=== PATIENT | female | born 1940 | race Caucasian/White ===

== ENCOUNTER 2021-03-11 20:40 | Inpatient (IN) | payer MEDICARE, OTHER ==
[2021-03-11 21:53] LABS: Basophils % (A) 0 %; Eosinophils # (A) 0.1 k/uL (0-0.7); Eosinophils % (A) 1 %; HCT 36.1 % (34.0-46.0); Lymphocytes # (A) 0.6 k/uL (1.0-4.8); Lymphocytes % (A) 7 %; MCH 30.4 pg (25.0-35.0); MCHC 33.3 g/dL (31.0-37.0); MCV 91.1 fL (80.0-100.0); Mean Platelet Volume 7.4; Monocytes # (A) 0.5 k/uL (0-1.0); Monocytes % (A) 6 %; Neutrophils # (A) 7.5 k/uL (1.3-7.7); Neutrophils % (A) 85 %; Platelet Count 240 k/uL (150-450); RBC 3.96 m/uL (3.80-5.40); RDW 13.6 % (11.5-15.5); WBC 8.8 k/uL (3.8-10.6)
[2021-03-11 21:58] LABS: Appearance,Urine Clear (Clear); Bilirubin,Urine Negative (Negative); Blood,Urine Negative (Negative); Color,Urine Light Yellow; Glucose,Urine (UA) Negative (Negative); Ketones,Urine Negative (Negative); Leukocyte Esterase,Urine Negative (Negative); Nitrite,Urine Negative (Negative); Protein,Urine Trace (Negative); Specific Gravity,Urine 1.008 (1.001-1.035); Urobilinogen,Urine <2.0 mg/dL (<2.0)
[2021-03-11 22:05] LABS: ALT 48 U/L (4-34); AST 42 U/L (14-36); African American GFR (CKD) >90 (>60 ml/min/1.73 sqM); Albumin 3.7 g/dL (3.5-5.0); Alkaline Phosphatase 73 U/L (38-126); Anion Gap 6 mmol/L; Blood Urea Nitrogen 22 mg/dL (7-17); Calcium 9.7 mg/dL (8.4-10.2); Carbon Dioxide 38 mmol/L (22-30); Chloride 99 mmol/L (98-107); Creatine Kinase 36 U/L (30-135); Glucose 122 mg/dL (74-99); Magnesium 2.3 mg/dL (1.6-2.3); Non-African American GFR(CKD) 87 (>60 ml/min/1.73 sqM); Phosphorus 3.5 mg/dL (2.5-4.5); Potassium 3.4 mmol/L (3.5-5.1); Sodium 143 mmol/L (137-145); Total Bilirubin 0.2 mg/dL (0.2-1.3)
--- NOTE | 2021-03-11 22:07 | XR ---
EXAMINATION TYPE: XR chest 2V DATE OF EXAM: 03/11/2021 COMPARISON: 07/28/2018 HISTORY: Weakness TECHNIQUE: 2 views FINDINGS: There is elevated left diaphragm. There is scoliotic deformity. There is a thoracolumbar de xtroscoliosis. There is no gross heart failure. There is atelectasis left lung base. Right lung is fa irly clear. There are chest leads. IMPRESSION: There is some atelectasis left lung base which is slightly worse than last exam. No heart failure. Scoliotic deformity.
[2021-03-11 22:08] LABS: Partial Thromboplastin Time 25.3 sec (22.0-30.0)
[2021-03-11] MEDS ORDERED: IPRATROPIUM-ALBUTEROL 3 ML NEB INHALATION STA (23:13)
[2021-03-11] MEDS ORDERED: methylPREDNISolone SOD SUCCI 125 MG/2 ML VIAL IV STA (23:13)
[2021-03-11] MEDS ORDERED: ALBUTEROL NEBULIZED 2.5 MG/3 ML INHALATION STA (23:19)
--- NOTE | 2021-03-11 23:23 | ED ---
SOB HPI - General Chief Complaint: Extremity Problem,Nontraumatic Stated Complaint: Leg swelling Time Seen by Provider: 03/11/21 21:23 Source: family, RN notes reviewed, old records reviewed Mode of arrival: wheelchair Limitations: language barrier, physical limitation - History of Present Illness Initial Comments: This is an 80-year-old female DF for evaluation of shortness of breath. Patient has been having some increased difficulty breathing per staff as well as increased swelling over lower extremities. Patient herself complains of leg pain. Staff is noticed some edema to the legs. Patient is a long complicated medical history, cerebral palsy and developmental delay. She is unable to provide much of the history which comes from the caregiver MD Complaint: shortness of breath -: unknown Severity: moderate Severity scale (1-10): 4 Consistency: constant Improves With: nothing Worsens With: nothing Known History Of: COPD Context: recent URI Associated Symptoms: cough, sputum production Treatments Prior to Arrival: oxygen (Patient is on 4 L of oxygen) - Related Data Allergies Allergy/AdvReac Type Severity Reaction Status Date / Time ipratropium Allergy Unknown Verified 03/11/21 20:51 naproxen [From Aleve] Allergy Unknown Verified 03/11/21 20:51 Penicillins Allergy Unknown Verified 03/11/21 20:51 Sulfa (Sulfonamide Allergy Unknown Verified 03/11/21 20:51 Antibiotics) Review of Systems ROS Statement: Those systems with pertinent positive or pertinent negative responses have been documented in the HPI. ROS Other: All systems not noted in ROS Statement are negative. Past Medical History Past Medical History: Asthma, Coronary Artery Disease (CAD), COPD, GERD/Reflux, Hyperlipidemia, Hypertension, Osteoarthritis (OA), Pneumonia Additional Past Medical History / Comment(s): mild intellectual disability, cerebral palsy, kypho scoliosis, colitis, DJD, hernia Past Surgical History: Cholecystectomy, Orthopedic Surgery Additional Past Surgical History / Comment(s): (L) hip reduction Past Psychological History: Anxiety, Depression Smoking Status: Never smoker Past Alcohol Use History: None Reported Past Drug Use History: None Reported General Exam Limitations: language barrier, altered mental status, physical limitation General appearance: alert, in no apparent distress, anxious, in distress Head exam: Present: atraumatic, normocephalic, normal inspection Eye exam: Present: normal appearance, PERRL, EOMI. Absent: scleral icterus, conjunctival injection, periorbital swelling ENT exam: Present: normal exam, mucous membranes dry Neck exam: Present: normal inspection. Absent: tenderness, meningismus, lymphadenopathy Respiratory exam: Present: respiratory distress, wheezes, accessory muscle use, decreased breath sounds, prolonged expiratory. Absent: rales, rhonchi, stridor Cardiovascular Exam: Present: regular rate, normal rhythm, normal heart sounds. Absent: systolic murmur, diastolic murmur, rubs, gallop, clicks GI/Abdominal exam: Present: soft, normal bowel sounds. Absent: distended, tenderness, guarding, rebound, rigid Extremities exam: Present: normal inspection, full ROM, normal capillary refill. Absent: tenderness, pedal edema, joint swelling, calf tenderness Back exam: Present: normal inspection Neurological exam: Present: alert, oriented X3, CN II-XII intact Psychiatric exam: Present: normal affect, normal mood Skin exam: Present: warm, dry, intact, normal color. Absent: rash Course Vital Signs 03/11/21 20:43 Temperature 97.4 F L Pulse Rate 60 Respiratory 20 Rate Blood Pressure 159/72 O2 Sat by Pulse 99 Oximetry - Reevaluation(s) Reevaluation #1: 03/11/21 23:22 Records reviewed Reevaluation #2: 03/11/21 23:22 Patient still with shortness of breath here in the ER and severely dehydrated Reevaluation #3: 03/11/21 23:22 Patient staff informed of results, questions answered - Consultations Consultation #1: Spoke with Dr. Saldana who agrees to admit the patient Medical Decision Making - Medical Decision Making 80-year-old female DF for evaluation of shortness of breath difficulty breathing leg edema not acting herself dehydrated. Patient be admitted for breathing treatments, IV resuscitation. - Lab Data Result diagrams: 03/11/21 21:29 03/11/21 21:29 Lab Results 03/11/21 03/11/21 03/11/21 Range/Units 21:29 21:29 21:29 WBC 8.8 (3.8-10.6) k/uL RBC 3.96 (3.80-5.40) m/uL Hgb 12.0 (11.4-16.0) gm/dL Hct 36.1 (34.0-46.0) % MCV 91.1 (80.0-100.0) fL MCH 30.4 (25.0-35.0) pg MCHC 33.3 (31.0-37.0) g/dL RDW 13.6 (11.5-15.5) % Plt Count 240 (150-450) k/uL MPV 7.4 Neutrophils % 85 % Lymphocytes % 7 % Monocytes % 6 % Eosinophils % 1 % Basophils % 0 % Neutrophils # 7.5 (1.3-7.7) k/uL Lymphocytes # 0.6 L (1.0-4.8) k/uL Monocytes # 0.5 (0-1.0) k/uL Eosinophils # 0.1 (0-0.7) k/uL Basophils # 0.0 (0-0.2) k/uL PT 11.0 (9.0-12.0) sec INR 1.0 (<1.2) APTT 25.3 (22.0-30.0) sec Sodium (137-145) mmol/L Potassium (3.5-5.1) mmol/L Chloride (98-107) mmol/L Carbon Dioxide (22-30) mmol/L Anion Gap mmol/L BUN (7-17) mg/dL Creatinine (0.52-1.04) mg/dL Est GFR (CKD-EPI)AfAm (>60 ml/min/1.73 sqM) Est GFR (CKD-EPI)NonAf (>60 ml/min/1.73 sqM) Glucose (74-99) mg/dL Plasma Lactic Acid [place] (0.7-2.0) mmol/L Calcium (8.4-10.2) mg/dL Phosphorus (2.5-4.5) mg/dL Magnesium (1.6-2.3) mg/dL Total Bilirubin (0.2-1.3) mg/dL AST (14-36) U/L ALT (4-34) U/L Alkaline Phosphatase (38-126) U/L Creatine Kinase (30-135) U/L Troponin I (0.000-0.034) ng/mL Total Protein (6.3-8.2) g/dL Albumin (3.5-5.0) g/dL Urine Color Light Yellow Urine Appearance Clear (Clear) Urine pH 6.0 (5.0-8.0) Ur Specific [place] 1.008 (1.001-1.035) Urine Protein Trace H (Negative) Urine Glucose (UA) Negative (Negative) Urine Ketones Negative (Negative) Urine Blood Negative (Negative) Urine Nitrite Negative (Negative) Urine Bilirubin Negative (Negative) Urine Urobilinogen <2.0 (<2.0) mg/dL Ur Leukocyte Esterase Negative (Negative) 03/11/21 03/11/21 03/11/21 Range/Units 21:29 21:29 21:29 WBC (3.8-10.6) k/uL RBC (3.80-5.40) m/uL Hgb (11.4-16.0) gm/dL Hct (34.0-46.0) % MCV (80.0-100.0) fL MCH (25.0-35.0) pg MCHC (31.0-37.0) g/dL RDW (11.5-15.5) % Plt Count (150-450) k/uL MPV Neutrophils % % Lymphocytes % % Monocytes % % Eosinophils % % Basophils % % Neutrophils # (1.3-7.7) k/uL Lymphocytes # (1.0-4.8) k/uL Monocytes # (0-1.0) k/uL Eosinophils # (0-0.7) k/uL Basophils # (0-0.2) k/uL PT (9.0-12.0) sec INR (<1.2) APTT (22.0-30.0) sec Sodium 143 (137-145) mmol/L Potassium 3.4 L (3.5-5.1) mmol/L Chloride 99 (98-107) mmol/L Carbon Dioxide 38 H (22-30) mmol/L Anion Gap 6 mmol/L BUN 22 H (7-17) mg/dL Creatinine 0.58 (0.52-1.04) mg/dL Est GFR (CKD-EPI)AfAm >90 (>60 ml/min/1.73 sqM) Est GFR (CKD-EPI)NonAf 87 (>60 ml/min/1.73 sqM) Glucose 122 H (74-99) mg/dL Plasma Lactic Acid [place] 1.3 (0.7-2.0) mmol/L Calcium 9.7 (8.4-10.2) mg/dL Phosphorus 3.5 (2.5-4.5) mg/dL Magnesium 2.3 (1.6-2.3) mg/dL Total Bilirubin 0.2 (0.2-1.3) mg/dL AST 42 H (14-36) U/L ALT 48 H (4-34) U/L Alkaline Phosphatase 73 (38-126) U/L Creatine Kinase 36 (30-135) U/L Troponin I <0.012 (0.000-0.034) ng/mL Total Protein 6.0 L (6.3-8.2) g/dL Albumin 3.7 (3.5-5.0) g/dL Urine Color Urine Appearance (Clear) Urine pH (5.0-8.0) Ur Specific [place] (1.001-1.035) Urine Protein (Negative) Urine Glucose (UA) (Negative) Urine Ketones (Negative) Urine Blood (Negative) Urine Nitrite (Negative) Urine Bilirubin (Negative) Urine Urobilinogen (<2.0) mg/dL Ur Leukocyte Esterase (Negative) - Radiology Data Radiology results: report reviewed (Chest x-rays negative for acute disease), image reviewed Disposition Clinical Impression: Acute exacerbation of COPD with asthma, Leg edema, Dehydration Disposition: ADMITTED IP TO THIS HOSP Condition: Fair Is patient prescribed a controlled substance at d/c from ED?: No Referrals: Zachariah Lewis MD [Primary Care Provider] - 1-2 days
[2021-03-11] MEDS: SODIUM CHLORIDE 0.9% 1,000 ML IV SCH (23:47)
[2021-03-12] MEDS: methylPREDNISolone SOD SUCCI 125 MG/2 ML VIAL IV SCH ×3 (05:33→15:49)
[2021-03-12] MEDS: ENOXAPARIN 40 MG/0.4 ML SYRINGE SQ SCH (07:38)
[2021-03-12] MEDS: ALBUTEROL NEBULIZED 2.5 MG/3 ML INHALATION SCH ×2 (07:38→11:36)
[2021-03-12] MEDS ORDERED: traMADol-ACETAMINOP 37.5-325MG 1 EACH TAB PO PRN (12:54)
--- NOTE | 2021-03-12 13:10 | P.HPIM ---
History of Present Illness H&P Date: 03/12/21 Chief Complaint: Shortness of breath History of presenting complaint: This is a 80-year-old patient, who follows with visiting physicians Dr. Lewis. Chronic history includes coronary artery disease, COPD, GERD, hyperlipidemia, hypertension, osteoarthritis, cerebral palsy kyphoscoliosis, non-ambulatory. At her baseline she is not able to speak follows simple commands. We occasionally see her border 2. She needs help with feeding.. Patient brought into the ER for increasing shortness of breath a few days of increasing lower extremity edema. No fever and chills are reported. Patient not really able to give much of a history. Review of systems: Patient unable to tell Past medical history to include: Asthma, ?CAD, CHF, GERD, hyperlipidemia, hypertension, osteomyelitis, cerebral palsy with intellectual disability, kyphoscoliosis, anxiety Social history: Nonambulatory. Needs help with feeding. Has caregivers Family history: Patient cannot tell Physical examination: VITAL SIGNS: 98.3, 62, 16, 160/76, 100% on 4 L GENERAL: BMI 21.4, laying in bed, slightly short of breath. EYES: Pupils equal. Conjunctiva normal. HEENT: External appearance of nose and ears normal, oral cavity grossly normal. NECK: JVD unable to assess; masses not palpable. HEART: First and second heart sounds are normal; some edema. LUNGS: Respiratory rate increased, some basal crackles. ABDOMEN: Soft, nontender, liver spleen not palpable, no masses palpable. PSYCH: Not able to assessl. NEUROLOGICAL: [Cranial nerves grossly intact; no facial asymmetry, bilateral foot drop. Speaks occasionally words LYMPHATICS: No lymph nodes palpable in the axilla and neck INVESTIGATIONS, reviewed in the clinical context: WBC 8.8 hemoglobin 12 platelets 240 potassium 3.4 creatinine 0.58 ProBNP 1540 UA: Protein trace EKG tracing personally reviewed by me-normal sinus rhythm Chest x-ray film personally reviewed by me-possible pulmonary edema with fluid in the fissure Assessment and plan: -Acute on chronic congestive heart failure exacerbation. EF not known. Start IV Lasix. Follow BNP and BMP. -Chronic dysphagia, chronically on pureedDiet All feeding with assistance -Cerebral palsy with intellectual disability Patient may speak occasionally words, follows simple commands -Chronic medical debility from cerebral palsy Nonambulatory -Chronic bilateral foot drop -Primary osteoarthritis Use. Medications as needed -Coronary artery disease Continue Coreg, Lipitor -Essential hypertension On Norvasc and Coreg -Asthma On DuoNeb Patient started and IV Lasix. Follow BMP and BNP. Home medications resumed. Feeding with assistance. Past Medical History Past Medical History: Asthma, Coronary Artery Disease (CAD), Heart Failure, COPD, GERD/Reflux, Hyperlipidemia, Hypertension, Osteoarthritis (OA), Pneumonia Additional Past Medical History / Comment(s): mild intellectual disability, cerebral palsy, kypho scoliosis, colitis, DJD, hernia History of Any Multi-Drug Resistant Organisms: None Reported Past Surgical History: Cholecystectomy, Orthopedic Surgery Additional Past Surgical History / Comment(s): (L) hip reduction Past Anesthesia/Blood Transfusion Reactions: No Reported Reaction Past Psychological History: Anxiety, Depression Smoking Status: Never smoker Past Alcohol Use History: None Reported Past Drug Use History: None Reported - Past Family History Father History Unknown: Yes Mother History Unknown: Yes Medications and Allergies Home Medications Medication Instructions Recorded Confirmed Type ALPRAZolam [Xanax] 0.25 mg PO BID PRN 03/12/21 03/12/21 History Acetaminophen Tab [Tylenol] 650 mg PO Q8H PRN 03/12/21 03/12/21 History Albuterol Sulfate [Ventolin HFA] 2 puff INHALATION RT-Q4H PRN 03/12/21 03/12/21 History Alendronate Sodium [Fosamax] 35 mg PO Q7D 03/12/21 03/12/21 History Antacid Susp 1 dose PO DIRECTED PRN 03/12/21 03/12/21 History Atorvastatin [Lipitor] 40 mg PO HS@199903/12/21 03/12/21 History Bismuth Subsalicylate [Kaopectate] 1 dose PO DIRECTED PRN 03/12/21 03/12/21 History Budesonide [Pulmicort] 0.5 mg INHALATION RT-BID@1300,1700 03/12/21 03/12/21 History Calcium Polycarbophil [Fiber-Lax] 625 mg PO DAILY@79903/12/21 03/12/21 History Carvedilol [Coreg] 12.5 mg PO BID@1000,199903/12/21 03/12/21 History Cholecalciferol (Vitamin D3) 125 mcg PO DAILY@79903/12/21 03/12/21 History [Vitamin D3 (5000 Iu)] Clopidogrel [Plavix] 75 mg PO DAILY@79903/12/21 03/12/21 History Colloidal Oatmeal [Eucerin Eczema 1 applic TOPICAL HS@199903/12/21 03/12/21 History Relief] DULoxetine HCL [Cymbalta] 30 mg PO DAILY@79903/12/21 03/12/21 History Diclofenac Sodium Gel [Voltaren 2 gm TOPICAL QID PRN 03/12/21 03/12/21 History Gel] Escitalopram [Lexapro] 5 mg PO DAILY@79903/12/21 03/12/21 History Fexofenadine HCl 180 mg PO DAILY@79903/12/21 03/12/21 History Furosemide [Lasix] 10 mg PO DAILY@99903/12/21 03/12/21 History Ipratropium [place] [Ipratropium 2 sprays EA NOSTRIL TID PRN 03/12/21 03/12/21 History [place] 0.03%] Isosorbide Mononitrate ER [Imdur] 60 mg PO DAILY@79903/12/21 03/12/21 History Lactulose [Constulose] 20 gm PO HS@199903/12/21 03/12/21 History Levalbuterol HCl [Xopenex 0.63 mg INHALATION RT-TID 03/12/21 03/12/21 History Nebulized] Magnesium Hydroxide [Milk of 2,400 mg PO DAILY PRN 03/12/21 03/12/21 History Magnesia] Sucralfate [Carafate] 1 gm PO TID@0800,1399,199903/12/21 03/12/21 History Zinc 50 mg PO DAILY@79903/12/21 03/12/21 History amLODIPine [Norvasc] 5 mg PO HS@199903/12/21 03/12/21 History diphenhydrAMINE [Benadryl] 25 mg PO Q6H PRN 03/12/21 03/12/21 History lamoTRIgine [LaMICtal] 50 mg PO BID@0800,199903/12/21 03/12/21 History predniSONE See Taper PO DAILY 03/12/21 03/12/21 History traMADol-ACETAMINOP 37.5-325MG 1 tab PO Q6HR PRN 03/12/21 03/12/21 History [Ultracet] witch Jimi [Tucks Medicated Pads] 1 pad RECTAL 5XD PRN 03/12/21 03/12/21 History Allergies Allergy/AdvReac Type Severity Reaction Status Date / Time ipratropium Allergy Unknown Verified 03/12/21 10:57 naproxen [From Aleve] Allergy Unknown Verified 03/12/21 10:57 Penicillins Allergy Unknown Verified 03/12/21 10:57 rofecoxib [From Vioxx] Allergy Unknown Verified 03/12/21 10:57 Sulfa (Sulfonamide Allergy Unknown Verified 03/12/21 10:57 Antibiotics) Physical Exam Vitals: Vital Signs Temp Pulse Pulse Resp BP BP Pulse Ox 03/12/21 07:58 62 03/12/21 07:44 60 03/12/21 07:00 98.4 F 58 L 18 150/74 99 03/12/21 02:00 16 03/12/21 00:11 98.3 F 62 16 160/76 100 03/11/21 23:51 61 03/11/21 23:39 56 L 18 142/74 100 03/11/21 23:34 56 L 03/11/21 22:30 57 L 18 130/88 100 03/11/21 20:43 97.4 F L 60 20 159/72 99 Intake and Output 03/11/21 03/12/21 03/12/21 22:59 06:59 14:59 Other: # Voids 2 Weight 44.906 kg 44.906 kg Results CBC & Chem 7: 03/11/21 21:29 03/11/21 21:29 Labs: Abnormal Lab Results - Last 24 Hours (Table) 03/11/21 03/11/21 03/11/21 Range/Units 21:29 21:29 21:29 Lymphocytes # 0.6 L (1.0-4.8) k/uL Potassium 3.4 L (3.5-5.1) mmol/L Carbon Dioxide 38 H (22-30) mmol/L BUN 22 H (7-17) mg/dL Glucose 122 H (74-99) mg/dL AST 42 H (14-36) U/L ALT 48 H (4-34) U/L Total Protein 6.0 L (6.3-8.2) g/dL Urine Protein Trace H (Negative) Thrombosis Risk Factor Assmnt - Choose All That Apply Any of the Below Risk Factors Present?: Yes Each Factor Represents 1 point: Abnormal pulmonary function (COPD), Medical pt on bed rest Other Risk Factors: Yes Each Risk Factor Represents 3 Points: Age 75 years or older Thrombosis Risk Factor Assessment Total Risk Factor Score: 5 Thrombosis Risk Factor Assessment Level: High Risk
[2021-03-12] MEDS: carvediloL 12.5 MG TAB PO SCH ×2 (15:22→21:06)
[2021-03-12] MEDS: lamoTRIgine 25 MG TAB PO SCH ×2 (15:23→21:03)
[2021-03-12] MEDS: FUROSEMIDE 10 MG/ML 4 ML VIAL IV SCH (15:23)
[2021-03-12] MEDS: SODIUM CHLORIDE 0.9% 1,000 ML IV SCH (15:24)
[2021-03-12] MEDS: BUDESONIDE 0.5 MG/2 ML NEBU INHALATION SCH ×2 (16:03→20:32)
[2021-03-12] MEDS: IPRATROPIUM-ALBUTEROL 3 ML NEB INHALATION SCH ×2 (16:04→20:32)
[2021-03-12] MEDS: ATORVASTATIN 40 MG TAB PO SCH (21:03)
[2021-03-12] MEDS: amLODIPine 5 MG TAB PO SCH (21:03)
[2021-03-12] MEDS: LACTULOSE 20 GM/30 ML CUP PO SCH (21:04)
[2021-03-12] MEDS: MINERAL OIL-WHITE PETROLATUM 120 GM JAR TOPICAL SCH (21:04)
[2021-03-12] MEDS: ALPRAZolam 0.25 MG TAB PO PRN (21:17)
[2021-03-13] MEDS: FUROSEMIDE 10 MG/ML 4 ML VIAL IV SCH ×4 (00:30→23:05)
[2021-03-13 05:59] LABS: African American GFR (CKD) >90 (>60 ml/min/1.73 sqM); Anion Gap 6 mmol/L; Blood Urea Nitrogen 25 mg/dL (7-17); Calcium 9.5 mg/dL (8.4-10.2); Chloride 96 mmol/L (98-107); Glucose 89 mg/dL (74-99); Non-African American GFR(CKD) 82 (>60 ml/min/1.73 sqM); Potassium 3.2 mmol/L (3.5-5.1); Sodium 142 mmol/L (137-145)
[2021-03-13 06:18] LABS: Carbon Dioxide 40 mmol/L (22-30)
[2021-03-13] MEDS: IPRATROPIUM-ALBUTEROL 3 ML NEB INHALATION SCH ×4 (07:54→20:04)
[2021-03-13] MEDS: BUDESONIDE 0.5 MG/2 ML NEBU INHALATION SCH ×2 (07:54→20:03)
[2021-03-13] MEDS: ISOSORBIDE MONONITRATE ER 60 MG TAB.ER.24H PO SCH (08:27)
[2021-03-13] MEDS: ESCITALOPRAM 5 MG TAB PO SCH (08:27)
[2021-03-13] MEDS: lamoTRIgine 25 MG TAB PO SCH ×2 (08:27→20:32)
[2021-03-13] MEDS: ENOXAPARIN 40 MG/0.4 ML SYRINGE SQ SCH (08:28)
[2021-03-13] MEDS: CLOPIDOGREL 75 MG TAB PO SCH (08:28)
[2021-03-13] MEDS: ACETAMINOPHEN TAB 325 MG TAB PO PRN ×2 (08:42→17:13)
[2021-03-13] MEDS: carvediloL 12.5 MG TAB PO SCH ×2 (10:46→20:32)
[2021-03-13] MEDS ORDERED: POTASSIUM CHLORIDE ER 20 MEQ TAB.ER PO SCH (20:00)
[2021-03-13] MEDS: ATORVASTATIN 40 MG TAB PO SCH (20:32)
[2021-03-13] MEDS: amLODIPine 5 MG TAB PO SCH (20:33)
[2021-03-13] MEDS: LACTULOSE 20 GM/30 ML CUP PO SCH (20:33)
[2021-03-13] MEDS: MINERAL OIL-WHITE PETROLATUM 120 GM JAR TOPICAL SCH (20:34)
[2021-03-13] MEDS ORDERED: POTASSIUM CHLORIDE ER 20 MEQ TAB.ER PO STA (20:36)
[2021-03-13] MEDS: ALPRAZolam 0.25 MG TAB PO PRN (20:39)
--- NOTE | 2021-03-13 23:25 | P.PN ---
Progress Note - Text Progress Note Date: 03/13/21 Chief Complaint: Shortness of breath History of presenting complaint: This is a 80-year-old patient, who follows with visiting physicians Dr. Lewis. Chronic history includes coronary artery disease, COPD, GERD, hyperlipidemia, hypertension, osteoarthritis, cerebral palsy kyphoscoliosis, non-ambulatory. At her baseline she is not able to speak follows simple commands. We occasionally see her border 2. She needs help with feeding.. Patient brought into the ER fo r increasing shortness of breath a few days of increasing lower extremity edema. No fever and chills are reported. Patient not really able to give much of a history. Admitted with CHF exacerbation. Started on IV Lasix. March 13: Patient does answer some questions. Breathing a bit better. On IV Lasix. Eating with assistance. Laying in bed. Review of systems: Difficult to obtain Active Medications Acetaminophen (Acetaminophen Tab 325 Mg Tab) 650 mg PO Q8H PRN PRN Reason: Pain or Fever > 100.5 Last Admin: 03/13/21 17:13 Dose: 650 mg Documented by: Albuterol/Ipratropium (Ipratropium-Albuterol 3 Ml Neb) 3 ml INHALATION RT-QID [facility] Last Admin: 03/13/21 20:04 Dose: 3 ml Documented by: Alprazolam (Alprazolam 0.25 Mg Tab) 0.25 mg PO BID PRN PRN Reason: Anxiety Last Admin: 03/13/21 20:39 Dose: 0.25 mg Documented by: Amlodipine Besylate (Amlodipine 5 Mg Tab) 5 mg PO HS@1999 [facility] Last Admin: 03/13/21 20:33 Dose: 5 mg Documented by: Atorvastatin Calcium (Atorvastatin 40 Mg Tab) 40 mg PO HS@1999 [facility] Last Admin: 03/13/21 20:32 Dose: 40 mg Documented by: Budesonide (Budesonide 0.5 Mg/2 Ml Nebu) 0.5 mg INHALATION RT-BID@1300,1700 [facility] Last Admin: 03/13/21 20:03 Dose: 0.5 mg Documented by: Calcium Polycarbophil (Calcium Polycarbophil 625 Mg Tab) 625 mg PO DAILY@0800 [facility] Last Admin: 03/13/21 08:27 Dose: 625 mg Documented by: Carvedilol (Carvedilol 12.5 Mg Tab) 12.5 mg PO BID@1000,2000 [facility] Last Admin: 03/13/21 20:32 Dose: 12.5 mg Documented by: Clopidogrel Bisulfate (Clopidogrel 75 Mg Tab) 75 mg PO DAILY@799 [facility] Last Admin: 03/13/21 08:28 Dose: 75 mg Documented by: Enoxaparin Sodium (Enoxaparin 40 Mg/0.4 Ml Syringe) 40 mg SQ DAILY [facility] Last Admin: 03/13/21 08:28 Dose: Not Given Documented by: Escitalopram Oxalate (Escitalopram 5 Mg Tab) 5 mg PO DAILY@799 [facility] Last Admin: 03/13/21 08:27 Dose: 5 mg Documented by: Furosemide (Furosemide 10 Mg/Ml 4 Ml Vial) 40 mg IV Q8HR [facility] Last Admin: 03/13/21 23:05 Dose: 40 mg Documented by: Isosorbide Mononitrate (Isosorbide Mononitrate Er 60 Mg Tab.Er.24h) 60 mg PO DAILY@799 [facility] Last Admin: 03/13/21 08:27 Dose: 60 mg Documented by: Lactulose (Lactulose 20 Gm/30 Ml Cup) 20 gm PO HS@1999 [facility] Last Admin: 03/13/21 20:33 Dose: 20 gm Documented by: Lamotrigine (Lamotrigine 25 Mg Tab) 50 mg PO BID@ [facility] Last Admin: 03/13/21 20:32 Dose: 50 mg Documented by: Multi-Ingred Cream/Lotion/Oil/Oint (Mineral Oil-White Petrolatum 120 Gm Jar) 1 applic TOPICAL HS@1999 [facility] Last Admin: 03/13/21 20:34 Dose: 1 applic Documented by: Tramadol/Acetaminophen (Tramadol-Acetaminop 37.5-325mg 1 Each Tab) 1 each PO Q6HR PRN PRN Reason: Severe Pain Past medical history to include: Asthma, ?CAD, CHF, GERD, hyperlipidemia, hypertension, osteomyelitis, cerebral palsy with intellectual disability, kyphoscoliosis, anxiety Social history: Nonambulatory. Needs help with feeding. Has caregivers Family history: Patient cannot tell Physical examination: VITAL SIGNS: 98.3, 69, 16, 10 5 x 50, 98% on 4 L GENERAL: BMI 21.4, laying in bed, less short of breath EYES: Pupils equal. Conjunctiva normal. HEENT: External appearance of nose and ears normal, oral cavity grossly normal. NECK: JVD unable to assess; masses not palpable. HEART: First and second heart sounds are normal; some edema. LUNGS: Respiratory rate increased, decreased breath sounds ABDOMEN: Soft, nontender, liver spleen not palpable, no masses palpable. PSYCH: Able to answer occasional question NEUROLOGICAL: [Cranial nerves grossly intact; no facial asymmetry, bilateral foot drop. Speaks occasionally words INVESTIGATIONS, reviewed in the clinical context: March 13: Potassium 3.2 creatinine 0.69 WBC 8.8 hemoglobin 12 platelets 240 potassium 3.4 creatinine 0.58 ProBNP 1540 UA: Protein trace EKG tracing personally reviewed by me-normal sinus rhythm Chest x-ray film personally reviewed by me-possible pulmonary edema with fluid in the fissure Assessment and plan: -Acute on chronic congestive heart failure exacerbation. EF not known.: Slow to respond Continue IV Lasix -Chronic dysphagia, chronically on pureedDiet All feeding with assistance -Cerebral palsy with intellectual disability Patient may speak occasionally words, follows simple commands -Chronic medical debility from cerebral palsy Nonambulatory -Chronic bilateral foot drop -Primary osteoarthritis Use. Medications as needed -Coronary artery disease Continue Coreg, Lipitor -Essential hypertension On Norvasc and Coreg -Asthma On DuoNeb Continue IV Lasix. Other medications. Repeat checks x-ray and labs in the morning.
[2021-03-14 01:49] VITALS: RESP 16
[2021-03-14 05:39] LABS: African American GFR (CKD) 83 (>60 ml/min/1.73 sqM); Blood Urea Nitrogen 30 mg/dL (7-17); Calcium 9.3 mg/dL (8.4-10.2); Chloride 90 mmol/L (98-107); Glucose 90 mg/dL (74-99); Non-African American GFR(CKD) 72 (>60 ml/min/1.73 sqM); Potassium 3.6 mmol/L (3.5-5.1); Sodium 142 mmol/L (137-145)
[2021-03-14 05:45] LABS: Anion Gap 2 mmol/L
[2021-03-14 05:54] LABS: Carbon Dioxide 50 mmol/L (22-30)
[2021-03-14 07:30] VITALS: BP 107/55; TEMP 97.9
[2021-03-14] MEDS: IPRATROPIUM-ALBUTEROL 3 ML NEB INHALATION SCH ×2 (07:50→11:18)
[2021-03-14] MEDS: BUDESONIDE 0.5 MG/2 ML NEBU INHALATION SCH (07:51)
[2021-03-14] MEDS: CLOPIDOGREL 75 MG TAB PO SCH (08:01)
[2021-03-14] MEDS: ENOXAPARIN 40 MG/0.4 ML SYRINGE SQ SCH ×2 (08:01→08:11)
[2021-03-14] MEDS: lamoTRIgine 25 MG TAB PO SCH (08:02)
[2021-03-14] MEDS: ISOSORBIDE MONONITRATE ER 60 MG TAB.ER.24H PO SCH (08:02)
[2021-03-14] MEDS: ESCITALOPRAM 5 MG TAB PO SCH (08:02)
--- NOTE | 2021-03-14 08:21 | XR ---
EXAMINATION TYPE: XR chest 2V DATE OF EXAM: 03/14/2021 CLINICAL HISTORY: CHF follow-up. TECHNIQUE: Frontal and lateral view of the chest. COMPARISON: 03/11/2021 FINDINGS: Redemonstrated marked scoliotic deformity and elevation of the left hemidiaphragm. No pulm onary vascular congestion, focal airspace opacity, pleural effusion, or pneumothorax. Degenerative ch anges of the bilateral shoulders. Incompletely visualized left hip arthroplasty. IMPRESSION: No acute cardiopulmonary process.
[2021-03-14 13:03] VITALS: PULSE 70
[2021-03-14] MEDS: carvediloL 12.5 MG TAB PO SCH (13:16)
--- NOTE | 2021-03-14 18:55 | P.DS ---
Providers Date of admission: 03/13/21 10:55 Expected date of discharge: 03/14/21 Attending physician: Merrill Saldana Primary care physician: Zachariah Lewis [facility] Course: Chief Complaint: Shortness of breath History of presenting complaint: This is a 80-year-old patient, who follows with visiting physicians Dr. Lewis. Chronic history includes coronary artery disease, COPD, GERD, hyperlipidemia, hypertension, osteoarthritis, cerebral palsy kyphoscoliosis, non-ambulatory. At her baseline she is not able to speak follows simple commands. We occasionally see her border 2. She needs help with feeding.. Patient brought into the ER for increasing shortness of breath a few days of increasing lower extremity edema. No fever and chills are reported. Patient not really able to give much of a history. Admitted with CHF exacerbation. Started on IV Lasix. March 13: Patient does answer some questions. Breathing a bit better. On IV Lasix. Eating with assistance. Laying in bed. March 14: Breathing better. Eating with assistance. Changed over to by mouth Lasix. Answer simple questions. Home oxygen arranged Past medical history to include: Asthma, ?CAD, CHF, GERD, hyperlipidemia, hypertension, osteomyelitis, cerebral palsy with intellectual disability, kyphoscoliosis, anxiety Social history: Nonambulatory. Needs help with feeding. Has caregivers Family history: Patient cannot tell Physical examination: VITAL SIGNS: 97.9, 56, 16, 10 7 x 55, 87% on room air GENERAL: BMI 21.4, laying in bed, comfortable EYES: Pupils equal. Conjunctiva normal. HEENT: External appearance of nose and ears normal, oral cavity grossly normal. NECK: JVD unable to assess; masses not palpable. HEART: First and second heart sounds are normal; some edema. LUNGS: Respiratory rate normal, decreased breath sounds ABDOMEN: Soft, nontender, liver spleen not palpable, no masses palpable. PSYCH: Able to answer simple questions NEUROLOGICAL: [Cranial nerves grossly intact; no facial asymmetry, bilateral fo ot drop. Speaks occasionally words INVESTIGATIONS, reviewed in the clinical context: March 14: Potassium 3.6 creatinine 0.78 March 13: Potassium 3.2 creatinine 0.69 WBC 8.8 hemoglobin 12 platelets 240 potassium 3.4 creatinine 0.58 ProBNP 1540 UA: Protein trace EKG tracing personally reviewed by me-normal sinus rhythm Chest x-ray film personally reviewed by me-possible pulmonary edema with fluid i n the fissure Assessment and plan: -Acute on chronic congestive heart failure exacerbation. [ 2-D echocardiogram results pending]. EF not known. Improved IV Lasix. Changed to by mouth Lasix -Acute hypoxic respiratory failure from CHF Discharge on 2 L of oxygen. -Chronic dysphagia, chronically on pureedDiet All feeding with assistance -Cerebral palsy with intellectual disability Patient may speak occasionally words, follows simple commands -Chronic medical debility from cerebral palsy Nonambulatory -Chronic bilateral foot drop -Primary osteoarthritis Use. Medications as needed -Coronary artery disease Continue Coreg, Lipitor -Essential hypertension On Norvasc and Coreg -Asthma On DuoNeb -Chronic dysarthria Disposition: [facility] home Patient Condition at Discharge: Fair Plan - Discharge Summary Discharge Rx Participant: No New Discharge Prescriptions: New Furosemide [Lasix] 40 mg PO DAILY #30 tablet Continue witch Jimi [Tucks Medicated Pads] 1 pad RECTAL 5XD PRN PRN Reason: PERIANAL ITCHING Magnesium Hydroxide [Milk of Magnesia] 2,400 mg PO DAILY PRN PRN Reason: Constipation Ipratropium [place] [Ipratropium [place] 0.03%] 2 sprays EA NOSTRIL TID PRN PRN Reason: Congestion Bismuth Subsalicylate [Kaopectate] 1 dose PO DIRECTED PRN PRN Reason: Heartburn Cholecalciferol (Vitamin D3) [Vitamin D3 (5000 Iu)] 125 mcg PO DAILY@0800 Levalbuterol HCl [Xopenex Nebulized] 0.63 mg INHALATION RT-TID Lactulose [Constulose] 20 gm PO HS@2000 Clopidogrel [Plavix] 75 mg PO DAILY@0800 Budesonide [Pulmicort] 0.5 mg INHALATION RT-BID@1300,1700 Albuterol Sulfate [Ventolin HFA] 2 puff INHALATION RT-Q4H PRN PRN Reason: Shortness Of Breath traMADol-ACETAMINOP 37.5-325MG [Ultracet] 1 tab PO Q6HR PRN PRN Reason: Severe Pain Acetaminophen Tab [Tylenol] 650 mg PO Q8H PRN PRN Reason: Pain Or Fever > 100.5 Diclofenac Sodium Gel [Voltaren Gel] 2 gm TOPICAL QID PRN PRN Reason: Pain ALPRAZolam [Xanax] 0.25 mg PO BID PRN PRN Reason: Anxiety lamoTRIgine [LaMICtal] 50 mg PO BID@0800,1999 Isosorbide Mononitrate ER [Imdur] 60 mg PO DAILY@0800 Calcium Polycarbophil [Fiber-Lax] 625 mg PO DAILY@0800 Colloidal Oatmeal [Eucerin Eczema Relief] 1 applic TOPICAL HS@1999 Escitalopram [Lexapro] 5 mg PO DAILY@0800 amLODIPine [Norvasc] 5 mg PO HS@1999 Carvedilol [Coreg] 12.5 mg PO BID@999,1999 Atorvastatin [Lipitor] 40 mg PO HS@1999 Alendronate Sodium [Fosamax] 35 mg PO Q7D Antacid Susp 1 dose PO DIRECTED PRN PRN Reason: Heartburn Discontinued diphenhydrAMINE [Benadryl] 25 mg PO Q6H PRN PRN Reason: Allergic Reaction Sucralfate [Carafate] 1 gm PO TID@0800,1400,1999 predniSONE See Taper PO DAILY DULoxetine HCL [Cymbalta] 30 mg PO DAILY@0800 Zinc 50 mg PO DAILY@0800 Furosemide [Lasix] 10 mg PO DAILY@1000 Fexofenadine HCl 180 mg PO DAILY@0800 Discharge Medication List ALPRAZolam [Xanax] 0.25 mg PO BID PRN 03/12/21 [History] Acetaminophen Tab [Tylenol] 650 mg PO Q8H PRN 03/12/21 [History] Albuterol Sulfate [Ventolin HFA] 2 puff INHALATION RT-Q4H PRN 03/12/21 [History] Alendronate Sodium [Fosamax] 35 mg PO Q7D 03/12/21 [History] Antacid Susp 1 dose PO DIRECTED PRN 03/12/21 [History] Atorvastatin [Lipitor] 40 mg PO HS@199903/12/21 [History] Bismuth Subsalicylate [Kaopectate] 1 dose PO DIRECTED PRN 03/12/21 [History] Budesonide [Pulmicort] 0.5 mg INHALATION RT-BID@1300,1700 03/12/21 [History] Calcium Polycarbophil [Fiber-Lax] 625 mg PO DAILY@0800 03/12/21 [History] Carvedilol [Coreg] 12.5 mg PO BID@999,199903/12/21 [History] Cholecalciferol (Vitamin D3) [Vitamin D3 (5000 Iu)] 125 mcg PO DAILY@79903/12/21 [History] Clopidogrel [Plavix] 75 mg PO DAILY@79903/12/21 [History] Colloidal Oatmeal [Eucerin Eczema Relief] 1 applic TOPICAL HS@199903/12/21 [History] Diclofenac Sodium Gel [Voltaren Gel] 2 gm TOPICAL QID PRN 03/12/21 [History] Escitalopram [Lexapro] 5 mg PO DAILY@79903/12/21 [History] Ipratropium Greenbelt [Ipratropium [place] 0.03%] 2 sprays EA NOSTRIL TID PRN 03/12/21 [History] Isosorbide Mononitrate ER [Imdur] 60 mg PO DAILY@79903/12/21 [History] Lactulose [Constulose] 20 gm PO HS@199903/12/21 [History] Levalbuterol HCl [Xopenex Nebulized] 0.63 mg INHALATION RT-TID 03/12/21 [History] Magnesium Hydroxide [Milk of Magnesia] 2,400 mg PO DAILY PRN 03/12/21 [History] amLODIPine [Norvasc] 5 mg PO HS@199903/12/21 [History] lamoTRIgine [LaMICtal] 50 mg PO BID@799,199903/12/21 [History] traMADol-ACETAMINOP 37.5-325MG [Ultracet] 1 tab PO Q6HR PRN 03/12/21 [History] witch Jimi [Tucks Medicated Pads] 1 pad RECTAL 5XD PRN 03/12/21 [History] Furosemide [Lasix] 40 mg PO DAILY #30 tablet 03/14/21 [Rx] Follow up Appointment(s)/Referral(s): Zachariah Lewis MD [Primary Care Provider] - 1-2 days (Facility to make appointment) Patient Instructions/Handouts: COPD (Chronic Obstructive Pulmonary Disease) (DC), Edema (DC) Activity/Diet/Wound Care/Special Instructions: Nebulizer ordered through [employer] and they will deliver machine and kits to the home address. Portable Oxygen Machine is in review. If any questions regarding this please call [facility] at [phone]. Any further concerns or questions with discharge planning please call Adelina Huertas RN Case Manager at [phone]. Discharge Disposition: HOME SELF-CARE
--- NOTE | 2021-03-19 13:33 | ECHOF ---
Referral Reason:Assess LV function MEASUREMENTS -------- HEIGHT: 149.9 cm WEIGHT: 44.9 kg BP: 144/69 IVSd: 1.4 cm (0.6 - 1.1) LVIDd: 3.4 cm (3.9 - 5.3) LVPWd: 1.5 cm (0.6 - 1.1) IVSs: 1.3 cm LVIDs: 1.6 cm LVPWs: 1.3 cm Ao Diam: 3.2 cm (2.0 - 3.7) AV Cusp: 1.8 cm (1.5 - 2.6) LA Diam: 3.9 cm (2.7 - 3.8) MV EXCURSION: 16.659 mm (> 18.000) MV EF SLOPE: 91 mm/s (70 - 150) EPSS: 0.6 cm MV E Henry: 0.51 m/s MV DecT: 306 ms MV A Henry: 0.44 m/s MV E/A Ratio: 1.16 RAP: 5.00 mmHg RVSP: 10.41 mmHg FINDINGS -------- This was a technically difficult study with suboptimal views. This was a technically difficult stud y with suboptimal apical views. The left ventricular size is normal. There is moderate concentric left ventricular hypertrophy. O verall left ventricular systolic function is normal with, an EF between 55 - 60 %. The RV was not well visualized. The left atrium was not well visualized. The right atrium was not well visualized. The aortic valve was not well visualized. The mitral valve was not well visualized. Mild mitral regurgitation is present. The tricuspid valve was not well visualized. Trace tricuspid regurgitation present. Right ventric ular systolic pressure is normal at < 35 mmHg. The pulmonic valve was not well visualized. The aortic root size is normal. IVC Not well visulized. There is no pericardial effusion. CONCLUSIONS -------- 1. The left ventricular size is normal. 2. There is moderate concentric left ventricular hypertrophy. 3. Overall left ventricular systolic function is normal with, an EF between 55 - 60 %. 4. Mild mitral regurgitation is present. 5. Trace tricuspid regurgitation present. 6. There is no pericardial effusion. MATERIAL SPECIALIST: Sharmin Pickard RDCS
--- NOTE | 2021-03-26 13:39 | TCOM ---
Your patient has the documented diagnosis of unspecified acute on chronic CHF exacerbation on the H&P and Discharge Summary. Additional information regarding the type of CHF is requested. History/Risk Factors: Patient is admitted with increasing shortness of breath and a few days of increasing lower extremity edema. Clinical Indicators: History of CAD, hypertension, COPD, cerebral palsy with mild intellectual disability VS/Pulse OX: T 98.3, HR 62, RR 16, BP 160/76, 100% on 4L BNP: 1540 Echocardiogram Results: 03/13 EF 55-60% Treatment: Lasix In your professional opinion, can you please clarify the type of CHF, if known? [ ] Acute on Chronic Systolic Heart Failure (reduced EF) [ ] Acute on Chronic Diastolic Heart Failure (preserved EF) [ ] Acute on Chronic Heart Failure Systolic & Diastolic Heart Failure [ ] Other, please specify [ ] Unable to determine MTDD
--- NOTE | 2021-03-26 13:42 | CDI ---
Documentation Clarification Form Date: From: WEN Oliver Admit Date: 03/13/2021 10:55:00 AM Patient Name: Jayshree Lemus Visit Number: [id number] Discharge Date: 03/14/2021 03:12:00 PM ATTENTION: The Clinical Documentation Specialists (CDI) and [facility] Coding Staff appreciate your assistance in clarifying documentation. Please respond to the clarification below the line at the bottom and electronically sign. The CDI & [facility] Coding staff will review the response and follow-up if needed. Please note: Queries are made part of the Legal Health Record. If you have any questions, please contact the author of this message via ITS. Dr. Merrill Saldana Your patient has the documented diagnosis of unspecified acute on chronic CHF exacerbation on the H&P and Discharge Summary. Additional information regarding the type of CHF is requested. History/Risk Factors: Patient is admitted with increasing shortness of breath and a few days of increasing lower extremity edema. Clinical Indicators: History of CAD, hypertension, COPD, cerebral palsy with mild intellectual disability VS/Pulse OX: T 98.3, HR 62, RR 16, BP 160/76, 100% on 4L BNP: 1540 Echocardiogram Results: 03/13 EF 55-60% Treatment: Lasix In your professional opinion, can you please clarify the type of CHF, if known? [ ] Acute on Chronic Systolic Heart Failure (reduced EF) [ ] Acute on Chronic Diastolic Heart Failure (preserved EF) [ ] Acute on Chronic Heart Failure Systolic & Diastolic Heart Failure [ ] Other, please specify [ ] Unable to determine Acute and chronic diastolic heart failure EF 55-60% _ MTDD
== END 2021-03-14 15:12 | disposition home or self-care (01) | DRG 291 ==
LOC: EC 20:40 → 6NMEDSUR 23:18 → OBSVTOIN 03-13 10:55
PROVIDERS: ADMIT Hospitalist; ATTEND Hospitalist
DX: I11.0 Hypertensive heart disease with heart failure (principal); J96.01 Acute respiratory failure with hypoxia; J44.1 Chronic obstructive pulmonary disease with (acute) exacerbation; I50.33 Acute on chronic diastolic (congestive) heart failure; E78.5 Hyperlipidemia, unspecified; E86.0 Dehydration; F32.9 Major depressive disorder, single episode, unspecified; F41.9 Anxiety disorder, unspecified; F70 Mild intellectual disabilities; G80.9 Cerebral palsy, unspecified; R13.10 Dysphagia, unspecified; R47.1 Dysarthria and anarthria; M21.372 Foot drop, left foot; M21.371 Foot drop, right foot; M19.91 Primary osteoarthritis, unspecified site; K21.9 Gastro-esophageal reflux disease without esophagitis; I25.10 Atherosclerotic heart disease of native coronary artery without angina pectoris; M41.9 Scoliosis, unspecified; Z79.83 Long term (current) use of bisphosphonates; Z79.02 Long term (current) use of antithrombotics/antiplatelets; Z79.51 Long term (current) use of inhaled steroids; Z79.899 Other long term (current) drug therapy; Z79.52 Long term (current) use of systemic steroids; Z87.01 Personal history of pneumonia (recurrent)
CPT/HCPCS: 36415; 71046; 80048; 80053; 81003; 82550; 83605; 83735; 83880; 84100; 84145; 84484; 85025; 85610; 85730; 93005; 93306; 94640; 94760; 99285

== ENCOUNTER 2021-04-24 15:14 | Observation (INO) | payer MEDICARE, OTHER ==
--- NOTE | 2021-04-24 15:46 | ED ---
SOB HPI - General Chief Complaint: Shortness of Breath Stated Complaint: Shortness of Breath Time Seen by Provider: 04/24/21 15:21 Source: patient Mode of arrival: ambulatory Limitations: no limitations - History of Present Illness Initial Comments: Patient is an 80-year-old female with past medical history of cerebral palsy, mild intellectual disability, congestive heart failure, COPD on 4 L of home O2 presents emergency room with reported increasing shortness of breath. History is provided by the patient's sfdc consultant. She states that the patient has had increasing shortness of breath over the past couple of days. She has had falling pulse ox readings when her home care nurse comes to check on her. She normally wears 4 L of oxygen at home however they had increased it to 5 L. The patient's sats have dropped into the 80s. She has had a wet sounding cough. She does have a history of congestive heart failure and COPD. They have been using her nebulizer as directed without improvement in her symptoms. No reported fevers or chills. Patient does admit to some chest pain. The remainder of the HPI is limited due to the patient's speech difficulties - Related Data Home Medications Medication Instructions Recorded Confirmed ALPRAZolam [Xanax] 0.25 mg PO BID PRN 03/12/21 04/24/21 Acetaminophen Tab [Tylenol] 650 mg PO Q8H PRN 03/12/21 04/24/21 Albuterol Sulfate [Ventolin HFA] 2 puff INHALATION RT-Q4H PRN 03/12/21 04/24/21 Alendronate Sodium [Fosamax] 35 mg PO WE@0803/12/21 04/24/21 Antacid Susp 1 dose PO DIRECTED PRN 03/12/21 04/24/21 Atorvastatin [Lipitor] 40 mg PO HS@199903/12/21 04/24/21 Bismuth Subsalicylate [Kaopectate] 1 dose PO DIRECTED PRN 03/12/21 04/24/21 Budesonide [Pulmicort] 0.5 mg INHALATION RT-BID@1300,1700 03/12/21 04/24/21 Calcium Polycarbophil [Fiber-Lax] 625 mg PO DAILY@0800 03/12/21 04/24/21 Carvedilol [Coreg] 12.5 mg PO BID@1000,199903/12/21 04/24/21 Cholecalciferol (Vitamin D3) 125 mcg PO DAILY@0803/12/21 04/24/21 [Vitamin D3 (5000 Iu)] Clopidogrel [Plavix] 75 mg PO DAILY@0803/12/21 04/24/21 Colloidal Oatmeal [Eucerin Eczema 1 applic TOPICAL HS@199903/12/21 04/24/21 Relief] Diclofenac Sodium Gel [Voltaren 2 gm TOPICAL QID PRN 03/12/21 04/24/21 Gel] Ipratropium Alkol [Ipratropium 2 sprays EA NOSTRIL TID PRN 03/12/21 04/24/21 Alkol 0.03%] Isosorbide Mononitrate ER [Imdur] 60 mg PO DAILY@79903/12/21 04/24/21 Lactulose [Constulose] 20 gm PO HS@199903/12/21 04/24/21 Levalbuterol HCl [Xopenex 0.63 mg INHALATION RT-TID@03/12/21 04/24/21 Nebulized] Magnesium Hydroxide [Milk of 1 dose PO DIRECTED PRN 03/12/21 04/24/21 Magnesia] amLODIPine [Norvasc] 5 mg PO HS@199903/12/21 04/24/21 lamoTRIgine [LaMICtal] 50 mg PO BID@08,199903/12/21 04/24/21 traMADol-ACETAMINOP 37.5-325MG 1 tab PO Q6HR PRN 03/12/21 04/24/21 [Ultracet] witch Jimi [Tucks Medicated Pads] 1 pad RECTAL 5XD PRN 03/12/21 04/24/21 Benzonatate [Tessalon Perles] 100 - 200 mg PO TID PRN 04/24/21 04/24/21 Escitalopram [Lexapro] 10 mg PO DAILY@0804/24/21 04/24/21 Furosemide [Lasix] 10 mg PO DAILY@1000 04/24/21 04/24/21 Nystatin 100,000Unit/gm Cream 1 applic TOPICAL BID@799,199904/24/21 04/24/21 [Mycostatin Cream] [place]te Oral Care 1 applic DENTAL BID@08,1999 PRN 04/24/21 04/24/21 Allergies Allergy/AdvReac Type Severity Reaction Status Date / Time ipratropium Allergy Unknown Verified 04/24/21 16:37 naproxen [From Aleve] Allergy Unknown Verified 04/24/21 16:37 Penicillins Allergy Unknown Verified 04/24/21 16:37 rofecoxib [From Vioxx] Allergy Unknown Verified 04/24/21 16:37 Sulfa (Sulfonamide Allergy Unknown Verified 04/24/21 16:37 Antibiotics) Review of Systems ROS Statement: Those systems with pertinent positive or pertinent negative responses have been documented in the HPI. ROS Other: All systems not noted in ROS Statement are negative. Past Medical History Past Medical History: Asthma, Coronary Artery Disease (CAD), Heart Failure, COPD, GERD/Reflux, Hyperlipidemia, Hypertension, Osteoarthritis (OA), Pneumonia Additional Past Medical History / Comment(s): mild intellectual disability, cerebral palsy, kypho scoliosis, colitis, DJD, hernia History of Any Multi-Drug Resistant Organisms: None Reported Past Surgical History: Cholecystectomy, Orthopedic Surgery Additional Past Surgical History / Comment(s): (L) hip reduction Past Anesthesia/Blood Transfusion Reactions: No Reported Reaction Past Psychological History: Anxiety, Depression Smoking Status: Never smoker Past Alcohol Use History: None Reported Past Drug Use History: None Reported - Past Family History Father History Unknown: Yes Mother History Unknown: Yes General Exam Limitations: no limitations Course Vital Signs 04/24/21 04/24/21 15:15 18:52 Temperature 98.2 F Pulse Rate 61 72 Respiratory 22 18 Rate Blood Pressure 114/70 144/81 O2 Sat by Pulse 98 99 Oximetry Medical Decision Making - Medical Decision Making Upon arrival the patient is placed into trauma bay 2. A thorough history and physical exam was performed. Laboratory studies are conducted which are remarkable for a BNP of 2030. Covid is negative. Chest x-ray does demonstrate severe thoracic deformity with reverse straight scoliosis and severe low lung volumes. Trace effusions with concern for developing CHF. Patient does have audible rails on physical exam. She does take 10 mg of Lasix daily. I did give the patient a dose of Lasix 40 mg in the emergency department and she will have Lasix ordered twice a day. Harry Drake will be consulted. Spoke with Dr. Dimas martinez who accepted admission the patient. She is currently awaiting a bed on the floor - Lab Data Result diagrams: 04/24/21 16:03 04/24/21 16:03 Lab Results 04/24/21 04/24/21 04/24/21 Range/Units 16:03 16:03 16:03 WBC 7.4 (3.8-10.6) k/uL RBC 3.29 L (3.80-5.40) m/uL Hgb 10.3 L (11.4-16.0) gm/dL Hct 31.5 L (34.0-46.0) % MCV 95.5 (80.0-100.0) fL MCH 31.2 (25.0-35.0) pg MCHC 32.6 (31.0-37.0) g/dL RDW 14.9 (11.5-15.5) % Plt Count 329 (150-450) k/uL MPV 8.0 Neutrophils % 82 % Lymphocytes % 9 % Monocytes % 6 % Eosinophils % 1 % Basophils % 1 % Neutrophils # 6.1 (1.3-7.7) k/uL Lymphocytes # 0.7 L (1.0-4.8) k/uL Monocytes # 0.4 (0-1.0) k/uL Eosinophils # 0.1 (0-0.7) k/uL Basophils # 0.1 (0-0.2) k/uL Hypochromasia Moderate PT 10.9 (9.0-12.0) sec INR 1.0 (<1.2) APTT 25.8 (22.0-30.0) sec Sodium 140 (137-145) mmol/L Potassium 3.6 (3.5-5.1) mmol/L Chloride 105 (98-107) mmol/L Carbon Dioxide 28 (22-30) mmol/L Anion Gap 7 mmol/L BUN 20 H (7-17) mg/dL Creatinine 0.73 (0.52-1.04) mg/dL Est GFR (CKD-EPI)AfAm 90 (>60 ml/min/1.73 sqM) Est GFR (CKD-EPI)NonAf 78 (>60 ml/min/1.73 sqM) Glucose 152 H (74-99) mg/dL Plasma Lactic Acid Marin (0.7-2.0) mmol/L Calcium 9.1 (8.4-10.2) mg/dL Magnesium 2.3 (1.6-2.3) mg/dL Total Bilirubin 0.2 (0.2-1.3) mg/dL AST 18 (14-36) U/L ALT 15 (4-34) U/L Alkaline Phosphatase 73 (38-126) U/L Troponin I (0.000-0.034) ng/mL NT-Pro-B Natriuret Pep pg/mL Total Protein 5.9 L (6.3-8.2) g/dL Albumin 3.6 (3.5-5.0) g/dL Coronavirus (PCR) (Not Detectd) 04/24/21 04/24/21 04/24/21 Range/Units 16:03 16:03 16:03 WBC (3.8-10.6) k/uL RBC (3.80-5.40) m/uL Hgb (11.4-16.0) gm/dL Hct (34.0-46.0) % MCV (80.0-100.0) fL MCH (25.0-35.0) pg MCHC (31.0-37.0) g/dL RDW (11.5-15.5) % Plt Count (150-450) k/uL MPV Neutrophils % % Lymphocytes % % Monocytes % % Eosinophils % % Basophils % % Neutrophils # (1.3-7.7) k/uL Lymphocytes # (1.0-4.8) k/uL Monocytes # (0-1.0) k/uL Eosinophils # (0-0.7) k/uL Basophils # (0-0.2) k/uL Hypochromasia PT (9.0-12.0) sec INR (<1.2) APTT (22.0-30.0) sec Sodium (137-145) mmol/L Potassium (3.5-5.1) mmol/L Chloride (98-107) mmol/L Carbon Dioxide (22-30) mmol/L Anion Gap mmol/L BUN (7-17) mg/dL Creatinine (0.52-1.04) mg/dL Est GFR (CKD-EPI)AfAm (>60 ml/min/1.73 sqM) Est GFR (CKD-EPI)NonAf (>60 ml/min/1.73 sqM) Glucose (74-99) mg/dL Plasma Lactic Acid Marin 1.1 (0.7-2.0) mmol/L Calcium (8.4-10.2) mg/dL Magnesium (1.6-2.3) mg/dL Total Bilirubin (0.2-1.3) mg/dL AST (14-36) U/L ALT (4-34) U/L Alkaline Phosphatase (38-126) U/L Troponin I <0.012 (0.000-0.034) ng/mL NT-Pro-B Natriuret Pep 2030 pg/mL Total Protein (6.3-8.2) g/dL Albumin (3.5-5.0) g/dL Coronavirus (PCR) (Not Detectd) 04/24/21 Range/Units 16:17 WBC (3.8-10.6) k/uL RBC (3.80-5.40) m/uL Hgb (11.4-16.0) gm/dL Hct (34.0-46.0) % MCV (80.0-100.0) fL MCH (25.0-35.0) pg MCHC (31.0-37.0) g/dL RDW (11.5-15.5) % Plt Count (150-450) k/uL MPV Neutrophils % % Lymphocytes % % Monocytes % % Eosinophils % % Basophils % % Neutrophils # (1.3-7.7) k/uL Lymphocytes # (1.0-4.8) k/uL Monocytes # (0-1.0) k/uL Eosinophils # (0-0.7) k/uL Basophils # (0-0.2) k/uL Hypochromasia PT (9.0-12.0) sec INR (<1.2) APTT (22.0-30.0) sec Sodium (137-145) mmol/L Potassium (3.5-5.1) mmol/L Chloride (98-107) mmol/L Carbon Dioxide (22-30) mmol/L Anion Gap mmol/L BUN (7-17) mg/dL Creatinine (0.52-1.04) mg/dL Est GFR (CKD-EPI)AfAm (>60 ml/min/1.73 sqM) Est GFR (CKD-EPI)NonAf (>60 ml/min/1.73 sqM) Glucose (74-99) mg/dL Plasma Lactic Acid Marin (0.7-2.0) mmol/L Calcium (8.4-10.2) mg/dL Magnesium (1.6-2.3) mg/dL Total Bilirubin (0.2-1.3) mg/dL AST (14-36) U/L ALT (4-34) U/L Alkaline Phosphatase (38-126) U/L Troponin I (0.000-0.034) ng/mL NT-Pro-B Natriuret Pep pg/mL Total Protein (6.3-8.2) g/dL Albumin (3.5-5.0) g/dL Coronavirus (PCR) Not Detected (Not Detectd) - EKG Data EKG Comments: EKG demonstrates normal sinus rhythm with a ventricular rate of 62. ME interval 152. QRS 84. QTC of 637. There is significant baseline artifact. No discernible ST segment elevation Disposition Clinical Impression: Congestive heart failure, Acute respiratory insufficiency Disposition: ADMITTED IP TO THIS HOSP Condition: Stable Is patient prescribed a controlled substance at d/c from ED?: No Decision to Admit Reason: Admit from EC Decision Date: 04/24/21 Decision Time: 18:06
[2021-04-24 16:12] LABS: Basophils # (A) 0.1 k/uL (0-0.2); Basophils % (A) 1 %; Eosinophils # (A) 0.1 k/uL (0-0.7); Eosinophils % (A) 1 %; HCT 31.5 % (34.0-46.0); HGB 10.3 gm/dL (11.4-16.0); Hypochromasia Moderate; Lymphocytes # (A) 0.7 k/uL (1.0-4.8); Lymphocytes % (A) 9 %; MCH 31.2 pg (25.0-35.0); MCHC 32.6 g/dL (31.0-37.0); MCV 95.5 fL (80.0-100.0); Monocytes # (A) 0.4 k/uL (0-1.0); Monocytes % (A) 6 %; Neutrophils # (A) 6.1 k/uL (1.3-7.7); Neutrophils % (A) 82 %; Platelet Count 329 k/uL (150-450); RBC 3.29 m/uL (3.80-5.40); RDW 14.9 % (11.5-15.5); WBC 7.4 k/uL (3.8-10.6)
[2021-04-24 16:20] LABS: Partial Thromboplastin Time 25.8 sec (22.0-30.0); Prothrombin Time 10.9 sec (9.0-12.0)
[2021-04-24 16:22] LABS: Albumin 3.6 g/dL (3.5-5.0); Calcium 9.1 mg/dL (8.4-10.2); Magnesium 2.3 mg/dL (1.6-2.3); Potassium 3.6 mmol/L (3.5-5.1); Total Bilirubin 0.2 mg/dL (0.2-1.3); Total Protein 5.9 g/dL (6.3-8.2)
--- NOTE | 2021-04-24 16:38 | XR ---
EXAMINATION TYPE: XR chest 2V DATE OF EXAM: 04/24/2021 COMPARISON: 03/14/2021 HISTORY: 80-year-old female difficulty breathing and shortness of breath TECHNIQUE: AP and lateral views FINDINGS: Severe reverse S-shaped scoliotic curvature distorts the patient's anatomy. The heart is obscured. Le ft base is largely obscured as well. Interstitial density has increased. Difficult to exclude trace e ffusion on the lateral view. Degenerative change right shoulder. IMPRESSION: Severe thoracic deformity with reverse S-shaped scoliosis and severely low lung volumes limits evalua tion. Interstitium and vasculature appears more pronounced and there may be trace effusions on the la teral view. Correlate for developing CHF.
[2021-04-24] MEDS ORDERED: FUROSEMIDE 10 MG/ML 4 ML VIAL IV STA (17:30)
[2021-04-24] MEDS ORDERED: CIPROFLOXACIN HCL 250 MG TAB PO STA (17:42)
[2021-04-24] MEDS ORDERED: NALOXONE 0.4 MG/ML 1 ML VIAL IV PRN (18:07)
[2021-04-24] MEDS ORDERED: ALPRAZolam 0.25 MG TAB PO PRN (20:17)
[2021-04-24] MEDS ORDERED: IPRATROPIUM BROMIDE EA NOSTRIL PRN (20:17)
[2021-04-24] MEDS ORDERED: ALBUTEROL NEBULIZED 2.5 MG/3 ML INHALATION PRN (20:17)
[2021-04-24] MEDS ORDERED: ACETAMINOPHEN TAB 325 MG TAB PO PRN (20:17)
[2021-04-24] MEDS ORDERED: FUROSEMIDE 10 MG/ML 4 ML VIAL IV SCH (21:00)
[2021-04-24] MEDS ORDERED: ALBUTEROL NEBULIZED 1.25 MG/3 ML INHALATION SCH (22:00)
[2021-04-25] MEDS ORDERED: ALBUTEROL HFA INHALER INHALATION PRN (00:39)
--- NOTE | 2021-04-25 01:48 | P.HPIM ---
History of Present Illness H&P Date: 04/24/21 Chief Complaint: Increase oxygen requirement and shortness of breath 80-year-old female with cerebral palsy and developmental delays, hypertension, COPD on home oxygen 4 L Patient unable to provide any meaningful history she is alert and awake however she has developmental delays and cerebral palsy. History obtained from ED staff seems like caregiver noticed that patient was having some increased oxygen requirement with shortness of breath she is normally on 4 L however she was the satting despite increasing her oxygen to 5 L her oxygen saturation at rest remained in the mid 80s caregiver also reported somewhat cough for which she was concerned that the patient is some acute CHF. Patient does take oral Lasix at home also has history of COPD on inhalers and supplemental oxygen Patient has been recently hospitalized and of March for similar problem echocardiogram at that time showed left ventricular EF of 5560 percent Blood work here in the ED is unremarkable Chest x-ray was suggestive of some component of pulmonary vascular congestion Otherwise upon interviewing the patient she is unable to talk but does follow simple commands however I could not obtain any meaningful history from her Review of Systems ROS unobtainable: due to mental status Past Medical History Past Medical History: Asthma, Coronary Artery Disease (CAD), Heart Failure, COPD, GERD/Reflux, Hyperlipidemia, Hypertension, Osteoarthritis (OA), Pneumonia Additional Past Medical History / Comment(s): mild intellectual disability, cerebral palsy, kypho scoliosis, colitis, DJD, hernia History of Any Multi-Drug Resistant Organisms: None Reported Past Surgical History: Cholecystectomy, Orthopedic Surgery Additional Past Surgical History / Comment(s): (L) hip reduction Past Anesthesia/Blood Transfusion Reactions: No Reported Reaction Past Psychological History: Anxiety, Depression Smoking Status: Never smoker Past Alcohol Use History: None Reported Past Drug Use History: None Reported - Past Family History Father History Unknown: Yes Mother History Unknown: Yes Medications and Allergies Home Medications Medication Instructions Recorded Confirmed Type ALPRAZolam [Xanax] 0.25 mg PO BID PRN 03/12/21 04/24/21 History Acetaminophen Tab [Tylenol] 650 mg PO Q8H PRN 03/12/21 04/24/21 History Albuterol Sulfate [Ventolin HFA] 2 puff INHALATION RT-Q4H PRN 03/12/21 04/24/21 History Alendronate Sodium [Fosamax] 35 mg PO WE@0800 03/12/21 04/24/21 History Antacid Susp 1 dose PO DIRECTED PRN 03/12/21 04/24/21 History Atorvastatin [Lipitor] 40 mg PO HS@199903/12/21 04/24/21 History Bismuth Subsalicylate [Kaopectate] 1 dose PO DIRECTED PRN 03/12/21 04/24/21 History Budesonide [Pulmicort] 0.5 mg INHALATION RT-BID@1300,1700 03/12/21 04/24/21 History Calcium Polycarbophil [Fiber-Lax] 625 mg PO DAILY@79903/12/21 04/24/21 History Carvedilol [Coreg] 12.5 mg PO BID@999,199903/12/21 04/24/21 History Cholecalciferol (Vitamin D3) 125 mcg PO DAILY@79903/12/21 04/24/21 History [Vitamin D3 (5000 Iu)] Clopidogrel [Plavix] 75 mg PO DAILY@79903/12/21 04/24/21 History Colloidal Oatmeal [Eucerin Eczema 1 applic TOPICAL HS@199903/12/21 04/24/21 History Relief] Diclofenac Sodium Gel [Voltaren 2 gm TOPICAL QID PRN 03/12/21 04/24/21 History Gel] Ipratropium [place] [Ipratropium 2 sprays EA NOSTRIL TID PRN 03/12/21 04/24/21 History [place] 0.03%] Isosorbide Mononitrate ER [Imdur] 60 mg PO DAILY@79903/12/21 04/24/21 History Lactulose [Constulose] 20 gm PO HS@199903/12/21 04/24/21 History Levalbuterol HCl [Xopenex 0.63 mg INHALATION RT-TID@08,15,22 03/12/21 04/24/21 History Nebulized] Magnesium Hydroxide [Milk of 1 dose PO DIRECTED PRN 03/12/21 04/24/21 History Magnesia] amLODIPine [Norvasc] 5 mg PO HS@199903/12/21 04/24/21 History lamoTRIgine [LaMICtal] 50 mg PO BID@08,199903/12/21 04/24/21 History traMADol-ACETAMINOP 37.5-325MG 1 tab PO Q6HR PRN 03/12/21 04/24/21 History [Ultracet] witch Jimi [Tucks Medicated Pads] 1 pad RECTAL 5XD PRN 03/12/21 04/24/21 History Benzonatate [Tessalon Perles] 100 - 200 mg PO TID PRN 04/24/21 04/24/21 History Escitalopram [Lexapro] 10 mg PO DAILY@0800 04/24/21 04/24/21 History Furosemide [Lasix] 10 mg PO DAILY@1000 04/24/21 04/24/21 History Nystatin 100,000Unit/gm Cream 1 applic TOPICAL BID@799,199904/24/21 04/24/21 History [Mycostatin Cream] [place] Oral Care 1 applic DENTAL BID@799,1999 PRN 04/24/21 04/24/21 History Allergies Allergy/AdvReac Type Severity Reaction Status Date / Time ipratropium Allergy Unknown Verified 04/24/21 16:37 naproxen [From Aleve] Allergy Unknown Verified 04/24/21 16:37 Penicillins Allergy Unknown Verified 04/24/21 16:37 rofecoxib [From Vioxx] Allergy Unknown Verified 04/24/21 16:37 Sulfa (Sulfonamide Allergy Unknown Verified 04/24/21 16:37 Antibiotics) Physical Exam Vitals: Vital Signs Temp Pulse Resp BP Pulse Ox 04/24/21 22:00 65 20 118/79 99 04/24/21 18:52 72 18 144/81 99 04/24/21 15:15 98.2 F 61 22 114/70 98 Intake and Output 04/24/21 04/24/21 04/25/21 14:59 22:59 06:59 Other: Weight 45.45 kg Constitutional: No acute distress, developmental delays, cerebral palsy Eyes: Anicteric sclerae, moist conjunctiva, Pupils equal round reactive to light ENMT: NC/AT Oropharynx clear, no erythema, or exudates Neck: Supple, no masses, or JVD No carotid bruits No thyromegaly Lungs: Decreased breath sounds at lung bases with inspiratory rales no wheezing Normal respiratory effort, no accessory muscle use Cardiovascular: Heart regular in rate and rhythm, No murmurs, gallops, or rubs No peripheral edema Abdominal: Soft Nontender, no guarding, rebound or rigidity Abdomen moving with respiration Normoactive bowel sounds No hepatomegaly, No splenomegaly No palpable mass No abdominal wall hernia noted Skin: Normal temperature, tone, texture, turgor No induration No subcutaneous nodules No rash, lesions No ulcers Extremities: No digital cyanosis Pedal pulses intact and symmetrical Radial pulses intact and symmetrical No calf tenderness Psychiatric: Patient is awake and alert following commands Neuro patient cannot follow complex commands to perform proper neuro exam patient unable to talk to give feedback She is moving bilateral upper extremities spontaneously Lymphatics: no palpable cervical or supraclavicular , or inguinal lymph nodes Results CBC & Chem 7: 04/24/21 16:03 04/24/21 16:03 Labs: Abnormal Lab Results - Last 24 Hours (Table) 04/24/21 04/24/21 Range/Units 16:03 16:03 RBC 3.29 L (3.80-5.40) m/uL Hgb 10.3 L (11.4-16.0) gm/dL Hct 31.5 L (34.0-46.0) % Lymphocytes # 0.7 L (1.0-4.8) k/uL BUN 20 H (7-17) mg/dL Glucose 152 H (74-99) mg/dL Total Protein 5.9 L (6.3-8.2) g/dL Assessment and Plan Assessment: Acute on chronic hypoxic respiratory failure Suspected pulmonary vascular congestion Most recent echocardiogram in March 2021 showed left ventricular EF of 5560 percent possible diastolic heart failure component IV Lasix started Resume patient cardiac meds History of COPD currently compensated continue supplemental oxygen 4 L Continue with inhalers No systemic steroids Covid test is negative Acute anemia mild No reported GI bleeding We'll continue to monitor hemoglobin Patient is not on blood thinners Continue with aspirin Plavix for now, for history of CAD History of cerebral palsy with severe thoracic deformity History of hypertension currently controlled resume cardiac meds CODE STATUS:full code DVT prophylaxis: heparin sc tid Discussed with: Patient, ER Anticipated length of stay < than [address]: home A total of 55 minutes was spent on the care of this complex patient more than 50% of the time was spent in counseling and care coordination.
[2021-04-25 03:51] LABS: Basophils % (A) 0 %; Eosinophils % (A) 0 %; HCT 31.1 % (34.0-46.0); Hypochromasia Slight; Lymphocytes # (A) 0.5 k/uL (1.0-4.8); Lymphocytes % (A) 7 %; MCH 30.6 pg (25.0-35.0); MCV 95.5 fL (80.0-100.0); Mean Platelet Volume 7.4; Monocytes # (A) 0.4 k/uL (0-1.0); Monocytes % (A) 5 %; Neutrophils # (A) 5.6 k/uL (1.3-7.7); Neutrophils % (A) 86 %; Platelet Count 355 k/uL (150-450); RBC 3.26 m/uL (3.80-5.40); RDW 14.8 % (11.5-15.5); WBC 6.5 k/uL (3.8-10.6)
[2021-04-25 03:52] LABS: African American GFR (CKD) 89 (>60 ml/min/1.73 sqM); Anion Gap 8 mmol/L; Blood Urea Nitrogen 21 mg/dL (7-17); Calcium 8.9 mg/dL (8.4-10.2); Carbon Dioxide 32 mmol/L (22-30); Chloride 101 mmol/L (98-107); Glucose 142 mg/dL (74-99); Non-African American GFR(CKD) 77 (>60 ml/min/1.73 sqM); Potassium 3.5 mmol/L (3.5-5.1); Sodium 141 mmol/L (137-145)
[2021-04-25 06:18] VITALS: TEMP 98.1
[2021-04-25] MEDS: ALBUTEROL HFA INHALER INHALATION SCH ×2 (07:57→12:23)
[2021-04-25] MEDS ORDERED: ESCITALOPRAM 10 MG TAB PO SCH (08:00)
[2021-04-25] MEDS ORDERED: CLOPIDOGREL 75 MG TAB PO SCH (08:00)
[2021-04-25] MEDS ORDERED: lamoTRIgine 25 MG TAB PO SCH (08:00)
[2021-04-25] MEDS ORDERED: BUDESONIDE 0.5 MG/2 ML NEBU INHALATION SCH ×2 (08:00→13:00)
[2021-04-25] MEDS ORDERED: ISOSORBIDE MONONITRATE ER 60 MG TAB.ER.24H PO SCH (08:00)
[2021-04-25] MEDS ORDERED: HEPARIN SODIUM,PORCINE/PF 5,000 UNIT/0.5 ML SYRINGE SQ SCH (08:00)
[2021-04-25] MEDS ORDERED: FUROSEMIDE 20 MG TAB PO SCH (09:00)
[2021-04-25] MEDS ORDERED: POTASSIUM CHLORIDE ER 20 MEQ TAB.ER PO SCH (09:00)
--- NOTE | 2021-04-25 09:45 | P.CRDCN ---
History of Present Illness History of present illness: HISTORY OF PRESENTING ILLNESS This is a pleasant 80-year-old female past medical history significant for cerebral palsy, hypertension, dyslipidemia and COPD. She follows in the of [facility] with Dr. Zarate. We have been asked to see in consultation for shortness of breath. She was brought to the hospital by caregivers for worsening shortness of breath over the previous 3-5 days. The patient does not give any prior history due to chronic mental delay secondary to cerebral palsy. On admission she was given IV diuretics. She is seen and examined resting comfortably lying flat in bed in no acute distress. Lungs are clear on exam. She does not verbalize any complaints. EKG reveals sinus mechanism with LVH. Chest x-ray reveals severe thoracic deformity with low lung volumes limiting the evaluation. Laboratory data reviewed, WBC 6.5, hemoglobin 10, platelets 355, sodium 141, potassium 3.5, creatinine 0.74, magnesium 2.3, cardiac enzymes negative 3 and NT proBNP 2030. Current daily cardiac medications include Imdur 60 mg daily, Lasix 10 mg daily, Plavix 75 mg daily, Coreg 12.5 mg twice a day, atorvastatin 40 mg daily and amlodipine 5 mg daily. Most recent echocardiogram obtained March 2021 reveals preserved LV systolic function with ejection fraction 55-60% with mild mitral regurgitation noted. REVIEW OF SYSTEMS At the time of my exam: Unable to obtain accurate review of systems. PHYSICAL EXAMINATION Blood pressure 137/70 heart rate 99 afebrile and maintaining oxygen saturation on nasal cannula. CONSTITUTIONAL: No apparent distress. Lying completely flat in bed. HEENT: Head is normocephalic. Pupils are equal, round. Sclerae anicteric. Mucous membranes of the mouth are moist. No JVD. No carotid bruit. CHEST EXAMINATION: Lungs are clear to auscultation. No chest wall tenderness is noted on palpation or with deep breathing. HEART EXAMINATION: Regular rate and rhythm. S1, S2 heard. No murmurs, gallops or rub. ABDOMEN: Soft, nontender. EXTREMITIES: 2+ peripheral pulses, no lower extremity edema and no calf tenderness. ASSESSMENT Shortness of breath of unknown etiology, clinically euvolemic Hypertension Dyslipidemia COPD Cerebral palsy PLAN Clinically the patient is euvolemic and does not appear to be in acute heart failure. Even her history of cerebral palsy and possibility of unable to manage secretions we will increase oral Lasix to 20 mg daily. Give 2 doses of oral potassium given Lasix given last night and borderline low potassium this morning. Stable for discharge from a cardiac perspective. Plan discussed with nurse at the bedside. Thank you kindly for this consultation. Nurse Practitioner note has been reviewed, I agree with a documented findings and plan of care. Patient was seen and examined. Past Medical History Past Medical History: Asthma, Coronary Artery Disease (CAD), Heart Failure, COPD, GERD/Reflux, Hyperlipidemia, Hypertension, Osteoarthritis (OA), Pneumonia Additional Past Medical History / Comment(s): mild intellectual disability, cerebral palsy, kypho scoliosis, colitis, DJD, hernia History of Any Multi-Drug Resistant Organisms: None Reported Past Surgical History: Cholecystectomy, Orthopedic Surgery Additional Past Surgical History / Comment(s): (L) hip reduction Past Anesthesia/Blood Transfusion Reactions: No Reported Reaction Past Psychological History: Anxiety, Depression Smoking Status: Never smoker Past Alcohol Use History: None Reported Past Drug Use History: None Reported - Past Family History Father History Unknown: Yes Mother History Unknown: Yes Medications and Allergies Home Medications Medication Instructions Recorded Confirmed Type ALPRAZolam [Xanax] 0.25 mg PO BID PRN 03/12/21 04/24/21 History Acetaminophen Tab [Tylenol] 650 mg PO Q8H PRN 03/12/21 04/24/21 History Albuterol Sulfate [Ventolin HFA] 2 puff INHALATION RT-Q4H PRN 03/12/21 04/24/21 History Alendronate Sodium [Fosamax] 35 mg PO WE@0803/12/21 04/24/21 History Antacid Susp 1 dose PO DIRECTED PRN 03/12/21 04/24/21 History Atorvastatin [Lipitor] 40 mg PO HS@199903/12/21 04/24/21 History Bismuth Subsalicylate [Kaopectate] 1 dose PO DIRECTED PRN 03/12/21 04/24/21 History Budesonide [Pulmicort] 0.5 mg INHALATION RT-BID@1300,1700 03/12/21 04/24/21 History Calcium Polycarbophil [Fiber-Lax] 625 mg PO DAILY@0800 03/12/21 04/24/21 History Carvedilol [Coreg] 12.5 mg PO BID@1000,199903/12/21 04/24/21 History Cholecalciferol (Vitamin D3) 125 mcg PO DAILY@0803/12/21 04/24/21 History [Vitamin D3 (5000 Iu)] Clopidogrel [Plavix] 75 mg PO DAILY@0803/12/21 04/24/21 History Colloidal Oatmeal [Eucerin Eczema 1 applic TOPICAL HS@199903/12/21 04/24/21 History Relief] Diclofenac Sodium Gel [Voltaren 2 gm TOPICAL QID PRN 03/12/21 04/24/21 History Gel] Ipratropium [place] [Ipratropium 2 sprays EA NOSTRIL TID PRN 03/12/21 04/24/21 History [place] 0.03%] Isosorbide Mononitrate ER [Imdur] 60 mg PO DAILY@79903/12/21 04/24/21 History Lactulose [Constulose] 20 gm PO HS@199903/12/21 04/24/21 History Levalbuterol HCl [Xopenex 0.63 mg INHALATION RT-TID@,03/12/21 04/24/21 History Nebulized] Magnesium Hydroxide [Milk of 1 dose PO DIRECTED PRN 03/12/21 04/24/21 History Magnesia] amLODIPine [Norvasc] 5 mg PO HS@199903/12/21 04/24/21 History lamoTRIgine [LaMICtal] 50 mg PO BID@799,199903/12/21 04/24/21 History traMADol-ACETAMINOP 37.5-325MG 1 tab PO Q6HR PRN 03/12/21 04/24/21 History [Ultracet] witch Jimi [Tucks Medicated Pads] 1 pad RECTAL 5XD PRN 03/12/21 04/24/21 History Benzonatate [Tessalon Perles] 100 - 200 mg PO TID PRN 04/24/21 04/24/21 History Escitalopram [Lexapro] 10 mg PO DAILY@0800 04/24/21 04/24/21 History Furosemide [Lasix] 10 mg PO DAILY@1000 04/24/21 04/24/21 History Nystatin 100,000Unit/gm Cream 1 applic TOPICAL BID@799,199904/24/21 04/24/21 History [Mycostatin Cream] [place] Oral Care 1 applic DENTAL BID@0800,2000 PRN 04/24/21 04/24/21 History Allergies Allergy/AdvReac Type Severity Reaction Status Date / Time ipratropium Allergy Unknown Verified 04/24/21 16:37 naproxen [From Aleve] Allergy Unknown Verified 04/24/21 16:37 Penicillins Allergy Unknown Verified 04/24/21 16:37 rofecoxib [From Vioxx] Allergy Unknown Verified 04/24/21 16:37 Sulfa (Sulfonamide Allergy Unknown Verified 04/24/21 16:37 Antibiotics) Physical Exam Vitals: Vital Signs Temp Pulse Resp BP Pulse Ox 04/25/21 08:34 99 18 137/70 99 04/25/21 08:02 66 04/25/21 07:58 61 16 93 L 04/25/21 06:00 98.1 F 67 18 155/82 100 04/24/21 22:00 65 20 118/79 99 04/24/21 18:52 72 18 144/81 99 04/24/21 15:15 98.2 F 61 22 114/70 98 Intake and Output 04/24/21 04/25/21 04/25/21 22:59 06:59 14:59 Other: Weight 45.45 kg Results 04/25/21 03:11 04/25/21 03:11 Cardiac Enzymes 04/24/21 04/24/21 04/24/21 Range/Units 16:03 16:03 22:08 AST 18 (14-36) U/L Troponin I <0.012 <0.012 (0.000-0.034) ng/mL 04/25/21 Range/Units 00:26 AST (14-36) U/L Troponin I <0.012 (0.000-0.034) ng/mL Coagulation 04/24/21 Range/Units 16:03 PT 10.9 (9.0-12.0) sec APTT 25.8 (22.0-30.0) sec CBC 04/24/21 04/25/21 Range/Units 16:03 03:11 WBC 7.4 6.5 (3.8-10.6) k/uL RBC 3.29 L 3.26 L (3.80-5.40) m/uL Hgb 10.3 L 10.0 L (11.4-16.0) gm/dL Hct 31.5 L 31.1 L (34.0-46.0) % Plt Count 329 355 (150-450) k/uL Comprehensive Metabolic Panel 04/24/21 04/25/21 Range/Units 16:03 03:11 Sodium 140 141 (137-145) mmol/L Potassium 3.6 3.5 (3.5-5.1) mmol/L Chloride 105 101 (98-107) mmol/L Carbon Dioxide 28 32 H (22-30) mmol/L BUN 20 H 21 H (7-17) mg/dL Creatinine 0.73 0.74 (0.52-1.04) mg/dL Glucose 152 H 142 H (74-99) mg/dL Calcium 9.1 8.9 (8.4-10.2) mg/dL AST 18 (14-36) U/L ALT 15 (4-34) U/L Alkaline Phosphatase 73 (38-126) U/L Total Protein 5.9 L (6.3-8.2) g/dL Albumin 3.6 (3.5-5.0) g/dL Current Medications Generic Name Dose Route Start Last Admin Trade Name Freq PRN Reason Stop Dose Admin Acetaminophen 650 mg 04/24/21 20:17 Acetaminophen Tab 325 Mg Tab PO Q8H PRN Pain or Fever > 100.5 Albuterol Sulfate 2 puff 04/25/21 00:39 Albuterol Hfa Inhaler INHALATION RT-Q4H PRN Shortness Of Breath Albuterol Sulfate 1 puff 04/25/21 08:00 04/25/21 07:57 Albuterol Hfa Inhaler INHALATION 1 puff RT-TID JOSELITO Administration Alprazolam 0.25 mg 04/24/21 20:17 Alprazolam 0.25 Mg Tab PO BID PRN Anxiety Amlodipine Besylate 5 mg 04/25/21 20:00 Amlodipine 5 Mg Tab PO HS@1999 [facility] Atorvastatin Calcium 40 mg 04/25/21 20:00 Atorvastatin 40 Mg Tab PO HS@1999 [facility] Budesonide 0.5 mg 04/25/21 08:00 04/25/21 07:57 Budesonide 0.5 Mg/2 Ml Nebu INHALATION 0.5 mg RT-BID JOSELITO Administration Carvedilol 12.5 mg 04/25/21 10:00 Carvedilol 12.5 Mg Tab PO BID@1000,2000 [facility] Clopidogrel Bisulfate 75 mg 04/25/21 08:00 Clopidogrel 75 Mg Tab PO DAILY@0800 [facility] Escitalopram Oxalate 10 mg 04/25/21 08:00 Escitalopram 10 Mg Tab PO DAILY@0800 [facility] Furosemide 20 mg 04/25/21 09:00 Furosemide 20 Mg Tab PO DAILY [facility] Heparin Sodium (Porcine) 5,000 unit 04/25/21 08:00 Heparin Sodium,Porcine/Pf 5,000 Unit/0.5 Ml Syringe SQ Q8HR [facility] Isosorbide Mononitrate 60 mg 04/25/21 08:00 Isosorbide Mononitrate Er 60 Mg Tab.Er.24h PO DAILY@0800 [facility] Lactulose 20 gm 04/25/21 20:00 Lactulose 20 Gm/30 Ml Cup PO HS@2000 [facility] Lamotrigine 50 mg 04/25/21 08:00 Lamotrigine 25 Mg Tab PO BID@0800,2000 [facility] Naloxone HCl 0.2 mg 04/24/21 18:07 Naloxone 0.4 Mg/Ml 1 Ml Vial IV Q2M PRN Opioid Reversal Patient's Own ( 2 sprays 04/24/21 20:17 Ipratropium [place] EA NOSTRIL [Ipratropium [place] TID PRN 0.03%] 30 Ml [place]) Congestion Potassium Chloride 20 meq 04/25/21 09:00 Potassium Chloride Er 20 Meq Tab.Er PO 04/25/21 10:01 Q1HR [facility] Intake and Output 04/24/21 04/25/21 04/25/21 22:59 06:59 14:59 Other: Weight 45.45 kg 04/25/21 03:11 04/25/21 03:11
[2021-04-25] MEDS ORDERED: carvediloL 12.5 MG TAB PO SCH (10:00)
--- NOTE | 2021-04-25 10:40 | P.DS ---
Providers Date of admission: 04/24/21 18:07 Expected date of discharge: 04/25/21 Attending physician: Blair Freeman MD Consults: 04/24/21 18:08 Consult Physician Urgent Consulting Provider: [facility] Consult Reason/Comments: aechf Do you want consulting provider notified?: Yes Primary care physician: [facility] Course: This is a 80-year-old female with past medical history noted below significant for cerebral palsy, hypertension, hyperlipidemia, and underlying COPD who presented to the emergency room from a local adult foster care with worsening shortness of breath and increase in oxygen requirement per report. Patient herself is unable to provide any history. She was evaluated in the ER and chest x-ray showed no acute findings. Most of her lab work was within acceptable range. There was concern that patient has underlying diastolic heart failure and was treated with IV Lasix. Patient was seen and evaluated by me on the day of discharge. She was satting 99% on 4 L of oxygen via nasal cannula. Patient is on 3 L of oxygen at home chronically. Echocardiogram last month showed preserved ejection fraction of 5560%. Patient denies any shortness of breath. She had. At her baseline. Her lungs were clear to anterior chest auscultation. She was seen and evaluated by cardiology as well and was cleared for discharge. She will be discharged back to [facility] home in a stable condition. She will resume her home medications and follow up with her doctors as directed. Patient Condition at Discharge: Stable Plan - Discharge Summary New Discharge Prescriptions: Continue witch Jimi [Tucks Medicated Pads] 1 pad RECTAL 5XD PRN PRN Reason: PERIANAL ITCHING Magnesium Hydroxide [Milk of Magnesia] 1 dose PO DIRECTED PRN PRN Reason: Constipation Ipratropium [place] [Ipratropium [place] 0.03%] 2 sprays EA NOSTRIL TID PRN PRN Reason: Congestion Bismuth Subsalicylate [Kaopectate] 1 dose PO DIRECTED PRN PRN Reason: Heartburn Cholecalciferol (Vitamin D3) [Vitamin D3 (5000 Iu)] 125 mcg PO DAILY@0800 Levalbuterol HCl [Xopenex Nebulized] 0.63 mg INHALATION RT-TID@08,15,22 Lactulose [Constulose] 20 gm PO HS@2000 Clopidogrel [Plavix] 75 mg PO DAILY@0800 [place] [Pulmicort] 0.5 mg INHALATION RT-BID@1300,1700 Nystatin 100,000Unit/gm Cream [Mycostatin Cream] 1 applic TOPICAL BID@0800,1999 Escitalopram [Lexapro] 10 mg PO DAILY@0800 [place] Oral Care 1 applic DENTAL BID@0800,1999 PRN PRN Reason: ORAL CARE Albuterol Sulfate [Ventolin HFA] 2 puff INHALATION RT-Q4H PRN PRN Reason: Shortness Of Breath traMADol-ACETAMINOP 37.5-325MG [Ultracet] 1 tab PO Q6HR PRN PRN Reason: Severe Pain Acetaminophen Tab [Tylenol] 650 mg PO Q8H PRN PRN Reason: Pain Or Fever > 100.5 Diclofenac Sodium Gel [Voltaren Gel] 2 gm TOPICAL QID PRN PRN Reason: RIGHT SHOULDER PAIN ALPRAZolam [Xanax] 0.25 mg PO BID PRN PRN Reason: Anxiety lamoTRIgine [LaMICtal] 50 mg PO BID@0800,1999 Isosorbide Mononitrate ER [Imdur] 60 mg PO DAILY@0800 Calcium Polycarbophil [Fiber-Lax] 625 mg PO DAILY@0800 Colloidal Oatmeal [Eucerin Eczema Relief] 1 applic TOPICAL HS@1999 amLODIPine [Norvasc] 5 mg PO HS@1999 Carvedilol [Coreg] 12.5 mg PO BID@999,1999 Atorvastatin [Lipitor] 40 mg PO HS@1999 Alendronate Sodium [Fosamax] 35 mg PO WE@0800 Antacid Susp 1 dose PO DIRECTED PRN PRN Reason: Heartburn Benzonatate [Tessalon Perles] 100 - 200 mg PO TID PRN PRN Reason: Cough Furosemide [Lasix] 10 mg PO DAILY@1000 Discharge Medication List ALPRAZolam [Xanax] 0.25 mg PO BID PRN 03/12/21 [History] Acetaminophen Tab [Tylenol] 650 mg PO Q8H PRN 03/12/21 [History] Albuterol Sulfate [Ventolin HFA] 2 puff INHALATION RT-Q4H PRN 03/12/21 [History] Alendronate Sodium [Fosamax] 35 mg PO WE@0800 03/12/21 [History] Antacid Susp 1 dose PO DIRECTED PRN 03/12/21 [History] Atorvastatin [Lipitor] 40 mg PO HS@199903/12/21 [History] Bismuth Subsalicylate [Kaopectate] 1 dose PO DIRECTED PRN 03/12/21 [History] Budesonide [Pulmicort] 0.5 mg INHALATION RT-BID@1300,1700 03/12/21 [History] Calcium Polycarbophil [Fiber-Lax] 625 mg PO DAILY@0803/12/21 [History] Carvedilol [Coreg] 12.5 mg PO BID@1000,199903/12/21 [History] Cholecalciferol (Vitamin D3) [Vitamin D3 (5000 Iu)] 125 mcg PO DAILY@79903/12/21 [History] Clopidogrel [Plavix] 75 mg PO DAILY@79903/12/21 [History] Colloidal Oatmeal [Eucerin Eczema Relief] 1 applic TOPICAL HS@199903/12/21 [History] Diclofenac Sodium Gel [Voltaren Gel] 2 gm TOPICAL QID PRN 03/12/21 [History] Ipratropium [place] [Ipratropium [place] 0.03%] 2 sprays EA NOSTRIL TID PRN 03/12/21 [History] Isosorbide Mononitrate ER [Imdur] 60 mg PO DAILY@79903/12/21 [History] Lactulose [Constulose] 20 gm PO HS@199903/12/21 [History] Levalbuterol HCl [Xopenex Nebulized] 0.63 mg INHALATION RT-TID@08,,03/12/21 [History] Magnesium Hydroxide [Milk of Magnesia] 1 dose PO DIRECTED PRN 03/12/21 [History] amLODIPine [Norvasc] 5 mg PO HS@199903/12/21 [History] lamoTRIgine [LaMICtal] 50 mg PO BID@08,199903/12/21 [History] traMADol-ACETAMINOP 37.5-325MG [Ultracet] 1 tab PO Q6HR PRN 03/12/21 [History] witch Jimi [Tucks Medicated Pads] 1 pad RECTAL 5XD PRN 03/12/21 [History] Benzonatate [Tessalon Perles] 100 - 200 mg PO TID PRN 04/24/21 [History] Escitalopram [Lexapro] 10 mg PO DAILY@0800 04/24/21 [History] Furosemide [Lasix] 10 mg PO DAILY@1000 04/24/21 [History] Nystatin 100,000Unit/gm Cream [Mycostatin Cream] 1 applic TOPICAL BID@799,199904/24/21 [History] [place] Oral Care 1 applic DENTAL BID@799,1999 PRN 04/24/21 [History] Follow up Appointment(s)/Referral(s): Zachariah Lewis MD [Primary Care Provider] - 1-2 days Discharge Disposition: TRANSFER TO SNF/ECF
[2021-04-25 14:49] VITALS: BP 104/66; PULSE 68; RESP 16
[2021-04-25] MEDS ORDERED: ATORVASTATIN 40 MG TAB PO SCH (20:00)
[2021-04-25] MEDS ORDERED: LACTULOSE 20 GM/30 ML CUP PO SCH (20:00)
[2021-04-25] MEDS ORDERED: amLODIPine 5 MG TAB PO SCH (20:00)
== END 2021-04-25 20:00 ==
LOC: EC 15:14 → 6NMEDSUR 18:07 → 1SOBS 04-25 15:57 → 6NMEDSUR 04-25 16:00
PROVIDERS: ADMIT Internal Medicine; ATTEND Internal Medicine
DX: J96.21 Acute and chronic respiratory failure with hypoxia (principal); I11.0 Hypertensive heart disease with heart failure; I50.9 Heart failure, unspecified; I34.0 Nonrheumatic mitral (valve) insufficiency; D64.9 Anemia, unspecified; G80.9 Cerebral palsy, unspecified; F70 Mild intellectual disabilities; J44.9 Chronic obstructive pulmonary disease, unspecified; I25.10 Atherosclerotic heart disease of native coronary artery without angina pectoris; E78.5 Hyperlipidemia, unspecified; K21.9 Gastro-esophageal reflux disease without esophagitis; M19.90 Unspecified osteoarthritis, unspecified site; M41.9 Scoliosis, unspecified; F32.9 Major depressive disorder, single episode, unspecified; F41.9 Anxiety disorder, unspecified; Z20.822 Contact with and (suspected) exposure to COVID-19; Z99.81 Dependence on supplemental oxygen; Z79.83 Long term (current) use of bisphosphonates; Z79.02 Long term (current) use of antithrombotics/antiplatelets; Z79.51 Long term (current) use of inhaled steroids; Z79.899 Other long term (current) drug therapy; Z88.6 Allergy status to analgesic agent; Z88.0 Allergy status to penicillin; Z88.2 Allergy status to sulfonamides; Z88.8 Allergy status to other drugs, medicaments and biological substances; Z90.49 Acquired absence of other specified parts of digestive tract; Z98.890 Other specified postprocedural states; Z87.01 Personal history of pneumonia (recurrent); Z87.19 Personal history of other diseases of the digestive system
CPT/HCPCS: 96376; 96372; 96374; 99285; 94640 ×2; G0378 ×2; J1940; J1644; 36415; 71046; 80048; 80053; 83605; 83735; 83880; 84484; 85025; 85610; 85730; 87635; 93005

== ENCOUNTER 2021-04-26 13:37 | Inpatient (IN) | payer MEDICARE, OTHER ==
--- NOTE | 2021-04-26 13:48 | ED ---
SOB HPI - General Chief Complaint: Shortness of Breath Stated Complaint: SOB Time Seen by Provider: 04/26/21 13:40 Source: EMS Mode of arrival: EMS Limitations: language barrier, altered mental status - History of Present Illness Initial Comments: Jayshree is an 80-year-old female was brought to the ER today by ambulance for respiratory distress. Patient was apparently admitted 2 days ago for CHF discharged yesterday. Today caregivers at her adult foster care noted that she was cyanotic and hypoxic. 911 was called EMS arrived on scene the patient was cyanotic, altered oxygen saturation 82%. She was placed on CPAP and transported to the hospital for evaluation. Chest pain. - Related Data Home Medications Medication Instructions Recorded Confirmed ALPRAZolam [Xanax] 0.25 mg PO BID PRN 03/12/21 04/26/21 Acetaminophen Tab [Tylenol] 650 mg PO Q8H PRN 03/12/21 04/26/21 Alendronate Sodium [Fosamax] 35 mg PO WE@79903/12/21 04/26/21 Antacid Susp 1 dose PO DIRECTED PRN 03/12/21 04/26/21 Atorvastatin [Lipitor] 40 mg PO HS@199903/12/21 04/26/21 Bismuth Subsalicylate [Kaopectate] 1 dose PO DIRECTED PRN 03/12/21 04/26/21 Budesonide [Pulmicort] 0.5 mg INHALATION RT-BID@1300,1700 03/12/21 04/26/21 Calcium Polycarbophil [Fiber-Lax] 625 mg PO DAILY@79903/12/21 04/26/21 Carvedilol [Coreg] 12.5 mg PO BID@1000,199903/12/21 04/26/21 Cholecalciferol (Vitamin D3) 125 mcg PO DAILY@79903/12/21 04/26/21 [Vitamin D3 (5000 Iu)] Clopidogrel [Plavix] 75 mg PO DAILY@79903/12/21 04/26/21 Colloidal Oatmeal [Eucerin Eczema 1 applic TOPICAL HS@199903/12/21 04/26/21 Relief] Diclofenac Sodium Gel [Voltaren 2 gm TOPICAL QID PRN 03/12/21 04/26/21 Gel] Ipratropium [place] [Ipratropium 2 sprays EA NOSTRIL TID PRN 03/12/21 04/26/21 [place] 0.03%] Isosorbide Mononitrate ER [Imdur] 60 mg PO DAILY@0803/12/21 04/26/21 Lactulose [Constulose] 20 gm PO HS@199903/12/21 04/26/21 Levalbuterol HCl [Xopenex 0.63 mg INHALATION RT-TID@,,03/12/21 04/26/21 Nebulized] Magnesium Hydroxide [Milk of 1 dose PO DIRECTED PRN 03/12/21 04/26/21 Magnesia] amLODIPine [Norvasc] 5 mg PO HS@199903/12/21 04/26/21 lamoTRIgine [LaMICtal] 50 mg PO BID@799,199903/12/21 04/26/21 witch Jimi [Tucks Medicated Pads] 1 pad RECTAL 5XD PRN 03/12/21 04/26/21 Benzonatate [Tessalon Perles] 100 - 200 mg PO TID PRN 04/24/21 04/26/21 Escitalopram [Lexapro] 10 mg PO DAILY@0800 04/24/21 04/26/21 Furosemide [Lasix] 10 mg PO DAILY@1000 04/24/21 04/26/21 Nystatin 100,000Unit/gm Cream 1 applic TOPICAL BID@799,199904/24/21 04/26/21 [Mycostatin Cream] Toothette Oral Care 1 applic DENTAL BID@799,1999 PRN 04/24/21 04/26/21 Stop Pain 1 applic TOPICAL BID PRN 04/26/21 04/26/21 Allergies Allergy/AdvReac Type Severity Reaction Status Date / Time ipratropium Allergy Unknown Verified 04/26/21 14:15 naproxen [From Aleve] Allergy Unknown Verified 04/26/21 14:15 Penicillins Allergy Unknown Verified 04/26/21 14:15 rofecoxib [From Vioxx] Allergy Unknown Verified 04/26/21 14:15 Sulfa (Sulfonamide Allergy Unknown Verified 04/26/21 14:15 Antibiotics) Review of Systems ROS Statement: Those systems with pertinent positive or pertinent negative responses have been documented in the HPI. ROS Other: All systems not noted in ROS Statement are negative. Past Medical History Past Medical History: Asthma, Coronary Artery Disease (CAD), Heart Failure, COPD, GERD/Reflux, Hyperlipidemia, Hypertension, Osteoarthritis (OA), Pneumonia Additional Past Medical History / Comment(s): mild intellectual disability, cerebral palsy, kypho scoliosis, colitis, DJD, hernia History of Any Multi-Drug Resistant Organisms: None Reported Past Surgical History: Cholecystectomy, Orthopedic Surgery Additional Past Surgical History / Comment(s): (L) hip reduction Past Anesthesia/Blood Transfusion Reactions: No Reported Reaction Past Psychological History: Anxiety, Depression Smoking Status: Never smoker Past Alcohol Use History: None Reported Past Drug Use History: None Reported - Past Family History Father History Unknown: Yes Mother History Unknown: Yes General Exam - General Exam Comments Initial Comments: Physical Exam GENERAL: Chronically ill appearing HENT: Normocephalic, Atraumatic. EYES: PERRL, EOMI PULMONARY: Tachypnea, crackles throughout CARDIOVASCULAR: RRR ABDOMEN: Non-distended SKIN: Pale : Deferred NEUROLOGIC: Alert and oriented to self MUSCULOSKELETAL: No significant edema PSYCHIATRIC: No SI/HI Limitations: language barrier, altered mental status Course Vital Signs 04/26/21 13:38 Temperature 97.6 F Pulse Rate 73 Respiratory 30 H Rate Blood Pressure 128/76 O2 Sat by Pulse 90 L Oximetry Medical Decision Making - Medical Decision Making The patient was seen and evaluated immediately upon arrival to the emergency department, patient is in moderate respiratory distress, on BiPAP, appears uncomfortable Patient able to answer yes no questions denies any chest pain, states she is feeling better on the BiPAP Labs and imaging were obtained chest x-ray is concerning for development of pneumonia patient recently admitted for CHF, holding IV fluid bolus due to history of heart failure Patient care was discussed with Dr. Freeman who accepts admission for pneumonia/CHF - Lab Data Result diagrams: 04/26/21 13:46 04/26/21 13:46 Lab Results 04/26/21 04/26/21 04/26/21 Range/Units 13:46 13:46 13:46 WBC 9.9 (3.8-10.6) k/uL RBC 3.52 L (3.80-5.40) m/uL Hgb 10.7 L (11.4-16.0) gm/dL Hct 33.6 L (34.0-46.0) % MCV 95.5 (80.0-100.0) fL MCH 30.3 (25.0-35.0) pg MCHC 31.7 (31.0-37.0) g/dL RDW 14.2 (11.5-15.5) % Plt Count 409 (150-450) k/uL MPV 7.9 Neutrophils % 80 % Lymphocytes % 8 % Monocytes % 9 % Eosinophils % 1 % Basophils % 1 % Neutrophils # 7.9 H (1.3-7.7) k/uL Lymphocytes # 0.8 L (1.0-4.8) k/uL Monocytes # 0.9 (0-1.0) k/uL Eosinophils # 0.1 (0-0.7) k/uL Basophils # 0.1 (0-0.2) k/uL Hypochromasia Moderate PT 11.0 (9.0-12.0) sec INR 1.0 (<1.2) APTT 25.8 (22.0-30.0) sec Sodium 141 (137-145) mmol/L Potassium 4.4 (3.5-5.1) mmol/L Chloride 104 (98-107) mmol/L Carbon Dioxide 29 (22-30) mmol/L Anion Gap 8 mmol/L BUN 29 H (7-17) mg/dL Creatinine 0.77 (0.52-1.04) mg/dL Est GFR (CKD-EPI)AfAm 84 (>60 ml/min/1.73 sqM) Est GFR (CKD-EPI)NonAf 73 (>60 ml/min/1.73 sqM) Glucose 114 H (74-99) mg/dL Plasma Lactic Acid [place] (0.7-2.0) mmol/L Calcium 9.4 (8.4-10.2) mg/dL Total Bilirubin 0.2 (0.2-1.3) mg/dL AST 25 (14-36) U/L ALT 16 (4-34) U/L Alkaline Phosphatase 63 (38-126) U/L Troponin I (0.000-0.034) ng/mL Total Protein 5.9 L (6.3-8.2) g/dL Albumin 3.6 (3.5-5.0) g/dL 08/25/21 08/25/21 Range/Units 13:46 13:46 WBC (3.8-10.6) k/uL RBC (3.80-5.40) m/uL Hgb (11.4-16.0) gm/dL Hct (34.0-46.0) % MCV (80.0-100.0) fL MCH (25.0-35.0) pg MCHC (31.0-37.0) g/dL RDW (11.5-15.5) % Plt Count (150-450) k/uL MPV Neutrophils % % Lymphocytes % % Monocytes % % Eosinophils % % Basophils % % Neutrophils # (1.3-7.7) k/uL Lymphocytes # (1.0-4.8) k/uL Monocytes # (0-1.0) k/uL Eosinophils # (0-0.7) k/uL Basophils # (0-0.2) k/uL Hypochromasia PT (9.0-12.0) sec INR (<1.2) APTT (22.0-30.0) sec Sodium (137-145) mmol/L Potassium (3.5-5.1) mmol/L Chloride (98-107) mmol/L Carbon Dioxide (22-30) mmol/L Anion Gap mmol/L BUN (7-17) mg/dL Creatinine (0.52-1.04) mg/dL Est GFR (CKD-EPI)AfAm (>60 ml/min/1.73 sqM) Est GFR (CKD-EPI)NonAf (>60 ml/min/1.73 sqM) Glucose (74-99) mg/dL Plasma Lactic Acid [place] 1.7 (0.7-2.0) mmol/L Calcium (8.4-10.2) mg/dL Total Bilirubin (0.2-1.3) mg/dL AST (14-36) U/L ALT (4-34) U/L Alkaline Phosphatase (38-126) U/L Troponin I <0.012 (0.000-0.034) ng/mL Total Protein (6.3-8.2) g/dL Albumin (3.5-5.0) g/dL - EKG Data -: EKG Interpreted by [place] EKG Comments: EKG was obtained due to shortness of breath, EKG was obtained at 1346, rate is 55 rhythm is sinus bradycardia normal axis, normal intervals, FL 150 QRS 80 QTc [address] elevations or depressions no evidence of ischemia or infarction. Disposition Clinical Impression: Congestive heart failure, Acute respiratory insufficiency, Pneumonia Disposition: ADMITTED IP TO THIS HOSP Condition: Serious Referrals: Zachariah Lewis MD [Primary Care Provider] - 1-2 days
--- NOTE | 2021-04-26 14:16 | XR ---
EXAMINATION TYPE: XR chest 1V portable DATE OF EXAM: 04/26/2021 HISTORY: Shortness of breath. COMPARISON: 04/24/2020 TECHNIQUE: Single view of the chest is submitted. FINDINGS: Examination is limited by limited inspiration and scoliotic curvature. Perihilar infiltrates are note d. Correlate for underlying pneumonia. The heart is stable. Hilar and mediastinal structures are within normal limits. Degenerative changes are seen of the dorsal spine. IMPRESSION: 1. Examination is limited by limited inspiration and scoliotic curvature. Perihilar infiltrates are noted. Correlate for underlying pneumonia.
[2021-04-26] MEDS ORDERED: AZITHROMYCIN 500 MG in SODIUM CHLORIDE 0.9% 250 ML IVPB STA (15:01)
[2021-04-26] MEDS ORDERED: cefTRIAXone IN SWFI 1,000 MG/10 ML SYRINGE IVP STA (15:01)
[2021-04-26] MEDS ORDERED: PNEUMONIA PROTOCOL UTILIZED 1 EACH MISC PO PRN (15:02)
[2021-04-26 15:15] LABS: Basophils # (A) 0.1 k/uL (0-0.2); Basophils % (A) 1 %; Eosinophils # (A) 0.1 k/uL (0-0.7); Eosinophils % (A) 1 %; HCT 33.6 % (34.0-46.0); HGB 10.7 gm/dL (11.4-16.0); Hypochromasia Moderate; Lymphocytes # (A) 0.8 k/uL (1.0-4.8); Lymphocytes % (A) 8 %; MCH 30.3 pg (25.0-35.0); MCHC 31.7 g/dL (31.0-37.0); MCV 95.5 fL (80.0-100.0); Mean Platelet Volume 7.9; Monocytes # (A) 0.9 k/uL (0-1.0); Monocytes % (A) 9 %; Neutrophils # (A) 7.9 k/uL (1.3-7.7); Neutrophils % (A) 80 %; Platelet Count 409 k/uL (150-450); RBC 3.52 m/uL (3.80-5.40); RDW 14.2 % (11.5-15.5); WBC 9.9 k/uL (3.8-10.6)
[2021-04-26 15:20] LABS: Partial Thromboplastin Time 25.8 sec (22.0-30.0)
[2021-04-26 15:25] LABS: Albumin 3.6 g/dL (3.5-5.0); Calcium 9.4 mg/dL (8.4-10.2); Potassium 4.4 mmol/L (3.5-5.1); Total Bilirubin 0.2 mg/dL (0.2-1.3); Total Protein 5.9 g/dL (6.3-8.2)
[2021-04-26] MEDS ORDERED: ACETAMINOPHEN TAB 325 MG TAB PO PRN (17:32)
[2021-04-26] MEDS ORDERED: [UNRECOGNIZED DRUG - SUPPLY] DENTAL PRN (17:32)
--- NOTE | 2021-04-26 17:39 | P.HPIM ---
History of Present Illness H&P Date: 04/26/21 This is a 80-year-old female with past medical history of cerebral palsy who presented to the emergency room from a local intermediate was concerned about hypoxia. Patient is unable to provide any history. Patient was discharged by me yesterday bacteremia home care. Per report, patient was found to be more hypoxic and EMS was called.. EMS report, he shouldn't O2 sat was in the low 80s and patient appeared cyanotic so she was placed on BiPAP with quick resolution of her symptoms. Chest x-ray here in the ER was obtained that he was very hard to interpret with concerns about possible. Hilar pneumonia. Patient was seen by me in the ED. She was on BiPAP. She appeared very comfortable. I asked her nurse to take her off of BiPAP and put her back on her home oxygen of 4 L. O2 sats remained 99% on home oxygen. Patient was having some cough that is generally nonproductive. Her caregiver at bedside told me that she appears to have a lot of secretions that she is unable to cough up. Review of Systems Review of system: 14 points review of systems were obtained and were negative except to what were mentioned in the HPI. Past Medical History Past Medical History: Asthma, Coronary Artery Disease (CAD), Heart Failure, COPD, GERD/Reflux, Hyperlipidemia, Hypertension, Osteoarthritis (OA), Pneumonia Additional Past Medical History / Comment(s): mild intellectual disability, cerebral palsy, kypho scoliosis, colitis, DJD, hernia History of Any Multi-Drug Resistant Organisms: None Reported Past Surgical History: Cholecystectomy, Orthopedic Surgery Additional Past Surgical History / Comment(s): (L) hip reduction Past Anesthesia/Blood Transfusion Reactions: No Reported Reaction Past Psychological History: Anxiety, Depression Smoking Status: Never smoker Past Alcohol Use History: None Reported Past Drug Use History: None Reported - Past Family History Father History Unknown: Yes Mother History Unknown: Yes Medications and Allergies Home Medications Medication Instructions Recorded Confirmed Type ALPRAZolam [Xanax] 0.25 mg PO BID PRN 03/12/21 04/26/21 History Acetaminophen Tab [Tylenol] 650 mg PO Q8H PRN 03/12/21 04/26/21 History Alendronate Sodium [Fosamax] 35 mg PO WE@0800 03/12/21 04/26/21 History Antacid Susp 1 dose PO DIRECTED PRN 03/12/21 04/26/21 History Atorvastatin [Lipitor] 40 mg PO HS@199903/12/21 04/26/21 History Bismuth Subsalicylate [Kaopectate] 1 dose PO DIRECTED PRN 03/12/21 04/26/21 History Budesonide [Pulmicort] 0.5 mg INHALATION RT-BID@1300,1700 03/12/21 04/26/21 History Calcium Polycarbophil [Fiber-Lax] 625 mg PO DAILY@79903/12/21 04/26/21 History Carvedilol [Coreg] 12.5 mg PO BID@1000,199903/12/21 04/26/21 History Cholecalciferol (Vitamin D3) 125 mcg PO DAILY@79903/12/21 04/26/21 History [Vitamin D3 (5000 Iu)] Clopidogrel [Plavix] 75 mg PO DAILY@79903/12/21 04/26/21 History Colloidal Oatmeal [Eucerin Eczema 1 applic TOPICAL HS@199903/12/21 04/26/21 History Relief] Diclofenac Sodium Gel [Voltaren 2 gm TOPICAL QID PRN 03/12/21 04/26/21 History Gel] Ipratropium [place] [Ipratropium 2 sprays EA NOSTRIL TID PRN 03/12/21 04/26/21 History [place] 0.03%] Isosorbide Mononitrate ER [Imdur] 60 mg PO DAILY@79903/12/21 04/26/21 History Lactulose [Constulose] 20 gm PO HS@199903/12/21 04/26/21 History Levalbuterol HCl [Xopenex 0.63 mg INHALATION RT-TID@08,,03/12/21 04/26/21 History Nebulized] Magnesium Hydroxide [Milk of 1 dose PO DIRECTED PRN 03/12/21 04/26/21 History Magnesia] amLODIPine [Norvasc] 5 mg PO HS@199903/12/21 04/26/21 History lamoTRIgine [LaMICtal] 50 mg PO BID@0800,199903/12/21 04/26/21 History witch Jimi [Tucks Medicated Pads] 1 pad RECTAL 5XD PRN 03/12/21 04/26/21 History Benzonatate [Tessalon Perles] 100 - 200 mg PO TID PRN 04/24/21 04/26/21 History Escitalopram [Lexapro] 10 mg PO DAILY@0800 04/24/21 04/26/21 History Furosemide [Lasix] 10 mg PO DAILY@1000 04/24/21 04/26/21 History Nystatin 100,000Unit/gm Cream 1 applic TOPICAL BID@0800,199904/24/21 04/26/21 History [Mycostatin Cream] T[place]hette Oral Care 1 applic DENTAL BID@799,1999 PRN 04/24/21 04/26/21 History Stop Pain 1 applic TOPICAL BID PRN 04/26/21 04/26/21 History Allergies Allergy/AdvReac Type Severity Reaction Status Date / Time ipratropium Allergy Unknown Verified 04/26/21 14:15 naproxen [From Aleve] Allergy Unknown Verified 04/26/21 14:15 Penicillins Allergy Unknown Verified 04/26/21 14:15 rofecoxib [From Vioxx] Allergy Unknown Verified 04/26/21 14:15 Sulfa (Sulfonamide Allergy Unknown Verified 04/26/21 14:15 Antibiotics) Physical Exam Vitals: Vital Signs Temp Pulse Resp BP Pulse Ox 04/26/21 17:31 98 04/26/21 17:11 65 16 112/68 98 04/26/21 13:38 97.6 F 73 30 H 128/76 90 L Intake and Output 04/26/21 04/26/21 04/26/21 06:59 14:59 22:59 Other: Weight 46 kg General: The patient is awake and alert, in no distress Eye: there is normal conjunctiva bilaterally. Neck: The neck is supple, there is no JVD. Cardiovascular: Normal S1-S2, no S3-S4, no murmurs. Respiratory: Lungs clear to auscultation bilaterally Gastrointestinal: Abdomen is soft, nontender Musculoskeletal: There is no pedal edema. Neurological:. Speech is normal. Skin: Skin is warm and dry Results CBC & Chem 7: 04/26/21 13:46 04/26/21 13:46 Labs: Abnormal Lab Results - Last 24 Hours (Table) 04/26/21 04/26/21 Range/Units 13:46 13:46 RBC 3.52 L (3.80-5.40) m/uL Hgb 10.7 L (11.4-16.0) gm/dL Hct 33.6 L (34.0-46.0) % Neutrophils # 7.9 H (1.3-7.7) k/uL Lymphocytes # 0.8 L (1.0-4.8) k/uL BUN 29 H (7-17) mg/dL Glucose 114 H (74-99) mg/dL Total Protein 5.9 L (6.3-8.2) g/dL Assessment and Plan Assessment: 1. Acute on chronic hypoxic respiratory failure, required BiPAP per EMS. This was transient hypoxia and patient is currently back to her baseline O2 need to 4 L and satting 99%. I suspect that the patient is having episodes of mucus plugging contributing to sudden onset hypoxia. Chest x-ray showed some infiltrate that it's very hard to interpret given her back deformities. BNP was within normal range with no evidence of heart failure. I would obtain pro- calcitonin. Patient was started on antibiotic prophylactically we will continue for now. Start Mucinex twice daily. Continue duo nebs as needed. 2. Underlying COPD with no evidence of exacerbation 3. History of diastolic heart failure not in exacerbation 4 . Chronic medical problems: Hyperlipidemia, hypertension, osteoarthritis, coronary artery disease, cerebral palsy, kyphoscoliosis, nontender laterally Patient condition was discussed with her caregiver at bedside. I explained to her why I believe patient is having those transient episode of hypoxia. Patient appears comfortable right now. We will monitor here in the hospital for 24 hours. Consult speech pathology.
[2021-04-26] MEDS: lamoTRIgine 25 MG TAB PO SCH (20:21)
[2021-04-26] MEDS: LACTULOSE 20 GM/30 ML CUP PO SCH (20:22)
[2021-04-26] MEDS: amLODIPine 5 MG TAB PO SCH (20:22)
[2021-04-26] MEDS: carvediloL 12.5 MG TAB PO SCH (20:22)
[2021-04-26] MEDS: ATORVASTATIN 40 MG TAB PO SCH (20:22)
[2021-04-26] MEDS: guaiFENesin 600 MG TABLET.ER PO SCH (20:22)
[2021-04-26] MEDS: IPRATROPIUM-ALBUTEROL 3 ML NEB INHALATION SCH (22:28)
[2021-04-27] MEDS: ALPRAZolam 0.25 MG TAB PO PRN ×2 (01:10→15:09)
[2021-04-27] MEDS: IPRATROPIUM-ALBUTEROL 3 ML NEB INHALATION SCH ×4 (07:46→19:29)
[2021-04-27] MEDS: BUDESONIDE 0.5 MG/2 ML NEBU INHALATION SCH ×2 (07:46→19:29)
[2021-04-27] MEDS: ISOSORBIDE MONONITRATE ER 60 MG TAB.ER.24H PO SCH (08:39)
[2021-04-27] MEDS: carvediloL 12.5 MG TAB PO SCH ×2 (08:39→21:31)
[2021-04-27] MEDS: CHOLECALCIFEROL 25 MCG (1000 IU) TABLET PO SCH (08:39)
[2021-04-27] MEDS: CLOPIDOGREL 75 MG TAB PO SCH (08:39)
[2021-04-27] MEDS: guaiFENesin 600 MG TABLET.ER PO SCH ×2 (08:39→21:31)
[2021-04-27] MEDS: ESCITALOPRAM 10 MG TAB PO SCH (08:39)
[2021-04-27] MEDS: BENZONATATE 100 MG CAP PO PRN (08:40)
[2021-04-27] MEDS: lamoTRIgine 25 MG TAB PO SCH ×2 (08:40→22:10)
[2021-04-27] MEDS: FUROSEMIDE 20 MG TAB PO SCH (08:40)
[2021-04-27] MEDS: AZITHROMYCIN 250 MG TAB PO SCH (08:41)
--- NOTE | 2021-04-27 15:29 | P.PN ---
Subjective Progress Note Date: 04/27/21 Patient is doing about the same today. She was evaluated by me this morning. Remain on her home O2 level of 3-4 L. No evidence of hypoxia since admission. Objective - Vital Signs Vital signs: Vital Signs Temp 97.3 F L 04/27/21 13:04 Pulse 54 L 04/27/21 15:18 Resp 20 04/27/21 13:04 BP 106/66 04/27/21 13:04 Pulse Ox 94 L 04/27/21 13:04 Intake & Output 04/26/21 04/27/21 04/27/21 18:59 06:59 18:59 Weight 46 kg 46 kg Other: Voiding Method Bedpan # Voids 1 # Bowel Movements 1 - Exam General: The patient is awake and alert, in no distress Eye: there is normal conjunctiva bilaterally. Neck: The neck is supple, there is no JVD. Cardiovascular: Normal S1-S2, no S3-S4, no murmurs. Respiratory: Lungs clear to auscultation bilaterally Gastrointestinal: Abdomen is soft, nontender Musculoskeletal: There is no pedal edema. Skin: Skin is warm and dry - Labs CBC & Chem 7: 04/26/21 13:46 04/26/21 13:46 Assessment and Plan Assessment: 1. Acute on chronic hypoxic respiratory failure, required BiPAP per EMS. This was transient hypoxia and patient is currently back to her baseline O2 need to 4 L and satting 99%. I suspect that the patient is having episodes of mucus plugging contributing to sudden onset hypoxia. Chest x-ray showed some infiltrate . but I do not suspect pneumonia clinically and her pro-calcitonin is normal BNP was within normal range with no evidence of heart failure. Start Mucinex twice daily and a short course of oral azithromycin for possible bronchitis . Continue duo nebs as needed. 2. Underlying COPD with no evidence of exacerbation 3. History of diastolic heart failure not in exacerbation 4 . Chronic medical problems: Hyperlipidemia, hypertension, osteoarthritis, coronary artery disease, cerebral palsy, kyphoscoliosis, nontender laterally Patient was seen and evaluated by speech pathology. Appreciate recommendations in terms of diet. There is concern about possible aspiration.
[2021-04-27] MEDS: ATORVASTATIN 40 MG TAB PO SCH (21:31)
[2021-04-27] MEDS: amLODIPine 5 MG TAB PO SCH (21:31)
[2021-04-27] MEDS: LACTULOSE 20 GM/30 ML CUP PO SCH (21:31)
[2021-04-28] MEDS ORDERED: BUDESONIDE 0.5 MG/2 ML NEBU INHALATION SCH (08:00)
[2021-04-28] MEDS: FUROSEMIDE 20 MG TAB PO SCH (08:06)
[2021-04-28] MEDS: CLOPIDOGREL 75 MG TAB PO SCH (08:06)
[2021-04-28] MEDS: carvediloL 12.5 MG TAB PO SCH (08:06)
[2021-04-28] MEDS: guaiFENesin 600 MG TABLET.ER PO SCH (08:09)
[2021-04-28] MEDS: ESCITALOPRAM 10 MG TAB PO SCH (08:10)
[2021-04-28] MEDS: ISOSORBIDE MONONITRATE ER 60 MG TAB.ER.24H PO SCH (08:10)
[2021-04-28] MEDS: AZITHROMYCIN 250 MG TAB PO SCH (08:10)
[2021-04-28] MEDS: lamoTRIgine 25 MG TAB PO SCH (08:10)
[2021-04-28] MEDS: CHOLECALCIFEROL 25 MCG (1000 IU) TABLET PO SCH (08:10)
[2021-04-28] MEDS: IPRATROPIUM-ALBUTEROL 3 ML NEB INHALATION SCH ×2 (08:29→11:38)
--- NOTE | 2021-04-28 09:03 | P.DS ---
Providers Date of admission: 04/26/21 15:02 Expected date of discharge: 04/28/21 Attending physician: Blair Freeman MD Primary care physician: Zachariah [facility] Course: This is a 80-year-old female with past medical history noted below who was brought into the emergency room with concern about low oxygen level at the [facility] home. 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 1. Acute on chronic hypoxic respiratory failure, required BiPAP per EMS. This was transient hypoxia and patient was back to her baseline O2 need to 4 L and satting 99% in the emergency room. I suspect that the patient is having episodes of mucus plugging contributing to sudden onset hypoxia. Chest x-ray showed some infiltrate but I do not suspect pneumonia clinically and her pro- calcitonin is normal BNP was within normal range with no evidence of heart failure. Start Mucinex twice daily and a short course of oral azithromycin for possible bronchitis . Continue duo nebs as needed. 2. Underlying COPD with no evidence of exacerbation 3. History of diastolic heart failure not in exacerbation 4 . Chronic medical problems: Hyperlipidemia, hypertension, osteoarthritis, coronary artery disease, cerebral palsy, kyphoscoliosis, nontender laterally Patient was monitored in the hospital with no evidence of hypoxia whatsoever during the day or during the night. She was seen by me on the day of discharge. She was eager to be discharged back to the [facility] home. She was having some cough for which she was prescribed Tessalon Perles. She will continue breathing tr eatment and AFC home. Follow-up as directed. Patient Condition at Discharge: Fair Plan - Discharge Summary Discharge Rx Participant: No New Discharge Prescriptions: New guaiFENesin [Mucinex] 1,200 mg PO Q12HR #14 tablet Azithromycin [Zithromax] 250 mg PO DAILY 3 Days #3 tab Continue witch Jimi [Tucks Medicated Pads] 1 pad RECTAL 5XD PRN PRN Reason: PERIANAL ITCHING Magnesium Hydroxide [Milk of Magnesia] 1 dose PO DIRECTED PRN PRN Reason: Constipation Ipratropium [place] [Ipratropium [place] 0.03%] 2 sprays EA NOSTRIL TID PRN PRN Reason: Congestion Bismuth Subsalicylate [Kaopectate] 1 dose PO DIRECTED PRN PRN Reason: Heartburn Cholecalciferol (Vitamin D3) [Vitamin D3 (5000 Iu)] 125 mcg PO DAILY@0800 Levalbuterol HCl [Xopenex Nebulized] 0.63 mg INHALATION RT-TID@08,, Lactulose [Constulose] 20 gm PO HS@1999 Clopidogrel [Plavix] 75 mg PO DAILY@0800 Nystatin 100,000Unit/gm Cream [Mycostatin Cream] 1 applic TOPICAL BID@0800,1999 Escitalopram [Lexapro] 10 mg PO DAILY@0800 [place] Oral Care 1 applic DENTAL BID@0800,1999 PRN PRN Reason: ORAL CARE Stop Pain 1 applic TOPICAL BID PRN PRN Reason: Pain Acetaminophen Tab [Tylenol] 650 mg PO Q8H PRN PRN Reason: Pain Or Fever > 100.5 Diclofenac Sodium Gel [Voltaren Gel] 2 gm TOPICAL QID PRN PRN Reason: RIGHT SHOULDER PAIN ALPRAZolam [Xanax] 0.25 mg PO BID PRN PRN Reason: Anxiety lamoTRIgine [LaMICtal] 50 mg PO BID@0800,1999 Isosorbide Mononitrate ER [Imdur] 60 mg PO DAILY@0800 Calcium Polycarbophil [Fiber-Lax] 625 mg PO DAILY@0800 Colloidal Oatmeal [Eucerin Eczema Relief] 1 applic TOPICAL HS@1999 amLODIPine [Norvasc] 5 mg PO HS@1999 Carvedilol [Coreg] 12.5 mg PO BID@999,1999 Atorvastatin [Lipitor] 40 mg PO HS@1999 Alendronate Sodium [Fosamax] 35 mg PO WE@0800 Antacid Susp 1 dose PO DIRECTED PRN PRN Reason: Heartburn Furosemide [Lasix] 10 mg PO DAILY@1000 Changed Benzonatate [Tessalon Perles] 200 mg PO TID PRN #0 PRN Reason: Cough Discontinued Budesonide [Pulmicort] 0.5 mg INHALATION RT-BID@1300,1700 Discharge Medication List ALPRAZolam [Xanax] 0.25 mg PO BID PRN 03/12/21 [History] Acetaminophen Tab [Tylenol] 650 mg PO Q8H PRN 03/12/21 [History] Alendronate Sodium [Fosamax] 35 mg PO WE@0800 03/12/21 [History] Antacid Susp 1 dose PO DIRECTED PRN 03/12/21 [History] Atorvastatin [Lipitor] 40 mg PO HS@199903/12/21 [History] Bismuth Subsalicylate [Kaopectate] 1 dose PO DIRECTED PRN 03/12/21 [History] Calcium Polycarbophil [Fiber-Lax] 625 mg PO DAILY@0803/12/21 [History] Carvedilol [Coreg] 12.5 mg PO BID@999,199903/12/21 [History] Cholecalciferol (Vitamin D3) [Vitamin D3 (5000 Iu)] 125 mcg PO DAILY@79903/12/21 [History] Clopidogrel [Plavix] 75 mg PO DAILY@79903/12/21 [History] Colloidal Oatmeal [Eucerin Eczema Relief] 1 applic TOPICAL HS@199903/12/21 [History] Diclofenac Sodium Gel [Voltaren Gel] 2 gm TOPICAL QID PRN 03/12/21 [History] Ipratropium [place] [Ipratropium [place] 0.03%] 2 sprays EA NOSTRIL TID PRN 03/12/21 [History] Isosorbide Mononitrate ER [Imdur] 60 mg PO DAILY@79903/12/21 [History] Lactulose [Constulose] 20 gm PO HS@199903/12/21 [History] Levalbuterol HCl [Xopenex Nebulized] 0.63 mg INHALATION RT-TID@08,,03/12/21 [History] Magnesium Hydroxide [Milk of Magnesia] 1 dose PO DIRECTED PRN 03/12/21 [History] amLODIPine [Norvasc] 5 mg PO HS@199903/12/21 [History] lamoTRIgine [LaMICtal] 50 mg PO BID@08,199903/12/21 [History] witch Jimi [Tucks Medicated Pads] 1 pad RECTAL 5XD PRN 03/12/21 [History] Escitalopram [Lexapro] 10 mg PO DAILY@0800 04/24/21 [History] Furosemide [Lasix] 10 mg PO DAILY@1000 04/24/21 [History] Nystatin 100,000Unit/gm Cream [Mycostatin Cream] 1 applic TOPICAL BID@799,199904/24/21 [History] [place] Oral Care 1 applic DENTAL BID@0800,1999 PRN 04/24/21 [History] Stop Pain 1 applic TOPICAL BID PRN 04/26/21 [History] Azithromycin [Zithromax] 250 mg PO DAILY 3 Days #3 tab 04/28/21 [Rx] Benzonatate [Tessalon Perles] 200 mg PO TID PRN #0 04/28/21 [Rx] guaiFENesin [Mucinex] 1,200 mg PO Q12HR #14 tablet 04/28/21 [Rx] Follow up Appointment(s)/Referral(s): Zachariah Lewis MD [Primary Care Provider] - 1-2 days Discharge Disposition: TRANSFER TO SNF/ECF
[2021-04-28 09:07] VITALS: BP 148/75; RESP 22; TEMP 98
[2021-04-28 09:29] LABS: Basophils # (A) 0.04 X 10*3/uL (0.00-0.10); Basophils % (A) 0.5 %; Eosinophils # (A) 0.08 X 10*3/uL (0.04-0.35); HCT 30.5 % (37.2-46.3); HGB 9.3 g/dL (12.0-15.0); Lymphocytes # (A) 0.86 X 10*3/uL (0.90-5.00); Lymphocytes % (A) 10.7 %; MCH 29.7 pg (27.0-32.0); MCHC 30.5 g/dL (32.0-37.0); MCV 97.4 fL (80.0-97.0); Mean Platelet Volume 9.6 fL (9.5-12.2); Monocytes # (A) 0.99 X 10*3/uL (0.20-1.00); Monocytes % (A) 12.3 %; Neutrophils # (A) 6.07 X 10*3/uL (1.80-7.70); Neutrophils % (A) 75.3 %; Platelet Count 320 X 10*3/uL (140-440); RBC 3.13 X 10*6/uL (4.10-5.20); RDW 14.6 % (11.5-14.5); WBC 8.06 X 10*3/uL (4.50-10.00)
[2021-04-28] MEDS: ALPRAZolam 0.25 MG TAB PO PRN (09:47)
[2021-04-28] MEDS: BENZONATATE 100 MG CAP PO PRN (09:47)
[2021-04-28 10:23] LABS: African American GFR (CKD) 94.2 (60.0-200.0); Anion Gap 6.4 mmol/L (4.00-12.00); BUN/Creat Ratio 38.57 Ratio (12.00-20.00); Calcium 9.1 mg/dL (8.7-10.3); Carbon Dioxide 35.6 mmol/L (21.6-31.8); Non-African American GFR(CKD) 81.3 (60.0-200.0)
[2021-04-28 11:39] VITALS: PULSE 56
== END 2021-04-28 12:42 | DRG 205 ==
LOC: EC 13:37 → 4SSUR 15:02
PROVIDERS: ADMIT Internal Medicine; ATTEND Internal Medicine
DX: T17.990A Other foreign object in respiratory tract, part unspecified in causing asphyxiation, initial encounter (principal); J96.21 Acute and chronic respiratory failure with hypoxia; J44.0 Chronic obstructive pulmonary disease with (acute) lower respiratory infection; I50.32 Chronic diastolic (congestive) heart failure; Z79.02 Long term (current) use of antithrombotics/antiplatelets; Z88.0 Allergy status to penicillin; Z88.2 Allergy status to sulfonamides; I25.10 Atherosclerotic heart disease of native coronary artery without angina pectoris; E78.5 Hyperlipidemia, unspecified; M19.90 Unspecified osteoarthritis, unspecified site; G80.9 Cerebral palsy, unspecified; F70 Mild intellectual disabilities; X58.XXXA Exposure to other specified factors, initial encounter; I10 Essential (primary) hypertension; I11.0 Hypertensive heart disease with heart failure; M41.9 Scoliosis, unspecified; Z79.83 Long term (current) use of bisphosphonates; Z79.899 Other long term (current) drug therapy; F32.9 Major depressive disorder, single episode, unspecified; F41.9 Anxiety disorder, unspecified
CPT/HCPCS: 36415; 71045; 71046; 80048; 80053; 83605; 83735; 83880; 84145; 84484; 85025; 85610; 85730; 87040; 87635; 93005; 94640; 94660; 99285

== ENCOUNTER 2021-05-01 00:02 | Emergency (ER) | payer MEDICARE, OTHER ==
[2021-05-01] MEDS ORDERED: predniSONE 20 MG TAB PO STA (00:27)
[2021-05-01] MEDS ORDERED: ALBUTEROL NEBULIZED 2.5 MG/3 ML INHALATION STA ×2 (00:27→03:24)
[2021-05-01 01:09] LABS: Basophils # (A) 0.1 k/uL (0-0.2); Basophils % (A) 1 %; Eosinophils # (A) 0.2 k/uL (0-0.7); Eosinophils % (A) 2 %; HCT 33.6 % (34.0-46.0); HGB 10.6 gm/dL (11.4-16.0); Hypochromasia Moderate; Lymphocytes % (A) 10 %; MCH 29.6 pg (25.0-35.0); MCHC 31.4 g/dL (31.0-37.0); MCV 94.3 fL (80.0-100.0); Mean Platelet Volume 7.9; Monocytes # (A) 0.7 k/uL (0-1.0); Monocytes % (A) 7 %; Neutrophils # (A) 7.4 k/uL (1.3-7.7); Neutrophils % (A) 79 %; Platelet Count 394 k/uL (150-450); RBC 3.56 m/uL (3.80-5.40); RDW 14.5 % (11.5-15.5); WBC 9.5 k/uL (3.8-10.6)
[2021-05-01 01:29] LABS: ALT 17 U/L (4-34); AST 21 U/L (14-36); African American GFR (CKD) 70 (>60 ml/min/1.73 sqM); Albumin 3.4 g/dL (3.5-5.0); Alkaline Phosphatase 68 U/L (38-126); Anion Gap 7 mmol/L; Blood Urea Nitrogen 22 mg/dL (7-17); Calcium 9.1 mg/dL (8.4-10.2); Carbon Dioxide 31 mmol/L (22-30); Chloride 104 mmol/L (98-107); Glucose 113 mg/dL (74-99); Magnesium 2.2 mg/dL (1.6-2.3); Non-African American GFR(CKD) 61 (>60 ml/min/1.73 sqM); Potassium 3.6 mmol/L (3.5-5.1); Sodium 142 mmol/L (137-145); Total Bilirubin <0.1 mg/dL (0.2-1.3); Total Protein 5.6 g/dL (6.3-8.2)
--- NOTE | 2021-05-01 01:30 | ED ---
SOB HPI - General Chief Complaint: Shortness of Breath Stated Complaint: LAURE Time Seen by Provider: 05/01/21 00:05 Source: EMS, Caregiver Mode of arrival: EMS Limitations: altered mental status, physical limitation - History of Present Illness Initial Comments: This patient is an 80-year-old woman with history of COPD. She is accompanied from her residential by one of her caregivers. The patient was short of breath over the course of this evening and tonight. In addition there were pulse oximetry readings at the [facility] that were low. The patient is denying any pain. MD Complaint: shortness of breath, cough -: hour(s) Severity scale (1-10): 0 Consistency: constant Improves With: nothing Worsens With: nothing Known History Of: COPD Associated Symptoms: cough - Related Data Home Oxygen Therapy: Yes Home Medications Medication Instructions Recorded Confirmed ALPRAZolam [Xanax] 0.25 mg PO BID PRN 03/12/21 04/26/21 Acetaminophen Tab [Tylenol] 650 mg PO Q8H PRN 03/12/21 04/26/21 Alendronate Sodium [Fosamax] 35 mg PO WE@79903/12/21 04/26/21 Antacid Susp 1 dose PO DIRECTED PRN 03/12/21 04/26/21 Atorvastatin [Lipitor] 40 mg PO HS@199903/12/21 04/26/21 Bismuth Subsalicylate [Kaopectate] 1 dose PO DIRECTED PRN 03/12/21 04/26/21 Calcium Polycarbophil [Fiber-Lax] 625 mg PO DAILY@79903/12/21 04/26/21 Carvedilol [Coreg] 12.5 mg PO BID@1000,199903/12/21 04/26/21 Cholecalciferol (Vitamin D3) 125 mcg PO DAILY@79903/12/21 04/26/21 [Vitamin D3 (5000 Iu)] Clopidogrel [Plavix] 75 mg PO DAILY@79903/12/21 04/26/21 Colloidal Oatmeal [Eucerin Eczema 1 applic TOPICAL HS@199903/12/21 04/26/21 Relief] Diclofenac Sodium Gel [Voltaren 2 gm TOPICAL QID PRN 03/12/21 04/26/21 Gel] Ipratropium [place] [Ipratropium 2 sprays EA NOSTRIL TID PRN 03/12/21 04/26/21 [place] 0.03%] Isosorbide Mononitrate ER [Imdur] 60 mg PO DAILY@79903/12/21 04/26/21 Lactulose [Constulose] 20 gm PO HS@199903/12/21 04/26/21 Levalbuterol HCl [Xopenex 0.63 mg INHALATION RT-TID@,,03/12/21 04/26/21 Nebulized] Magnesium Hydroxide [Milk of 1 dose PO DIRECTED PRN 03/12/21 04/26/21 Magnesia] amLODIPine [Norvasc] 5 mg PO HS@199903/12/21 04/26/21 lamoTRIgine [LaMICtal] 50 mg PO BID@799,199903/12/21 04/26/21 witch Jimi [Tucks Medicated Pads] 1 pad RECTAL 5XD PRN 03/12/21 04/26/21 Escitalopram [Lexapro] 10 mg PO DAILY@0800 04/24/21 04/26/21 Furosemide [Lasix] 10 mg PO DAILY@1000 04/24/21 04/26/21 Nystatin 100,000Unit/gm Cream 1 applic TOPICAL BID@799,199904/24/21 04/26/21 [Mycostatin Cream] Toothette Oral Care 1 applic DENTAL BID@799,1999 PRN 04/24/21 04/26/21 Stop Pain 1 applic TOPICAL BID PRN 04/26/21 04/26/21 Previous Rx's Medication Instructions Recorded Azithromycin [Zithromax] 250 mg PO DAILY 3 Days #3 tab 04/28/21 Benzonatate [Tessalon Perles] 200 mg PO TID PRN #0 04/28/21 guaiFENesin [Mucinex] 1,200 mg PO Q12HR #14 tablet 04/28/21 predniSONE [Deltasone] 20 mg PO BID #8 tab 05/01/21 Allergies Allergy/AdvReac Type Severity Reaction Status Date / Time ipratropium Allergy Unknown Verified 04/26/21 14:15 naproxen [From Aleve] Allergy Unknown Verified 04/26/21 14:15 Penicillins Allergy Unknown Verified 04/26/21 14:15 rofecoxib [From Vioxx] Allergy Unknown Verified 04/26/21 14:15 Sulfa (Sulfonamide Allergy Unknown Verified 04/26/21 14:15 Antibiotics) Review of Systems ROS Statement: Those systems with pertinent positive or pertinent negative responses have been documented in the HPI. ROS Other: All systems not noted in ROS Statement are negative. Constitutional: Denies: fever, chills Respiratory: Reports: cough, dyspnea, wheezes Cardiovascular: Denies: chest pain, orthopnea, edema, syncope Gastrointestinal: Denies: abdominal pain, vomiting, diarrhea Genitourinary: Denies: dysuria, hematuria Musculoskeletal: Denies: back pain Skin: Denies: rash Neurological: Denies: headache, weakness, numbness Past Medical History Past Medical History: Asthma, Coronary Artery Disease (CAD), Heart Failure, COPD, GERD/Reflux, Hyperlipidemia, Hypertension, Osteoarthritis (OA), Pneumonia Additional Past Medical History / Comment(s): mild intellectual disability, cerebral palsy, kypho scoliosis, colitis, DJD, hernia History of Any Multi-Drug Resistant Organisms: None Reported Past Surgical History: Cholecystectomy, Orthopedic Surgery Additional Past Surgical History / Comment(s): (L) hip reduction Past Anesthesia/Blood Transfusion Reactions: No Reported Reaction Past Psychological History: Anxiety, Depression Smoking Status: Never smoker - Past Family History Father History Unknown: Yes Mother History Unknown: Yes General Exam Limitations: altered mental status, physical limitation General appearance: alert, in no apparent distress Head exam: Present: atraumatic, normocephalic Eye exam: Present: normal appearance. Absent: scleral icterus, conjunctival injection ENT exam: Present: normal oropharynx Neck exam: Present: normal inspection Respiratory exam: Present: wheezes. Absent: respiratory distress, rales, rhonchi, stridor, accessory muscle use, decreased breath sounds, prolonged expiratory Cardiovascular Exam: Present: regular rate, normal rhythm, normal heart sounds. Absent: systolic murmur, diastolic murmur, rubs, gallop GI/Abdominal exam: Present: soft. Absent: distended, tenderness, guarding, rebound, rigid, mass Extremities exam: Present: normal inspection, normal capillary refill, pedal edema (There is a trace of edema at the right ankle). Absent: calf tenderness Neurological exam: Present: alert Skin exam: Present: warm, dry, intact, normal color. Absent: rash Course Vital Signs 05/01/21 05/01/21 05/01/21 00:05 00:27 00:46 Temperature 98.8 F Pulse Rate 67 62 Respiratory 18 20 Rate Blood Pressure 135/57 O2 Sat by Pulse 99 Oximetry 05/01/21 05/01/21 05/01/21 00:56 01:30 02:35 Temperature Pulse Rate 61 60 62 Respiratory 20 18 Rate Blood Pressure 121/105 126/60 O2 Sat by Pulse 97 97 Oximetry 05/01/21 05/01/21 03:42 04:39 Temperature 97.9 F Pulse Rate 59 L 51 L Respiratory 18 Rate Blood Pressure 106/49 O2 Sat by Pulse 96 Oximetry Medical Decision Making - Medical Decision Making Patient is an 80-year-old woman presenting with increase in cough and wheezing versus her baseline. Also had low pulse ox at her long-term care facility. Here the patient's feeling better and her sats are good. I did offer admission, but The patient expresses preference to return to her facility and she does have caregivers there who are attentive. Patient will have coarse steroids for the COPD exacerbation, continue inhaled medications and recommend close follow-up. - Lab Data Result diagrams: 05/01/21 00:36 05/01/21 00:36 Lab Results 05/01/21 05/01/21 05/01/21 Range/Units 00:36 00:36 00:36 WBC 9.5 (3.8-10.6) k/uL RBC 3.56 L (3.80-5.40) m/uL Hgb 10.6 L (11.4-16.0) gm/dL Hct 33.6 L (34.0-46.0) % MCV 94.3 (80.0-100.0) fL MCH 29.6 (25.0-35.0) pg MCHC 31.4 (31.0-37.0) g/dL RDW 14.5 (11.5-15.5) % Plt Count 394 (150-450) k/uL MPV 7.9 Neutrophils % 79 % Lymphocytes % 10 % Monocytes % 7 % Eosinophils % 2 % Basophils % 1 % Neutrophils # 7.4 (1.3-7.7) k/uL Lymphocytes # 1.0 (1.0-4.8) k/uL Monocytes # 0.7 (0-1.0) k/uL Eosinophils # 0.2 (0-0.7) k/uL Basophils # 0.1 (0-0.2) k/uL Hypochromasia Moderate Sodium 142 (137-145) mmol/L Potassium 3.6 (3.5-5.1) mmol/L Chloride 104 (98-107) mmol/L Carbon Dioxide 31 H (22-30) mmol/L Anion Gap 7 mmol/L BUN 22 H (7-17) mg/dL Creatinine 0.89 (0.52-1.04) mg/dL Est GFR (CKD-EPI)AfAm 70 (>60 ml/min/1.73 sqM) Est GFR (CKD-EPI)NonAf 61 (>60 ml/min/1.73 sqM) Glucose 113 H (74-99) mg/dL Plasma Lactic Acid [place] 0.6 L (0.7-2.0) mmol/L Calcium 9.1 (8.4-10.2) mg/dL Magnesium 2.2 (1.6-2.3) mg/dL Total Bilirubin <0.1 L (0.2-1.3) mg/dL AST 21 (14-36) U/L ALT 17 (4-34) U/L Alkaline Phosphatase 68 (38-126) U/L Troponin I (0.000-0.034) ng/mL NT-Pro-B Natriuret Pep pg/mL Total Protein 5.6 L (6.3-8.2) g/dL Albumin 3.4 L (3.5-5.0) g/dL Coronavirus (PCR) (Not Detectd) 05/01/21 05/01/21 05/01/21 Range/Units 00:36 00:36 00:36 WBC (3.8-10.6) k/uL RBC (3.80-5.40) m/uL Hgb (11.4-16.0) gm/dL Hct (34.0-46.0) % MCV (80.0-100.0) fL MCH (25.0-35.0) pg MCHC (31.0-37.0) g/dL RDW (11.5-15.5) % Plt Count (150-450) k/uL MPV Neutrophils % % Lymphocytes % % Monocytes % % Eosinophils % % Basophils % % Neutrophils # (1.3-7.7) k/uL Lymphocytes # (1.0-4.8) k/uL Monocytes # (0-1.0) k/uL Eosinophils # (0-0.7) k/uL Basophils # (0-0.2) k/uL Hypochromasia Sodium (137-145) mmol/L Potassium (3.5-5.1) mmol/L Chloride (98-107) mmol/L Carbon Dioxide (22-30) mmol/L Anion Gap mmol/L BUN (7-17) mg/dL Creatinine (0.52-1.04) mg/dL Est GFR (CKD-EPI)AfAm (>60 ml/min/1.73 sqM) Est GFR (CKD-EPI)NonAf (>60 ml/min/1.73 sqM) Glucose (74-99) mg/dL Plasma Lactic Acid [place] (0.7-2.0) mmol/L Calcium (8.4-10.2) mg/dL Magnesium (1.6-2.3) mg/dL Total Bilirubin (0.2-1.3) mg/dL AST (14-36) U/L ALT (4-34) U/L Alkaline Phosphatase (38-126) U/L Troponin I <0.012 (0.000-0.034) ng/mL NT-Pro-B Natriuret Pep 827 pg/mL Total Protein (6.3-8.2) g/dL Albumin (3.5-5.0) g/dL Coronavirus (PCR) Not Detected (Not Detectd) - EKG Data -: EKG Interpreted by Pa EKG shows normal: axis (Normal), intervals (Normal) Rate: normal (Rate 64 bpm) Interpretation: LVH (64 bpm), other (Possible old septal infarct. ) Disposition Clinical Impression: Acute exacerbation of COPD with asthma Disposition: HOME SELF-CARE Condition: Good Instructions (If sedation given, give patient instructions): Chronic Bronchitis (ED) Prescriptions: predniSONE [Deltasone] 20 mg PO BID #8 tab Is patient prescribed a controlled substance at d/c from ED?: No Referrals: Zachariah Lewis MD [Primary Care Provider] - 1-2 days
--- NOTE | 2021-05-01 01:30 | XR ---
EXAMINATION TYPE: XR chest 1V portable DATE OF EXAM: 05/01/2021 COMPARISON: 04/26/2021 HISTORY: Short of breath TECHNIQUE: Single view FINDINGS: There is elevated left diaphragm. There is atelectasis at the left lung base. Right lung is fairly clear. There are chest leads. There is no gross heart failure. IMPRESSION: Chronic elevation of the left diaphragm and left basilar atelectasis. No change compared to recent exam. No obvious heart failure.
[2021-05-01] MEDS ORDERED: HYDROcodone/APAP 5-325MG 1 EACH TAB PO STA (01:44)
[2021-05-01 02:37] VITALS: RESP 18
[2021-05-01 04:42] VITALS: BP 106/49; PULSE 51; TEMP 97.9
== END 2021-05-01 04:39 | disposition home or self-care (01) ==
LOC: EC 00:02
DX: J44.1 Chronic obstructive pulmonary disease with (acute) exacerbation (principal); I11.0 Hypertensive heart disease with heart failure; I50.9 Heart failure, unspecified; I25.10 Atherosclerotic heart disease of native coronary artery without angina pectoris; E78.5 Hyperlipidemia, unspecified; M19.90 Unspecified osteoarthritis, unspecified site; K21.9 Gastro-esophageal reflux disease without esophagitis; F32.9 Major depressive disorder, single episode, unspecified; F41.9 Anxiety disorder, unspecified; Z79.52 Long term (current) use of systemic steroids; Z79.51 Long term (current) use of inhaled steroids; Z79.899 Other long term (current) drug therapy
CPT/HCPCS: 36415; 71045; 80053; 83605; 83735; 83880; 84484; 85025; 87040; 87635; 93005; 94640; 99284

== ENCOUNTER 2021-08-13 23:09 | Emergency (ER) | payer MEDICARE, OTHER ==
--- NOTE | 2021-08-14 00:32 | XR ---
EXAMINATION TYPE: XR chest 1V portable DATE OF EXAM: 08/14/2021 COMPARISON: 05/25/2021 HISTORY: Short of breath TECHNIQUE: Single view FINDINGS: Heart appears enlarged. There is no gross heart failure. There is poor inspiration. Lungs a ppear clear of consolidation. IMPRESSION: No acute lung disease. There is probably some pulmonary fibrosis. Poor inspiration. Chest not significantly different than last exam. Arthritic changes in the shoulder joints probably from inflammatory arthritis.
[2021-08-14 00:37] LABS: Anisocytosis Slight; Basophils % (A) 1 %; Eosinophils # (A) 0.2 k/uL (0-0.7); Eosinophils % (A) 3 %; HCT 34.4 % (34.0-46.0); HGB 10.8 gm/dL (11.4-16.0); Hypochromasia Slight; Lymphocytes # (A) 0.7 k/uL (1.0-4.8); Lymphocytes % (A) 12 %; MCH 29.3 pg (25.0-35.0); MCHC 31.5 g/dL (31.0-37.0); Mean Platelet Volume 8.5; Monocytes # (A) 0.3 k/uL (0-1.0); Monocytes % (A) 5 %; Neutrophils # (A) 4.5 k/uL (1.3-7.7); Neutrophils % (A) 77 %; Platelet Count 231 k/uL (150-450); RDW 16.3 % (11.5-15.5); WBC 5.9 k/uL (3.8-10.6)
--- NOTE | 2021-08-14 00:38 | ED ---
SOB HPI - General Chief Complaint: Shortness of Breath Stated Complaint: difficulty breathing Time Seen by Provider: 08/13/21 23:29 Source: patient, EMS Mode of arrival: EMS - Related Data Home Medications Medication Instructions Recorded Confirmed ALPRAZolam [Xanax] 0.25 mg PO BID PRN 03/12/21 04/26/21 Acetaminophen Tab [Tylenol] 650 mg PO Q8H PRN 03/12/21 04/26/21 Alendronate Sodium [Fosamax] 35 mg PO WE@79903/12/21 04/26/21 Antacid Susp 1 dose PO DIRECTED PRN 03/12/21 04/26/21 Atorvastatin [Lipitor] 40 mg PO HS@199903/12/21 04/26/21 Bismuth Subsalicylate [Kaopectate] 1 dose PO DIRECTED PRN 03/12/21 04/26/21 Calcium Polycarbophil [Fiber-Lax] 625 mg PO DAILY@79903/12/21 04/26/21 Carvedilol [Coreg] 12.5 mg PO BID@03/12/21 04/26/21 Cholecalciferol (Vitamin D3) 125 mcg PO DAILY@79903/12/21 04/26/21 [Vitamin D3 (5000 Iu)] Clopidogrel [Plavix] 75 mg PO DAILY@79903/12/21 04/26/21 Colloidal Oatmeal [Eucerin Eczema 1 applic TOPICAL HS@199903/12/21 04/26/21 Relief] Diclofenac Sodium Gel [Voltaren 2 gm TOPICAL QID PRN 03/12/21 04/26/21 Gel] Ipratropium [place] [Ipratropium 2 sprays EA NOSTRIL TID PRN 03/12/21 04/26/21 [place] 0.03%] Isosorbide Mononitrate ER [Imdur] 60 mg PO DAILY@79903/12/21 04/26/21 Lactulose [Constulose] 20 gm PO HS@199903/12/21 04/26/21 Levalbuterol HCl [Xopenex 0.63 mg INHALATION RT-TID@08,,03/12/21 04/26/21 Nebulized] Magnesium Hydroxide [Milk of 1 dose PO DIRECTED PRN 03/12/21 04/26/21 Magnesia] amLODIPine [Norvasc] 5 mg PO HS@199903/12/21 04/26/21 lamoTRIgine [LaMICtal] 50 mg PO BID@08,199903/12/21 04/26/21 ann Krause [Tucks Medicated Pads] 1 pad RECTAL 5XD PRN 03/12/21 04/26/21 Escitalopram [Lexapro] 10 mg PO DAILY@0800 04/24/21 04/26/21 Furosemide [Lasix] 10 mg PO DAILY@1000 04/24/21 04/26/21 Nystatin 100,000Unit/gm Cream 1 applic TOPICAL BID@799,199904/24/21 04/26/21 [Mycostatin Cream] Toothette Oral Care 1 applic DENTAL BID@799,1999 PRN 04/24/21 04/26/21 Stop Pain 1 applic TOPICAL BID PRN 04/26/21 04/26/21 Previous Rx's Medication Instructions Recorded Azithromycin [Zithromax] 250 mg PO DAILY 3 Days #3 tab 04/28/21 Benzonatate [Tessalon Perles] 200 mg PO TID PRN #0 04/28/21 guaiFENesin [Mucinex] 1,200 mg PO Q12HR #14 tablet 04/28/21 predniSONE [Deltasone] 20 mg PO BID #8 tab 05/01/21 Allergies Allergy/AdvReac Type Severity Reaction Status Date / Time ipratropium Allergy Unknown Verified 04/26/21 14:15 naproxen [From Aleve] Allergy Unknown Verified 04/26/21 14:15 Penicillins Allergy Unknown Verified 04/26/21 14:15 rofecoxib [From Vioxx] Allergy Unknown Verified 04/26/21 14:15 Sulfa (Sulfonamide Allergy Unknown Verified 04/26/21 14:15 Antibiotics) Review of Systems ROS Statement: Those systems with pertinent positive or pertinent negative responses have been documented in the HPI. ROS Other: All systems not noted in ROS Statement are negative. Past Medical History Past Medical History: Asthma, Coronary Artery Disease (CAD), Heart Failure, COPD, GERD/Reflux, Hyperlipidemia, Hypertension, Osteoarthritis (OA), Pneumonia Additional Past Medical History / Comment(s): mild intellectual disability, cerebral palsy, kypho scoliosis, colitis, DJD, hernia History of Any Multi-Drug Resistant Organisms: None Reported Past Surgical History: Cholecystectomy, Orthopedic Surgery Additional Past Surgical History / Comment(s): (L) hip reduction Past Anesthesia/Blood Transfusion Reactions: No Reported Reaction Past Psychological History: Anxiety, Depression Smoking Status: Never smoker Past Alcohol Use History: None Reported Past Drug Use History: None Reported - Past Family History Father History Unknown: Yes Mother History Unknown: Yes Course Vital Signs 08/13/21 08/14/21 08/14/21 23:22 00:50 03:17 Pulse Rate 59 L 64 Respiratory 20 20 18 Rate Blood Pressure 143/87 141/74 O2 Sat by Pulse 99 97 Oximetry 08/14/21 03:25 Pulse Rate 63 Respiratory Rate Blood Pressure O2 Sat by Pulse Oximetry Medical Decision Making - Lab Data Result diagrams: 08/14/21 00:24 08/14/21 00:24 Lab Results 08/14/21 08/14/21 08/14/21 Range/Units 00:24 00:24 00:24 WBC 5.9 (3.8-10.6) k/uL RBC 3.70 L (3.80-5.40) m/uL Hgb 10.8 L (11.4-16.0) gm/dL Hct 34.4 (34.0-46.0) % MCV 93.0 (80.0-100.0) fL MCH 29.3 (25.0-35.0) pg MCHC 31.5 (31.0-37.0) g/dL RDW 16.3 H (11.5-15.5) % Plt Count 231 (150-450) k/uL MPV 8.5 Neutrophils % 77 % Lymphocytes % 12 % Monocytes % 5 % Eosinophils % 3 % Basophils % 1 % Neutrophils # 4.5 (1.3-7.7) k/uL Lymphocytes # 0.7 L (1.0-4.8) k/uL Monocytes # 0.3 (0-1.0) k/uL Eosinophils # 0.2 (0-0.7) k/uL Basophils # 0.0 (0-0.2) k/uL Hypochromasia Slight Anisocytosis Slight PT 10.7 (9.0-12.0) sec INR 1.0 (<1.2) APTT 26.0 (22.0-30.0) sec D-Dimer 0.55 (<0.60) mg/L FEU Sodium 142 (137-145) mmol/L Potassium 4.1 (3.5-5.1) mmol/L Chloride 102 (98-107) mmol/L Carbon Dioxide 33 H (22-30) mmol/L Anion Gap 7 mmol/L BUN 24 H (7-17) mg/dL Creatinine 1.02 (0.52-1.04) mg/dL Est GFR (CKD-EPI)AfAm 60 (>60 ml/min/1.73 sqM) Est GFR (CKD-EPI)NonAf 52 (>60 ml/min/1.73 sqM) Glucose 99 (74-99) mg/dL Plasma Lactic Acid [place] (0.7-2.0) mmol/L Calcium 8.9 (8.4-10.2) mg/dL Total Bilirubin 0.1 L (0.2-1.3) mg/dL AST 26 (14-36) U/L ALT 27 (4-34) U/L Alkaline Phosphatase 72 (38-126) U/L Troponin I (0.000-0.034) ng/mL NT-Pro-B Natriuret Pep pg/mL Total Protein 6.1 L (6.3-8.2) g/dL Albumin 3.7 (3.5-5.0) g/dL Coronavirus (PCR) (Not Detectd) 08/14/21 08/14/21 08/14/21 Range/Units 00:24 00:24 00:24 WBC (3.8-10.6) k/uL RBC (3.80-5.40) m/uL Hgb (11.4-16.0) gm/dL Hct (34.0-46.0) % MCV (80.0-100.0) fL MCH (25.0-35.0) pg MCHC (31.0-37.0) g/dL RDW (11.5-15.5) % Plt Count (150-450) k/uL MPV Neutrophils % % Lymphocytes % % Monocytes % % Eosinophils % % Basophils % % Neutrophils # (1.3-7.7) k/uL Lymphocytes # (1.0-4.8) k/uL Monocytes # (0-1.0) k/uL Eosinophils # (0-0.7) k/uL Basophils # (0-0.2) k/uL Hypochromasia Anisocytosis PT (9.0-12.0) sec INR (<1.2) APTT (22.0-30.0) sec D-Dimer (<0.60) mg/L FEU Sodium (137-145) mmol/L Potassium (3.5-5.1) mmol/L Chloride (98-107) mmol/L Carbon Dioxide (22-30) mmol/L Anion Gap mmol/L BUN (7-17) mg/dL Creatinine (0.52-1.04) mg/dL Est GFR (CKD-EPI)AfAm (>60 ml/min/1.73 sqM) Est GFR (CKD-EPI)NonAf (>60 ml/min/1.73 sqM) Glucose (74-99) mg/dL Plasma Lactic Acid [place] 0.8 (0.7-2.0) mmol/L Calcium (8.4-10.2) mg/dL Total Bilirubin (0.2-1.3) mg/dL AST (14-36) U/L ALT (4-34) U/L Alkaline Phosphatase (38-126) U/L Troponin I <0.012 (0.000-0.034) ng/mL NT-Pro-B Natriuret Pep 1320 pg/mL Total Protein (6.3-8.2) g/dL Albumin (3.5-5.0) g/dL Coronavirus (PCR) (Not Detectd) 08/14/21 Range/Units 01:13 WBC (3.8-10.6) k/uL RBC (3.80-5.40) m/uL Hgb (11.4-16.0) gm/dL Hct (34.0-46.0) % MCV (80.0-100.0) fL MCH (25.0-35.0) pg MCHC (31.0-37.0) g/dL RDW (11.5-15.5) % Plt Count (150-450) k/uL MPV Neutrophils % % Lymphocytes % % Monocytes % % Eosinophils % % Basophils % % Neutrophils # (1.3-7.7) k/uL Lymphocytes # (1.0-4.8) k/uL Monocytes # (0-1.0) k/uL Eosinophils # (0-0.7) k/uL Basophils # (0-0.2) k/uL Hypochromasia Anisocytosis PT (9.0-12.0) sec INR (<1.2) APTT (22.0-30.0) sec D-Dimer (<0.60) mg/L FEU Sodium (137-145) mmol/L Potassium (3.5-5.1) mmol/L Chloride (98-107) mmol/L Carbon Dioxide (22-30) mmol/L Anion Gap mmol/L BUN (7-17) mg/dL Creatinine (0.52-1.04) mg/dL Est GFR (CKD-EPI)AfAm (>60 ml/min/1.73 sqM) Est GFR (CKD-EPI)NonAf (>60 ml/min/1.73 sqM) Glucose (74-99) mg/dL Plasma Lactic Acid [place] (0.7-2.0) mmol/L Calcium (8.4-10.2) mg/dL Total Bilirubin (0.2-1.3) mg/dL AST (14-36) U/L ALT (4-34) U/L Alkaline Phosphatase (38-126) U/L Troponin I (0.000-0.034) ng/mL NT-Pro-B Natriuret Pep pg/mL Total Protein (6.3-8.2) g/dL Albumin (3.5-5.0) g/dL Coronavirus (PCR) Not Detected (Not Detectd) - EKG Data -: EKG Interpreted by Me EKG shows normal: sinus rhythm, axis (Normal), intervals (Normal), ST-T waves (Normal) Rate: bradycardia (Rate 56 bpm) Interpretation: other (Possible old lateral infarct.) Disposition Clinical Impression: Congestive heart failure, COPD exacerbation Disposition: HOME SELF-CARE Condition: Good Instructions (If sedation given, give patient instructions): COPD (Chronic Obstructive Pulmonary Disease) (ED) Is patient prescribed a controlled substance at d/c from ED?: No Referrals: Zachariah Lewis MD [Primary Care Provider] - 1-2 days
[2021-08-14 00:49] LABS: Albumin 3.7 g/dL (3.5-5.0); Calcium 8.9 mg/dL (8.4-10.2); Potassium 4.1 mmol/L (3.5-5.1); Total Bilirubin 0.1 mg/dL (0.2-1.3); Total Protein 6.1 g/dL (6.3-8.2)
[2021-08-14 00:51] LABS: Prothrombin Time 10.7 sec (9.0-12.0)
[2021-08-14] MEDS ORDERED: FUROSEMIDE 10 MG/ML 2 ML VIAL IV STA (02:55)
[2021-08-14] MEDS ORDERED: ALBUTEROL NEBULIZED 2.5 MG/3 ML INHALATION STA (02:56)
[2021-08-14 03:18] VITALS: RESP 18
[2021-08-14 03:26] VITALS: PULSE 63
[2021-08-14 04:28] VITALS: BP 127/58; TEMP 98.7
== END 2021-08-14 04:55 | disposition home or self-care (01) ==
LOC: EC 23:09
DX: J44.1 Chronic obstructive pulmonary disease with (acute) exacerbation (principal); I11.0 Hypertensive heart disease with heart failure; I50.9 Heart failure, unspecified; I25.10 Atherosclerotic heart disease of native coronary artery without angina pectoris; K21.9 Gastro-esophageal reflux disease without esophagitis; E78.5 Hyperlipidemia, unspecified; M19.90 Unspecified osteoarthritis, unspecified site; F32.A Depression, unspecified; F41.9 Anxiety disorder, unspecified; Z79.02 Long term (current) use of antithrombotics/antiplatelets; Z79.899 Other long term (current) drug therapy
CPT/HCPCS: 36415; 94640; 93005; 85379; 83880; 80053; 83605; 84484; 85025; 85610; 85730; 87635; 71045; 99285; 96374; J1940

== ENCOUNTER 2021-11-11 22:58 | Inpatient (IN) | payer MEDICARE, OTHER ==
[2021-11-11] MEDS ORDERED: SODIUM CHLORIDE 0.9% 1,000 ML IV STA (23:04)
--- NOTE | 2021-11-11 23:25 | XR ---
EXAMINATION TYPE: XR chest 1V portable DATE OF EXAM: 11/11/2021 COMPARISON: NONE HISTORY: Short of breath TECHNIQUE: Single view FINDINGS: Heart is enlarged. There is a mild thoracolumbar dextroscoliosis. There is no pleural effus ion. There are no hilar masses. There is significant arthritic change in the right shoulder joint. Th ere is some atelectasis left lung base. IMPRESSION: There is some atelectasis left lower lobe which is slightly worse than last exam. Left lo wer lobe pneumonia is possible. No heart failure.
[2021-11-11] MEDS ORDERED: LORazepam 2 MG/ML INJ IV STA (23:34)
--- NOTE | 2021-11-11 23:35 | ED ---
Altered Mental Status HPI - General Stated Complaint: Cardiac Time Seen by Provider: 11/11/21 23:04 Source: EMS, RN notes reviewed, old records reviewed Mode of arrival: EMS Limitations: altered mental status - History of Present Illness Initial Comments: This is an 80-year-old female with altered presenting at baseline patient was allegedly unresponsive or possible cardiac arrest prior to arrival although EMS states they did have a pulse patient and ultimately arrived to the scene. Patient herself is unable to voice complaints but CPR was started at extended care facility for unresponsiveness pulse. They stated this lasted for about 20 minutes. No medications were given, AED was applied and no shocks were advised patient also had a pulse ox in the 80s upon arrival MD Complaint: altered mental status, decreased responsiveness -: minutes(s) Severity: severe Consistency of Symptoms: getting worse Context: history of similar presentation Associated Symptoms: denies other symptoms Treatments Prior to Arrival: IV fluid, oxygen - Related Data Home Medications Medication Instructions Recorded Confirmed ALPRAZolam [Xanax] 0.25 mg PO BID PRN 03/12/21 04/26/21 Acetaminophen Tab [Tylenol] 650 mg PO Q8H PRN 03/12/21 04/26/21 Alendronate Sodium [Fosamax] 35 mg PO WE@79903/12/21 04/26/21 Antacid Susp 1 dose PO DIRECTED PRN 03/12/21 04/26/21 Atorvastatin [Lipitor] 40 mg PO HS@199903/12/21 04/26/21 Bismuth Subsalicylate [Kaopectate] 1 dose PO DIRECTED PRN 03/12/21 04/26/21 Calcium Polycarbophil [Fiber-Lax] 625 mg PO DAILY@79903/12/21 04/26/21 Carvedilol [Coreg] 12.5 mg PO BID@1000,199903/12/21 04/26/21 Cholecalciferol (Vitamin D3) 125 mcg PO DAILY@79903/12/21 04/26/21 [Vitamin D3 (5000 Iu)] Clopidogrel [Plavix] 75 mg PO DAILY@79903/12/21 04/26/21 Colloidal Oatmeal [Eucerin Eczema 1 applic TOPICAL HS@199903/12/21 04/26/21 Relief] Diclofenac Sodium Gel [Voltaren 2 gm TOPICAL QID PRN 03/12/21 04/26/21 Gel] Ipratropium [place] [Ipratropium 2 sprays EA NOSTRIL TID PRN 03/12/21 04/26/21 [place] 0.03%] Isosorbide Mononitrate ER [Imdur] 60 mg PO DAILY@0800 03/12/21 04/26/21 Lactulose [Constulose] 20 gm PO HS@199903/12/21 04/26/21 Levalbuterol HCl [Xopenex 0.63 mg INHALATION RT-TID@,,03/12/21 04/26/21 Nebulized] Magnesium Hydroxide [Milk of 1 dose PO DIRECTED PRN 03/12/21 04/26/21 Magnesia] amLODIPine [Norvasc] 5 mg PO HS@199903/12/21 04/26/21 lamoTRIgine [LaMICtal] 50 mg PO BID@08,199903/12/21 04/26/21 witch Jimi [Tucks Medicated Pads] 1 pad RECTAL 5XD PRN 03/12/21 04/26/21 Escitalopram [Lexapro] 10 mg PO DAILY@0800 04/24/21 04/26/21 Furosemide [Lasix] 10 mg PO DAILY@1000 04/24/21 04/26/21 Nystatin 100,000Unit/gm Cream 1 applic TOPICAL BID@08,199904/24/21 04/26/21 [Mycostatin Cream] Toothette Oral Care 1 applic DENTAL BID@799,1999 PRN 04/24/21 04/26/21 Stop Pain 1 applic TOPICAL BID PRN 04/26/21 04/26/21 Previous Rx's Medication Instructions Recorded Azithromycin [Zithromax] 250 mg PO DAILY 3 Days #3 tab 04/28/21 Benzonatate [Tessalon Perles] 200 mg PO TID PRN #0 04/28/21 guaiFENesin [Mucinex] 1,200 mg PO Q12HR #14 tablet 04/28/21 predniSONE [Deltasone] 20 mg PO BID #8 tab 05/01/21 Allergies Allergy/AdvReac Type Severity Reaction Status Date / Time ipratropium Allergy Unknown Verified 04/26/21 14:15 naproxen [From Aleve] Allergy Unknown Verified 04/26/21 14:15 Penicillins Allergy Unknown Verified 04/26/21 14:15 rofecoxib [From Vioxx] Allergy Unknown Verified 04/26/21 14:15 Sulfa (Sulfonamide Allergy Unknown Verified 04/26/21 14:15 Antibiotics) Review of Systems ROS Statement: Those systems with pertinent positive or pertinent negative responses have been documented in the HPI. ROS Other: All systems not noted in ROS Statement are negative. Past Medical History Past Medical History: Asthma, Coronary Artery Disease (CAD), Heart Failure, COPD, GERD/Reflux, Hyperlipidemia, Hypertension, Osteoarthritis (OA), Pneumonia Additional Past Medical History / Comment(s): mild intellectual disability, cerebral palsy, kypho scoliosis, colitis, DJD, hernia History of Any Multi-Drug Resistant Organisms: None Reported Past Surgical History: Cholecystectomy, Orthopedic Surgery Additional Past Surgical History / Comment(s): (L) hip reduction Past Anesthesia/Blood Transfusion Reactions: No Reported Reaction Past Psychological History: Anxiety, Depression Smoking Status: Never smoker Past Alcohol Use History: None Reported Past Drug Use History: None Reported - Past Family History Father History Unknown: Yes Mother History Unknown: Yes General Exam Limitations: altered mental status General appearance: alert, in no apparent distress Head exam: Present: atraumatic, normocephalic, normal inspection Eye exam: Present: normal appearance, PERRL, EOMI. Absent: scleral icterus, conjunctival injection, periorbital swelling ENT exam: Present: normal exam, mucous membranes moist Neck exam: Present: normal inspection. Absent: tenderness, meningismus, lymphadenopathy Respiratory exam: Present: normal lung sounds bilaterally. Absent: respiratory distress, wheezes, rales, rhonchi, stridor Cardiovascular Exam: Present: regular rate, normal rhythm, normal heart sounds. Absent: systolic murmur, diastolic murmur, rubs, gallop, clicks GI/Abdominal exam: Present: soft, normal bowel sounds. Absent: distended, tenderness, guarding, rebound, rigid Extremities exam: Present: normal inspection, full ROM, normal capillary refill. Absent: tenderness, pedal edema, joint swelling, calf tenderness Back exam: Present: normal inspection Neurological exam: Present: alert, oriented X3, CN II-XII intact Psychiatric exam: Present: normal affect, normal mood Skin exam: Present: warm, dry, intact, normal color. Absent: rash Course Vital Signs 11/11/21 11/11/21 11/12/21 23:08 23:35 01:16 Temperature 97.4 F L Pulse Rate 89 82 83 Respiratory 18 18 18 Rate Blood Pressure 153/97 138/81 155/88 O2 Sat by Pulse 100 99 97 Oximetry - Reevaluation(s) Reevaluation #1: 11/12/21 00:25 Medical record is reviewed Per EMS and staff patient is currently at baseline Reevaluation #2: 11/12/21 03:27 Is no recurrent unresponsive episodes here in the ER Reevaluation #3: 11/12/21 03:27 Patient is unable to provide history or complaints currently - Consultations Consultation #1: Spoke with sound physicians who agree to admit this patient Medical Decision Making - Medical Decision Making 80 female DF for evaluation. Patient is underlying history of COPD patient is found to be hypoxic after cardiopulmonary arrest unresponsiveness with no pulse. Patient is been responsive at baseline here in the emergency department with normal vital signs, patient has no acute findings here in the ER for cause of unresponsiveness syncope or other other otherwise. Patient does have history of COPD and asthma with history of hypoxia on arrival. - Lab Data Result diagrams: 11/11/21 23:22 11/11/21 23:22 Lab Results 11/11/21 11/11/21 11/11/21 Range/Units 23:22 23:22 23:22 WBC 13.6 H (3.8-10.6) k/uL RBC 3.69 L (3.80-5.40) m/uL Hgb 11.4 (11.4-16.0) gm/dL Hct 35.8 (34.0-46.0) % MCV 97.0 (80.0-100.0) fL MCH 30.8 (25.0-35.0) pg MCHC 31.8 (31.0-37.0) g/dL RDW 14.1 (11.5-15.5) % Plt Count 219 (150-450) k/uL MPV 8.9 Neutrophils % 85 % Lymphocytes % 5 % Monocytes % 6 % Eosinophils % 2 % Basophils % 1 % Neutrophils # 11.6 H (1.3-7.7) k/uL Lymphocytes # 0.7 L (1.0-4.8) k/uL Monocytes # 0.8 (0-1.0) k/uL Eosinophils # 0.3 (0-0.7) k/uL Basophils # 0.1 (0-0.2) k/uL PT 11.5 (9.0-12.0) sec INR 1.1 (<1.2) APTT 24.3 (22.0-30.0) sec D-Dimer >34.10 H (<0.60) mg/L FEU Sodium 145 (137-145) mmol/L Potassium 4.2 (3.5-5.1) mmol/L Chloride 105 (98-107) mmol/L Carbon Dioxide 35 H (22-30) mmol/L Anion Gap 5 mmol/L BUN 35 H (7-17) mg/dL Creatinine 0.93 (0.52-1.04) mg/dL Est GFR (CKD-EPI)AfAm 67 (>60 ml/min/1.73 sqM) Est GFR (CKD-EPI)NonAf 58 (>60 ml/min/1.73 sqM) Glucose 106 H (74-99) mg/dL Plasma Lactic Acid [place] (0.7-2.0) mmol/L Calcium 8.9 (8.4-10.2) mg/dL Phosphorus 5.5 H (2.5-4.5) mg/dL Magnesium 2.4 H (1.6-2.3) mg/dL Total Bilirubin 0.5 (0.2-1.3) mg/dL AST 132 H (14-36) U/L ALT 81 H (4-34) U/L Alkaline Phosphatase 92 (38-126) U/L Troponin I (0.000-0.034) ng/mL NT-Pro-B Natriuret Pep pg/mL Total Protein 6.6 (6.3-8.2) g/dL Albumin 4.1 (3.5-5.0) g/dL 11/11/21 11/11/21 11/11/21 Range/Units 23:22 23:22 23:22 WBC (3.8-10.6) k/uL RBC (3.80-5.40) m/uL Hgb (11.4-16.0) gm/dL Hct (34.0-46.0) % MCV (80.0-100.0) fL MCH (25.0-35.0) pg MCHC (31.0-37.0) g/dL RDW (11.5-15.5) % Plt Count (150-450) k/uL MPV Neutrophils % % Lymphocytes % % Monocytes % % Eosinophils % % Basophils % % Neutrophils # (1.3-7.7) k/uL Lymphocytes # (1.0-4.8) k/uL Monocytes # (0-1.0) k/uL Eosinophils # (0-0.7) k/uL Basophils # (0-0.2) k/uL PT (9.0-12.0) sec INR (<1.2) APTT (22.0-30.0) sec D-Dimer (<0.60) mg/L FEU Sodium (137-145) mmol/L Potassium (3.5-5.1) mmol/L Chloride (98-107) mmol/L Carbon Dioxide (22-30) mmol/L Anion Gap mmol/L BUN (7-17) mg/dL Creatinine (0.52-1.04) mg/dL Est GFR (CKD-EPI)AfAm (>60 ml/min/1.73 sqM) Est GFR (CKD-EPI)NonAf (>60 ml/min/1.73 sqM) Glucose (74-99) mg/dL Plasma Lactic Acid [place] 1.0 (0.7-2.0) mmol/L Calcium (8.4-10.2) mg/dL Phosphorus (2.5-4.5) mg/dL Magnesium (1.6-2.3) mg/dL Total Bilirubin (0.2-1.3) mg/dL AST (14-36) U/L ALT (4-34) U/L Alkaline Phosphatase (38-126) U/L Troponin I 0.036 H* (0.000-0.034) ng/mL NT-Pro-B Natriuret Pep 1350 pg/mL Total Protein (6.3-8.2) g/dL Albumin (3.5-5.0) g/dL - EKG Data -: EKG Interpreted by Me (EKG is sinus rhythm 80 RI 166 QRS 90 QTC 393) - Radiology Data Radiology results: report reviewed (Chest x-ray and CT chest show left lower lobe pneumonia), image reviewed Critical Care Time Critical Care Time: Yes Total Critical Care Time: 31 Disposition Clinical Impression: Acute exacerbation of COPD with asthma, Hypoxia, Community acquired pneumonia, Leukocytosis Narrative: Possible CPA Disposition: ADMITTED IP TO THIS HOSP Condition: Fair Is patient prescribed a controlled substance at d/c from ED?: No Referrals: Zachariah Lewis MD [Primary Care Provider] - 1-2 days
[2021-11-11 23:36] LABS: Basophils # (A) 0.1 k/uL (0-0.2); Basophils % (A) 1 %; Eosinophils # (A) 0.3 k/uL (0-0.7); Eosinophils % (A) 2 %; HCT 35.8 % (34.0-46.0); HGB 11.4 gm/dL (11.4-16.0); Lymphocytes # (A) 0.7 k/uL (1.0-4.8); Lymphocytes % (A) 5 %; MCH 30.8 pg (25.0-35.0); MCHC 31.8 g/dL (31.0-37.0); Mean Platelet Volume 8.9; Monocytes # (A) 0.8 k/uL (0-1.0); Monocytes % (A) 6 %; Neutrophils # (A) 11.6 k/uL (1.3-7.7); Neutrophils % (A) 85 %; Platelet Count 219 k/uL (150-450); RBC 3.69 m/uL (3.80-5.40); RDW 14.1 % (11.5-15.5); WBC 13.6 k/uL (3.8-10.6)
[2021-11-12 00:02] LABS: Albumin 4.1 g/dL (3.5-5.0); Calcium 8.9 mg/dL (8.4-10.2); Magnesium 2.4 mg/dL (1.6-2.3); Phosphorus 5.5 mg/dL (2.5-4.5); Potassium 4.2 mmol/L (3.5-5.1); Total Bilirubin 0.5 mg/dL (0.2-1.3); Total Protein 6.6 g/dL (6.3-8.2)
[2021-11-12 01:10] LABS: INR 1.1 (<1.2); Partial Thromboplastin Time 24.3 sec (22.0-30.0); Prothrombin Time 11.5 sec (9.0-12.0)
--- NOTE | 2021-11-12 03:18 | CT ---
EXAMINATION TYPE: CT angio chest DATE OF EXAM: 11/12/2021 COMPARISON: None HISTORY: Cardiac Arrest, 20 mins of CPR, Elevated Ddimer. Prior on synapse. Hx of cholecystectomy. pt unable to hold still or follow directions. AMS CT DLP: 284.1 mGycm Automated exposure control for dose reduction was used. CONTRAST: Performed with IV Contrast, patient injected with 50 mL of Isovue 370. Images obtained from the thoracic inlet to the diaphragm with IV contrast. There are Three-D postproc essed images. There is patchy infiltrate and atelectasis at both lung bases. No pneumothorax. There is some pulmona ry interstitial edema. Heart is slightly enlarged. There is no evidence of filling defect in the pulmonary arteries. There is no mediastinal adenopathy. There are no hilar masses. There is no evidence of thoracic aortic aneurysm or dissection. There is thoracolumbar kyphotic deformity. There is moderately severe thoracolumbar dextroscoliotic d eformity. IMPRESSION: No evidence of pulmonary embolism. Extensive lower lobe pulmonary patchy infiltrates and atelectasis. Mild pulmonary interstitial edema. Scoliotic deformity.
[2021-11-12] MEDS ORDERED: ONDANSETRON 4 MG/2 ML VIAL IVP PRN (03:23)
[2021-11-12] MEDS ORDERED: AZITHROMYCIN 500 MG in SODIUM CHLORIDE 0.9% 250 ML IVPB STA (03:23)
[2021-11-12] MEDS ORDERED: NALOXONE 0.4 MG/ML 1 ML VIAL IV PRN (03:23)
[2021-11-12] MEDS ORDERED: LORazepam 2 MG/ML INJ IV PRN (03:23)
[2021-11-12] MEDS: SODIUM CHLORIDE 0.9% 1,000 ML IV SCH ×2 (03:53→13:27)
--- NOTE | 2021-11-12 05:14 | P.HPIM ---
History of Present Illness H&P Date: 11/12/21 Patient is an 80-year-old female with a PMH of cerebral palsy, coronary artery disease, CHF, COPD, hyperlipidemia, hypertension, resident of an extended care facility who was brought into the emergency room due to suspected cardiac arrest. The patient did not contribute anything to the history which was thereby obtained from the chart and from the ED staff. The patient was reportedly noted to be unresponsive at the [facility] for which the EMS was activated and upon arrival the patient was noted to have a pulse but she was given CPR nonetheless. Reportedly, the patient had a pulse throughout the episode, with no medications given during CPR with AED applied and no shocks advised. Chest CT in the emergency room revealed extensive lower lobe infiltrates with EKG showing sinus rhythm with an incomplete right bundle branch block at 80 bpm. Laboratory evaluation was remarkable for leukocytosis of 13.6, troponin 0.036, proBNP 1350, AST 132, and ALT 81. Review of systems: Unable to obtain due to severe developmental delay Physical examination: General: non toxic, no distress, appears at stated age, normal weight Derm: no unusual rashes/lesions no unusual ecchymoses, warm, dry Head: atraumatic, normocephalic, symmetric Eyes: EOMI, no lid lag, anicteric sclera, pupils equal round reactive to light ENT: Nose and ears atraumatic, no thrush, no pharyngeal erythema Neck: No thyromegaly, no cervical lymphadenopathy, trachea midline, supple Mouth: no lip lesion, mucus membranes moist Cardiovascular: S1S2 reg, no murmur, positive posterior tibial pulse bilateral, no edema, capillary refill less than 2 seconds Lungs: Bibasilar rhonchi, no rales or wheezing, no accessory muscle use Abdominal: soft, nontender to palpation, no guarding, no appreciable organomegaly, normal bowel sounds Ext: Thin extremities, no contractures, muscle strength unable to be assessed as patient not following commands Neuro: Moving all extremities Psych: Unable to assess Assessment/plan Unresponsiveness, unclear etiology, possibly sepsis secondary to pneumonia -Continue with antibiotics azithromycin and ceftriaxone -Continue IV fluids -Cardiac monitoring -Fall precautions Chronic conditions: Hypertension, hyperlipidemia, coronary artery disease -Continue with home meds DVT prophylaxis -Heparin sub The patient is admitted with an anticipated greater than 2 midnight stay for e valuation of urnesponsiveness CODE STATUS:Full Code Discussed with: Patient Anticipated discharge date: 11/[address]: Home Past Medical History Past Medical History: Asthma, Coronary Artery Disease (CAD), Heart Failure, COPD, GERD/Reflux, Hyperlipidemia, Hypertension, Osteoarthritis (OA), Pneumonia Additional Past Medical History / Comment(s): mild intellectual disability, cerebral palsy, kypho scoliosis, colitis, DJD, hernia History of Any Multi-Drug Resistant Organisms: None Reported Past Surgical History: Cholecystectomy, Orthopedic Surgery Additional Past Surgical History / Comment(s): (L) hip reduction Past Anesthesia/Blood Transfusion Reactions: No Reported Reaction Past Psychological History: Anxiety, Depression Smoking Status: Never smoker Past Alcohol Use History: None Reported Past Drug Use History: None Reported - Past Family History Father History Unknown: Yes Mother History Unknown: Yes Medications and Allergies Home Medications Medication Instructions Recorded Confirmed Type ALPRAZolam [Xanax] 0.25 mg PO BID PRN 03/12/21 04/26/21 History Acetaminophen Tab [Tylenol] 650 mg PO Q8H PRN 03/12/21 04/26/21 History Alendronate Sodium [Fosamax] 35 mg PO WE@79903/12/21 04/26/21 History Antacid Susp 1 dose PO DIRECTED PRN 03/12/21 04/26/21 History Atorvastatin [Lipitor] 40 mg PO HS@199903/12/21 04/26/21 History Bismuth Subsalicylate [Kaopectate] 1 dose PO DIRECTED PRN 03/12/21 04/26/21 History Calcium Polycarbophil [Fiber-Lax] 625 mg PO DAILY@79903/12/21 04/26/21 History Carvedilol [Coreg] 12.5 mg PO BID@1000,199903/12/21 04/26/21 History Cholecalciferol (Vitamin D3) 125 mcg PO DAILY@79903/12/21 04/26/21 History [Vitamin D3 (5000 Iu)] Clopidogrel [Plavix] 75 mg PO DAILY@79903/12/21 04/26/21 History Colloidal Oatmeal [Eucerin Eczema 1 applic TOPICAL HS@199903/12/21 04/26/21 History Relief] Diclofenac Sodium Gel [Voltaren 2 gm TOPICAL QID PRN 03/12/21 04/26/21 History Gel] Ipratropium [place] [Ipratropium 2 sprays EA NOSTRIL TID PRN 03/12/21 04/26/21 History [place] 0.03%] Isosorbide Mononitrate ER [Imdur] 60 mg PO DAILY@0800 03/12/21 04/26/21 History Lactulose [Constulose] 20 gm PO HS@199903/12/21 04/26/21 History Levalbuterol HCl [Xopenex 0.63 mg INHALATION RT-TID@03/12/21 04/26/21 History Nebulized] Magnesium Hydroxide [Milk of 1 dose PO DIRECTED PRN 03/12/21 04/26/21 History Magnesia] amLODIPine [Norvasc] 5 mg PO HS@199903/12/21 04/26/21 History lamoTRIgine [LaMICtal] 50 mg PO BID@08,199903/12/21 04/26/21 History witch Jimi [Tucks Medicated Pads] 1 pad RECTAL 5XD PRN 03/12/21 04/26/21 History Escitalopram [Lexapro] 10 mg PO DAILY@0800 04/24/21 04/26/21 History Furosemide [Lasix] 10 mg PO DAILY@1000 04/24/21 04/26/21 History Nystatin 100,000Unit/gm Cream 1 applic TOPICAL BID@799,199904/24/21 04/26/21 History [Mycostatin Cream] Toothette Oral Care 1 applic DENTAL BID@799,1999 PRN 04/24/21 04/26/21 History Stop Pain 1 applic TOPICAL BID PRN 04/26/21 04/26/21 History Azithromycin [Zithromax] 250 mg PO DAILY 3 Days #3 tab 04/28/21 Rx Benzonatate [Tessalon Perles] 200 mg PO TID PRN #0 04/28/21 04/26/21 Rx guaiFENesin [Mucinex] 1,200 mg PO Q12HR #14 tablet 04/28/21 Rx predniSONE [Deltasone] 20 mg PO BID #8 tab 05/01/21 Rx Allergies Allergy/AdvReac Type Severity Reaction Status Date / Time ipratropium Allergy Unknown Verified 04/26/21 14:15 naproxen [From Aleve] Allergy Unknown Verified 04/26/21 14:15 Penicillins Allergy Unknown Verified 04/26/21 14:15 rofecoxib [From Vioxx] Allergy Unknown Verified 04/26/21 14:15 Sulfa (Sulfonamide Allergy Unknown Verified 04/26/21 14:15 Antibiotics) Physical Exam Vitals: Vital Signs Temp Pulse Resp BP Pulse Ox 11/12/21 03:00 77 18 130/68 98 11/12/21 01:16 83 18 155/88 97 11/11/21 23:35 82 18 138/81 99 11/11/21 23:08 97.4 F L 89 18 153/97 100 Intake and Output 11/11/21 11/11/21 11/12/21 14:59 22:59 07:59 Other: Weight 40.823 kg Results CBC & Chem 7: 11/11/21 23:22 11/11/21 23:22 Labs: Abnormal Lab Results - Last 24 Hours (Table) 11/11/21 11/11/21 11/11/21 Range/Units 23:22 23:22 23:22 WBC 13.6 H (3.8-10.6) k/uL RBC 3.69 L (3.80-5.40) m/uL Neutrophils # 11.6 H (1.3-7.7) k/uL Lymphocytes # 0.7 L (1.0-4.8) k/uL D-Dimer >34.10 H (<0.60) mg/L FEU Carbon Dioxide 35 H (22-30) mmol/L BUN 35 H (7-17) mg/dL Glucose 106 H (74-99) mg/dL Phosphorus 5.5 H (2.5-4.5) mg/dL Magnesium 2.4 H (1.6-2.3) mg/dL AST 132 H (14-36) U/L ALT 81 H (4-34) U/L Troponin I (0.000-0.034) ng/mL 11/11/21 Range/Units 23:22 WBC (3.8-10.6) k/uL RBC (3.80-5.40) m/uL Neutrophils # (1.3-7.7) k/uL Lymphocytes # (1.0-4.8) k/uL D-Dimer (<0.60) mg/L FEU Carbon Dioxide (22-30) mmol/L BUN (7-17) mg/dL Glucose (74-99) mg/dL Phosphorus (2.5-4.5) mg/dL Magnesium (1.6-2.3) mg/dL AST (14-36) U/L ALT (4-34) U/L Troponin I 0.036 H* (0.000-0.034) ng/mL
[2021-11-12] MEDS: MORPHINE SULFATE 4 MG/ML SYRINGE IV PRN (09:02)
[2021-11-12 12:42] LABS: Glucose,Whole Blood 98 mg/dL (75-99)
[2021-11-12] MEDS ORDERED: methylPREDNISolone SOD SUCCI 125 MG/2 ML VIAL IV STA (12:54)
--- NOTE | 2021-11-12 13:11 | XR ---
EXAMINATION TYPE: XR chest 1V portable DATE OF EXAM: 11/12/2021 COMPARISON: 11/11/2021 HISTORY: Shortness of breath TECHNIQUE: Single frontal view of the chest is obtained. FINDINGS: There is marked cardiomegaly, pulmonary vascular congestion, interstitial edema and left p leural effusion. Findings are most consistent with CHF. There is marked degenerative change of the shoulders right greater than left. IMPRESSION: Marked acute cardiopulmonary disease most consistent with CHF. No significant interval c hange since previous.
[2021-11-12] MEDS ORDERED: propofoL 100 ML IV ONE (13:21)
[2021-11-12] MEDS ORDERED: CISATRACURIUM 2 MG/ML 5 ML VIAL IV ONE (13:34)
[2021-11-12 13:35] LABS: Glucose,Whole Blood 107 mg/dL (75-99)
[2021-11-12 13:36] LABS: Basophils % (A) 0 %; Eosinophils % (A) 0 %; HCT 34.6 % (34.0-46.0); HGB 10.6 gm/dL (11.4-16.0); Hypochromasia Moderate; Lymphocytes # (A) 0.7 k/uL (1.0-4.8); Lymphocytes % (A) 5 %; MCH 30.7 pg (25.0-35.0); MCHC 30.8 g/dL (31.0-37.0); MCV 99.7 fL (80.0-100.0); Mean Platelet Volume 8.5; Monocytes % (A) 8 %; Neutrophils # (A) 11.5 k/uL (1.3-7.7); Neutrophils % (A) 86 %; Platelet Count 182 k/uL (150-450); RBC 3.47 m/uL (3.80-5.40); RDW 14.1 % (11.5-15.5); WBC 13.4 k/uL (3.8-10.6)
[2021-11-12 13:41] LABS: Albumin 3.8 g/dL (3.5-5.0); Calcium 8.6 mg/dL (8.4-10.2); Potassium 3.8 mmol/L (3.5-5.1); Total Bilirubin 0.5 mg/dL (0.2-1.3); Total Protein 6.2 g/dL (6.3-8.2)
[2021-11-12 13:47] LABS: Appearance,Urine Clear (Clear); Bilirubin,Urine Negative (Negative); Blood,Urine Moderate (Negative); Color,Urine Yellow; Glucose,Urine (UA) Trace (Negative); Ketones,Urine Negative (Negative); Leukocyte Esterase,Urine Negative (Negative); Mucus,Urine Rare /hpf; Nitrite,Urine Negative (Negative); PH, Urine 5.5 (5.0-8.0); Protein,Urine 1+ (Negative); RBC,Urine 1 /hpf (0-5); Urobilinogen,Urine <2.0 mg/dL (<2.0); WBC,Urine 1 /hpf (0-5)
--- NOTE | 2021-11-12 13:58 | XR ---
EXAMINATION TYPE: XR chest 1V portable DATE OF EXAM: 11/12/2021 COMPARISON: 11/12/2021 HISTORY: Tube placement TECHNIQUE: Single frontal view of the chest is obtained. FINDINGS: ET tube is 5 mm above the maikol. There is an NG tube, the tip of which is near the gastr oesophageal junction. There is a left jugular central venous catheter the tip of which is in the righ t atrium. There is marked cardiomegaly and pulmonary vascular congestion and probable left effusion. There is marked scoliosis of the dorsal spine. There is marked degenerative change of the right gleno humeral joint and mild degenerative change left glenohumeral joint.. IMPRESSION: 1. Moderate to marked acute cardiopulmonary disease unchanged compared to previous. 2. ET tube nearly at the maikol, approximately 5 mm above the maikol. 3. No pneumothorax. 4. Central venous catheter tip in the right atrium. 5. NG tube near the gastroesophageal junction.
[2021-11-12 14:46] LABS: ABG Base Excess 7.1 mmol/L; ABG HCO3 31 mmol/L (21-25); ABG Oxygen Saturation 99.6 % (94-97); ABG PCO2 45 mmHg (35-45); ABG PH 7.45 (7.35-7.45); ABG PO2 384 mmHg (83-108); ABG TCO2 33 mmol/L (19-24)
--- NOTE | 2021-11-12 14:49 | PCN ---
PROCEDURE NOTE PROCEDURE: Placement of a left internal jugular triple-lumen catheter. OPERATORS: 1. Dr. Zhang. 2. Dr. Alonso. PREOPERATIVE DIAGNOSIS: Administration of fluids and pressors. POSTOPERATIVE DIAGNOSIS: Administration of fluids and pressors. PROCEDURE DESCRIPTION: A time-out was completed verifying correct patient, procedure, site, positioning, and implant(s) or special equipment if applicable. The patient was placed in a dependent position appropriate for triple-lumen catheter placement based on the vein to be cannulated. The patient's left neck was prepped and draped in sterile fashion. Lidocaine 1% was used to anesthetize the surrounding skin area. A triple-lumen 9F Cordis catheter was introduced into the left internal jugular vein using Seldinger technique via the posterior approach. The catheter was threaded smoothly over the guide wire and appropriate blood return was obtained. There was good blood return from all three ports. Each lumen of the catheter was evacuated of air and flushed with sterile saline. The catheter was then sutured in place to the skin and a sterile dressing applied. Perfusion to the extremity distal to the point of catheter insertion was checked and found to be adequate. There was no immediate complication. The tip of the catheter was seen in the area of the right atrium. Sterile dressing was applied. MMODL / IJN: [id number] /
--- NOTE | 2021-11-12 14:49 | PCN ---
PROCEDURE NOTE PROCEDURE: Placement of left brachial arterial line. PREOPERATIVE DIAGNOSIS: Frequent blood draws and blood gas monitoring. POSTOPERATIVE DIAGNOSIS: Frequent blood draws and blood gas monitoring. OPERATORS: 1. Dr. Zhang. 2. Dr. Alonso. PROCEDURE DESCRIPTION: There was informed consent and a universal time-out was completed verifying correct patient, procedure, site, positioning, and implant(s) or special equipment if applicable. Eliezer's test was performed to ensure adequate perfusion. The patient's left wrist was prepped and draped in sterile fashion. Lidocaine 1% was used to anesthetize the area. An 18G [place] arterial line was introduced into the brachial artery. The catheter was threaded over the guidewire and the needle was removed with appropriate pulsatile blood return. There was good waveform and blood pressure reading. Blood loss was minimal. The catheter was then sutured in place to the skin and a sterile dressing applied by the nurse. Perfusion to the extremity distal to the point of catheter insertion was checked and found to be adequate. The patient tolerated the procedure well and there were no immediate complications. MMODL / IJN: [id number] /
[2021-11-12 14:52] LABS: Allen Test Performed? Yesna
[2021-11-12] MEDS: HYDROmorphone 1 MG/ML 1 ML SYRINGE IVP PRN (15:01)
--- NOTE | 2021-11-12 15:25 | P.CNPUL ---
History of Present Illness Consult date: 11/12/21 Requesting physician: Dennis Sanchez Reason for consult: other Chief complaint: Cardiac arrest. History of present illness: Pulmonary/critical care consult dated 11/12/2021. 80-year-old female with history of cerebral palsy, who was brought into the emergency room, on November 11, unresponsive, and/or with a cardiac arrest. It's not clear from reviewing the ER javed whether or not the patient did or did not have a pulse. Apparently she had CPR provided to her by [facility]. Apparently that CPR lasted for 20 minutes. No medications were given. An AED was applied but no shocks were given. The patient apparently was further evaluated and resuscitated in the emergency department, and admitted to 3 [address]., room 372. Today, we heard a rapid response called to room 372. And one of my ICU nurses who responded, told me that the patient was in respiratory distress, and required intubation. She was intubated and brought down to the ICU. We placed a central line in her, and also a arterial line. We were not able get any additional history from her. Currently she is on propofol, and saline. White count 13.4, hemoglobin 10.6, hematocrit 34.6, platelet count 182,000. Most recent blood gases show pO2 384, pCO2 45, and pH is 7.45. This was on 100%. The FiO2 was reduced down to 40%. Sodium 147, potassium 3.8, chlorides 109, CO2 34, anion gap 4, BUN 23, and creatinine 0.73. Lactic acid was 0.6 AST 119 ALT 80 total protein 6.2. Urine is yellow and clear. There is 1+ protein and trace glucose. There is moderate blood. No evidence of infection. Chest x-ray shows cardiomegaly, a properly placed central line, and diffuse bilateral infiltrates. Review of Systems REVIEW OF SYSTEMS: CONSTITUTIONAL: [Negative.] NEUROLOGIC: [ Negative.] HEENT: [ Negative.] CARDIAC: Cardiac arrest, with 20 minutes of CPR provided by the staff, at the [facility]. PULMONARY: [Negative.] GI: [Negative.] : [Negative.] RHEUMATOLOGIC: [ Negative.] IMMUNOLOGIC: [ Negative.] ENDOCRINE: [Negative. ] DERMATOLOGIC: [Negative.] Past Medical History Past Medical History: Asthma, Coronary Artery Disease (CAD), Heart Failure, COPD, GERD/Reflux, Hyperlipidemia, Hypertension, Osteoarthritis (OA), Pneumonia Additional Past Medical History / Comment(s): mild intellectual disability, cerebral palsy, kypho scoliosis, colitis, DJD, hernia History of Any Multi-Drug Resistant Organisms: None Reported Past Surgical History: Cholecystectomy, Orthopedic Surgery Additional Past Surgical History / Comment(s): (L) hip reduction Past Anesthesia/Blood Transfusion Reactions: No Reported Reaction Past Psychological History: Anxiety, Depression Smoking Status: Never smoker Past Alcohol Use History: None Reported Past Drug Use History: None Reported - Past Family History Father History Unknown: Yes Mother History Unknown: Yes Medications and Allergies Home Medications Medication Instructions Recorded Confirmed Type Acetaminophen Tab [Tylenol] 650 mg PO Q8H PRN 03/12/21 11/12/21 History Alendronate Sodium [Fosamax] 35 mg PO WE@79903/12/21 11/12/21 History Atorvastatin [Lipitor] 40 mg PO HS@199903/12/21 11/12/21 History Bismuth Subsalicylate [Kaopectate] 1 dose PO DIRECTED PRN 03/12/21 11/12/21 History Calcium Polycarbophil [Fiber-Lax] 625 mg PO DAILY@99903/12/21 11/12/21 History Carvedilol [Coreg] 12.5 mg PO BID@03/12/21 11/12/21 History Clopidogrel [Plavix] 75 mg PO DAILY@79903/12/21 11/12/21 History Colloidal Oatmeal [Eucerin Eczema 1 applic TOPICAL QID PRN 03/12/21 11/12/21 History Relief] Ipratropium [place] [Ipratropium 2 sprays EA NOSTRIL TID PRN 03/12/21 11/12/21 History [place] 0.03%] Isosorbide Mononitrate ER [Imdur] 60 mg PO DAILY@79903/12/21 11/12/21 History Lactulose [Constulose] 20 gm PO DAILY@79903/12/21 11/12/21 History Levalbuterol HCl [Xopenex 0.63 mg INHALATION RT-TID@08,,03/12/21 11/12/21 History Nebulized] Magnesium Hydroxide [Milk of 1 dose PO DIRECTED PRN 03/12/21 11/12/21 History Magnesia] amLODIPine [Norvasc] 5 mg PO HS@199903/12/21 11/12/21 History lamoTRIgine [LaMICtal] 50 mg PO DAILY@0800 03/12/21 11/12/21 History ann Jimi [Tucks Medicated Pads] 1 pad RECTAL 5XD PRN 03/12/21 11/12/21 History Toothette Oral Care 1 applic DENTAL BID@799,1999 PRN 04/24/21 11/12/21 History Stop Pain 1 applic TOPICAL BID PRN 04/26/21 11/12/21 History ALPRAZolam [Xanax] 0.25 mg PO BID PRN 11/12/21 11/12/21 History Albuterol Sulfate [Ventolin HFA] 2 puff INHALATION RT-Q4H PRN 11/12/21 11/12/21 History Benzonatate [Tessalon Perles] 100 - 200 mg PO TID PRN 11/12/21 11/12/21 History Cholecalciferol [Vitamin D3 (25 50 mcg PO DAILY 11/12/21 11/12/21 History Mcg = 1000 Iu)] Ciclopirox 0.77% Cream 1 applic TOPICAL BID PRN 11/12/21 11/12/21 History Coppertone Sport 1 applic TOPICAL DIRECTED PRN 11/12/21 11/12/21 History Escitalopram [Lexapro] 20 mg PO DAILY@0800 11/12/21 11/12/21 History Furosemide [Lasix] 40 mg PO DAILY@1000 11/12/21 11/12/21 History Hm Antacid 1 dose PO DIRECTED PRN 11/12/21 11/12/21 History Menthol [Biofreeze] 1 applic TOPICAL QID PRN 11/12/21 11/12/21 History Menthol-Zinc Oxide Oint 1 applic TOPICAL DIRECTED PRN 11/12/21 11/12/21 History [Calmoseptine Oint] Mintox Max Susp 1 dose PO DAILY PRN 11/12/21 11/12/21 History Pyridoxine HCl (Vitamin B6) 100 mg PO DAILY@0800 11/12/21 11/12/21 History [Vitamin B-6] lamoTRIgine [LaMICtal] 100 mg PO HS@199911/12/21 11/12/21 History metOLazone [Zaroxolyn] 2.5 mg PO DAILY PRN 11/12/21 11/12/21 History traMADol-ACETAMINOP 37.5-325MG 1 tab PO Q6H PRN 11/12/21 11/12/21 History [Ultracet] Allergies Allergy/AdvReac Type Severity Reaction Status Date / Time ipratropium Allergy Unknown Verified 11/12/21 12:10 naproxen [From Aleve] Allergy Unknown Verified 11/12/21 12:10 Penicillins Allergy Unknown Verified 11/12/21 12:10 rofecoxib [From Vioxx] Allergy Unknown Verified 11/12/21 12:10 Sulfa (Sulfonamide Allergy Unknown Verified 11/12/21 12:10 Antibiotics) Physical Exam Osteopathic Statement: *. No significant issues noted on an osteopathic structural exam other than those noted in the History and Physical/Consult. Vitals: Vital Signs Temp Pulse Resp BP Pulse Ox 11/12/21 14:00 68 16 144/80 99 11/12/21 13:31 65 16 100 11/12/21 10:54 72 18 120/62 97 11/12/21 09:53 73 18 135/71 95 11/12/21 09:00 71 18 146/69 95 11/12/21 08:00 73 16 132/81 100 11/12/21 07:00 66 18 109/58 99 11/12/21 06:34 72 18 121/60 100 11/12/21 05:35 81 18 126/70 98 11/12/21 03:00 77 18 130/68 98 11/12/21 01:16 83 18 155/88 97 11/11/21 23:35 82 18 138/81 99 11/11/21 23:08 97.4 F L 89 18 153/97 100 Intake and Output 11/12/21 11/12/21 11/12/21 06:59 14:59 22:59 Intake Total 134.490 Output Total 225 Balance -90.510 Intake: IV 130 Sodium Chloride 0.9% 1, 130 000 ml @ 130 mls/hr IV . Q7H42M [facility] Rx#:[id number] Intake, IV Titration 4.490 Amount propofoL 1,000 mg In 4.490 Empty Bag 1 bag @ 5 MCG/ KG/MIN 1.225 mls/hr IV . Q24H [facility] Rx#:[id number] Output: Urine 225 Other: Weight No acute distress, sedated, with an orally placed endotracheal tube and NG tube. HEENT examination is grossly unremarkable. Neck supple. Full range of motion. No adenopathy thyromegaly or neck vein distention. Cardiovascular examination reveals regular rhythm rate. S1-S2 normal. No S3 or S4. No discernible murmur noted. Heart sounds are distant. Heart rate 68 bpm. Lungs reveal coarse bilateral breath sounds. No wheezes. No crackles. Breath sounds equal bilaterally. Saturations are 99%. Abdomen soft bowel sounds are heard. No masses or tenderness. Extremities are intact. No cyanosis clubbing or edema. Upper extremities are a bit contracted. Skin is without rash or lesion. Neurologic examination cannot be assessed, as the patient's already been intubated and is currently sedated. Results - Laboratory Findings CBC and BMP: 11/12/21 13:01 11/12/21 13:00 ABG ABG pH 7.45 (7.35-7.45) 11/12/21 14:05 ABG pCO2 45 mmHg (35-45) 11/12/21 14:05 ABG pO2 384 mmHg (83-108) H 11/12/21 14:05 ABG O2 Saturation 99.6 % (94-97) H 11/12/21 14:05 PT/INR, D-dimer PT 11.5 sec (9.0-12.0) 11/11/21 23:22 INR 1.1 (<1.2) 11/11/21 23:22 D-Dimer >34.10 mg/L FEU (<0.60) H 11/11/21 23:22 Abnormal lab findings: Abnormal Labs 11/11/21 11/11/21 11/11/21 23:22 23:22 23:22 WBC 13.6 H RBC 3.69 L Hgb MCHC Neutrophils # 11.6 H Lymphocytes # 0.7 L D-Dimer >34.10 H ABG pO2 ABG HCO3 ABG Total CO2 ABG O2 Saturation Sodium Chloride Carbon Dioxide 35 H BUN 35 H Glucose 106 H POC Glucose (mg/dL) Plasma Lactic Acid [place] Phosphorus 5.5 H Magnesium 2.4 H AST 132 H ALT 81 H Troponin I Total Protein Urine Protein Urine Glucose (UA) Urine Blood Urine Mucus 11/11/21 11/12/21 11/12/21 23:22 05:44 09:27 WBC RBC Hgb MCHC Neutrophils # Lymphocytes # D-Dimer ABG pO2 ABG HCO3 ABG Total CO2 ABG O2 Saturation Sodium Chloride Carbon Dioxide BUN Glucose POC Glucose (mg/dL) Plasma Lactic Acid [place] Phosphorus Magnesium AST ALT Troponin I 0.036 H* 0.137 H* 0.121 H* Total Protein Urine Protein Urine Glucose (UA) Urine Blood Urine Mucus 11/12/21 11/12/21 11/12/21 13:00 13:00 13:01 WBC 13.4 H RBC 3.47 L Hgb 10.6 L MCHC 30.8 L Neutrophils # 11.5 H Lymphocytes # 0.7 L D-Dimer ABG pO2 ABG HCO3 ABG Total CO2 ABG O2 Saturation Sodium 147 H Chloride 109 H Carbon Dioxide 34 H BUN 23 H Glucose 106 H POC Glucose (mg/dL) Plasma Lactic Acid [place] 0.6 L Phosphorus Magnesium AST 119 H ALT 80 H Troponin I Total Protein 6.2 L Urine Protein Urine Glucose (UA) Urine Blood Urine Mucus 11/12/21 11/12/21 11/12/21 13:23 13:33 14:05 WBC RBC Hgb MCHC Neutrophils # Lymphocytes # D-Dimer ABG pO2 384 H ABG HCO3 31 H ABG Total CO2 33 H ABG O2 Saturation 99.6 H Sodium Chloride Carbon Dioxide BUN Glucose POC Glucose (mg/dL) 107 H Plasma Lactic Acid [place] Phosphorus Magnesium AST ALT Troponin I Total Protein Urine Protein 1+ H Urine Glucose (UA) Trace H Urine Blood Moderate H Urine Mucus Rare H - Diagnostic Findings Chest x-ray: image reviewed CT scan - chest: image reviewed Assessment and Plan Assessment: [id number] cardiopulmonary arrest, with cardiopulmonary resuscitation, for 20 minutes, and eventual return of spontaneous circulation (CPA/CPR/ROSC). Status post intubation and mechanical ventilation, for respiratory failure, on 11/12/2021. No evidence of pulmonary embolism on CT angiogram. History of cerebral palsy. History of CAD. History of CHF. History of COPD/asthma. History of gastroesophageal reflux disease. History of hyperlipidemia. History of hypertension. History of osteoarthritis. History of kyphoscoliosis. History of colitis. History of anxiety/depression. Plan: Plan dated 11/12/2021. The patient was intubated up on the floor, in room 372 by anesthesia. When she was down in the ICU, the patient had a central line placed, and a arterial line placed. ICU admission orders were written. Vent. bundle orders were initiated. The patient's currently on propofol and saline. We will start tube feedings. Unnecessary medications will be discontinued. For her elevated blood pressure, we will start Cleveprex. Prognosis is guarded. The patient may have sustained anoxic brain injury. Time with Patient: Greater than 30
--- NOTE | 2021-11-12 15:30 | P.PN ---
Progress Note - Text Progress Note Date: 11/12/21 A- team: Indication: Unresponsiveness with respiratory failure Arrived on Scene to find: The patient unresponsive with severe hypoxemia Patient seen and examined at bedside. Unresponsiveness. Vital signs reviewed General: Unresponsive Derm: warm, dry Head: atraumatic, normocephalic, symmetric Eyes: EOMI, no lid lag, anicteric sclera Mouth: no lip lesion, mucus membranes moist Cardiovascular: S1S2 reg, no murmur, positive posterior tibial pulse bilateral, Lungs: Diminished entry bilaterally with bilateral wheezing or rhonchi Abdominal: soft, nontender to palpation, no guarding, no appreciable organomegaly Ext: no gross muscle atrophy, no edema, no contractures Neuro: CN II-XI grossly intact, no focal neuro deficits Psych: Alert, oriented, appropriate affect Assessment: #Acute hypoxic respiratory failure #Unresponsiveness #Questionable cardiac arrest at the [facility] #History of COPD/asthma #History of cerebral palsy #History of kyphoscoliosis #History of colitis #History of coronary disease Plan: Patient intubated and transferred to ICU -Consult pulmonary critical care. -Consult cardiology -2-D echo -IV steroid and antibiotic per intensive care Disposition: ICU Notified: ICU team A Total of 45 minutes of critical care time was spent on the complex care of th is patient.
[2021-11-12] MEDS: HEPARIN SODIUM,PORCINE/PF 5,000 UNIT/0.5 ML SYRINGE SQ SCH (15:54)
[2021-11-12] MEDS: DEXTROSE 5% IN WATER 1,000 ML IV SCH (15:55)
[2021-11-12] MEDS ORDERED: IPRATROPIUM-ALBUTEROL 3 ML NEB INHALATION PRN (16:00)
[2021-11-12] MEDS: IPRATROPIUM-ALBUTEROL 3 ML NEB INHALATION SCH ×3 (16:00→23:57)
[2021-11-12] MEDS ORDERED: LORazepam 2 MG/ML INJ ONE (19:39)
[2021-11-12] MEDS ORDERED: levETIRAcetam IV 1,000 MG in SALINE 1 100ML.BAG IVPB STA (19:44)
[2021-11-12 19:45] LABS: Glucose,Whole Blood 106 mg/dL (75-99)
[2021-11-12] MEDS: CHLORHEXIDINE GLUCONATE 15 ML CUP MUCOUS MEM SCH (20:16)
--- NOTE | 2021-11-12 21:12 | CT ---
EXAMINATION TYPE: CT brain wo con DATE OF EXAM: 11/12/2021 COMPARISON: None HISTORY: New onset seizure. CT DLP: 1127.4 mGycm Automated exposure control for dose reduction was used. Images of the brain obtained without contrast. There is cerebral cortical atrophy. There is no mass effect or midline shift. There is no sign of int racranial hemorrhage. The calvarium is intact. There is no acute intracranial abnormality. Skull base is intact. There is normal aeration of the mastoid sinuses. IMPRESSION: Cerebral atrophy. No acute intracranial abnormality.
[2021-11-13] MEDS: HEPARIN SODIUM,PORCINE/PF 5,000 UNIT/0.5 ML SYRINGE SQ SCH ×4 (00:36→23:44)
[2021-11-13] MEDS: levETIRAcetam IV 1,000 MG in SALINE 1 100ML.BAG IVPB SCH ×2 (03:33→20:15)
[2021-11-13] MEDS ORDERED: AZITHROMYCIN 500 MG in SODIUM CHLORIDE 0.9% 250 ML IVPB SCH (04:00)
[2021-11-13] MEDS: IPRATROPIUM-ALBUTEROL 3 ML NEB INHALATION SCH ×6 (04:53→23:19)
[2021-11-13 05:50] LABS: ABG HCO3 31 mmol/L (21-25); ABG Oxygen Saturation 94.3 % (94-97); ABG PCO2 47 mmHg (35-45); ABG PH 7.42 (7.35-7.45); ABG PO2 68 mmHg (83-108); ABG TCO2 32 mmol/L (19-24); Allen Test Performed? Yes
[2021-11-13 06:18] LABS: Basophils # (A) 0.1 k/uL (0-0.2); Basophils % (A) 1 %; Eosinophils # (A) 0.2 k/uL (0-0.7); Eosinophils % (A) 2 %; HCT 30.6 % (34.0-46.0); HGB 9.7 gm/dL (11.4-16.0); Lymphocytes # (A) 0.7 k/uL (1.0-4.8); Lymphocytes % (A) 7 %; MCH 30.8 pg (25.0-35.0); MCHC 31.8 g/dL (31.0-37.0); MCV 96.8 fL (80.0-100.0); Mean Platelet Volume 9.9; Monocytes # (A) 0.7 k/uL (0-1.0); Monocytes % (A) 7 %; Neutrophils # (A) 7.6 k/uL (1.3-7.7); Neutrophils % (A) 83 %; Platelet Count 149 k/uL (150-450); RBC 3.16 m/uL (3.80-5.40); RDW 14.4 % (11.5-15.5); WBC 9.2 k/uL (3.8-10.6)
[2021-11-13 06:33] LABS: ALT 56 U/L (4-34); AST 57 U/L (14-36); African American GFR (CKD) >90 (>60 ml/min/1.73 sqM); Albumin 2.9 g/dL (3.5-5.0); Alkaline Phosphatase 70 U/L (38-126); Anion Gap 2 mmol/L; Blood Urea Nitrogen 15 mg/dL (7-17); Calcium 7.8 mg/dL (8.4-10.2); Carbon Dioxide 30 mmol/L (22-30); Chloride 109 mmol/L (98-107); Glucose 111 mg/dL (74-99); Non-African American GFR(CKD) 83 (>60 ml/min/1.73 sqM); Sodium 141 mmol/L (137-145); Total Bilirubin 0.4 mg/dL (0.2-1.3); Total Protein 5.2 g/dL (6.3-8.2)
[2021-11-13] MEDS ORDERED: Potassium Replacement Protocol 1 EACH MISC MISCELLANE PRN (06:49)
[2021-11-13] MEDS: POTASSIUM CHLORIDE 20 MEQ in WATER FOR INJECTION 1 100ML.BAG IVPB SCH ×2 (07:15→11:32)
--- NOTE | 2021-11-13 08:07 | P.CRDCN ---
History of Present Illness Consult date: 11/13/21 Chief complaint: Cardiopulmonary arrest History of present illness: This is an 80-year-old female patient requested to see in the intensive care unit as a consult for further evaluation off cardiopulmonary arrest. The patient currently is intubated and she is on mechanical ventilation and the history was taken from the chart as well as from the nurse taking care of the patient. The patient does have underlying history of coronary artery disease as well as hypertension and dyslipidemia and also history of COPD/asthma. Apparently the patient does have also history of cerebral palsy and she is a resident at the [facility]. She was found to be unresponsive at the [facility] and subsequently she was brought to the emergency department. CPR was performed over there with unknown details and and known any rhythm strip. She was brought to the emergency department and subsequently she was admitted initially to the floor where at that point also she had an episode of unresponsiveness and she was then brought to the intensive care unit after an 18 was called. Currently the patient is intubated and she is on mechanical ventilation. No indication that the patient was experiencing any symptoms of chest pain or chest discomfort. We don't know the baseline function of the patient overall. Anyway currently she is hemodynamically stable. She is not on any vasopressors. She has been maintaining normal sinus mechanism. The EKG showed sinus rhythm without any significant ST or T-wave abnormalities noted. The patient is in process to be seen by the pulmonary/critical care team later on today for possible extubation. The patient sees Dr. Arana regularly in the office. On examination she seems to have bilateral crackles noted. The chest x-ray was technically very difficult but there is questionable heart failure finding on the x-ray. NT proBNP was checked 1 the patient presented to the emergency department and that was around 1300. GFR is within normal limits. Sodium is 147 and potassium 3.8. Patient also is on antibiotic for possible pneumonia. She underwent also CTA of the chest and that showed no evidence of pulmonary embolism. An echo is in process to be done. Will obtain also serial cardiac enzymes to rule out acute coronary event Past Medical History Past Medical History: Asthma, Coronary Artery Disease (CAD), Heart Failure, COPD, GERD/Reflux, Hyperlipidemia, Hypertension, Osteoarthritis (OA), Pneumonia Additional Past Medical History / Comment(s): mild intellectual disability, cerebral palsy, kypho scoliosis, colitis, DJD, hernia History of Any Multi-Drug Resistant Organisms: None Reported Past Surgical History: Cholecystectomy, Orthopedic Surgery Additional Past Surgical History / Comment(s): (L) hip reduction Past Anesthesia/Blood Transfusion Reactions: No Reported Reaction Past Psychological History: Anxiety, Depression Smoking Status: Never smoker Past Alcohol Use History: None Reported Past Drug Use History: None Reported - Past Family History Father History Unknown: Yes Mother History Unknown: Yes Medications and Allergies Home Medications Medication Instructions Recorded Confirmed Type Acetaminophen Tab [Tylenol] 650 mg PO Q8H PRN 03/12/21 11/12/21 History Alendronate Sodium [Fosamax] 35 mg PO WE@79903/12/21 11/12/21 History Atorvastatin [Lipitor] 40 mg PO HS@199903/12/21 11/12/21 History Bismuth Subsalicylate [Kaopectate] 1 dose PO DIRECTED PRN 03/12/21 11/12/21 History Calcium Polycarbophil [Fiber-Lax] 625 mg PO DAILY@99903/12/21 11/12/21 History Carvedilol [Coreg] 12.5 mg PO BID@03/12/21 11/12/21 History Clopidogrel [Plavix] 75 mg PO DAILY@79903/12/21 11/12/21 History Colloidal Oatmeal [Eucerin Eczema 1 applic TOPICAL QID PRN 03/12/21 11/12/21 History Relief] Ipratropium [place] [Ipratropium 2 sprays EA NOSTRIL TID PRN 03/12/21 11/12/21 History [place] 0.03%] Isosorbide Mononitrate ER [Imdur] 60 mg PO DAILY@79903/12/21 11/12/21 History Lactulose [Constulose] 20 gm PO DAILY@79903/12/21 11/12/21 History Levalbuterol HCl [Xopenex 0.63 mg INHALATION RT-TID@03/12/21 11/12/21 History Nebulized] Magnesium Hydroxide [Milk of 1 dose PO DIRECTED PRN 03/12/21 11/12/21 History Magnesia] amLODIPine [Norvasc] 5 mg PO HS@199903/12/21 11/12/21 History lamoTRIgine [LaMICtal] 50 mg PO DAILY@0800 03/12/21 11/12/21 History witch Jimi [Tucks Medicated Pads] 1 pad RECTAL 5XD PRN 03/12/21 11/12/21 History Toothette Oral Care 1 applic DENTAL BID@08,1999 PRN 04/24/21 11/12/21 History Stop Pain 1 applic TOPICAL BID PRN 04/26/21 11/12/21 History ALPRAZolam [Xanax] 0.25 mg PO BID PRN 11/12/21 11/12/21 History Albuterol Sulfate [Ventolin HFA] 2 puff INHALATION RT-Q4H PRN 11/12/21 11/12/21 History Benzonatate [Tessalon Perles] 100 - 200 mg PO TID PRN 11/12/21 11/12/21 History Cholecalciferol [Vitamin D3 (25 50 mcg PO DAILY 11/12/21 11/12/21 History Mcg = 1000 Iu)] Ciclopirox 0.77% Cream 1 applic TOPICAL BID PRN 11/12/21 11/12/21 History Coppertone Sport 1 applic TOPICAL DIRECTED PRN 11/12/21 11/12/21 History Escitalopram [Lexapro] 20 mg PO DAILY@0800 11/12/21 11/12/21 History Furosemide [Lasix] 40 mg PO DAILY@1000 11/12/21 11/12/21 History Hm Antacid 1 dose PO DIRECTED PRN 11/12/21 11/12/21 History Menthol [Biofreeze] 1 applic TOPICAL QID PRN 11/12/21 11/12/21 History Menthol-Zinc Oxide Oint 1 applic TOPICAL DIRECTED PRN 11/12/21 11/12/21 History [Calmoseptine Oint] Mintox Max Susp 1 dose PO DAILY PRN 11/12/21 11/12/21 History Pyridoxine HCl (Vitamin B6) 100 mg PO DAILY@0800 11/12/21 11/12/21 History [Vitamin B-6] lamoTRIgine [LaMICtal] 100 mg PO HS@199911/12/21 11/12/21 History metOLazone [Zaroxolyn] 2.5 mg PO DAILY PRN 11/12/21 11/12/21 History traMADol-ACETAMINOP 37.5-325MG 1 tab PO Q6H PRN 11/12/21 11/12/21 History [Ultracet] Allergies Allergy/AdvReac Type Severity Reaction Status Date / Time ipratropium Allergy Unknown Verified 11/12/21 12:10 naproxen [From Aleve] Allergy Unknown Verified 11/12/21 12:10 Penicillins Allergy Unknown Verified 11/12/21 12:10 rofecoxib [From Vioxx] Allergy Unknown Verified 11/12/21 12:10 Sulfa (Sulfonamide Allergy Unknown Verified 11/12/21 12:10 Antibiotics) Physical Exam Vitals: Vital Signs Temp Pulse Resp BP Pulse Ox 11/13/21 07:00 70 16 144/80 98 11/13/21 06:00 75 16 144/80 98 11/13/21 05:04 69 11/13/21 05:00 66 16 144/80 93 L 11/13/21 04:54 64 11/13/21 04:00 99.1 F 65 16 144/80 95 11/13/21 03:00 66 16 144/80 96 11/13/21 02:00 66 16 144/80 96 11/13/21 01:00 68 16 144/80 99 11/13/21 00:19 67 16 144/80 98 11/13/21 00:08 69 11/13/21 00:00 98.6 F 66 16 144/80 85 L 11/12/21 23:58 65 11/12/21 23:00 61 16 144/80 97 11/12/21 22:00 61 16 144/80 96 11/12/21 21:13 62 11/12/21 21:07 62 11/12/21 21:00 63 16 144/80 98 11/12/21 20:00 98.8 F 68 16 144/80 95 11/12/21 19:00 56 L 16 98 11/12/21 18:30 56 L 16 99 11/12/21 18:00 60 16 99 11/12/21 17:30 64 16 98 11/12/21 17:00 56 L 16 99 11/12/21 16:30 58 L 16 99 11/12/21 16:00 98.7 F 63 16 98 11/12/21 15:30 61 16 144/80 98 11/12/21 15:00 68 10 L 96 03/13/22 14:30 67 23 99 11/12/21 14:00 68 16 144/80 99 11/12/21 13:31 65 16 100 11/12/21 10:54 72 18 120/62 97 11/12/21 09:53 73 18 135/71 95 11/12/21 09:00 71 18 146/69 95 Intake and Output 11/12/21 11/13/21 11/13/21 22:59 06:59 14:59 Intake Total 748.452 615.839 75 Output Total 440 250 25 Balance 308.452 365.839 50 Intake: IV 635 600 75 Dextrose 5% in Water 1, 375 600 75 000 ml @ 75 mls/hr IV . [id number] JOSELITO Rx#:[id number] Sodium Chloride 0.9% 1, 260 000 ml @ 130 mls/hr IV . Q7H42M JOSELITO Rx#:[id number] Intake, IV Titration 113.452 15.839 Amount propofoL 1,000 mg In 113.452 15.839 Empty Bag 1 bag @ 5 MCG/ KG/MIN 1.225 mls/hr IV . Q24H JOSELITO Rx#:[id number] Output: Urine 440 250 25 Other: Voiding Method Indwelling Catheter Indwelling Catheter Weight 40.823 kg 44.9 kg ABP, PAP, CO, CI - Last 8 Hours Arterial Blood Pressure 112/37 Arterial Blood Pressure 141/46 Arterial Blood Pressure 140/51 Arterial Blood Pressure 123/44 Arterial Blood Pressure 111/40 Arterial Blood Pressure 120/42 Arterial Blood Pressure 120/42 Arterial Blood Pressure 145/49 - Constitutional General appearance: no acute distress - Respiratory Respiratory: bilateral: rhonchi - Cardiovascular Rhythm: regular Heart sounds: normal: S1, S2 Results 11/13/21 06:11 11/13/21 06:11 Cardiac Enzymes 11/12/21 11/12/21 11/13/21 Range/Units 09:27 13:00 06:11 AST 119 H 57 H (14-36) U/L Troponin I 0.121 H* (0.000-0.034) ng/mL CBC 11/12/21 11/13/21 Range/Units 13:01 06:11 WBC 13.4 H 9.2 (3.8-10.6) k/uL RBC 3.47 L 3.16 L (3.80-5.40) m/uL Hgb 10.6 L 9.7 L (11.4-16.0) gm/dL Hct 34.6 30.6 L (34.0-46.0) % Plt Count 182 149 L (150-450) k/uL Comprehensive Metabolic Panel 11/12/21 11/13/21 Range/Units 13:00 06:11 Sodium 147 H 141 (137-145) mmol/L Potassium 3.8 3.0 L (3.5-5.1) mmol/L Chloride 109 H 109 H (98-107) mmol/L Carbon Dioxide 34 H 30 (22-30) mmol/L BUN 23 H 15 (7-17) mg/dL Creatinine 0.73 0.67 (0.52-1.04) mg/dL Glucose 106 H 111 H (74-99) mg/dL Calcium 8.6 7.8 L (8.4-10.2) mg/dL AST 119 H 57 H (14-36) U/L ALT 80 H 56 H (4-34) U/L Alkaline Phosphatase 81 70 (38-126) U/L Total Protein 6.2 L 5.2 L (6.3-8.2) g/dL Albumin 3.8 2.9 L (3.5-5.0) g/dL Current Medications Generic Name Dose Route Start Last Admin Trade Name Freq PRN Reason Stop Dose Admin Albuterol/Ipratropium 3 ml 11/12/21 16:00 11/13/21 04:53 Ipratropium-Albuterol 3 Ml Neb INHALATION 3 ml RT-Q4H JOSELITO Administration Albuterol/Ipratropium 3 ml 11/12/21 16:00 Ipratropium-Albuterol 3 Ml Neb INHALATION RT-Q4H PRN Shortness Of Breath Chlorhexidine Gluconate 15 ml 11/12/21 21:00 11/12/21 20:16 Chlorhexidine Gluconate 15 Ml Cup MUCOUS MEM 15 ml BID JOSELITO Administration Heparin Sodium (Porcine) 5,000 unit 11/12/21 16:00 11/13/21 00:36 Heparin Sodium,Porcine/Pf 5,000 Unit/0.5 Ml Syringe SQ 5,000 unit Q8HR JOSELITO Administration Hydromorphone HCl 1 mg 11/12/21 14:55 11/12/21 15:01 Hydromorphone 1 Mg/Ml 1 Ml Syringe IVP 1 mg Q1H PRN Administration Pain Ceftriaxone Sodium 1 gm/ 50 mls @ 100 mls/hr 11/12/21 16:00 11/13/21 03:40 Sodium Chloride IVPB 100 mls/hr Q12H JOSELITO Administration Protocol Azithromycin 500 mg/ Sodium 250 mls @ 250 mls/hr 11/13/21 04:00 11/13/21 04:24 Chloride IVPB 11/15/21 04:59 250 mls/hr Q24H JOSELITO Administration Protocol Propofol 1,000 mg/ IV Solution 100 mls @ 1.225 mls/hr 11/12/21 13:30 11/13/21 00:39 IV 45 mcg/kg/min .Q24H JOSELITO 11.022 mls/hr Administration Protocol 5 MCG/KG/MIN Dextrose/Water 1,000 mls @ 75 mls/hr 11/12/21 16:00 11/12/21 15:55 Dextrose 5%-Water Iv Soln IV 75 mls/hr .[id number] JOSELITO Administration Levetiracetam 1,000 mg/ IV 100 mls @ 400 mls/hr 11/13/21 09:00 11/13/21 03:33 Solution IVPB 400 mls/hr Q12HR JOSELITO Administration Potassium Chloride 20 meq/ IV 100 mls @ 50 mls/hr 11/13/21 07:00 11/13/21 07:15 Solution IVPB 11/13/21 10:59 50 mls/hr Q2H JOSELITO Administration Protocol Miscellaneous Information 1 each 11/13/21 06:49 Potassium Replacement Protocol 1 Each [facility] [place] PRN Per Protocol Protocol Morphine Sulfate 4 mg 11/12/21 03:23 11/12/21 09:02 Morphine Sulfate 4 Mg/Ml Syringe IV 4 mg Q4HR PRN Administration Severe Pain Naloxone HCl 0.2 mg 11/12/21 03:23 Naloxone 0.4 Mg/Ml 1 Ml Vial IV Q2M PRN Opioid Reversal Ondansetron HCl 4 mg 11/12/21 03:23 Ondansetron 4 Mg/2 Ml Vial IVP Q8HR PRN Nausea And Vomiting Pantoprazole Sodium 40 mg 11/13/21 09:00 Pantoprazole 40 Mg/10 Ml Vial IV DAILY JOSELITO Intake and Output 11/12/21 11/13/21 11/13/21 22:59 06:59 14:59 Intake Total 748.452 615.839 75 Output Total 440 250 25 Balance 308.452 365.839 50 Intake: IV 635 600 75 Dextrose 5% in Water 1, 375 600 75 000 ml @ 75 mls/hr IV . [id number] JOSELITO Rx#:[id number] Sodium Chloride 0.9% 1, 260 000 ml @ 130 mls/hr IV . Q7H42M JOSELITO Rx#:[id number] Intake, IV Titration 113.452 15.839 Amount propofoL 1,000 mg In 113.452 15.839 Empty Bag 1 bag @ 5 MCG/ KG/MIN 1.225 mls/hr IV . Q24H JOSELITO Rx#:[id number] Output: Urine 440 250 25 Other: Voiding Method Indwelling Catheter Indwelling Catheter Weight 40.823 kg 44.9 kg 11/13/21 06:11 11/13/21 06:11 Assessment and Plan Assessment: Assessment #1 cardiopulmonary arrest of unknown etiology at this point #2 known underlying history of chronic obstructive pulmonary disease #3 possible heart failure of unknown etiology at this point. The patient does have bilateral crackles. Her NT proBNP is elevated as well. She was on by mouth diuretics at home #4 history of coronary artery disease #5 history of COPD #6 multiple comorbid conditions Plan #1 rule out acute coronary event. Will obtain serial cardiac enzymes #2 obtain an echo to assess ejection fraction #3 I would start the patient on IV diuretics. Her pressure is elevated and she does have crackles on examination #4 continue monitor the kidney function as well as electrolytes #6 further recommendation to follow
--- NOTE | 2021-11-13 08:34 | XR ---
EXAMINATION TYPE: XR chest 1V portable DATE OF EXAM: 11/13/2021 COMPARISON: Chest x-ray 11/12/2021 HISTORY: Intubated TECHNIQUE: Single frontal view of the chest is obtained. FINDINGS: Endotracheal tube is overlying the tracheal air column, suspect there is a selective right mainstem intubation. No evident pneumothorax. NG tube is overlying the esophagus, distal tip though t likely to be within the stomach, there is a hiatal hernia. Bilateral airspace disease is present. T here is a marked scoliosis. Heart is obscured. Left subclavian central venous catheter is present the distal tip in the right atrium. IMPRESSION: Possible selective intubation. Correlate for pneumonia, congestive heart failure, large hiatal hernia with partial intrathoracic stomach. Report of endotracheal tube placement relayed to [facility] U staff at the time of interpretation at exam.
[2021-11-13] MEDS: HYDROmorphone 1 MG/ML 1 ML SYRINGE IVP PRN ×3 (08:47→22:43)
--- NOTE | 2021-11-13 09:29 | XR ---
EXAMINATION TYPE: XR chest 1V portable DATE OF EXAM: 11/13/2021 Comparison: 11/13/2021 Clinical History: 80-year-old female ET placement Findings: ET tube tip approximately 9 mm from the maikol. Pull back 1.5 cm and reassess at follow-up. There is marked thoracic deformity due to a severe dextro convex scoliosis. NG tube sidehole may be at the GE junction level. Underlying interstitial densities and probably small to moderate layering effusions p ersist. Impression: 1. ET tube estimated to be 9 mm from the maikol. Pullback 1.9 cm and reassess at follow-up. 2. Severe scoliotic deformity limiting the exam. 3. Suspect persistent layering small to moderate effusions and probably background CHF. To moderate l ayering pleural effusions
--- NOTE | 2021-11-13 09:34 | P.CNNES ---
History of Present Illness Consult date: 11/13/21 Requesting physician: Dennis Sanchez Reason for Consult: new onset seizure History of Present Illness: This is an 80-year-old woman with medical history of cerebral palsy, scoliosis, heart failure, CAD, hypertension, hyperlipidemia who presented to the emergency department on 11/11/2021 on responsive and oral with a cardiac arrest from her adult foster assisted. History is obtained from medical record as well as the front the patient's nurse. Apparently the patient had CPR provided to her by the staff at her adult foster assisted which lasted for about 20 minutes and no medications were given.. An ED was applied but no shocks were given. Then the patient the was further evaluated and resisted in the emergency department and admitted to 3 S. and then that she was in respiratory distress requiring intubation. Per the patient's ICU nurse she stated that while she was on the floor she was on responsive. Seems that the patient has twitching of her mouth. It seems that the patient was loaded with Keppra 1 g once on 11/12/2021 later that night and was started on 1 g every 12 hours. It's unknown whether the patient has underlying seizures. The nurse spoke with her foster home facility, It seems the patient is wheel chair bound, helps assist going from in an out of chair. Has underlying twitching of tongue at baseline and when this happens she states she is cold and is responsive and does not have history of seizure. Seems oriented to self, place and time at baseline. Some of the workup in the hospital consisted of: Most recent vitals is a blood pressure of 144/80, heart rate of 70, respiratory of 16, pulse ox of 98% on mechanical ventilation and the most recent temperature is 99.1 Fahrenheit. Patient has been afebrile during this admission Initial blood cells 13.6 thousand and most recent is 9.2 thousand was initially a predominant neutrophilic and currently the resolved. Initial chemistry panel is a sodium 145, creatinine is 0.93, the sole of serum glucose is a 106, the plasma like acid pain is 1.0, calcium is 8.9, phosphorus is 5.5, magnesium is 2.4, AST of 132 and ALT is 81. The troponin was trending up. Urinalysis negative for urinary tract infection. PT, PTT and INR is within normal limits CT of the head is reported as cerebral atrophy. No acute intracranial abnormality. Personally reviewed the CT of the head there is no acute subacute ischemia and there is no typical hemorrhage. She is currently on IV Propofol 50mcg/kg/min. Review of Systems Review of system is limited with apparent positive and negative as per HPI. Past Medical History Past Medical History: Asthma, Coronary Artery Disease (CAD), Heart Failure, COPD, GERD/Reflux, Hyperlipidemia, Hypertension, Osteoarthritis (OA), Pneumonia Additional Past Medical History / Comment(s): mild intellectual disability, cerebral palsy, kypho scoliosis, colitis, DJD, hernia History of Any Multi-Drug Resistant Organisms: None Reported Past Surgical History: Cholecystectomy, Orthopedic Surgery Additional Past Surgical History / Comment(s): (L) hip reduction Past Anesthesia/Blood Transfusion Reactions: No Reported Reaction Past Psychological History: Anxiety, Depression Smoking Status: Never smoker Past Alcohol Use History: None Reported Past Drug Use History: None Reported - Past Family History Father History Unknown: Yes Mother History Unknown: Yes Medications and Allergies Home Medications Medication Instructions Recorded Confirmed Type Acetaminophen Tab [Tylenol] 650 mg PO Q8H PRN 03/12/21 11/12/21 History Alendronate Sodium [Fosamax] 35 mg PO WE@79903/12/21 11/12/21 History Atorvastatin [Lipitor] 40 mg PO HS@199903/12/21 11/12/21 History Bismuth Subsalicylate [Kaopectate] 1 dose PO DIRECTED PRN 03/12/21 11/12/21 History Calcium Polycarbophil [Fiber-Lax] 625 mg PO DAILY@99903/12/21 11/12/21 History Carvedilol [Coreg] 12.5 mg PO BID@03/12/21 11/12/21 History Clopidogrel [Plavix] 75 mg PO DAILY@79903/12/21 11/12/21 History Colloidal Oatmeal [Eucerin Eczema 1 applic TOPICAL QID PRN 03/12/21 11/12/21 History Relief] Ipratropium Montchanin [Ipratropium 2 sprays EA NOSTRIL TID PRN 03/12/21 11/12/21 History Montchanin 0.03%] Isosorbide Mononitrate ER [Imdur] 60 mg PO DAILY@79903/12/21 11/12/21 History Lactulose [Constulose] 20 gm PO DAILY@0800 03/12/21 11/12/21 History Levalbuterol HCl [Xopenex 0.63 mg INHALATION RT-TID@03/12/21 11/12/21 History Nebulized] Magnesium Hydroxide [Milk of 1 dose PO DIRECTED PRN 03/12/21 11/12/21 History Magnesia] amLODIPine [Norvasc] 5 mg PO HS@199903/12/21 11/12/21 History lamoTRIgine [LaMICtal] 50 mg PO DAILY@0803/12/21 11/12/21 History witch Jimi [Tucks Medicated Pads] 1 pad RECTAL 5XD PRN 03/12/21 11/12/21 History Toothette Oral Care 1 applic DENTAL BID@ PRN 04/24/21 11/12/21 History Stop Pain 1 applic TOPICAL BID PRN 04/26/21 11/12/21 History ALPRAZolam [Xanax] 0.25 mg PO BID PRN 11/12/21 11/12/21 History Albuterol Sulfate [Ventolin HFA] 2 puff INHALATION RT-Q4H PRN 11/12/21 11/12/21 History Benzonatate [Tessalon Perles] 100 - 200 mg PO TID PRN 11/12/21 11/12/21 History Cholecalciferol [Vitamin D3 (25 50 mcg PO DAILY 11/12/21 11/12/21 History Mcg = 1000 Iu)] Ciclopirox 0.77% Cream 1 applic TOPICAL BID PRN 11/12/21 11/12/21 History Coppertone Sport 1 applic TOPICAL DIRECTED PRN 11/12/21 11/12/21 History Escitalopram [Lexapro] 20 mg PO DAILY@0800 11/12/21 11/12/21 History Furosemide [Lasix] 40 mg PO DAILY@99911/12/21 11/12/21 History Hm Antacid 1 dose PO DIRECTED PRN 11/12/21 11/12/21 History Menthol [Biofreeze] 1 applic TOPICAL QID PRN 11/12/21 11/12/21 History Menthol-Zinc Oxide Oint 1 applic TOPICAL DIRECTED PRN 11/12/21 11/12/21 History [Calmoseptine Oint] Mintox Max Susp 1 dose PO DAILY PRN 11/12/21 11/12/21 History Pyridoxine HCl (Vitamin B6) 100 mg PO DAILY@0800 11/12/21 11/12/21 History [Vitamin B-6] lamoTRIgine [LaMICtal] 100 mg PO HS@2000 11/12/21 11/12/21 History metOLazone [Zaroxolyn] 2.5 mg PO DAILY PRN 11/12/21 11/12/21 History traMADol-ACETAMINOP 37.5-325MG 1 tab PO Q6H PRN 11/12/21 11/12/21 History [Ultracet] Allergies Allergy/AdvReac Type Severity Reaction Status Date / Time ipratropium Allergy Unknown Verified 11/12/21 12:10 naproxen [From Aleve] Allergy Unknown Verified 11/12/21 12:10 Penicillins Allergy Unknown Verified 11/12/21 12:10 rofecoxib [From Vioxx] Allergy Unknown Verified 11/12/21 12:10 Sulfa (Sulfonamide Allergy Unknown Verified 11/12/21 12:10 Antibiotics) Physical Examination - Vital Signs Vital Signs: Vital Signs Temp Pulse Resp BP Pulse Ox 11/13/21 07:00 70 16 144/80 98 11/13/21 06:00 75 16 144/80 98 11/13/21 05:04 69 11/13/21 05:00 66 16 144/80 93 L 11/13/21 04:54 64 11/13/21 04:00 99.1 F 65 16 144/80 95 11/13/21 03:00 66 16 144/80 96 11/13/21 02:00 66 16 144/80 96 11/13/21 01:00 68 16 144/80 99 11/13/21 00:19 67 16 144/80 98 11/13/21 00:08 69 11/13/21 00:00 98.6 F 66 16 144/80 85 L 11/12/21 23:58 65 11/12/21 23:00 61 16 144/80 97 11/12/21 22:00 61 16 144/80 96 11/12/21 21:13 62 11/12/21 21:07 62 11/12/21 21:00 63 16 144/80 98 11/12/21 20:00 98.8 F 68 16 144/80 95 11/12/21 19:00 56 L 16 98 11/12/21 18:30 56 L 16 99 11/12/21 18:00 60 16 99 11/12/21 17:30 64 16 98 11/12/21 17:00 56 L 16 99 11/12/21 16:30 58 L 16 99 11/12/21 16:00 98.7 F 63 16 98 11/12/21 15:30 61 16 144/80 98 11/12/21 15:00 68 10 L 96 11/12/21 14:30 67 23 99 11/12/21 14:00 68 16 144/80 99 11/12/21 13:31 65 16 100 11/12/21 10:54 72 18 120/62 97 11/12/21 09:53 73 18 135/71 95 11/12/21 09:00 71 18 146/69 95 Intake and Output 11/12/21 11/13/21 11/13/21 22:59 06:59 14:59 Intake Total 748.452 615.839 75 Output Total 440 250 25 Balance 308.452 365.839 50 Intake: IV 635 600 75 Dextrose 5% in Water 1, 375 600 75 000 ml @ 75 mls/hr IV . [id number] JOSELITO Rx#:[id number] Sodium Chloride 0.9% 1, 260 000 ml @ 130 mls/hr IV . Q7H42M JOSELITO Rx#:[id number] Intake, IV Titration 113.452 15.839 Amount propofoL 1,000 mg In 113.452 15.839 Empty Bag 1 bag @ 5 MCG/ KG/MIN 1.225 mls/hr IV . Q24H JOSELITO Rx#:[id number] Output: Urine 440 250 25 Other: Voiding Method Indwelling Catheter Indwelling Catheter Weight 40.823 kg 44.9 kg ABP, PAP, CO, CI - Last 8 Hours Arterial Blood Pressure 112/37 Arterial Blood Pressure 141/46 Arterial Blood Pressure 140/51 Arterial Blood Pressure 123/44 Arterial Blood Pressure 111/40 Arterial Blood Pressure 120/42 Arterial Blood Pressure 120/42 Arterial Blood Pressure 145/49 GENERAL: The patient is lying in bed and is not in acute distress. HENT: Supple neck. CHEST: The heart rate is regular rate rhythm. No murmurs to auscultation. LUNG: Clear to auscultation bilaterally no wheezing noted throughout. Not labored breathing. Intubated on ventilator. ABDOMEN/GI: Bowel sounds present in all 4 quadrants. No tenderness to palpation throughout. NEUROLOGICAL: Limited because of her condition since intubated and is on IV Propofol 50mcg/k g/min. Higher mental function: The patient is comatose. GCS 3 ( E1, VT1, M1) Cranial nerves: I had to manually open the eyes. The primary gaze is midline. The pupils are round, equal and reactive to light. No facial weakness. No facial twitching or tremor. But with stimulation has tongue tremor that is short lasting and resolves (according to her group home this is baseline). Motor: The strength is unable to assess.. Decrease tone predominately bilateral lowers. Has atrophy of bilateral lowers. Normal tone and bulk. Cerebellum: Could not assess. Sensation: Could not assess light touch. Reflexes (right/left): 1+ throughout excepts patellars are 3+ bilaterally. Plantars are mute bilaterally. Results - Laboratory Findings CBC and BMP: 11/13/21 06:11 11/13/21 06:11 Abnormal Lab Findings: Abnormal Labs 11/11/21 11/11/21 11/11/21 23:22 23:22 23:22 WBC 13.6 H RBC 3.69 L Hgb Hct MCHC Plt Count Neutrophils # 11.6 H Lymphocytes # 0.7 L D-Dimer >34.10 H ABG pCO2 ABG pO2 ABG HCO3 ABG Total CO2 ABG O2 Saturation Sodium Potassium Chloride Carbon Dioxide 35 H BUN 35 H Glucose 106 H POC Glucose (mg/dL) Plasma Lactic Acid [place] Calcium Phosphorus 5.5 H Magnesium 2.4 H AST 132 H ALT 81 H Troponin I Total Protein Albumin Urine Protein Urine Glucose (UA) Urine Blood Urine Mucus 11/11/21 11/12/21 11/12/21 23:22 05:44 09:27 WBC RBC Hgb Hct MCHC Plt Count Neutrophils # Lymphocytes # D-Dimer ABG pCO2 ABG pO2 ABG HCO3 ABG Total CO2 ABG O2 Saturation Sodium Potassium Chloride Carbon Dioxide BUN Glucose POC Glucose (mg/dL) Plasma Lactic Acid [place] Calcium Phosphorus Magnesium AST ALT Troponin I 0.036 H* 0.137 H* 0.121 H* Total Protein Albumin Urine Protein Urine Glucose (UA) Urine Blood Urine Mucus 11/12/21 11/12/21 11/12/21 13:00 13:00 13:01 WBC 13.4 H RBC 3.47 L Hgb 10.6 L Hct MCHC 30.8 L Plt Count Neutrophils # 11.5 H Lymphocytes # 0.7 L D-Dimer ABG pCO2 ABG pO2 ABG HCO3 ABG Total CO2 ABG O2 Saturation Sodium 147 H Potassium Chloride 109 H Carbon Dioxide 34 H BUN 23 H Glucose 106 H POC Glucose (mg/dL) Plasma Lactic Acid [place] 0.6 L Calcium Phosphorus Magnesium AST 119 H ALT 80 H Troponin I Total Protein 6.2 L Albumin Urine Protein Urine Glucose (UA) Urine Blood Urine Mucus 11/12/21 11/12/21 11/12/21 13:23 13:33 14:05 WBC RBC Hgb Hct MCHC Plt Count Neutrophils # Lymphocytes # D-Dimer ABG pCO2 ABG pO2 384 H ABG HCO3 31 H ABG Total CO2 33 H ABG O2 Saturation 99.6 H Sodium Potassium Chloride Carbon Dioxide BUN Glucose POC Glucose (mg/dL) 107 H Plasma Lactic Acid [place] Calcium Phosphorus Magnesium AST ALT Troponin I Total Protein Albumin Urine Protein 1+ H Urine Glucose (UA) Trace H Urine Blood Moderate H Urine Mucus Rare H 11/12/21 11/13/21 11/13/21 19:42 05:45 06:11 WBC RBC Hgb Hct MCHC Plt Count Neutrophils # Lymphocytes # D-Dimer ABG pCO2 47 H ABG pO2 68 L ABG HCO3 31 H ABG Total CO2 32 H ABG O2 Saturation Sodium Potassium 3.0 L Chloride 109 H Carbon Dioxide BUN Glucose 111 H POC Glucose (mg/dL) 106 H Plasma Lactic Acid [place] Calcium 7.8 L Phosphorus Magnesium AST 57 H ALT 56 H Troponin I Total Protein 5.2 L Albumin 2.9 L Urine Protein Urine Glucose (UA) Urine Blood Urine Mucus 11/13/21 06:11 WBC RBC 3.16 L Hgb 9.7 L Hct 30.6 L MCHC Plt Count 149 L Neutrophils # Lymphocytes # 0.7 L D-Dimer ABG pCO2 ABG pO2 ABG HCO3 ABG Total CO2 ABG O2 Saturation Sodium Potassium Chloride Carbon Dioxide BUN Glucose POC Glucose (mg/dL) Plasma Lactic Acid [place] Calcium Phosphorus Magnesium AST ALT Troponin I Total Protein Albumin Urine Protein Urine Glucose (UA) Urine Blood Urine Mucus Assessment and Plan Assessment: Tongue twitching. Rule out seizure. On examination happens with stimulation and per her foster care this is baseline and does not have history of seizures. Out of hosptial cardiopulmonary arrest wiith resuscitation for 20 minute with ROSC Encephalopathy is due to anoxic encephalopathy, medication induced (IV propofol) and small component of metabolic encephalopathy Respiratory distress and inutbated on ventilator. Electrolyte imbalance (hyperphosphatemia and magnesemia): Transamnitis--trending down History of cerebral palsy History of kyphoscoliosis History of congestive heart failure History of Coronary artery disease History of hypertension Hyperlipidemia History of COPD History of anxiety/depression Wheel chair bound Plan: CT head is unremarkable. I ordered an Urgent EEG. She is currently on Keppra 1gm bid started by primary team. Q1 hour neuro checks. Placed on seizure precaution and pads. Cardiology is consulted. 2D echo is pending. Will defer the rest of medical management to primary and ICU team. The plan is discussed with the patient's nurse. Thank you for the consultation. Vidal Zhang M.D. Neuro-Hospitalist Time with Patient: Greater than 30
[2021-11-13] MEDS: PANTOPRAZOLE 40 MG/10 ML VIAL IV SCH (11:32)
[2021-11-13] MEDS: CHLORHEXIDINE GLUCONATE 15 ML CUP MUCOUS MEM SCH ×2 (11:32→20:14)
[2021-11-13] MEDS: FUROSEMIDE 10 MG/ML 4 ML VIAL IV SCH (11:33)
[2021-11-13] MEDS: DEXTROSE 5% IN WATER 1,000 ML IV SCH (11:33)
[2021-11-13] MEDS: CEFEPIME 1 GM in SODIUM CHLORIDE 0.9% 50 ML IVPB SCH ×2 (11:33→20:15)
[2021-11-13] MEDS: SODIUM CHLORIDE 0.9% 500 ML 500 ML IV SCH (11:41)
[2021-11-13] MEDS: metroNIDAZOLE-NS PMX 500 MG in SALINE 1 100ML.BAG IVPB SCH ×2 (11:46→17:28)
--- NOTE | 2021-11-13 15:10 | P.PN ---
Subjective Progress Note Date: 11/13/21 80-year-old female with history of cerebral palsy, who was brought into the emergency room, on November 11, unresponsive, and/or with a cardiac arrest. It's not clear from reviewing the ER javed whether or not the patient did or did not have a pulse. Apparently she had CPR provided to her by the [facility] the [facility]. Apparently that CPR lasted for 20 minutes. No medications were given. An AED was applied but no shocks were given. The patient apparently was further evaluated and resuscitated in the emergency department, and admitted to 3 [address]., room 372. Today, we heard a rapid response called to room 372. And one of my ICU nurses who responded, told me that the patient was in respiratory distress, and required intubation. She was intubated and brought down to the ICU. We placed a central line in her, and also a arterial line. We were not able get any additional history from her. Currently she is on propofol, and saline. White count 13.4, hemoglobin 10.6, hematocrit 34.6, platelet count 182,000. Most recent blood gases show pO2 384, pCO2 45, and pH is 7.45. This was on 100%. The FiO2 was reduced down to 40%. Sodium 147, potassium 3.8, chlorides 109, CO2 34, anion gap 4, BUN 23, and creatinine 0.73. Lactic acid was 0.6 AST 119 ALT 80 total protein 6.2. Urine is yellow and clear. There is 1+ protein and trace glucose. There is moderate blood. No evidence of infection. Chest x-ray shows cardiomegaly, a properly placed central line, and diffuse bilateral infiltrates. On 11/13/2021, the patient is being seen for a follow-up. The patient is sedated with propofol and the patient is intubated on a mechanical ventilator. The patient is currently on assist control mode of mechanical ventilation at the rate of 16, tidal volume of 350, FiO2 of 40% with a PEEP of 5. The patient's chest x-ray showing anatomic abnormality with the spine as the patient has significant kyphoscoliosis of the thoracic spine in addition to car to megaly and bilateral pulmonary infiltrates which could be pneumonia versus CHF. The patient has a pH of 7.41 with a pCO2 of 47 and pO2 of 68 on today's blood gases. ProBNP level was 2550 and the patient did have some troponin leak with the levels being at 0.03 and 0.062. EEG is in progress. Neurology consultation has been done and that input is appreciated. There are several episodes of tongue twitching that has been noted on this patient. The patient was started on IV Keppra. EEG is also in progress at this point in time. CAT scan of the brain that was extubated yesterday was essentially unremarkable. [facility] No other significant events otherwise over the past 24 hours. The patient is hemodynamically stable. The patient is given accommodation Rocephin and Zithromax. IV fluids are currently at KVO and the patient was started on Lasix 40 mg IV every 24 hours. No pressors for now. The patient is afebrile. Objective - Vital Signs Vital signs: Vital Signs Temp 99.1 F 11/13/21 04:00 Pulse 70 11/13/21 09:00 Resp 16 11/13/21 09:00 BP 144/80 11/13/21 08:00 Pulse Ox 100 11/13/21 09:00 Intake & Output 11/12/21 11/13/21 11/13/21 18:59 06:59 18:59 Intake Total 634.472 865.839 150 Output Total 525 390 50 Balance 109.472 475.839 100 Weight 40.823 kg 44.9 kg Intake: IV 615 750 150 Dextrose 5% in Water 1, 225 750 150 000 ml @ 75 mls/hr IV . [id number] [facility] Rx#:[id number] Sodium Chloride 0.9% 1, 390 000 ml @ 130 mls/hr IV . Q7H42M [facility] Rx#:[id number] Intake, IV Titration 19.472 115.839 Amount propofoL 1,000 mg In 19.472 115.839 Empty Bag 1 bag @ 5 MCG/ KG/MIN 1.225 mls/hr IV . Q24H [facility] Rx#:[id number] Output: Urine 525 390 50 Other: Voiding Method Indwelling Catheter Indwelling Catheter ABP, PAP, CO, CI - Last Documented Arterial Blood Pressure 122/45 - Exam No acute distress, sedated, with an orally placed endotracheal tube and NG tube. The patient remains intubated on a mechanical ventilator. Head exam was generally normal. There was no scleral icterus or corneal arcus. Mucous membranes were moist. HEENT examination is grossly unremarkable. Neck supple. Full range of motion. No adenopathy thyromegaly or neck vein distention. Cardiovascular examination reveals regular rhythm rate. S1-S2 normal. No S3 or S4. No discernible murmur noted. Heart sounds are distant. Lungs reveal coarse bilateral breath sounds. No wheezes. No crackles. Breath sounds equal bilaterally. Abdomen soft bowel sounds are heard. No masses or tenderness. Extremities are intact. No cyanosis clubbing or edema. Upper extremities are a bit contracted. Skin is without rash or lesion. Neurologic examination cannot be assessed, as the patient's already been intubated and is currently sedated. The patient is having some occasional tongue twitching and this occurs only when the patient is stimulated. Note that the patient also has a protruded tongue and the patient has a tongue bite. - Labs CBC & Chem 7: 11/13/21 06:11 11/13/21 06:11 Labs: Abnormal Lab Results - Last 24 Hours (Table) 11/12/21 11/12/21 11/12/21 Range/Units 09:27 13:00 13:00 WBC (3.8-10.6) k/uL RBC (3.80-5.40) m/uL Hgb (11.4-16.0) gm/dL Hct (34.0-46.0) % MCHC (31.0-37.0) g/dL Plt Count (150-450) k/uL Neutrophils # (1.3-7.7) k/uL Lymphocytes # (1.0-4.8) k/uL ABG pCO2 (35-45) mmHg ABG pO2 (83-108) mmHg ABG HCO3 (21-25) mmol/L ABG Total CO2 (19-24) mmol/L ABG O2 Saturation (94-97) % Sodium 147 H (137-145) mmol/L Potassium (3.5-5.1) mmol/L Chloride 109 H (98-107) mmol/L Carbon Dioxide 34 H (22-30) mmol/L BUN 23 H (7-17) mg/dL Glucose 106 H (74-99) mg/dL POC Glucose (mg/dL) (75-99) mg/dL Plasma Lactic Acid Marin 0.6 L (0.7-2.0) mmol/L Calcium (8.4-10.2) mg/dL AST 119 H (14-36) U/L ALT 80 H (4-34) U/L Troponin I 0.121 H* (0.000-0.034) ng/mL Total Protein 6.2 L (6.3-8.2) g/dL Albumin (3.5-5.0) g/dL Urine Protein (Negative) Urine Glucose (UA) (Negative) Urine Blood (Negative) Urine Mucus (None) /hpf 11/12/21 11/12/21 11/12/21 Range/Units 13:01 13:23 13:33 WBC 13.4 H (3.8-10.6) k/uL RBC 3.47 L (3.80-5.40) m/uL Hgb 10.6 L (11.4-16.0) gm/dL Hct (34.0-46.0) % MCHC 30.8 L (31.0-37.0) g/dL Plt Count (150-450) k/uL Neutrophils # 11.5 H (1.3-7.7) k/uL Lymphocytes # 0.7 L (1.0-4.8) k/uL ABG pCO2 (35-45) mmHg ABG pO2 (83-108) mmHg ABG HCO3 (21-25) mmol/L ABG Total CO2 (19-24) mmol/L ABG O2 Saturation (94-97) % Sodium (137-145) mmol/L Potassium (3.5-5.1) mmol/L Chloride (98-107) mmol/L Carbon Dioxide (22-30) mmol/L BUN (7-17) mg/dL Glucose (74-99) mg/dL POC Glucose (mg/dL) 107 H (75-99) mg/dL Plasma Lactic Acid Marin (0.7-2.0) mmol/L Calcium (8.4-10.2) mg/dL AST (14-36) U/L ALT (4-34) U/L Troponin I (0.000-0.034) ng/mL Total Protein (6.3-8.2) g/dL Albumin (3.5-5.0) g/dL Urine Protein 1+ H (Negative) Urine Glucose (UA) Trace H (Negative) Urine Blood Moderate H (Negative) Urine Mucus Rare H (None) /hpf 11/12/21 11/12/21 11/13/21 Range/Units 14:05 19:42 05:45 WBC (3.8-10.6) k/uL RBC (3.80-5.40) m/uL Hgb (11.4-16.0) gm/dL Hct (34.0-46.0) % MCHC (31.0-37.0) g/dL Plt Count (150-450) k/uL Neutrophils # (1.3-7.7) k/uL Lymphocytes # (1.0-4.8) k/uL ABG pCO2 47 H (35-45) mmHg ABG pO2 384 H 68 L (83-108) mmHg ABG HCO3 31 H 31 H (21-25) mmol/L ABG Total CO2 33 H 32 H (19-24) mmol/L ABG O2 Saturation 99.6 H (94-97) % Sodium (137-145) mmol/L Potassium (3.5-5.1) mmol/L Chloride (98-107) mmol/L Carbon Dioxide (22-30) mmol/L BUN (7-17) mg/dL Glucose (74-99) mg/dL POC Glucose (mg/dL) 106 H (75-99) mg/dL Plasma Lactic Acid Marin (0.7-2.0) mmol/L Calcium (8.4-10.2) mg/dL AST (14-36) U/L ALT (4-34) U/L Troponin I (0.000-0.034) ng/mL Total Protein (6.3-8.2) g/dL Albumin (3.5-5.0) g/dL Urine Protein (Negative) Urine Glucose (UA) (Negative) Urine Blood (Negative) Urine Mucus (None) /hpf 11/13/21 11/13/21 11/13/21 Range/Units 06:11 06:11 06:11 WBC (3.8-10.6) k/uL RBC 3.16 L (3.80-5.40) m/uL Hgb 9.7 L (11.4-16.0) gm/dL Hct 30.6 L (34.0-46.0) % MCHC (31.0-37.0) g/dL Plt Count 149 L (150-450) k/uL Neutrophils # (1.3-7.7) k/uL Lymphocytes # 0.7 L (1.0-4.8) k/uL ABG pCO2 (35-45) mmHg ABG pO2 (83-108) mmHg ABG HCO3 (21-25) mmol/L ABG Total CO2 (19-24) mmol/L ABG O2 Saturation (94-97) % Sodium (137-145) mmol/L Potassium 3.0 L (3.5-5.1) mmol/L Chloride 109 H (98-107) mmol/L Carbon Dioxide (22-30) mmol/L BUN (7-17) mg/dL Glucose 111 H (74-99) mg/dL POC Glucose (mg/dL) (75-99) mg/dL Plasma Lactic Acid Marin (0.7-2.0) mmol/L Calcium 7.8 L (8.4-10.2) mg/dL AST 57 H (14-36) U/L ALT 56 H (4-34) U/L Troponin I 0.060 H* (0.000-0.034) ng/mL Total Protein 5.2 L (6.3-8.2) g/dL Albumin 2.9 L (3.5-5.0) g/dL Urine Protein (Negative) Urine Glucose (UA) (Negative) Urine Blood (Negative) Urine Mucus (None) /hpf Microbiology - Last 24 Hours (Table) 11/12/21 16:10 Gram Stain - Preliminary Sputum Sputum Culture - Preliminary Assessment and Plan Plan: 1 [id number] cardiopulmonary arrest, with cardiopulmonary resuscitation, for 20 minutes, and eventual return of spontaneous circulation (CPA/CPR/ROSC). No evidence of pulmonary embolism on CT angiogram. The patient has had a megaly with diffuse bilateral pulmonary infiltrates. Consider underlying pn eumonia/ARDS. Consider underlying CHF. Currently intubated on a mechanical ventilator. The patient is currently on no pressors. Awaiting echocardiogram. Minimal troponin leak secondary to cardiac arrest. Questionable anoxic encephalopathy. The patient is having some tongue twitching. Patient is currently on Keppra. Neurologist on the case. Cardiology is on the case. 2 Status post intubation and mechanical ventilation, for respiratory failure, on 11/12/2021. 3 History of cerebral palsy. 4 History of CAD. 5 History of CHF. 6 History of COPD/asthma. 7 History of gastroesophageal reflux disease. 8 History of hyperlipidemia. 9 History of hypertension. 10 History of osteoarthritis. 11 History of kyphoscoliosis. 12 History of colitis. 13 History of anxiety/depression. Plan Continue ventilator support No attempts for any weaning today. Keep propofol for now Proceed with EEG Continued IV Keppra for now Switch this patient a combination of cefepime and Flagyl and discontinue the Rocephin and Zithromax Sputum Gram stain and culture Pro-calcitonin level IV Lasix 40 mg every 24 hours Echocardiogram to assess LV function Neurology consultation regarding possibility of anoxic encephalopathy She is on no pressors for now Initiate enteral feeding for nutritional support Initiate enteral feeding for nutritional support and discontinue the D5 water Restart the patient on Lexapro and Lamictal Restart the patient on Plavix Restart the patient's Coreg as long as she is able to handle the beta blockers without any hypotension or bradycardia IV Protonix Lovenox subcu for DVT prophylaxis Chest x-ray in the morning We'll continue to follow, condition is critical and will continue to follow make further recommendations based on her progress. This ventilation with the morning 30 minutes. Time with Patient: Greater than 30
--- NOTE | 2021-11-13 16:08 | EEG ---
ELECTROENCEPHALOGRAM REPORT DATE OF SERVICE: 11/13/2021. CLINICAL HISTORY: This is an 80-year-old woman who had a cardiac arrest outside the hospital and is having tongue twitching. The video EEG is obtained to evaluate for seizure epileptiform activity. Relevant medications are IV propofol and Keppra. EEG TYPE: A routine 21-channel EEG is performed with video using the 10/20 electrode placement system. DESCRIPTION: The patient is intubated on a ventilator and is on IV propofol. The background consists of burst suppression, the suppression lasting 1 to 2 seconds. The burst at times seems nonrhythmic theta activity and does not seem epileptic in nature. There is diffuse excessive fast activity. Interictal and ictal is none. During the recording the patient had tongue movement noted by director of technology at 9:54 and lasted for 30-40 seconds, but background is obscured by myogenic artifact. ACTIVATION PROCEDURE: Photic stimulation did not evoke a posterior driving response. There is no abnormality during the photic stimulation. Hyperventilation was not performed. CLINICAL INTERPRETATION: This is an abnormal routine EEG. The background slowing is suggestive of moderate encephalopathy. There is burst suppression that is seen during the study, possibly due to medication effect. The excessive beta activity is possibly due to medication effect versus sleep architecture. Otherwise there is no focal slowing, epileptiform discharge or seizure on the EEG. Clinical correlation is recommended. FOREIGN / [place]: [id number] / TIFF
--- NOTE | 2021-11-13 16:12 | P.PN ---
Subjective Progress Note Date: 11/13/21 History of present as per H&P: Patient is an 80-year-old female with a PMH of cerebral palsy, coronary artery disease, CHF, COPD, hyperlipidemia, hypertension, resident of an extended care facility who was brought into the emergency room due to suspected cardiac arrest. The patient did not contribute anything to the history which was thereby obtained from the chart and from the ED staff. The patient was reportedly noted to be unresponsive at the [facility] for which the EMS was activated and upon arrival the patient was noted to have a pulse but she was given CPR nonetheless. Reportedly, the patient had a pulse throughout the episode, with no medications given during CPR with AED applied and no shocks advised. Chest CT in the emergency room revealed extensive lower lobe infiltrates with EKG showing sinus rhythm with an incomplete right bundle branch block at 80 bpm. Laboratory evaluation was remarkable for leukocytosis of 13.6, troponin 0.036, proBNP 1350, AST 132, and ALT 81. Interval history: Patient was intubated and transferred to ICU yesterday morning. There are several episodes of tongue twitching that has been noted on this patient. The p atient was started on IV Keppra. EEG is also in progress at this point in time. CAT scan of the brain that was extubated yesterday was essentially unremarkable. Patient is currently at the [facility] seizure precautions. No other significant events otherwise over the past 24 hours. The patient is h emodynamically stable. The patient is given accommodation Rocephin and Zithromax. IV fluids are currently at KVO and the patient was started on Lasix 40 mg IV every 24 hours. No pressors for now. The patient is afebrile. Objective - Vital Signs Vital signs: Vital Signs Temp 100.3 F H 11/13/21 11:00 Pulse 71 11/13/21 13:00 Resp 16 11/13/21 13:00 BP 144/80 11/13/21 08:00 Pulse Ox 100 11/13/21 13:00 Intake & Output 11/12/21 11/13/21 11/13/21 18:59 06:59 18:59 Intake Total 634.472 865.839 400 Output Total 777 671 0951 Balance 109.472 475.839 -725 Weight 40.823 kg 44.9 kg 45.9 kg Intake: IV 615 750 300 Dextrose 5% in Water 1, 225 750 300 000 ml @ 75 mls/hr IV . [id number] [facility] Rx#:[id number] Sodium Chloride 0.9% 1, 390 000 ml @ 130 mls/hr IV . Q7H42M [facility] Rx#:[id number] Intake, IV Titration .472 115.839 100 Amount propofoL 1,000 mg In .47 115.839 100 Empty Bag 1 bag @ 5 MCG/ KG/MIN 1.225 mls/hr IV . Q24H [facility] Rx#:[id number] Output: Urine 960 015 8022 Other: Voiding Method Indwelling Catheter Indwelling Catheter Indwelling Catheter ABP, PAP, CO, CI - Last Documented Arterial Blood Pressure 115/47 - Exam No acute distress, sedated, with an orally placed endotracheal tube and NG tube. The patient remains intubated on a mechanical ventilator. Head exam was generally normal. There was no scleral icterus or corneal arcus. M ucous membranes were moist. HEENT examination is grossly unremarkable. Neck supple. Full range of motion. No adenopathy thyromegaly or neck vein distention. Cardiovascular examination reveals regular rhythm rate. S1-S2 normal. No S3 or S4. No discernible murmur noted. Heart sounds are distant. Lungs reveal coarse bilateral breath sounds. No wheezes. No crackles. Breath sounds equal bilaterally. Abdomen soft bowel sounds are heard. No masses or tenderness. Extremities are intact. No cyanosis clubbing or edema. Upper extremities are a bit contracted. Skin is without rash or lesion. Neurologic examination cannot be assessed, as the patient's already been intubated and is currently sedated. The patient is having some occasional tongue twitching and this occurs only when the patient is stimulated. Note that the patient also has a protruded tongue and the patient has a tongue bite. - Labs CBC & Chem 7: 11/13/21 06:11 11/13/21 06:11 Labs: Abnormal Lab Results - Last 24 Hours (Table) 11/12/21 11/13/21 11/13/21 Range/Units 19:42 05:45 06:11 RBC (3.80-5.40) m/uL Hgb (11.4-16.0) gm/dL Hct (34.0-46.0) % Plt Count (150-450) k/uL Lymphocytes # (1.0-4.8) k/uL ABG pCO2 47 H (35-45) mmHg ABG pO2 68 L (83-108) mmHg ABG HCO3 31 H (21-25) mmol/L ABG Total CO2 32 H (19-24) mmol/L Potassium 3.0 L (3.5-5.1) mmol/L Chloride 109 H (98-107) mmol/L Glucose 111 H (74-99) mg/dL POC Glucose (mg/dL) 106 H (75-99) mg/dL Calcium 7.8 L (8.4-10.2) mg/dL AST 57 H (14-36) U/L ALT 56 H (4-34) U/L Troponin I (0.000-0.034) ng/mL Total Protein 5.2 L (6.3-8.2) g/dL Albumin 2.9 L (3.5-5.0) g/dL Procalcitonin (0.02-0.09) ng/mL 11/13/21 11/13/21 11/13/21 Range/Units 06:11 06:11 06:11 RBC 3.16 L (3.80-5.40) m/uL Hgb 9.7 L (11.4-16.0) gm/dL Hct 30.6 L (34.0-46.0) % Plt Count 149 L (150-450) k/uL Lymphocytes # 0.7 L (1.0-4.8) k/uL ABG pCO2 (35-45) mmHg ABG pO2 (83-108) mmHg ABG HCO3 (21-25) mmol/L ABG Total CO2 (19-24) mmol/L Potassium (3.5-5.1) mmol/L Chloride (98-107) mmol/L Glucose (74-99) mg/dL POC Glucose (mg/dL) (75-99) mg/dL Calcium (8.4-10.2) mg/dL AST (14-36) U/L ALT (4-34) U/L Troponin I 0.060 H* (0.000-0.034) ng/mL Total Protein (6.3-8.2) g/dL Albumin (3.5-5.0) g/dL Procalcitonin 0.12 H (0.02-0.09) ng/mL Microbiology - Last 24 Hours (Table) 11/12/21 16:10 Gram Stain - Preliminary Sputum Sputum Culture - Preliminary Assessment and Plan Assessment: #[id number] cardiopulmonary arrest, with cardiopulmonary resuscitation, for 20 minutes, and eventual return of spontaneous circulation (CPA/CPR/ROSC). -No evidence of pulmonary embolism on CT angiogram. diffuse bilateral pulmonary infiltrates. -Consider underlying pneumonia/ARDS. -Consider underlying CHF. Currently intubated on a mechanical ventilator. - The patient is currently on no pressors. -Awaiting echocardiogram. Minimal troponin leak secondary to cardiac arrest. -Questionable anoxic encephalopathy. -The patient is having some tongue twitching. -Patient is currently on Keppra. Neurology following -Cardiology and critical care following #Status post intubation and mechanical ventilation, for respiratory failure, on 11/12/2021. -Continue vent management per ICU #History of cerebral palsy. #History of CAD. #History of CHF. #History of COPD/asthma. #History of gastroesophageal reflux disease. #History of hyperlipidemia. #History of hypertension. #History of osteoarthritis. #History of kyphoscoliosis. #History of colitis. #History of anxiety/depression. #Full code
[2021-11-13 17:43] LABS: Glucose,Whole Blood 87 mg/dL (75-99)
[2021-11-13] MEDS: lamoTRIgine 100 MG TAB PO SCH (20:15)
[2021-11-13] MEDS: ATORVASTATIN 40 MG TAB PO SCH (20:15)
[2021-11-13] MEDS: carvediloL 12.5 MG TAB PO SCH (20:15)
[2021-11-13] MEDS ORDERED: hydrALAZINE HCL 20 MG/ML 1 ML VIAL IVP STA (23:19)
[2021-11-14] LABS: Glucose,Whole Blood 117 mg/dL (75-99)
[2021-11-14] MEDS: metroNIDAZOLE-NS PMX 500 MG in SALINE 1 100ML.BAG IVPB SCH ×3 (00:31→15:30)
[2021-11-14] MEDS: IPRATROPIUM-ALBUTEROL 3 ML NEB INHALATION SCH ×6 (04:11→19:51)
[2021-11-14 05:11] LABS: Basophils % (A) 0 %; Eosinophils # (A) 0.3 k/uL (0-0.7); Eosinophils % (A) 5 %; HCT 30.7 % (34.0-46.0); Lymphocytes # (A) 0.5 k/uL (1.0-4.8); Lymphocytes % (A) 8 %; MCH 31.1 pg (25.0-35.0); MCHC 32.5 g/dL (31.0-37.0); MCV 95.9 fL (80.0-100.0); Mean Platelet Volume 9.2; Monocytes # (A) 0.4 k/uL (0-1.0); Monocytes % (A) 6 %; Neutrophils # (A) 5.1 k/uL (1.3-7.7); Neutrophils % (A) 79 %; Platelet Count 176 k/uL (150-450); RDW 14.8 % (11.5-15.5); WBC 6.5 k/uL (3.8-10.6)
[2021-11-14 06:12] LABS: ABG Base Excess 7.1 mmol/L; ABG HCO3 31 mmol/L (21-25); ABG Oxygen Saturation 97.6 % (94-97); ABG PCO2 41 mmHg (35-45); ABG PH 7.48 (7.35-7.45); ABG PO2 89 mmHg (83-108); ABG TCO2 32 mmol/L (19-24)
[2021-11-14 06:13] LABS: Glucose,Whole Blood 107 mg/dL (75-99)
[2021-11-14 06:19] LABS: Allen Test Performed? No
[2021-11-14 06:23] LABS: Albumin 2.6 g/dL (3.5-5.0); Total Bilirubin 0.5 mg/dL (0.2-1.3); Total Protein 4.9 g/dL (6.3-8.2)
--- NOTE | 2021-11-14 06:59 | P.PN ---
Subjective Progress Note Date: 11/14/21 Principal diagnosis: Out of the hospital cardiopulmonary arrest The patient is an 80-year-old female patient with history of cerebral palsy as well as multiple comorbid conditions who was admitted to the intensive care unit for out of the hospital cardiopulmonary arrest. The patient was seen this morning. She continues to be intubated and currently she is sedated as well. Hemodynamically she is stable. Her examination today is different artery better and her chest is clear on examination. She was started on Lasix yesterday. She has been diuresing very well except for the last few hours where her urine output about 30 mL/h. She has been maintaining normal sinus mechanism. The echo still pending. Objective - Vital Signs Vital signs: Vital Signs Temp 99 F 11/14/21 04:00 Pulse 75 11/14/21 06:00 Resp 16 11/14/21 06:00 BP 145/69 11/13/21 21:00 Pulse Ox 97 11/14/21 06:00 Intake & Output 11/13/21 11/13/21 11/14/21 06:59 18:59 06:59 Intake Total 865.839 484.708 948.638 Output Total 390 1315 370 Balance 475.839 -830.292 578.638 Weight 44.9 kg 45.9 kg Intake: IV 750 300 320 Dextrose 5% in Water 1, 750 300 000 ml @ 75 mls/hr IV . [id number] [facility] Rx#:[id number] Sodium Chloride 0.9% 500 220 ml 500 ml @ 20 mls/hr IV .Q24H [facility] Rx#:[id number] levETIRAcetam IV 1,000 mg 100 In Saline 1 100ml.bag @ 400 mls/hr IVPB Q12HR [facility] Rx#:[id number] Intake, IV Titration 115.839 184.708 150.638 Amount propofoL 1,000 mg In 115.839 184.708 150.638 Empty Bag 1 bag @ 5 MCG/ KG/MIN 1.225 mls/hr IV . Q24H [facility] Rx#:[id number] Tube Feeding 253 Other 225 Output: Urine 390 1315 370 Other: Voiding Method Indwelling Catheter Indwelling Catheter Indwelling Catheter ABP, PAP, CO, CI - Last Documented Arterial Blood Pressure 150/60 - Constitutional General appearance: Present: no acute distress - Respiratory Respiratory: bilateral: diminished - Cardiovascular Rhythm: regular - Labs CBC & Chem 7: 11/14/21 04:35 11/14/21 04:35 Labs: Abnormal Lab Results - Last 24 Hours (Table) 11/13/21 11/13/21 11/13/21 Range/Units 06:11 06:11 23:57 RBC (3.80-5.40) m/uL Hgb (11.4-16.0) gm/dL Hct (34.0-46.0) % Lymphocytes # (1.0-4.8) k/uL ABG pH (7.35-7.45) ABG HCO3 (21-25) mmol/L ABG Total CO2 (19-24) mmol/L ABG O2 Saturation (94-97) % Potassium (3.5-5.1) mmol/L Carbon Dioxide (22-30) mmol/L Glucose (74-99) mg/dL POC Glucose (mg/dL) 117 H (75-99) mg/dL Calcium (8.4-10.2) mg/dL ALT (4-34) U/L Troponin I 0.060 H* (0.000-0.034) ng/mL Total Protein (6.3-8.2) g/dL Albumin (3.5-5.0) g/dL Procalcitonin 0.12 H (0.02-0.09) ng/mL 11/14/21 11/14/21 11/14/21 Range/Units 04:35 04:35 05:44 RBC 3.20 L (3.80-5.40) m/uL Hgb 10.0 L (11.4-16.0) gm/dL Hct 30.7 L (34.0-46.0) % Lymphocytes # 0.5 L (1.0-4.8) k/uL ABG pH 7.48 H (7.35-7.45) ABG HCO3 31 H (21-25) mmol/L ABG Total CO2 32 H (19-24) mmol/L ABG O2 Saturation 97.6 H (94-97) % Potassium 3.0 L (3.5-5.1) mmol/L Carbon Dioxide 31 H (22-30) mmol/L Glucose 123 H (74-99) mg/dL POC Glucose (mg/dL) (75-99) mg/dL Calcium 8.0 L (8.4-10.2) mg/dL ALT 42 H (4-34) U/L Troponin I (0.000-0.034) ng/mL Total Protein 4.9 L (6.3-8.2) g/dL Albumin 2.6 L (3.5-5.0) g/dL Procalcitonin (0.02-0.09) ng/mL 11/14/21 Range/Units 06:11 RBC (3.80-5.40) m/uL Hgb (11.4-16.0) gm/dL Hct (34.0-46.0) % Lymphocytes # (1.0-4.8) k/uL ABG pH (7.35-7.45) ABG HCO3 (21-25) mmol/L ABG Total CO2 (19-24) mmol/L ABG O2 Saturation (94-97) % Potassium (3.5-5.1) mmol/L Carbon Dioxide (22-30) mmol/L Glucose (74-99) mg/dL POC Glucose (mg/dL) 107 H (75-99) mg/dL Calcium (8.4-10.2) mg/dL ALT (4-34) U/L Troponin I (0.000-0.034) ng/mL Total Protein (6.3-8.2) g/dL Albumin (3.5-5.0) g/dL Procalcitonin (0.02-0.09) ng/mL Microbiology - Last 24 Hours (Table) 11/12/21 16:10 Gram Stain - Preliminary Sputum Sputum Culture - Preliminary Assessment and Plan Assessment: Assessment #1 cardiopulmonary arrest of unknown etiology at this point #2 known underlying history of chronic obstructive pulmonary disease #3 possible heart failure of unknown etiology at this point. The patient does have bilateral crackles. Her NT proBNP is elevated as well. She was on by mouth diuretics at home #4 history of coronary artery disease #5 history of COPD #6 multiple comorbid conditions Plan #1 continue the current medical regimen #2 obtain an echo to assess ejection fraction #3 continue Lasix for additional 24 hours #4 monitor the kidney function and electrolytes #5 follow-up with the patient
[2021-11-14] MEDS: CHLORHEXIDINE GLUCONATE 15 ML CUP MUCOUS MEM SCH ×2 (08:23→21:14)
[2021-11-14] MEDS: lamoTRIgine 25 MG TAB PO SCH (08:23)
[2021-11-14] MEDS: CLOPIDOGREL 75 MG TAB PO SCH (08:23)
[2021-11-14] MEDS: PANTOPRAZOLE 40 MG/10 ML VIAL IV SCH (08:23)
[2021-11-14] MEDS: POTASSIUM BICARBONATE/CIT AC 20 MEQ TABLET.EFF NG-TUBE SCH ×2 (08:23→10:10)
[2021-11-14] MEDS: ESCITALOPRAM 20 MG TAB PO SCH (08:23)
[2021-11-14] MEDS: levETIRAcetam IV 1,000 MG in SALINE 1 100ML.BAG IVPB SCH (08:24)
[2021-11-14] MEDS: FUROSEMIDE 10 MG/ML 4 ML VIAL IV SCH ×2 (08:24→21:15)
[2021-11-14] MEDS: HEPARIN SODIUM,PORCINE/PF 5,000 UNIT/0.5 ML SYRINGE SQ SCH ×2 (08:24→15:30)
[2021-11-14] MEDS: CEFEPIME 1 GM in SODIUM CHLORIDE 0.9% 50 ML IVPB SCH ×2 (08:24→21:14)
--- NOTE | 2021-11-14 09:05 | P.PN ---
Subjective Progress Note Date: 11/14/21 80-year-old female with history of cerebral palsy, who was brought into the emergency room, on November 11, unresponsive, and/or with a cardiac arrest. It's not clear from reviewing the ER javed whether or not the patient did or did not have a pulse. Apparently she had CPR provided to her by the staff at the adult [facility]. Apparently that CPR lasted for 20 minutes. No medications were given. An AED was applied but no shocks were given. The patient apparently was further evaluated and resuscitated in the emergency department, and admitted to 3 S., room 372. Today, we heard a rapid response called to room 372. And one of my ICU nurses who responded, told me that the patient was in respiratory distress, and required intubation. She was intubated and brought down to the ICU. We placed a central line in her, and also a arterial line. We were not able get any additional history from her. Currently she is on propofol, and saline. White count 13.4, hemoglobin 10.6, hematocrit 34.6, platelet count 182,000. Most recent blood gases show pO2 384, pCO2 45, and pH is 7.45. This was on 100%. The FiO2 was reduced down to 40%. Sodium 147, potassium 3.8, chlorides 109, CO2 34, anion gap 4, BUN 23, and creatinine 0.73. Lactic acid was 0.6 AST 119 ALT 80 total protein 6.2. Urine is yellow and clear. There is 1+ protein and trace glucose. There is moderate blood. No evidence of infection. Chest x-ray shows cardiomegaly, a properly placed central line, and diffuse bilateral infiltrates. On 11/13/2021, the patient is being seen for a follow-up. The patient is sedated with propofol and the patient is intubated on a mechanical ventilator. The patient is currently on assist control mode of mechanical ventilation at the rate of 16, tidal volume of 350, FiO2 of 40% with a PEEP of 5. The patient's chest x-ray showing anatomic abnormality with the spine as the patient has significant kyphoscoliosis of the thoracic spine in addition to car to megaly and bilateral pulmonary infiltrates which could be pneumonia versus CHF. The patient has a pH of 7.41 with a pCO2 of 47 and pO2 of 68 on today's blood gases. ProBNP level was 2550 and the patient did have some troponin leak with the levels being at 0.03 and 0.062. EEG is in progress. Neurology consultation has been done and that input is appreciated. There are several episodes of tongue twitching that has been noted on this patient. The patient was started on IV Keppra. EEG is also in progress at this point in time. CAT scan of the brain that was extubated yesterday was essentially unremarkable. Patient is currently at the [facility] seizure precautions. No other significant events otherwise over the past 24 hours. The patient is hemodynamically stable. The patient is given accommodation Rocephin and Zithromax. IV fluids are currently at KVO and the patient was started on Lasix 40 mg IV every 24 hours. No pressors for now. The patient is afebrile. 15 2021, I'm seeing the patient for a follow-up. This patient is post cardiac arrest. As mentioned, the details are somewhat sketchy and were not sure exactly what happened. In any rate, the patient does not seem to be seizing at this point in time. EEG was abnormal as this was done while the patient was started on propofol. There was no burst suppression to indicate epilepsy. There was background slowing and moderate encephalopathy. The patient remains on IV Keppra. The patient remains also intubated on a mechanical ventilator. T his morning, she is sedated with propofol running at 50 mcg/kg per minute. On a mechanical ventilator, she is an assist-control mode at the rate of 16 with a tidal volume of 350 and FiO2 of 40% with a PEEP of 5. Blood gas shows adequate oxygenation with a pO2 of 89. PH is at 7.48 with a pCO2 of 41. Her peak airway pressures around 27. The patient is being covered with broad-spectrum antibioti cs. White cell count is at 6.5. The patient is currently on a combination of cefepime and Flagyl covering for aspiration pneumonia. The chest x-ray is hard to interpret as the patient has severe [place] of the chest. She does have cardiomegaly and diffuse bilateral pulmonary infiltrates could be potentially CHF/pneumonia. The patient is also receiving Lasix 40 mg IV every 24 hours and the fluid balance is negative +5 85 mL over the past 24 hours. Enterofeeding has been initiated and the patient is currently onvital AF at the rate of 23 mL an hour. She is afebrile. She is hemodynamically stable. She is on no pressors for now. No twitching of the tongue. No other significant events. Objective - Vital Signs Vital signs: Vital Signs Temp 99 F 11/14/21 04:00 Pulse 78 11/14/21 08:55 Resp 16 11/14/21 07:30 BP 145/69 11/13/21 21:00 Pulse Ox 98 11/14/21 07:30 Intake & Output 11/13/21 11/14/21 11/14/21 18:59 06:59 18:59 Intake Total 484.708 948.638 43 Output Total 1315 370 30 Balance -830.292 578.638 13 Weight 45.9 kg Intake: IV 300 320 20 Dextrose 5% in Water 1, 300 000 ml @ 75 mls/hr IV . [id number] [facility] Rx#:[id number] Sodium Chloride 0.9% 500 220 20 ml 500 ml @ 20 mls/hr IV .Q24H [facility] Rx#:[id number] levETIRAcetam IV 1,000 mg 100 In Saline 1 100ml.bag @ 400 mls/hr IVPB Q12HR [facility] Rx#:[id number] Intake, IV Titration 184.708 150.638 Amount propofoL 1,000 mg In 184.708 150.638 Empty Bag 1 bag @ 5 MCG/ KG/MIN 1.225 mls/hr IV . Q24H [facility] Rx#:[id number] Tube Feeding 253 23 Other 225 Output: Urine 1315 370 30 Other: Voiding Method Indwelling Catheter Indwelling Catheter ABP, PAP, CO, CI - Last Documented Arterial Blood Pressure 163/63 - Exam No acute distress, sedated, with an orally placed endotracheal tube and NG tube. The patient remains intubated on a mechanical ventilator. Head exam was generally normal. There was no scleral icterus or corneal arcus. Mucous membranes were moist. HEENT examination is grossly unremarkable. Neck supple. Full range of motion. No adenopathy thyromegaly or neck vein distention. Cardiovascular examination reveals regular rhythm rate. S1-S2 normal. No S3 or S4. No discernible murmur noted. Heart sounds are distant. Lungs reveal coarse bilateral breath sounds. No wheezes. No crackles. Breath sounds equal bilaterally. Abdomen soft bowel sounds are heard. No masses or tenderness. Extremities are intact. No cyanosis clubbing or edema. Upper extremities are a bit contracted. Skin is without rash or lesion. Neurologic examination cannot be assessed, as the patient's already been intubated and is currently sedated. The patient is having some occasional tongue twitching and this occurs only when the patient is stimulated. Note that the patient also has a protruded tongue and the patient has a tongue bite. - Labs CBC & Chem 7: 11/14/21 04:35 11/14/21 04:35 Labs: Abnormal Lab Results - Last 24 Hours (Table) 11/13/21 11/13/21 11/13/21 Range/Units 06:11 06:11 23:57 RBC (3.80-5.40) m/uL Hgb (11.4-16.0) gm/dL Hct (34.0-46.0) % Lymphocytes # (1.0-4.8) k/uL ABG pH (7.35-7.45) ABG HCO3 (21-25) mmol/L ABG Total CO2 (19-24) mmol/L ABG O2 Saturation (94-97) % Potassium (3.5-5.1) mmol/L Carbon Dioxide (22-30) mmol/L Glucose (74-99) mg/dL POC Glucose (mg/dL) 117 H (75-99) mg/dL Calcium (8.4-10.2) mg/dL ALT (4-34) U/L Troponin I 0.060 H* (0.000-0.034) ng/mL Total Protein (6.3-8.2) g/dL Albumin (3.5-5.0) g/dL Procalcitonin 0.12 H (0.02-0.09) ng/mL 11/14/21 11/14/21 11/14/21 Range/Units 04:35 04:35 05:44 RBC 3.20 L (3.80-5.40) m/uL Hgb 10.0 L (11.4-16.0) gm/dL Hct 30.7 L (34.0-46.0) % Lymphocytes # 0.5 L (1.0-4.8) k/uL ABG pH 7.48 H (7.35-7.45) ABG HCO3 31 H (21-25) mmol/L ABG Total CO2 32 H (19-24) mmol/L ABG O2 Saturation 97.6 H (94-97) % Potassium 3.0 L (3.5-5.1) mmol/L Carbon Dioxide 31 H (22-30) mmol/L Glucose 123 H (74-99) mg/dL POC Glucose (mg/dL) (75-99) mg/dL Calcium 8.0 L (8.4-10.2) mg/dL ALT 42 H (4-34) U/L Troponin I (0.000-0.034) ng/mL Total Protein 4.9 L (6.3-8.2) g/dL Albumin 2.6 L (3.5-5.0) g/dL Procalcitonin (0.02-0.09) ng/mL 11/14/21 Range/Units 06:11 RBC (3.80-5.40) m/uL Hgb (11.4-16.0) gm/dL Hct (34.0-46.0) % Lymphocytes # (1.0-4.8) k/uL ABG pH (7.35-7.45) ABG HCO3 (21-25) mmol/L ABG Total CO2 (19-24) mmol/L ABG O2 Saturation (94-97) % Potassium (3.5-5.1) mmol/L Carbon Dioxide (22-30) mmol/L Glucose (74-99) mg/dL POC Glucose (mg/dL) 107 H (75-99) mg/dL Calcium (8.4-10.2) mg/dL ALT (4-34) U/L Troponin I (0.000-0.034) ng/mL Total Protein (6.3-8.2) g/dL Albumin (3.5-5.0) g/dL Procalcitonin (0.02-0.09) ng/mL Microbiology - Last 24 Hours (Table) 11/12/21 16:10 Gram Stain - Preliminary Sputum Sputum Culture - Preliminary Assessment and Plan Plan: 1 [id number] cardiopulmonary arrest, with cardiopulmonary resuscitation, for 20 minutes, and eventual return of spontaneous circulation (CPA/CPR/ROSC). No evidence of pulmonary embolism on CT angiogram. The patient has cardiomegaly with diffuse bilateral pulmonary infiltrates. Consider underlying pneumonia/ARDS. Consider underlying CHF. The pro-calcitonin level was low at 0.12, proBNP level was elevated. Currently intubated on a mechanical ventilator. The patient is currently on no pressors. Awaiting echocardiogram. Minimal troponin leak secondary to cardiac arrest. Questionable anoxic encephalopathy. 2 Status post intubation and mechanical ventilation, for respiratory failure, on 11/12/2021. 3 History of cerebral palsy. 4 History of CAD. 5 History of CHF. 6 History of COPD/asthma. 7 History of gastroesophageal reflux disease. 8 History of hyperlipidemia. 9 History of hypertension. 10 History of osteoarthritis. 11 History of kyphoscoliosis. 12 History of colitis. 13 History of anxiety/depression. Plan Continue ventilator support, dropped respiratory rate at 12 and the patient has been riding the mechanical ventilator throughout the night. Holiday and assess the patient's mental status Start the patient on Lasix 40 mg IV push every 12 hours Continue same antibiotic coverage including a combination of cefepime and Flagyl Please obtain the results of the echocardiogram EEG was noted Continued IV Keppra for now Sputum Gram stain and culture Pro-calcitonin level was 0.12 IV Lasix 40 mg every 12 hours enteral feeding for nutritional support Restart the patient on Lexapro and Lamictal Plavix Coreg resumed and IV Protonix Lovenox subcu for DVT prophylaxis Chest x-ray in the morning We'll continue to follow, condition is critical and will continue to follow make further recommendations based on her progress. This ventilation with the morning 30 minutes. Time with Patient: Greater than 30
--- NOTE | 2021-11-14 09:48 | XR ---
EXAMINATION TYPE: XR chest 1V portable DATE OF EXAM: 11/14/2021 COMPARISON: 11/13/2021 HISTORY: ET tube placement TECHNIQUE: Single frontal view of the chest is obtained. FINDINGS: Diffuse bilateral consolidation and pleural effusion. ET and NG tube are seen at the NG tu be at the level of GE junction. No pneumothorax. Rotatory severe scoliosis. Chronic deformity right h umerus. IMPRESSION: 1. Diffuse bilateral airspace disease with pleural effusion correlate for CHF, ARDS or diffuse pneumo carmen.
--- NOTE | 2021-11-14 11:19 | P.PN ---
Subjective Progress Note Date: 11/14/21 The patient is seen at bedside and per her nurse her tongue twitching is her baseline per her caregiver. Otherwise no new neurological issues. She continues to be intubated, on ventilator and is on IV Propofol. Objective - Vital Signs Vital signs: Vital Signs Temp 99 F 11/14/21 04:00 Pulse 78 11/14/21 08:55 Resp 16 11/14/21 07:30 BP 145/69 11/13/21 21:00 Pulse Ox 98 11/14/21 07:30 Intake & Output 11/13/21 11/14/21 11/14/21 18:59 06:59 18:59 Intake Total 484.708 948.638 43 Output Total 1315 370 30 Balance -830.292 578.638 13 Weight 45.9 kg Intake: IV 300 320 20 Dextrose 5% in Water 1, 300 000 ml @ 75 mls/hr IV . [id number] [facility] Rx#:[id number] Sodium Chloride 0.9% 500 220 20 ml 500 ml @ 20 mls/hr IV .Q24H [facility] Rx#:[id number] levETIRAcetam IV 1,000 mg 100 In Saline 1 100ml.bag @ 400 mls/hr IVPB Q12HR [facility] Rx#:[id number] Intake, IV Titration 184.708 150.638 Amount propofoL 1,000 mg In 184.708 150.638 Empty Bag 1 bag @ 5 MCG/ KG/MIN 1.225 mls/hr IV . Q24H [facility] Rx#:[id number] Tube Feeding 253 23 Other 225 Output: Urine 1315 370 30 Other: Voiding Method Indwelling Catheter Indwelling Catheter ABP, PAP, CO, CI - Last Documented Arterial Blood Pressure 163/63 - Exam GENERAL: The patient is lying in bed and is not in acute distress. LUNG: ntubated on ventilator. NEUROLOGICAL: Limited because of her condition since intubated and is on IV Propofol 50mcg/kg/min. Higher mental function: The patient is comatose. GCS 3 ( E1, VT1, M1) Cranial nerves: I had to manually open the eyes. The primary gaze is midline. The pupils are round, equal and reactive to light. No facial weakness. No facial twitching or tremor. Motor: The strength is unable to assess.. Decrease tone predominately bilateral lowers. Has atrophy of bilateral lowers. Normal tone and bulk. Cerebellum: Could not assess. Sensation: Could not assess light touch. Reflexes (right/left): 1+ throughout excepts patellars are 3+ bilaterally. Plantars are mute bilaterally. WORK-UP: CT of the head is reported as cerebral atrophy. No acute intracranial abnormality. Personally reviewed the CT of the head there is no acute subacute ischemia and there is no typical hemorrhage. Routine EEG on 11/13/2021: Abnormal. The back was loaded suggestive of moderate encephalopathy. There is burst suppression the seen during the study possibly due to medication effect. The excessive beta activity possibly due to medication effect vs sleep architecture. Otherwise there is no focal slowing, epileptiform discharges or seizure on the EEG. - Labs CBC & Chem 7: 11/14/21 04:35 11/14/21 04:35 Labs: Abnormal Lab Results - Last 24 Hours (Table) 11/13/21 11/13/21 11/14/21 Range/Units 06:11 23:57 04:35 RBC 3.20 L (3.80-5.40) m/uL Hgb 10.0 L (11.4-16.0) gm/dL Hct 30.7 L (34.0-46.0) % Lymphocytes # 0.5 L (1.0-4.8) k/uL ABG pH (7.35-7.45) ABG HCO3 (21-25) mmol/L ABG Total CO2 (19-24) mmol/L ABG O2 Saturation (94-97) % Potassium (3.5-5.1) mmol/L Carbon Dioxide (22-30) mmol/L Glucose (74-99) mg/dL POC Glucose (mg/dL) 117 H (75-99) mg/dL Calcium (8.4-10.2) mg/dL ALT (4-34) U/L Total Protein (6.3-8.2) g/dL Albumin (3.5-5.0) g/dL Procalcitonin 0.12 H (0.02-0.09) ng/mL 11/14/21 11/14/21 11/14/21 Range/Units 04:35 05:44 06:11 RBC (3.80-5.40) m/uL Hgb (11.4-16.0) gm/dL Hct (34.0-46.0) % Lymphocytes # (1.0-4.8) k/uL ABG pH 7.48 H (7.35-7.45) ABG HCO3 31 H (21-25) mmol/L ABG Total CO2 32 H (19-24) mmol/L ABG O2 Saturation 97.6 H (94-97) % Potassium 3.0 L (3.5-5.1) mmol/L Carbon Dioxide 31 H (22-30) mmol/L Glucose 123 H (74-99) mg/dL POC Glucose (mg/dL) 107 H (75-99) mg/dL Calcium 8.0 L (8.4-10.2) mg/dL ALT 42 H (4-34) U/L Total Protein 4.9 L (6.3-8.2) g/dL Albumin 2.6 L (3.5-5.0) g/dL Procalcitonin (0.02-0.09) ng/mL Microbiology - Last 24 Hours (Table) 11/12/21 16:10 Gram Stain - Final Sputum Sputum Culture - Final Assessment and Plan Assessment: Tongue twitching. On examination happens with stimulation and per her foster care this is baseline and does not have history of seizures. 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 Electrolyte imbalance (hyperphosphatemia and magnesemia): Transamnitis--trending down History of cerebral palsy History of kyphoscoliosis History of congestive heart failure History of Coronary artery disease History of hypertension Hyperlipidemia History of COPD History of anxiety/depression Wheel chair bound Plan: CT head is unremarkable. Routine EEG is negative for epileptiform discharges or seizure on the EEG. I decreased the Keppra from 1000mg to 500mg bid as seizure prophylaxis and will continue to assess patient regarding use of antiepileptic. Q1 hour neuro checks. On seizure precaution and pads. Cardiology is consulted. Pending 2D echo. Will defer the rest of medical management to primary and ICU team. Condition: Is very guarded. The plan is discussed with the patient's nurse. Vidal Zhang M.D. Neuro-Hospitalist Time with Patient: Less than 30
[2021-11-14] MEDS: SODIUM CHLORIDE 0.9% 500 ML 500 ML IV SCH (11:32)
[2021-11-14] MEDS: carvediloL 12.5 MG TAB PO SCH ×2 (11:32→21:14)
[2021-11-14 12:22] LABS: Glucose,Whole Blood 121 mg/dL (75-99)
--- NOTE | 2021-11-14 14:01 | P.PN ---
Subjective Progress Note Date: 11/14/21 Principal diagnosis: Cardiac arrest 80-year-old female with a PMH of cerebral palsy, coronary artery disease, CHF, COPD, hyperlipidemia, hypertension, resident of an extended care facility who was brought into the emergency room due to suspected cardiac arrest. The patient did not contribute anything to the history which was thereby obtained from the chart and from the ED staff. The patient was reportedly noted to be unresponsive at the [facility] for which the EMS was activated and upon arrival the patient was noted to have a pulse but she was given CPR none theless. Reportedly, the patient had a pulse throughout the episode, with no medications given during CPR with AED applied and no shocks advised. Chest CT in the emergency room revealed extensive lower lobe infiltrates with EKG showing sinus rhythm with an incomplete right bundle branch block at 80 bpm. Laboratory evaluation was remarkable for leukocytosis of 13.6, troponin 0.036, proBNP 1350, AST 132, and ALT 81. 11/14: Patient is still intubated, on propofol drip. According to her caregiver she intermittently has some twitching in her tongue and that is not unusual for her. Of note she was noted to have some tongue twitching earlier and was started on keppra by neuro. Objective - Vital Signs Vital signs: Vital Signs Temp 99.7 F H 11/14/21 08:00 Pulse 71 11/14/21 13:30 Resp 16 11/14/21 13:30 BP 145/69 11/13/21 21:00 Pulse Ox 98 11/14/21 13:30 Intake & Output 11/13/21 11/14/21 11/14/21 18:59 06:59 18:59 Intake Total 484.708 948.638 522.342 Output Total 1650 213 3740 Balance -830.292 578.638 -787.658 Weight 45.9 kg 47.6 kg Intake: IV 300 320 240 Dextrose 5% in Water 1, 300 000 ml @ 75 mls/hr IV . [id number] [facility] Rx#:[id number] Sodium Chloride 0.9% 500 220 140 ml 500 ml @ 20 mls/hr IV .Q24H [facility] Rx#:[id number] levETIRAcetam IV 1,000 mg 100 100 In Saline 1 100ml.bag @ 400 mls/hr IVPB Q12HR [facility] Rx#:[id number] Intake, IV Titration 184.708 150.638 236.342 Amount Cefepime 1 gm In Sodium 50 Chloride 0.9% 50 ml @ 12. 5 mls/hr IVPB Q12HR [facility] Rx#:[id number] metroNIDAZOLE-NS PMX 500 100 mg In Saline 1 100ml.bag @ 100 mls/hr IVPB Q8HR [facility] Rx#:[id number] propofoL 1,000 mg In 184.708 150.638 86.342 Empty Bag 1 bag @ 5 MCG/ KG/MIN 1.225 mls/hr IV . Q24H [facility] Rx#:[id number] Tube Feeding 253 46 Other 225 Output: Urine 8876 734 2869 Other: Voiding Method Indwelling Catheter Indwelling Catheter ABP, PAP, CO, CI - Last Documented Arterial Blood Pressure 130/57 - Exam Gen: No acute distress, sedated, with an orally placed endotracheal tube and NG tube. The patient remains intubated on a mechanical ventilator. Head exam was generally normal. There was no scleral icterus or corneal arcus. Mucous membranes were moist. HEENT examination is grossly unremarkable. Neck supple. Full range of motion. No adenopathy thyromegaly or neck vein distention. Cardiovascular examination reveals regular rhythm rate. S1-S2 normal. No S3 or S4. No discernible murmur noted. Heart sounds are distant. Lungs reveal coarse bilateral breath sounds. No wheezes. No crackles. Breath sounds equal bilaterally. Abdomen soft bowel sounds are heard. No masses or tenderness. Extremities are intact. No cyanosis clubbing or edema. Upper extremities are a bit contracted. Skin is without rash or lesion. Neurologic examination cannot be assessed, as the patient's already been intubated and is currently sedated. - Labs CBC & Chem 7: 11/14/21 04:35 11/14/21 11:40 Labs: Abnormal Lab Results - Last 24 Hours (Table) 11/13/21 11/13/21 11/14/21 Range/Units 06:11 23:57 04:35 RBC 3.20 L (3.80-5.40) m/uL Hgb 10.0 L (11.4-16.0) gm/dL Hct 30.7 L (34.0-46.0) % Lymphocytes # 0.5 L (1.0-4.8) k/uL ABG pH (7.35-7.45) ABG HCO3 (21-25) mmol/L ABG Total CO2 (19-24) mmol/L ABG O2 Saturation (94-97) % Potassium (3.5-5.1) mmol/L Carbon Dioxide (22-30) mmol/L Glucose (74-99) mg/dL POC Glucose (mg/dL) 117 H (75-99) mg/dL Calcium (8.4-10.2) mg/dL ALT (4-34) U/L Total Protein (6.3-8.2) g/dL Albumin (3.5-5.0) g/dL Procalcitonin 0.12 H (0.02-0.09) ng/mL 11/14/21 11/14/21 11/14/21 Range/Units 04:35 05:44 06:11 RBC (3.80-5.40) m/uL Hgb (11.4-16.0) gm/dL Hct (34.0-46.0) % Lymphocytes # (1.0-4.8) k/uL ABG pH 7.48 H (7.35-7.45) ABG HCO3 31 H (21-25) mmol/L ABG Total CO2 32 H (19-24) mmol/L ABG O2 Saturation 97.6 H (94-97) % Potassium 3.0 L (3.5-5.1) mmol/L Carbon Dioxide 31 H (22-30) mmol/L Glucose 123 H (74-99) mg/dL POC Glucose (mg/dL) 107 H (75-99) mg/dL Calcium 8.0 L (8.4-10.2) mg/dL ALT 42 H (4-34) U/L Total Protein 4.9 L (6.3-8.2) g/dL Albumin 2.6 L (3.5-5.0) g/dL Procalcitonin (0.02-0.09) ng/mL 11/14/21 Range/Units 12:21 RBC (3.80-5.40) m/uL Hgb (11.4-16.0) gm/dL Hct (34.0-46.0) % Lymphocytes # (1.0-4.8) k/uL ABG pH (7.35-7.45) ABG HCO3 (21-25) mmol/L ABG Total CO2 (19-24) mmol/L ABG O2 Saturation (94-97) % Potassium (3.5-5.1) mmol/L Carbon Dioxide (22-30) mmol/L Glucose (74-99) mg/dL POC Glucose (mg/dL) 121 H (75-99) mg/dL Calcium (8.4-10.2) mg/dL ALT (4-34) U/L Total Protein (6.3-8.2) g/dL Albumin (3.5-5.0) g/dL Procalcitonin (0.02-0.09) ng/mL Microbiology - Last 24 Hours (Table) 11/12/21 16:10 Gram Stain - Final Sputum Sputum Culture - Final Assessment and Plan Plan: #[id number] cardiopulmonary arrest, with cardiopulmonary resuscitation, for 20 minutes, and eventual return of spontaneous circulation (CPA/CPR/ROSC). -No evidence of pulmonary embolism on CT angiogram. diffuse bilateral pulmonary infiltrates. -Consider underlying pneumonia/ARDS vs. CHF. Currently intubated on a mechanical ventilator. -Awaiting echocardiogram. Minimal troponin leak secondary to cardiac arrest. -Continue lasix IV as well as abx. -Cardiology and critical care following #Status post intubation and mechanical ventilation, for respiratory failure, on 11/12/2021. -Continue vent management per ICU #Tongue twitching r/u seizure -Seen by neuro -On [facility], -Patient does this occasionally at baseline according to care associate #Acute encephalopathy -Likely anoxic and metabolic, baseline cerebral palsy. #History of cerebral palsy. #History of CAD. #History of CHF. #History of COPD/asthma. #History of gastroesophageal reflux disease. #History of hyperlipidemia. #History of hypertension. #History of osteoarthritis. #History of kyphoscoliosis. #History of colitis. #History of anxiety/depression. #Full code
[2021-11-14 17:32] LABS: Glucose,Whole Blood 123 mg/dL (75-99)
[2021-11-14] MEDS: HYDROmorphone 1 MG/ML 1 ML SYRINGE IVP PRN (19:00)
[2021-11-14] MEDS: lamoTRIgine 100 MG TAB PO SCH (21:14)
[2021-11-14] MEDS: ATORVASTATIN 40 MG TAB PO SCH (21:14)
[2021-11-14] MEDS: levETIRAcetam IV 500 MG in SALINE 1 100ML.BAG IVPB SCH (21:15)
[2021-11-14 23:57] LABS: Glucose,Whole Blood 123 mg/dL (75-99)
[2021-11-15] MEDS: metroNIDAZOLE-NS PMX 500 MG in SALINE 1 100ML.BAG IVPB SCH ×3 (00:20→16:09)
[2021-11-15] MEDS: HEPARIN SODIUM,PORCINE/PF 5,000 UNIT/0.5 ML SYRINGE SQ SCH ×3 (00:20→16:09)
[2021-11-15] MEDS: IPRATROPIUM-ALBUTEROL 3 ML NEB INHALATION SCH ×3 (00:21→07:54)
[2021-11-15 00:32] LABS: Glucose,Whole Blood 117 mg/dL (75-99)
[2021-11-15 05:20] LABS: Basophils % (A) 1 %; Eosinophils # (A) 0.4 k/uL (0-0.7); Eosinophils % (A) 6 %; HCT 31.5 % (34.0-46.0); HGB 10.3 gm/dL (11.4-16.0); Lymphocytes # (A) 0.6 k/uL (1.0-4.8); Lymphocytes % (A) 9 %; MCH 31.5 pg (25.0-35.0); MCHC 32.9 g/dL (31.0-37.0); MCV 95.8 fL (80.0-100.0); Mean Platelet Volume 10.2; Monocytes # (A) 0.6 k/uL (0-1.0); Monocytes % (A) 9 %; Neutrophils # (A) 4.8 k/uL (1.3-7.7); Neutrophils % (A) 74 %; Platelet Count 181 k/uL (150-450); RBC 3.29 m/uL (3.80-5.40); RDW 14.3 % (11.5-15.5); WBC 6.5 k/uL (3.8-10.6)
[2021-11-15 05:31] LABS: ABG Base Excess 9.5 mmol/L; ABG HCO3 33 mmol/L (21-25); ABG Oxygen Saturation 97.7 % (94-97); ABG PCO2 46 mmHg (35-45); ABG PH 7.47 (7.35-7.45); ABG PO2 104 mmHg (83-108); ABG TCO2 35 mmol/L (19-24); Allen Test Performed? Yes
[2021-11-15 05:48] LABS: Glucose,Whole Blood 115 mg/dL (75-99)
[2021-11-15 05:57] LABS: Albumin 2.6 g/dL (3.5-5.0); Calcium 8.2 mg/dL (8.4-10.2); Potassium 3.2 mmol/L (3.5-5.1); Total Bilirubin 0.5 mg/dL (0.2-1.3); Total Protein 4.8 g/dL (6.3-8.2)
[2021-11-15] MEDS: POTASSIUM BICARBONATE/CIT AC 20 MEQ TABLET.EFF NG-TUBE SCH ×2 (06:34→08:40)
--- NOTE | 2021-11-15 08:17 | XR ---
EXAMINATION TYPE: XR chest 1V portable DATE OF EXAM: 11/15/2021 COMPARISON: 11/14/2021 HISTORY: Shortness of breath TECHNIQUE: Single frontal view of the chest is obtained. FINDINGS: Diffuse bilateral consolidation and pleural effusion. ET and NG tube are seen at the NG tu be at the level of mid thoracic region likely saphenous. No pneumothorax. Rotatory severe scoliosis. Chronic deformity right humerus. IMPRESSION: 1. Diffuse bilateral airspace disease with pleural effusion correlate for CHF, ARDS or diffuse pneumo carmen. 2. NG tube appears to be in the midthoracic level likely in the esophagus correlate clinically for re positioning.
--- NOTE | 2021-11-15 08:27 | P.PN ---
Subjective Progress Note Date: 11/15/21 Principal diagnosis: Out of the hospital cardiopulmonary arrest The patient is an 80-year-old female patient with history of cerebral palsy as well as multiple comorbid conditions who was admitted to the intensive care unit for out of the hospital cardiopulmonary arrest. The patient was seen this morning. She remains intubated but she is awake and she potentially can be extubated later on today. Hemodynamically stable. She has been maintaining normal sinus mechanism. She was started on Lasix because I felt that the patient was in heart failure and the dose of Lasix was increased yesterday and had an output continues to be marginal. Her echocardiogram continues to be pending. We'll follow-up with the echo. Objective - Vital Signs Vital signs: Vital Signs Temp 98 F 11/15/21 04:00 Pulse 90 11/15/21 07:30 Resp 26 H 11/15/21 07:30 BP 145/69 11/13/21 21:00 Pulse Ox 95 11/15/21 07:30 Intake & Output 11/14/21 11/15/21 11/15/21 18:59 06:59 18:59 Intake Total 727.590 871.150 49.204 Output Total 1580 885 50 Balance -852.410 -13.850 -0.796 Weight 47.6 kg 48.5 kg Intake: IV 356 253 23 Sodium Chloride 0.9% 500 220 220 20 ml 500 ml @ 20 mls/hr IV .Q24H [facility] Rx#:[id number] levETIRAcetam IV 1,000 mg 100 In Saline 1 100ml.bag @ 400 mls/hr IVPB Q12HR [facility] Rx#:[id number] pressure bag 36 33 3 Intake, IV Titration 348.590 140.150 3.204 Amount Cefepime 1 gm In Sodium 50 Chloride 0.9% 50 ml @ 12. 5 mls/hr IVPB Q12HR [facility] Rx#:[id number] metroNIDAZOLE-NS PMX 500 200 mg In Saline 1 100ml.bag @ 100 mls/hr IVPB Q8HR [facility] Rx#:[id number] propofoL 1,000 mg In 98.590 140.150 3.204 Empty Bag 1 bag @ 5 MCG/ KG/MIN 1.225 mls/hr IV . Q24H [facility] Rx#:[id number] Tube Feeding 23 253 23 Other 225 Output: Urine 1580 885 50 Other: Voiding Method Indwelling Catheter Indwelling Catheter ABP, PAP, CO, CI - Last Documented Arterial Blood Pressure 166/73 - Constitutional General appearance: Present: no acute distress - Respiratory Respiratory: bilateral: diminished - Cardiovascular Rhythm: regular - Labs CBC & Chem 7: 11/15/21 05:10 11/15/21 05:10 Labs: Abnormal Lab Results - Last 24 Hours (Table) 11/14/21 11/14/21 11/14/21 Range/Units 12:21 17:21 23:55 RBC (3.80-5.40) m/uL Hgb (11.4-16.0) gm/dL Hct (34.0-46.0) % Lymphocytes # (1.0-4.8) k/uL ABG pH (7.35-7.45) ABG pCO2 (35-45) mmHg ABG HCO3 (21-25) mmol/L ABG Total CO2 (19-24) mmol/L ABG O2 Saturation (94-97) % Potassium (3.5-5.1) mmol/L Carbon Dioxide (22-30) mmol/L BUN (7-17) mg/dL Glucose (74-99) mg/dL POC Glucose (mg/dL) 121 H 123 H 123 H (75-99) mg/dL Calcium (8.4-10.2) mg/dL ALT (4-34) U/L Total Protein (6.3-8.2) g/dL Albumin (3.5-5.0) g/dL 11/15/21 11/15/21 11/15/21 Range/Units 00:30 05:10 05:10 RBC 3.29 L (3.80-5.40) m/uL Hgb 10.3 L (11.4-16.0) gm/dL Hct 31.5 L (34.0-46.0) % Lymphocytes # 0.6 L (1.0-4.8) k/uL ABG pH (7.35-7.45) ABG pCO2 (35-45) mmHg ABG HCO3 (21-25) mmol/L ABG Total CO2 (19-24) mmol/L ABG O2 Saturation (94-97) % Potassium 3.2 L (3.5-5.1) mmol/L Carbon Dioxide 31 H (22-30) mmol/L BUN 19 H (7-17) mg/dL Glucose 121 H (74-99) mg/dL POC Glucose (mg/dL) 117 H (75-99) mg/dL Calcium 8.2 L (8.4-10.2) mg/dL ALT 35 H (4-34) U/L Total Protein 4.8 L (6.3-8.2) g/dL Albumin 2.6 L (3.5-5.0) g/dL 11/15/21 11/15/21 Range/Units 05:26 05:46 RBC (3.80-5.40) m/uL Hgb (11.4-16.0) gm/dL Hct (34.0-46.0) % Lymphocytes # (1.0-4.8) k/uL ABG pH 7.47 H (7.35-7.45) ABG pCO2 46 H (35-45) mmHg ABG HCO3 33 H (21-25) mmol/L ABG Total CO2 35 H (19-24) mmol/L ABG O2 Saturation 97.7 H (94-97) % Potassium (3.5-5.1) mmol/L Carbon Dioxide (22-30) mmol/L BUN (7-17) mg/dL Glucose (74-99) mg/dL POC Glucose (mg/dL) 115 H (75-99) mg/dL Calcium (8.4-10.2) mg/dL ALT (4-34) U/L Total Protein (6.3-8.2) g/dL Albumin (3.5-5.0) g/dL Microbiology - Last 24 Hours (Table) 11/12/21 16:10 Gram Stain - Final Sputum Sputum Culture - Final Assessment and Plan Assessment: Assessment #1 cardiopulmonary arrest of unknown etiology at this point #2 known underlying history of chronic obstructive pulmonary disease #3 possible heart failure of unknown etiology at this point. The patient does have bilateral crackles. Her NT proBNP is elevated as well. She was on by mouth diuretics at home #4 history of coronary artery disease #5 history of COPD #6 multiple comorbid conditions Plan #1 continue the current medical regimen #2 follow-up on the echocardiogram #3 continue Lasix for additional 24 hours #4 monitor the kidney function and electrolytes #5 follow-up with the patient
[2021-11-15] MEDS: CLOPIDOGREL 75 MG TAB PO SCH (08:41)
[2021-11-15] MEDS: FUROSEMIDE 10 MG/ML 4 ML VIAL IV SCH (08:41)
[2021-11-15] MEDS: lamoTRIgine 25 MG TAB PO SCH (08:41)
[2021-11-15] MEDS: ESCITALOPRAM 20 MG TAB PO SCH (08:41)
[2021-11-15] MEDS: CEFEPIME 1 GM in SODIUM CHLORIDE 0.9% 50 ML IVPB SCH ×2 (08:41→20:10)
[2021-11-15] MEDS: PANTOPRAZOLE 40 MG/10 ML VIAL IV SCH (08:41)
[2021-11-15] MEDS: CHLORHEXIDINE GLUCONATE 15 ML CUP MUCOUS MEM SCH ×2 (08:41→20:09)
[2021-11-15] MEDS: carvediloL 12.5 MG TAB PO SCH ×2 (09:36→20:21)
--- NOTE | 2021-11-15 09:49 | P.PN ---
Subjective Progress Note Date: 11/15/21 80-year-old female with history of cerebral palsy, who was brought into the emergency room, on November 11, unresponsive, and/or with a cardiac arrest. It's not clear from reviewing the ER javed whether or not the patient did or did not have a pulse. Apparently she had CPR provided to her by the [facility]. Apparently that CPR lasted for 20 minutes. No medications were given. An AED was applied but no shocks were given. The patient apparently was further evaluated and resuscitated in the emergency department, and admitted to [address] room 372. Today, we heard a rapid response called to room 372. And one of my ICU nurses who responded, told me that the patient was in respiratory distress, and required intubation. She was intubated and brought down to the ICU. We placed a central line in her, and also a arterial line. We were not able get any additional history from her. Currently she is on propofol, and saline. White count 13.4, hemoglobin 10.6, hematocrit 34.6, platelet count 182,000. Most recent blood gases show pO2 384, pCO2 45, and pH is 7.45. This was on 100%. The FiO2 was reduced down to 40%. Sodium 147, potassium 3.8, chlorides 109, CO2 34, anion gap 4, BUN 23, and creatinine 0.73. Lactic acid was 0.6 AST 119 ALT 80 total protein 6.2. Urine is yellow and clear. There is 1+ protein and trace glucose. There is moderate blood. No evidence of infection. Chest x-ray shows cardiomegaly, a properly placed central line, and diffuse bilateral infiltrates. On 11/13/2021, the patient is being seen for a follow-up. The patient is sedated with propofol and the patient is intubated on a mechanical ventilator. The patient is currently on assist control mode of mechanical ventilation at the rate of 16, tidal volume of 350, FiO2 of 40% with a PEEP of 5. The patient's chest x-ray showing anatomic abnormality with the spine as the patient has significant kyphoscoliosis of the thoracic spine in addition to car to megaly and bilateral pulmonary infiltrates which could be pneumonia versus CHF. The patient has a pH of 7.41 with a pCO2 of 47 and pO2 of 68 on today's blood gases. ProBNP level was 2550 and the patient did have some troponin leak with the levels being at 0.03 and 0.062. EEG is in progress. Neurology consultation has been done and that input is appreciated. There are several episodes of tongue twitching that has been noted on this patient. The patient was started on IV Keppra. EEG is also in progress at this point in time. CAT scan of the brain that was extubated yesterday was essentially unremarkable. Patient is currently at the [facility] seizure precautions. No other significant events otherwise over the past 24 hours. The patient is hemodynamically stable. The patient is given accommodation Rocephin and Zithromax. IV fluids are currently at KVO and the patient was started on Lasix 40 mg IV every 24 hours. No pressors for now. The patient is afebrile. 11/14 2021, I'm seeing the patient for a follow-up. This patient is post cardiac arrest. As mentioned, the details are somewhat sketchy and were not sure exactly what happened. In any rate, the patient does not seem to be seizing at this point in time. EEG was abnormal as this was done while the patient was started on propofol. There was no burst suppression to indicate epilepsy. There was background slowing and moderate encephalopathy. The patient remains on IV Keppra. The patient remains also intubated on a mechanical ventilator. This morning, she is sedated with propofol running at 50 mcg/kg per minute. On a mechanical ventilator, she is an assist-control mode at the rate of 16 with a tidal volume of 350 and FiO2 of 40% with a PEEP of 5. Blood gas shows adequate oxygenation with a pO2 of 89. PH is at 7.48 with a pCO2 of 41. Her peak airway pressures around 27. The patient is being covered with broad-spectrum antibio tics. White cell count is at 6.5. The patient is currently on a combination of cefepime and Flagyl covering for aspiration pneumonia. The chest x-ray is hard to interpret as the patient has severe [place] of the chest. She does have cardiomegaly and diffuse bilateral pulmonary infiltrates could be potentially CHF/pneumonia. The patient is also receiving Lasix 40 mg IV every 24 hours and the fluid balance is negative +5 85 mL over the past 24 hours. Enterofeeding has been initiated and the patient is currently onvital AF at the rate of 23 mL an hour. She is afebrile. She is hemodynamically stable. She is on no pressors for now. No twitching of the tongue. No other significant events. 11/15/2021, the patient remains intubated on a mechanical ventilator. This morning, she is on propofol running at 20 mcg/kg per minute. The patient was given a sedation holiday yesterday and she was able to grimace and be more responsive and follows some occasional commands. The same will be done today in anticipation for possible extubation. She remains on a mechanical ventilator. She is on a rate of 12 with a tidal volume of 350 with an FiO2 of 40% with a PEEP of 5. Chest x-ray is obviously suboptimal because of her body habitus. There may be still a component of CHF/pulmonary edema. The pH is at 7.47 with a pCO2 of 46 and pO2 of 104 on the above-mentioned ventilator setting. The patient is still on IV Lasix. Fluid balance is been -866 mL over the past 24 hours. The patient is producing adequate amount of urine output. She is hemodynamically stable. No seizure activity has been noted. She is being covered with broad-spectrum antibiotics including a combination of cefepime and Flagyl. The cultures have been negative from the sputum and the pro-calcitonin level was at 0.12. The patient is afebrile. The patient is hemodynamically stable. As mentioned, no seizure activity has been with this. The plan is to cut down the sedation, check weaning parameters and proceed with a spontaneous breathing trial if possible. Her white cell count at 6.5 with a hemoglobin of 10.3. The BUN is at 19 with a creatinine of 0.7 and the sodium level is at 139 and a potassium level is at 3.2 and this obviously needs to be replaced and this is related to her underlying diuresis. Echo report is still pending. Objective - Vital Signs Vital signs: Vital Signs Temp 99.8 F H 11/15/21 08:00 Pulse 80 11/15/21 08:00 Resp 15 11/15/21 08:00 BP 137/56 11/15/21 08:00 Pulse Ox 97 11/15/21 08:00 Intake & Output 11/14/21 11/15/21 11/15/21 18:59 06:59 18:59 Intake Total 727.590 871.150 230.204 Output Total 1580 885 115 Balance -852.410 -13.850 115.204 Weight 47.6 kg 48.5 kg Intake: IV 356 253 46 Sodium Chloride 0.9% 500 220 220 40 ml 500 ml @ 20 mls/hr IV .Q24H [facility] Rx#:[id number] levETIRAcetam IV 1,000 mg 100 In Saline 1 100ml.bag @ 400 mls/hr IVPB Q12HR [facility] Rx#:[id number] pressure bag 36 33 6 Intake, IV Titration 348.590 140.150 3.204 Amount Cefepime 1 gm In Sodium 50 Chloride 0.9% 50 ml @ 12. 5 mls/hr IVPB Q12HR [facility] Rx#:[id number] metroNIDAZOLE-NS PMX 500 200 mg In Saline 1 100ml.bag @ 100 mls/hr IVPB Q8HR [facility] Rx#:[id number] propofoL 1,000 mg In 98.590 140.150 3.204 Empty Bag 1 bag @ 5 MCG/ KG/MIN 1.225 mls/hr IV . Q24H [facility] Rx#:[id number] Tube Feeding 23 253 46 Other 225 135 Output: Urine 1580 885 115 Other: Voiding Method Indwelling Catheter Indwelling Catheter ABP, PAP, CO, CI - Last Documented Arterial Blood Pressure 134/55 - Exam No acute distress, sedated, with an orally placed endotracheal tube and NG tube. The patient remains intubated on a mechanical ventilator. Head exam was generally normal. There was no scleral icterus or corneal arcus. Mucous membranes were moist. HEENT examination is grossly unremarkable. Neck supple. Full range of motion. No adenopathy thyromegaly or neck vein distention. Cardiovascular examination reveals regular rhythm rate. S1-S2 normal. No S3 or S4. No discernible murmur noted. Heart sounds are distant. Lungs reveal coarse bilateral breath sounds. No wheezes. No crackles. Breath sounds equal bilaterally. Abdomen soft bowel sounds are heard. No masses or tenderness. Extremities are intact. No cyanosis clubbing or edema. Upper extremities are a bit contracted. Skin is without rash or lesion. Neurologic examination cannot be assessed, as the patient's already been intubated and is currently sedated. The patient is having some occasional tongue twitching and this occurs only when the patient is stimulated. Note that the patient also has a protruded tongue and the patient has a tongue bite. - Labs CBC & Chem 7: 11/15/21 05:10 11/15/21 05:10 Labs: Abnormal Lab Results - Last 24 Hours (Table) 11/14/21 11/14/21 11/14/21 Range/Units 12:21 17:21 23:55 RBC (3.80-5.40) m/uL Hgb (11.4-16.0) gm/dL Hct (34.0-46.0) % Lymphocytes # (1.0-4.8) k/uL ABG pH (7.35-7.45) ABG pCO2 (35-45) mmHg ABG HCO3 (21-25) mmol/L ABG Total CO2 (19-24) mmol/L ABG O2 Saturation (94-97) % Potassium (3.5-5.1) mmol/L Carbon Dioxide (22-30) mmol/L BUN (7-17) mg/dL Glucose (74-99) mg/dL POC Glucose (mg/dL) 121 H 123 H 123 H (75-99) mg/dL Calcium (8.4-10.2) mg/dL ALT (4-34) U/L Total Protein (6.3-8.2) g/dL Albumin (3.5-5.0) g/dL 11/15/21 11/15/21 11/15/21 Range/Units 00:30 05:10 05:10 RBC 3.29 L (3.80-5.40) m/uL Hgb 10.3 L (11.4-16.0) gm/dL Hct 31.5 L (34.0-46.0) % Lymphocytes # 0.6 L (1.0-4.8) k/uL ABG pH (7.35-7.45) ABG pCO2 (35-45) mmHg ABG HCO3 (21-25) mmol/L ABG Total CO2 (19-24) mmol/L ABG O2 Saturation (94-97) % Potassium 3.2 L (3.5-5.1) mmol/L Carbon Dioxide 31 H (22-30) mmol/L BUN 19 H (7-17) mg/dL Glucose 121 H (74-99) mg/dL POC Glucose (mg/dL) 117 H (75-99) mg/dL Calcium 8.2 L (8.4-10.2) mg/dL ALT 35 H (4-34) U/L Total Protein 4.8 L (6.3-8.2) g/dL Albumin 2.6 L (3.5-5.0) g/dL 11/15/21 11/15/21 Range/Units 05:26 05:46 RBC (3.80-5.40) m/uL Hgb (11.4-16.0) gm/dL Hct (34.0-46.0) % Lymphocytes # (1.0-4.8) k/uL ABG pH 7.47 H (7.35-7.45) ABG pCO2 46 H (35-45) mmHg ABG HCO3 33 H (21-25) mmol/L ABG Total CO2 35 H (19-24) mmol/L ABG O2 Saturation 97.7 H (94-97) % Potassium (3.5-5.1) mmol/L Carbon Dioxide (22-30) mmol/L BUN (7-17) mg/dL Glucose (74-99) mg/dL POC Glucose (mg/dL) 115 H (75-99) mg/dL Calcium (8.4-10.2) mg/dL ALT (4-34) U/L Total Protein (6.3-8.2) g/dL Albumin (3.5-5.0) g/dL Microbiology - Last 24 Hours (Table) 11/12/21 16:10 Gram Stain - Final Sputum Sputum Culture - Final Assessment and Plan Plan: 1 [id number] cardiopulmonary arrest, with cardiopulmonary resuscitation, for 20 minutes, and eventual return of spontaneous circulation (CPA/CPR/ROSC). No evidence of pulmonary embolism on CT angiogram. The patient has cardiomegaly with diffuse bilateral pulmonary infiltrates. Consider underlying pneumonia/ARDS. Consider underlying CHF. The pro-calcitonin level was low at 0.12, proBNP level was elevated. Currently intubated on a mechanical ventilator. The patient is currently on no pressors. Awaiting echocardiogram. Minimal troponin leak secondary to cardiac arrest. Questionable anoxic encephalopathy. The patient did undergo a sedation holiday yesterday. The patient over the past 24 hours was treated with examination of antibiotics and diuretics. The plan is the same is to proceed with a sedation holiday today and give the patient a child of spontaneous breathing and consider extubation. 2 Status post intubation and mechanical ventilation, for respiratory failure, on 11/12/2021. 3 History of cerebral palsy. 4 History of CAD. 5 History of CHF. 6 History of COPD/asthma. 7 History of gastroesophageal reflux disease. 8 History of hyperlipidemia. 9 History of hypertension. 10 History of osteoarthritis. 11 History of kyphoscoliosis. 12 History of colitis. 13 History of anxiety/depression. Plan No ventilator changes for Holiday and assess the patient's mental status Continue Lasix 40 mg IV push every 12 hours Continue same antibiotic coverage including a combination of cefepime and Flagyl Please, please, please obtain the results of the echocardiogram EEG was noted Continued IV Keppra for now Sputum Gram stain and culture are negative thus far Pro-calcitonin level was 0.12 , levels are low IV Lasix 40 mg every 12 hours enteral feeding for nutritional support Continue Lexapro and Lamictal Plavix Coreg resumed and IV Protonix Lovenox subcu for DVT prophylaxis Chest x-ray in the morning, the ones from today were reviewed and the results are obviously suboptimal due to her body habitus Replace potassium We'll continue to follow, condition is critical and will continue to follow make further recommendations based on her progress. This ventilation with the morning 30 minutes. Time with Patient: Greater than 30
[2021-11-15] MEDS: levETIRAcetam IV 500 MG in SALINE 1 100ML.BAG IVPB SCH ×2 (10:55→20:10)
[2021-11-15] MEDS: SODIUM CHLORIDE 0.9% 500 ML 500 ML IV SCH (10:56)
[2021-11-15 10:59] LABS: ABG Base Excess 10.1 mmol/L; ABG HCO3 34 mmol/L (21-25); ABG Oxygen Saturation 97.5 % (94-97); ABG PCO2 47 mmHg (35-45); ABG PH 7.47 (7.35-7.45); ABG PO2 95 mmHg (83-108); ABG TCO2 35 mmol/L (19-24)
--- NOTE | 2021-11-15 10:59 | ECHOF ---
Referral Reason:CHF MEASUREMENTS -------- HEIGHT: 134.6 cm WEIGHT: 44.5 kg BP: IVSd: 1.0 cm (0.6 - 1.1) LVIDd: 3.0 cm (3.9 - 5.3) LVPWd: 1.2 cm (0.6 - 1.1) EDV(Teich): 36 ml IVSs: 1.5 cm LVIDs: 1.6 cm LVPWs: 1.3 cm %IVS Thck: 40 % ESV(Teich): 7 ml EF(Teich): 82 % %FS: 49 % SV(Teich): 30 ml MV E Henry: 0.70 m/s MV DecT: 293 ms MV Dec [place]: 2.4 m/s MV A Henry: 0.83 m/s MV E/A Ratio: 0.85 MV PHT: 85 ms MR Vmax: 1.10 m/s MR maxP.86 mmHg AV Vmax: 1.14 m/s AV maxP.17 mmHg TR Vmax: 1.01 m/s TR maxP.06 mmHg RAP: 5.00 mmHg RVSP: 9.06 mmHg FINDINGS -------- This was a technically difficult study with suboptimal views. Pt. on a vent. The left ventricular size is normal. Left ventricular wall thickness is normal. Overall left vent ricular systolic function is normal with, an EF between 55 - 60 %. The RV was not well visualized. The left atrium was not well visualized. The right atrium was not well visualized. The aortic valve was not well visualized. The mitral valve was not well visualized. There is trace mitral regurgitation. The tricuspid valve appears structurally normal. Trace tricuspid regurgitation present. Right emmanuel tricular systolic pressure is normal at < 35 mmHg. The pulmonic valve was not well visualized. The aortic root size is normal. IVC Not well visulized. CONCLUSIONS -------- 1. The left ventricular size is normal. 2. Left ventricular wall thickness is normal. 3. Overall left ventricular systolic function is normal with, an EF between 55 - 60 %. 4. There is trace mitral regurgitation. 5. Trace tricuspid regurgitation present. SUPPORT SERVICES TECH: Sharmin Pickard RDCS
[2021-11-15 11:01] LABS: Allen Test Performed? no
[2021-11-15] MEDS: MORPHINE SULFATE 4 MG/ML SYRINGE IV PRN (11:56)
--- NOTE | 2021-11-15 12:51 | P.PN ---
Subjective Progress Note Date: 11/15/21 Principal diagnosis: Cardiac arrest Patient is following commands today, was given sedation holiday this am. She was able to flicker her eyes. No squeezing hands. No overnight events. She is still on mechanical ventilation. Objective - Vital Signs Vital signs: Vital Signs Temp 97.8 F 11/15/21 12:00 Pulse 79 11/15/21 12:00 Resp 20 11/15/21 12:00 BP 137/56 11/15/21 11:00 Pulse Ox 99 11/15/21 12:00 Intake & Output 11/14/21 11/15/21 11/15/21 18:59 06:59 18:59 Intake Total 727.590 871.150 731.941 Output Total 1580 885 905 Balance -852.410 -13.850 -173.059 Weight 47.6 kg 48.5 kg Intake: IV 356 253 138 Sodium Chloride 0.9% 500 220 220 120 ml 500 ml @ 20 mls/hr IV .Q24H [facility] Rx#:[id number] levETIRAcetam IV 1,000 mg 100 In Saline 1 100ml.bag @ 400 mls/hr IVPB Q12HR [facility] Rx#:[id number] pressure bag 36 33 18 Intake, IV Titration 348.590 140.150 265.941 Amount Cefepime 1 gm In Sodium 50 50 Chloride 0.9% 50 ml @ 12. 5 mls/hr IVPB Q12HR [facility] Rx#:[id number] levETIRAcetam IV 500 mg 100 In Saline 1 100ml.bag @ 400 mls/hr IVPB Q12HR [facility] Rx#:[id number] metroNIDAZOLE-NS PMX 500 200 100 mg In Saline 1 100ml.bag @ 100 mls/hr IVPB Q8HR [facility] Rx#:[id number] propofoL 1,000 mg In 98.590 140.150 15.941 Empty Bag 1 bag @ 5 MCG/ KG/MIN 1.225 mls/hr IV . Q24H [facility] Rx#:[id number] Tube Feeding 23 253 138 Other 225 190 Output: Urine 1580 885 905 Other: Voiding Method Indwelling Catheter Indwelling Catheter ABP, PAP, CO, CI - Last Documented Arterial Blood Pressure 103/42 - Exam Gen: No acute distress, sedated, with an orally placed endotracheal tube and NG tube. The patient remains intubated on a mechanical ventilator. Head exam was generally normal. There was no scleral icterus or corneal arcus. Mucous membranes were moist. HEENT examination is grossly unremarkable. Neck supple. Full range of motion. No adenopathy thyromegaly or neck vein distention. Cardiovascular examination reveals regular rhythm rate. S1-S2 normal. No S3 or S4. No discernible murmur noted. Heart sounds are distant. Lungs reveal coarse bilateral breath sounds. No wheezes. No crackles. Breath sounds equal bilaterally. Abdomen soft bowel sounds are heard. No masses or tenderness. Extremities are intact. No cyanosis clubbing or edema. Upper extremities are a bit contracted. Skin is without rash or lesion. Neurologic examination cannot be assessed, as the patient's already been intubated and is currently sedated. - Labs CBC & Chem 7: 11/15/21 05:10 11/15/21 05:10 Labs: Abnormal Lab Results - Last 24 Hours (Table) 11/14/21 11/14/21 11/15/21 Range/Units 17:21 23:55 00:30 RBC (3.80-5.40) m/uL Hgb (11.4-16.0) gm/dL Hct (34.0-46.0) % Lymphocytes # (1.0-4.8) k/uL ABG pH (7.35-7.45) ABG pCO2 (35-45) mmHg ABG HCO3 (21-25) mmol/L ABG Total CO2 (19-24) mmol/L ABG O2 Saturation (94-97) % Potassium (3.5-5.1) mmol/L Carbon Dioxide (22-30) mmol/L BUN (7-17) mg/dL Glucose (74-99) mg/dL POC Glucose (mg/dL) 123 H 123 H 117 H (75-99) mg/dL Calcium (8.4-10.2) mg/dL ALT (4-34) U/L Total Protein (6.3-8.2) g/dL Albumin (3.5-5.0) g/dL 11/15/21 11/15/21 11/15/21 Range/Units 05:10 05:10 05:26 RBC 3.29 L (3.80-5.40) m/uL Hgb 10.3 L (11.4-16.0) gm/dL Hct 31.5 L (34.0-46.0) % Lymphocytes # 0.6 L (1.0-4.8) k/uL ABG pH 7.47 H (7.35-7.45) ABG pCO2 46 H (35-45) mmHg ABG HCO3 33 H (21-25) mmol/L ABG Total CO2 35 H (19-24) mmol/L ABG O2 Saturation 97.7 H (94-97) % Potassium 3.2 L (3.5-5.1) mmol/L Carbon Dioxide 31 H (22-30) mmol/L BUN 19 H (7-17) mg/dL Glucose 121 H (74-99) mg/dL POC Glucose (mg/dL) (75-99) mg/dL Calcium 8.2 L (8.4-10.2) mg/dL ALT 35 H (4-34) U/L Total Protein 4.8 L (6.3-8.2) g/dL Albumin 2.6 L (3.5-5.0) g/dL 11/15/21 11/15/21 Range/Units 05:46 10:57 RBC (3.80-5.40) m/uL Hgb (11.4-16.0) gm/dL Hct (34.0-46.0) % Lymphocytes # (1.0-4.8) k/uL ABG pH 7.47 H (7.35-7.45) ABG pCO2 47 H (35-45) mmHg ABG HCO3 34 H (21-25) mmol/L ABG Total CO2 35 H (19-24) mmol/L ABG O2 Saturation 97.5 H (94-97) % Potassium (3.5-5.1) mmol/L Carbon Dioxide (22-30) mmol/L BUN (7-17) mg/dL Glucose (74-99) mg/dL POC Glucose (mg/dL) 115 H (75-99) mg/dL Calcium (8.4-10.2) mg/dL ALT (4-34) U/L Total Protein (6.3-8.2) g/dL Albumin (3.5-5.0) g/dL Microbiology - Last 24 Hours (Table) 03/13/22 16:10 Gram Stain - Final Sputum Sputum Culture - Final Assessment and Plan Plan: #[id number] cardiopulmonary arrest, with cardiopulmonary resuscitation, for 20 minutes, and eventual return of spontaneous circulation (CPA/CPR/ROSC). #Pneumonia/ARDS vs. CHF -No evidence of pulmonary embolism on CT angiogram. diffuse bilateral pulmonary infiltrates. -Currently intubated on a mechanical ventilator. -Echocardiogram looks normal. Minimal troponin leak secondary to cardiac arrest. -Continue lasix IV as well as abx. -Cardiology and critical care following #Status post intubation and mechanical ventilation, for respiratory failure, on 11/12/2021. -Continue vent management per ICU #Tongue twitching r/u seizure -Seen by neuro, EEG negative -On kepremara, -Patient does this occasionally at baseline according to human services care specialist #Acute encephalopathy -Likely anoxic and metabolic, baseline cerebral palsy. #History of cerebral palsy. #History of CAD. #History of CHF. #History of COPD/asthma. #History of gastroesophageal reflux disease. #History of hyperlipidemia. #History of hypertension. #History of osteoarthritis. #History of kyphoscoliosis. #History of colitis. #History of anxiety/depression. #Full code
[2021-11-15 13:53] LABS: Glucose,Whole Blood 123 mg/dL (75-99)
[2021-11-15] MEDS ORDERED: Potassium Replacement Protocol 1 EACH MISC MISCELLANE PRN (14:44)
[2021-11-15] MEDS: ALBUTEROL NEBULIZED 2.5 MG/3 ML INHALATION SCH ×3 (14:45→20:05)
[2021-11-15] MEDS ORDERED: POTASSIUM CHLORIDE 20 MEQ in WATER FOR INJECTION 1 100ML.BAG IVPB ONE (15:00)
--- NOTE | 2021-11-15 16:13 | P.PN ---
Subjective Progress Note Date: 11/15/21 The patient is seen at bedside and per nurse he sedation has been held for 1 hour prior to presentation and trying to assess whether she can be extubated. No worsening of her neurological condition and per nurse she was open eyes and attempting to follow commands. Objective - Vital Signs Vital signs: Vital Signs Temp 97.8 F 11/15/21 12:00 Pulse 76 11/15/21 15:10 Resp 21 11/15/21 15:00 BP 137/56 11/15/21 15:00 Pulse Ox 97 11/15/21 15:00 Intake & Output 11/14/21 11/15/21 11/15/21 18:59 06:59 18:59 Intake Total 727.590 871.150 900.941 Output Total 6063 097 0337 Balance -852.410 -13.850 -144.059 Weight 47.6 kg 48.5 kg Intake: IV 356 253 207 Sodium Chloride 0.9% 500 220 220 180 ml 500 ml @ 20 mls/hr IV .Q24H [facility] Rx#:[id number] levETIRAcetam IV 1,000 mg 100 In Saline 1 100ml.bag @ 400 mls/hr IVPB Q12HR [facility] Rx#:[id number] pressure bag 36 33 27 Intake, IV Titration 348.590 140.150 365.941 Amount Cefepime 1 gm In Sodium 50 50 Chloride 0.9% 50 ml @ 12. 5 mls/hr IVPB Q12HR [facility] Rx#:[id number] Potassium Chloride 20 meq 100 In Water For Injection 1 100ml.bag @ 50 mls/hr IVPB ONCE ONE Rx#: [id number] levETIRAcetam IV 500 mg 100 In Saline 1 100ml.bag @ 400 mls/hr IVPB Q12HR [facility] Rx#:[id number] metroNIDAZOLE-NS PMX 500 200 100 mg In Saline 1 100ml.bag @ 100 mls/hr IVPB Q8HR [facility] Rx#:[id number] propofoL 1,000 mg In 98.590 140.150 15.941 Empty Bag 1 bag @ 5 MCG/ KG/MIN 1.225 mls/hr IV . Q24H [facility] Rx#:[id number] Tube Feeding 23 253 138 Other 225 190 Output: Urine 5392 570 8441 Other: Voiding Method Indwelling Catheter Indwelling Catheter Indwelling Catheter ABP, PAP, CO, CI - Last Documented Arterial Blood Pressure 143/58 - Exam GENERAL: The patient is lying in bed and is not in acute distress. LUNG: ntubated on ventilator. NEUROLOGICAL: Limited because of her condition since intubated and is on IV Propofol 10mcg/kg/min and stopped one hour prior Higher mental function: The patient is comatose. GCS 6 ( E4, VT1, M1). The patient would close eyes to command. Cranial nerves: The primary gaze is midline. The pupils are round, equal and reactive to light. No facial weakness. No facial twitching or tremor. Motor: The strength is unable to assess.. Decrease tone predominately bilateral lowers. Has atrophy of bilateral lowers. Normal tone and bulk. Cerebellum: Could not assess. Sensation: Could not assess light touch. Reflexes (right/left): 1+ throughout excepts patellars are 3+ bilaterally. Plantars are mute bilaterally. WORK-UP: CT of the head is reported as cerebral atrophy. No acute intracranial abnormality. Personally reviewed the CT of the head there is no acute subacute ischemia and there is no typical hemorrhage. Routine EEG on 11/13/2021: Abnormal. The back was loaded suggestive of moderate encephalopathy. There is burst suppression the seen during the study possibly due to medication effect. The excessive beta activity possibly due to medication effect vs sleep architecture. Otherwise there is no focal slowing, e pileptiform discharges or seizure on the EEG. 2-D echo was reported as overall left ventricle systolic function was normal with ejection fraction of 55-60. Left atrial was not well visualized. Trace mitral regurgitation. Trace tricuspid regurgitation. - Labs CBC & Chem 7: 11/15/21 05:10 11/15/21 13:50 Labs: Abnormal Lab Results - Last 24 Hours (Table) 11/14/21 11/14/21 11/15/21 Range/Units 17:21 23:55 00:30 RBC (3.80-5.40) m/uL Hgb (11.4-16.0) gm/dL Hct (34.0-46.0) % Lymphocytes # (1.0-4.8) k/uL ABG pH (7.35-7.45) ABG pCO2 (35-45) mmHg ABG HCO3 (21-25) mmol/L ABG Total CO2 (19-24) mmol/L ABG O2 Saturation (94-97) % Potassium (3.5-5.1) mmol/L Carbon Dioxide (22-30) mmol/L BUN (7-17) mg/dL Glucose (74-99) mg/dL POC Glucose (mg/dL) 123 H 123 H 117 H (75-99) mg/dL Calcium (8.4-10.2) mg/dL ALT (4-34) U/L Total Protein (6.3-8.2) g/dL Albumin (3.5-5.0) g/dL 11/15/21 11/15/21 11/15/21 Range/Units 05:10 05:10 05:26 RBC 3.29 L (3.80-5.40) m/uL Hgb 10.3 L (11.4-16.0) gm/dL Hct 31.5 L (34.0-46.0) % Lymphocytes # 0.6 L (1.0-4.8) k/uL ABG pH 7.47 H (7.35-7.45) ABG pCO2 46 H (35-45) mmHg ABG HCO3 33 H (21-25) mmol/L ABG Total CO2 35 H (19-24) mmol/L ABG O2 Saturation 97.7 H (94-97) % Potassium 3.2 L (3.5-5.1) mmol/L Carbon Dioxide 31 H (22-30) mmol/L BUN 19 H (7-17) mg/dL Glucose 121 H (74-99) mg/dL POC Glucose (mg/dL) (75-99) mg/dL Calcium 8.2 L (8.4-10.2) mg/dL ALT 35 H (4-34) U/L Total Protein 4.8 L (6.3-8.2) g/dL Albumin 2.6 L (3.5-5.0) g/dL 11/15/21 11/15/21 11/15/21 Range/Units 05:46 10:57 13:51 RBC (3.80-5.40) m/uL Hgb (11.4-16.0) gm/dL Hct (34.0-46.0) % Lymphocytes # (1.0-4.8) k/uL ABG pH 7.47 H (7.35-7.45) ABG pCO2 47 H (35-45) mmHg ABG HCO3 34 H (21-25) mmol/L ABG Total CO2 35 H (19-24) mmol/L ABG O2 Saturation 97.5 H (94-97) % Potassium (3.5-5.1) mmol/L Carbon Dioxide (22-30) mmol/L BUN (7-17) mg/dL Glucose (74-99) mg/dL POC Glucose (mg/dL) 115 H 123 H (75-99) mg/dL Calcium (8.4-10.2) mg/dL ALT (4-34) U/L Total Protein (6.3-8.2) g/dL Albumin (3.5-5.0) g/dL Assessment and Plan Assessment: Tongue twitching. On examination happens with stimulation and per her foster care this is baseline and does not have history of seizures. 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 Electrolyte imbalance (hyperphosphatemia and magnesemia): Transamnitis--trending down History of cerebral palsy History of kyphoscoliosis History of congestive heart failure History of Coronary artery disease History of hypertension Hyperlipidemia History of COPD History of anxiety/depression Wheel chair bound Plan: CT head is unremarkable. Routine EEG is negative for epileptiform discharges or seizure on the EEG. Continue Keppra 500mg bid as seizure prophylaxis and will continue to assess patient regarding use of antiepileptic. Q1 hour neuro checks. On seizure precaution and pads. Cardiology is consulted. Will defer the rest of medical management to primary and ICU team. Condition: Is very guarded. The plan is discussed with the patient's nurse. Vidal Zhang M.D. Neuro-Hospitalist Time with Patient: Less than 30
[2021-11-15 18:34] LABS: Glucose,Whole Blood 105 mg/dL (75-99)
[2021-11-15] MEDS: SODIUM CHLORIDE 0.9% 1,000 ML IV SCH (20:08)
[2021-11-15] MEDS: lamoTRIgine 100 MG TAB PO SCH (20:21)
[2021-11-15] MEDS: ATORVASTATIN 40 MG TAB PO SCH (20:21)
[2021-11-15] MEDS: HYDROmorphone 1 MG/ML 1 ML SYRINGE IVP PRN (21:17)
[2021-11-16 00:20] LABS: Glucose,Whole Blood 98 mg/dL (75-99)
[2021-11-16] MEDS: metroNIDAZOLE-NS PMX 500 MG in SALINE 1 100ML.BAG IVPB SCH ×4 (01:10→23:05)
[2021-11-16] MEDS: HEPARIN SODIUM,PORCINE/PF 5,000 UNIT/0.5 ML SYRINGE SQ SCH ×2 (01:10→08:30)
[2021-11-16 05:07] LABS: Basophils # (A) 0.1 k/uL (0-0.2); Basophils % (A) 1 %; Eosinophils # (A) 0.4 k/uL (0-0.7); Eosinophils % (A) 6 %; HCT 30.1 % (34.0-46.0); HGB 9.6 gm/dL (11.4-16.0); Hypochromasia Slight; Lymphocytes # (A) 0.5 k/uL (1.0-4.8); Lymphocytes % (A) 8 %; MCHC 31.7 g/dL (31.0-37.0); MCV 97.9 fL (80.0-100.0); Mean Platelet Volume 8.9; Monocytes # (A) 0.8 k/uL (0-1.0); Monocytes % (A) 12 %; Neutrophils # (A) 4.6 k/uL (1.3-7.7); Neutrophils % (A) 69 %; Platelet Count 187 k/uL (150-450); RBC 3.08 m/uL (3.80-5.40); RDW 14.2 % (11.5-15.5); WBC 6.6 k/uL (3.8-10.6)
[2021-11-16 05:09] LABS: Albumin 2.8 g/dL (3.5-5.0); Calcium 8.2 mg/dL (8.4-10.2); Potassium 3.8 mmol/L (3.5-5.1); Total Bilirubin 0.7 mg/dL (0.2-1.3)
[2021-11-16 05:49] LABS: Glucose,Whole Blood 100 mg/dL (75-99)
[2021-11-16] MEDS: POTASSIUM CHLORIDE 10 MEQ in WATER FOR INJECTION 1 100ML.BAG IVPB SCH ×2 (06:46→08:30)
[2021-11-16] MEDS: ALBUTEROL NEBULIZED 2.5 MG/3 ML INHALATION SCH ×4 (07:33→22:06)
--- NOTE | 2021-11-16 07:52 | XR ---
EXAMINATION TYPE: XR chest 1V portable DATE OF EXAM: 11/16/2021 COMPARISON: Chest x-ray 11/15/2021 HISTORY: Extubated, abnormal chest x-ray TECHNIQUE: Single frontal view of the chest is obtained. FINDINGS: Endotracheal tube and NG tube have been removed, central venous catheter remains in place. There is a marked scoliotic curvature. Abnormal density within the bilateral lungs shows a similar a ppearance. No evident pneumothorax. Heart is obscured. IMPRESSION: Interval extubation, patient body habitus, technique limit evaluation. Correlate for pos sible pneumonia, congestive heart failure.
[2021-11-16] MEDS: lamoTRIgine 25 MG TAB PO SCH (08:30)
[2021-11-16] MEDS: CLOPIDOGREL 75 MG TAB PO SCH (08:30)
[2021-11-16] MEDS: ESCITALOPRAM 20 MG TAB PO SCH (08:30)
--- NOTE | 2021-11-16 08:38 | P.PN ---
Subjective Progress Note Date: 11/16/21 Principal diagnosis: Out of the hospital cardiopulmonary arrest The patient is an 80-year-old female patient with history of cerebral palsy as well as multiple comorbid conditions who was admitted to the intensive care unit for out of the hospital cardiopulmonary arrest. The patient was seen this morning. She was extubated yesterday. Hemodynamically she seems to be stable. She was on Lasix yesterday but it was felt that she is dry and for that reason the Lasix IV was stopped. She does have cerebral palsy and she has some issues with communication. Apparently after talking to her family that her baseline. She underwent an echocardiogram which revealed normal left ventricular systolic function without significant valvular abnormalities. Objective - Vital Signs Vital signs: Vital Signs Temp 98.2 F 11/16/21 08:00 Pulse 76 11/16/21 08:00 Resp 23 11/16/21 08:00 BP 126/63 11/16/21 08:00 Pulse Ox 98 11/16/21 08:00 Intake & Output 11/15/21 11/16/21 11/16/21 18:59 06:59 18:59 Intake Total 1069.941 959 246 Output Total 1115 357 55 Balance -45.059 602 191 Weight 49.6 kg Intake: IV 276 959 246 Potassium Chloride 10 meq 100 In Water For Injection 1 100ml.bag @ 100 mls/hr IVPB Q1H [facility] Rx#: [id number] Sodium Chloride 0.9% 1, 900 140 000 ml @ 75 mls/hr IV . [id number] [facility] Rx#:[id number] Sodium Chloride 0.9% 500 240 20 ml 500 ml @ 20 mls/hr IV .Q24H [facility] Rx#:[id number] pressure bag 36 39 6 Intake, IV Titration 465.941 Amount Cefepime 1 gm In Sodium 50 Chloride 0.9% 50 ml @ 12. 5 mls/hr IVPB Q12HR [facility] Rx#:[id number] Potassium Chloride 20 meq 100 In Water For Injection 1 100ml.bag @ 50 mls/hr IVPB ONCE ONE Rx#: [id number] levETIRAcetam IV 500 mg 100 In Saline 1 100ml.bag @ 400 mls/hr IVPB Q12HR [facility] Rx#:[id number] metroNIDAZOLE-NS PMX 500 200 mg In Saline 1 100ml.bag @ 100 mls/hr IVPB Q8HR [facility] Rx#:[id number] propofoL 1,000 mg In 15.941 Empty Bag 1 bag @ 5 MCG/ KG/MIN 1.225 mls/hr IV . Q24H [facility] Rx#:[id number] Tube Feeding 138 Other 190 Output: Urine 1115 357 55 Other: Voiding Method Indwelling Catheter Indwelling Catheter Indwelling Catheter ABP, PAP, CO, CI - Last Documented Arterial Blood Pressure 132/54 - Constitutional General appearance: Present: no acute distress - Respiratory Respiratory: bilateral: diminished - Cardiovascular Rhythm: regular - Labs CBC & Chem 7: 11/16/21 04:40 11/16/21 04:40 Labs: Abnormal Lab Results - Last 24 Hours (Table) 11/15/21 11/15/21 11/15/21 Range/Units 10:57 13:51 18:32 RBC (3.80-5.40) m/uL Hgb (11.4-16.0) gm/dL Hct (34.0-46.0) % Lymphocytes # (1.0-4.8) k/uL ABG pH 7.47 H (7.35-7.45) ABG pCO2 47 H (35-45) mmHg ABG HCO3 34 H (21-25) mmol/L ABG Total CO2 35 H (19-24) mmol/L ABG O2 Saturation 97.5 H (94-97) % Carbon Dioxide (22-30) mmol/L BUN (7-17) mg/dL POC Glucose (mg/dL) 123 H 105 H (75-99) mg/dL Calcium (8.4-10.2) mg/dL AST (14-36) U/L ALT (4-34) U/L Total Protein (6.3-8.2) g/dL Albumin (3.5-5.0) g/dL 11/16/21 11/16/21 11/16/21 Range/Units 04:40 04:40 05:47 RBC 3.08 L (3.80-5.40) m/uL Hgb 9.6 L (11.4-16.0) gm/dL Hct 30.1 L (34.0-46.0) % Lymphocytes # 0.5 L (1.0-4.8) k/uL ABG pH (7.35-7.45) ABG pCO2 (35-45) mmHg ABG HCO3 (21-25) mmol/L ABG Total CO2 (19-24) mmol/L ABG O2 Saturation (94-97) % Carbon Dioxide 33 H (22-30) mmol/L BUN 20 H (7-17) mg/dL POC Glucose (mg/dL) 100 H (75-99) mg/dL Calcium 8.2 L (8.4-10.2) mg/dL AST 50 H (14-36) U/L ALT 38 H (4-34) U/L Total Protein 5.0 L (6.3-8.2) g/dL Albumin 2.8 L (3.5-5.0) g/dL Assessment and Plan Assessment: Assessment #1 cardiopulmonary arrest of unknown etiology at this point #2 known underlying history of chronic obstructive pulmonary disease #3 possible heart failure of unknown etiology at this point. The patient does have bilateral crackles. Her NT proBNP is elevated as well. She was on by mouth diuretics at home #4 history of coronary artery disease #5 history of COPD #6 multiple comorbid conditions Plan #1 continue the current medical regimen #2 the echo was reviewed and showed normal left ventricular systolic function #3 consider starting the patient on Lasix by mouth #4 monitor the kidney function and electrolytes #5 follow-up with the patient
[2021-11-16] MEDS: CEFEPIME 1 GM in SODIUM CHLORIDE 0.9% 50 ML IVPB SCH ×2 (08:45→20:07)
[2021-11-16] MEDS: CHLORHEXIDINE GLUCONATE 15 ML CUP MUCOUS MEM SCH (09:17)
[2021-11-16] MEDS: PANTOPRAZOLE 40 MG/10 ML VIAL IV SCH (09:20)
[2021-11-16] MEDS: HYDROmorphone 1 MG/ML 1 ML SYRINGE IVP PRN ×3 (09:20→23:06)
[2021-11-16] MEDS: SODIUM CHLORIDE 0.9% 1,000 ML IV SCH ×2 (09:21→23:19)
[2021-11-16] MEDS: levETIRAcetam IV 500 MG in SALINE 1 100ML.BAG IVPB SCH (09:27)
[2021-11-16 12:01] LABS: Glucose,Whole Blood 95 mg/dL (75-99)
[2021-11-16] MEDS: carvediloL 12.5 MG TAB PO SCH ×2 (12:03→20:06)
--- NOTE | 2021-11-16 13:02 | P.PN ---
Progress Note - Text Progress Note Date: 11/16/21 History of presenting complaint: This is a 80-year-old patient, who follows with visiting physicians Dr. Lewis. Chronic history includes coronary artery disease, COPD, GERD, hyperlipidemia, hypertension, osteoarthritis, cerebral palsy kyphoscoliosis, non-ambulatory. At her baseline she is not able to speak follows simple commands. She needs help with feeding.. At the baseline has pured diet with honey thickened liquids. brought into the emergency room, on November 11, unresponsive, and/or with a cardiac arrest. It's not clear from reviewing the ER javed whether or not the patient did or did not have a pulse. Apparently she had CPR provided to her by [facility]. Apparently that CPR lasted for 20 minutes. No medications were given. An AED was applied but no shocks were given. The patient apparently was further evaluated and resuscitated in the emergency department, and admitted to 3 [address]., room 372. Patient went into respiratory distress, and required intubation. Admitted with out of hospital cardiac point BE addressed with resuscitation for 20 minutes and return of spontaneous circulation. PE was ruled out. Patient was intubated. November 16: I assumed care of patient today. ICU: Extubated. Seen by speech therapy. pureed Diet.. Following commands. Dysarthric. 6 L nasal cannula. Active Medications Albuterol Sulfate (Albuterol Nebulized 2.5 Mg/3 Ml) 2.5 mg INHALATION RT-Q2H PRN PRN Reason: Shortness Of Breath Or Wheezing Albuterol Sulfate (Albuterol Nebulized 2.5 Mg/3 Ml) 2.5 mg INHALATION RT-QID [facility] Last Admin: 11/16/21 10:45 Dose: 2.5 mg Documented by: Atorvastatin Calcium (Atorvastatin 40 Mg Tab) 40 mg PO HS@1999 [facility] Last Admin: 11/15/21 20:21 Dose: Not Given Documented by: Carvedilol (Carvedilol 12.5 Mg Tab) 12.5 mg PO BID@ [facility] Last Admin: 11/16/21 12:03 Dose: Not Given Documented by: Clopidogrel Bisulfate (Clopidogrel 75 Mg Tab) 75 mg PO DAILY@08 [facility] Last Admin: 11/16/21 08:30 Dose: Not Given Documented by: Escitalopram Oxalate (Escitalopram 20 Mg Tab) 20 mg PO DAILY@0800 [facility] Last Admin: 11/16/21 08:30 Dose: Not Given Documented by: Heparin Sodium (Porcine) (Heparin Sodium,Porcine/Pf 5,000 Unit/0.5 Ml Syringe) 5,000 unit SQ Q8HR [facility] Last Admin: 11/16/21 08:30 Dose: 5,000 unit Documented by: Hydromorphone HCl (Hydromorphone 1 Mg/Ml 1 Ml Syringe) 1 mg IVP Q1H PRN PRN Reason: Pain Last Admin: 11/16/21 09:20 Dose: 1 mg Documented by: Cefepime HCl 1 gm/ Sodium (Chloride) 50 mls @ 12.5 mls/hr IVPB Q12HR [facility]; Protocol Last Admin: 11/16/21 08:45 Dose: 12.5 mls/hr Documented by: Metronidazole 500 mg/ IV (Solution) 100 mls @ 100 mls/hr IVPB Q8HR [facility]; Protocol Last Admin: 11/16/21 08:45 Dose: 100 mls/hr Documented by: Levetiracetam 500 mg/ IV (Solution) 50 mls @ 400 mls/hr IVPB Q12HR [facility] Last Admin: 11/16/21 09:27 Dose: 400 mls/hr Documented by: Sodium Chloride (Saline 0.9%) 1,000 mls @ 75 mls/hr IV .[id number] [facility] Last Admin: 11/16/21 09:21 Dose: 75 mls/hr Documented by: Lamotrigine (Lamotrigine 25 Mg Tab) 50 mg PO DAILY@0800 [facility] Last Admin: 11/16/21 08:30 Dose: Not Given Documented by: Lamotrigine (Lamotrigine 100 Mg Tab) 100 mg PO HS@2000 [facility] Last Admin: 11/15/21 20:21 Dose: Not Given Documented by: Miscellaneous Information (Potassium Replacement Protocol 1 Each Misc) 1 each MISCELLANE DAILY PRN; Protocol PRN Reason: Per Protocol Miscellaneous Information (Potassium Replacement Protocol 1 Each Misc) 1 each MISCELLANE DAILY PRN; Protocol PRN Reason: Per Protocol Morphine Sulfate (Morphine Sulfate 4 Mg/Ml Syringe) 4 mg IV Q4HR PRN PRN Reason: Severe Pain Last Admin: 11/15/21 11:56 Dose: 4 mg Documented by: Ondansetron HCl (Ondansetron 4 Mg/2 Ml Vial) 4 mg IVP Q8HR PRN PRN Reason: Nausea And Vomiting Pantoprazole Sodium (Pantoprazole 40 Mg/10 Ml Vial) 40 mg IV DAILY [facility] Last Admin: 11/16/21 09:20 Dose: 40 mg Documented by: Past medical history to include: Asthma, ?CAD, CHF, GERD, hyperlipidemia, hypertension, osteomyelitis, cerebral palsy with intellectual disability, kyphoscoliosis, anxiety Social history: Nonambulatory. Needs help with feeding. Has caregivers Family history: Patient cannot tell Physical examination: VITAL SIGNS: 98.5, 73, 18, 120/59, 99% on 6 L GENERAL: Laying in bed, tired, awake EYES: Pupils equal. Conjunctiva normal. HEENT: External appearance of nose and ears normal, oral cavity dry mucous membranes NECK: JVD unable to assess; masses not palpable. HEART: First and second heart sounds are normal; some edema. LUNGS: Respiratory rate increased, decreased breath sounds ABDOMEN: Soft, nontender, liver spleen not palpable, no masses palpable. PSYCH: Follows commands. Dysarthric. NEUROLOGICAL: [Cranial nerves grossly intact; no facial asymmetry, bilateral foot drop. Dysarthria. Weakness on the right side INVESTIGATIONS, reviewed in the clinical context: White count 6.6 hemoglobin 9.6 platelets 187 potassium 3.8 creatinine 0.80 albumin 2.8 Chest x-ray film personally reviewed by me-no infiltrates 2-D echo: EF 55-60%. EEG: Negative for epilepsy. Encephalopathic findings CT brain: Cerebral atrophy Assessment and plan: -Out of hospital cardiopulmonary arrest with cardiopulmonary resuscitation. Downtime of about 20 minutes. No evidence of PE. Possible pneumonia. -Acute on chronic congestive heart failure from diastolic dysfunction EF 55-60%: Better Received IV Lasix -Acute metabolic encephalopathy from an anoxic encephalopathy from cardiopulmonary arrest: Improving -Patient on Keppra for seizure prophylaxis Being followed by neurology -Bilateral pneumonia suspected gram-negative organism: Slow to respond IV cefepime -Acute hypoxic respiratory failure from CHF and pneumonia: Slow to respond Status post ventilatory support. Currently on 6 L of oxygen. -Chronic dysphagia, chronically on pureedDiet and honey thick liquid All feeding with assistance -Cerebral palsy with intellectual disability Patient may speak occasionally words, follows simple commands -Chronic medical debility from cerebral palsy Nonambulatory -Chronic bilateral foot drop -Primary osteoarthritis Use. Medications as needed -Coronary artery disease Coreg 12.5 twice a day, Lipitor -Essential hypertension Coreg -Asthma Albuterol 4 times a day -Chronic dysarthria -Depression On Lexapro. Xanax when necessary Current to 6 L oxygen... Diet per speech therapy. Aspiration precautions. IV cefepime. Continue home medications. Patient ICU.
--- NOTE | 2021-11-16 14:02 | P.PN ---
Subjective Progress Note Date: 11/16/21 80-year-old female with history of cerebral palsy, who was brought into the emergency room, on November 11, unresponsive, and/or with a cardiac arrest. It's not clear from reviewing the ER javed whether or not the patient did or did not have a pulse. Apparently she had CPR provided to her by the staff at the [facility]. Apparently that CPR lasted for 20 minutes. No medications were given. An AED was applied but no shocks were given. The patient apparently was further evaluated and resuscitated in the emergency department, and admitted to 3 S., room 372. Today, we heard a rapid response called to room 372. And one of my ICU nurses who responded, told me that the patient was in respiratory distress, and required intubation. She was intubated and brought down to the ICU. We placed a central line in her, and also a arterial line. We were not able get any additional history from her. Currently she is on propofol, and saline. White count 13.4, hemoglobin 10.6, hematocrit 34.6, platelet count 182,000. Most recent blood gases show pO2 384, pCO2 45, and pH is 7.45. This was on 100%. The FiO2 was reduced down to 40%. Sodium 147, potassium 3.8, chlorides 109, CO2 34, anion gap 4, BUN 23, and creatinine 0.73. Lactic acid was 0.6 AST 119 ALT 80 total protein 6.2. Urine is yellow and clear. There is 1+ protein and trace glucose. There is moderate blood. No evidence of infection. Chest x-ray shows cardiomegaly, a properly placed central line, and diffuse bilateral infiltrates. On 11/13/2021, the patient is being seen for a follow-up. The patient is sedated with propofol and the patient is intubated on a mechanical ventilator. The patient is currently on assist control mode of mechanical ventilation at the rate of 16, tidal volume of 350, FiO2 of 40% with a PEEP of 5. The patient's chest x-ray showing anatomic abnormality with the spine as the patient has significant kyphoscoliosis of the thoracic spine in addition to car to megaly and bilateral pulmonary infiltrates which could be pneumonia versus CHF. The patient has a pH of 7.41 with a pCO2 of 47 and pO2 of 68 on today's blood gases. ProBNP level was 2550 and the patient did have some troponin leak with the levels being at 0.03 and 0.062. EEG is in progress. Neurology consultation has been done and that input is appreciated. There are several episodes of tongue twitching that has been noted on this patient. The patient was started on IV Keppra. EEG is also in progress at this point in time. CAT scan of the brain that was extubated yesterday was essentially unremarkable. Patient is currently at the [facility] seizure precautions. No other significant events otherwise over the past 24 hours. The patient is hemodynamically stable. The patient is given accommodation Rocephin and Zithromax. IV fluids are currently at KVO and the patient was started on Lasix 40 mg IV every 24 hours. No pressors for now. The patient is afebrile. 11/14 2021, I'm seeing the patient for a follow-up. This patient is post cardiac arrest. As mentioned, the details are somewhat sketchy and were not sure exactly what happened. In any rate, the patient does not seem to be seizing at this point in time. EEG was abnormal as this was done while the patient was started on propofol. There was no burst suppression to indicate epilepsy. There was background slowing and moderate encephalopathy. The patient remains on IV Keppra. The patient remains also intubated on a mechanical ventilator. This morning, she is sedated with propofol running at 50 mcg/kg per minute. On a mechanical ventilator, she is an assist-control mode at the rate of 16 with a tidal volume of 350 and FiO2 of 40% with a PEEP of 5. Blood gas shows adequate oxygenation with a pO2 of 89. PH is at 7.48 with a pCO2 of 41. Her peak airway pressures around 27. The patient is being covered with broad-spectrum antibio tics. White cell count is at 6.5. The patient is currently on a combination of cefepime and Flagyl covering for aspiration pneumonia. The chest x-ray is hard to interpret as the patient has severe [place] of the chest. She does have cardiomegaly and diffuse bilateral pulmonary infiltrates could be potentially CHF/pneumonia. The patient is also receiving Lasix 40 mg IV every 24 hours and the fluid balance is negative +5 85 mL over the past 24 hours. Enterofeeding has been initiated and the patient is currently onvital AF at the rate of 23 mL an hour. She is afebrile. She is hemodynamically stable. She is on no pressors for now. No twitching of the tongue. No other significant events. 11/15/2021, the patient remains intubated on a mechanical ventilator. This morning, she is on propofol running at 20 mcg/kg per minute. The patient was given a sedation holiday yesterday and she was able to grimace and be more responsive and follows some occasional commands. The same will be done today in anticipation for possible extubation. She remains on a mechanical ventilator. She is on a rate of 12 with a tidal volume of 350 with an FiO2 of 40% with a PEEP of 5. Chest x-ray is obviously suboptimal because of her body habitus. There may be still a component of CHF/pulmonary edema. The pH is at 7.47 with a pCO2 of 46 and pO2 of 104 on the above-mentioned ventilator setting. The patient is still on IV Lasix. Fluid balance is been -866 mL over the past 24 hours. The patient is producing adequate amount of urine output. She is hemodynamically stable. No seizure activity has been noted. She is being covered with broad-spectrum antibiotics including a combination of cefepime and Flagyl. The cultures have been negative from the sputum and the pro-calcitonin level was at 0.12. The patient is afebrile. The patient is hemodynamically stable. As mentioned, no seizure activity has been with this. The plan is to cut down the sedation, check weaning parameters and proceed with a spontaneous breathing trial if possible. Her white cell count at 6.5 with a hemoglobin of 10.3. The BUN is at 19 with a creatinine of 0.7 and the sodium level is at 139 and a potassium level is at 3.2 and this obviously needs to be replaced and this is related to her underlying diuresis. Echo report is still pending. 11/16/2021, I'm seeing the patient for a follow-up. The patient is successfully extubated yesterday. Noted the patient was taken off the sedation. Weaning p arameters were checked and following that the patient was given a spelled his breathing trial. She did have a weak cough and mechanism. Nevertheless, she was able to protect her airway and the rest or secretions. The patient was extubated. Currently the patient is on nasal cannula at 6 L were and an oxygen saturation of 99%. The patient is afebrile. The patient is hemodynamically stable. Chest x-ray remains suboptimal as the patient has significant kyphoscoliosis of the chest. There is some atelectatic changes in lung bases bilaterally. ProBNP level was nonelevated at time of admission and patient's echocardiac Farhan showed no evidence of any LV dysfunction. Pneumonia suspected and the patient remains on examination cefepime and Flagyl. Overnight, the patient had some drop in urine output. Based on that, I stopped the diuretics on this patient for now. She is arousable. She follows some simple commands. Her white cell count of 6.6 with a hemoglobin on 0.6. Her platelet count is at 187. Sodium is 142 with a potassium level of 3.8, BUN is at 20 with a creatinine of 0.8, rest of LFTs are essentially within normal limits. Total protein is at 5.0 with a albumin level of 2.8. The patient will be having a swallow evaluation today. For now, she remains nothing by mouth. Meanwhile, echo of the heart showed a normal LV function with an EF of around 55-60%. No significant valvular abnormalities. Objective - Vital Signs Vital signs: Vital Signs Temp 98.5 F 11/16/21 12:00 Pulse 73 11/16/21 12:00 Resp 18 11/16/21 12:00 BP 120/59 11/16/21 12:00 Pulse Ox 99 11/16/21 12:00 Intake & Output 11/15/21 11/16/21 11/16/21 18:59 06:59 18:59 Intake Total 1069.941 959 638.0 Output Total 1115 357 190 Balance -45.059 602 448.0 Weight 49.6 kg Intake: IV 276 959 638.0 Cefepime 1 gm In Sodium 50.0 Chloride 0.9% 50 ml @ 12. 5 mls/hr IVPB Q12HR [facility] Rx#:[id number] Potassium Chloride 10 meq 200 In Water For Injection 1 100ml.bag @ 100 mls/hr IVPB Q1H [facility] Rx#: [id number] Sodium Chloride 0.9% 1, 900 270 000 ml @ 75 mls/hr IV . [id number] [facility] Rx#:[id number] Sodium Chloride 0.9% 500 240 20 ml 500 ml @ 20 mls/hr IV .Q24H [facility] Rx#:[id number] levETIRAcetam IV 500 mg 100 In Saline 1 100ml.bag @ 400 mls/hr IVPB Q12HR [facility] Rx#:[id number] pressure bag 36 39 18 Intake, IV Titration 465.941 Amount Cefepime 1 gm In Sodium 50 Chloride 0.9% 50 ml @ 12. 5 mls/hr IVPB Q12HR [facility] Rx#:[id number] Potassium Chloride 20 meq 100 In Water For Injection 1 100ml.bag @ 50 mls/hr IVPB ONCE ONE Rx#: [id number] levETIRAcetam IV 500 mg 100 In Saline 1 100ml.bag @ 400 mls/hr IVPB Q12HR [facility] Rx#:[id number] metroNIDAZOLE-NS PMX 500 200 mg In Saline 1 100ml.bag @ 100 mls/hr IVPB Q8HR [facility] Rx#:[id number] propofoL 1,000 mg In 15.941 Empty Bag 1 bag @ 5 MCG/ KG/MIN 1.225 mls/hr IV . Q24H [facility] Rx#:[id number] Tube Feeding 138 Other 190 Output: Urine 1115 357 190 Other: Voiding Method Indwelling Catheter Indwelling Catheter Indwelling Catheter ABP, PAP, CO, CI - Last Documented Arterial Blood Pressure 119/41 - Exam No acute distress, , currently on 6 L O2 nasal cannula. Saturations around 99% and no signs of any respiratory distress. Following simple commands. Head exam was generally normal. There was no scleral icterus or corneal arcus. Mucous membranes were moist. HEENT examination is grossly unremarkable. Neck supple. Full range of motion. No adenopathy thyromegaly or neck vein distention. Cardiovascular examination reveals regular rhythm rate. S1-S2 normal. No S3 or S4. No discernible murmur noted. Heart sounds are distant. Lungs reveal coarse bilateral breath sounds. No wheezes. No crackles. Breath sounds equal bilaterally. Abdomen soft bowel sounds are heard. No masses or tenderness. Extremities are intact. No cyanosis clubbing or edema. Upper extremities are a bit contracted. Skin is without rash or lesion. Neurologic awake and alert and following simple commands. She is unable to move her lower extremities. She is able to use her hands although the motor function is weak. The patient is able to blink her eyes and stick out her tongue upon demand. She is also able to follow some simple commands. Her baseline cognitive functions and baseline mental status is not known to me. However I was told that the patient has been quite impaired even at baseline. - Labs CBC & Chem 7: 11/16/21 04:40 11/16/21 04:40 Labs: Abnormal Lab Results - Last 24 Hours (Table) 11/15/21 11/16/21 11/16/21 Range/Units 18:32 04:40 04:40 RBC 3.08 L (3.80-5.40) m/uL Hgb 9.6 L (11.4-16.0) gm/dL Hct 30.1 L (34.0-46.0) % Lymphocytes # 0.5 L (1.0-4.8) k/uL Carbon Dioxide 33 H (22-30) mmol/L BUN 20 H (7-17) mg/dL POC Glucose (mg/dL) 105 H (75-99) mg/dL Calcium 8.2 L (8.4-10.2) mg/dL AST 50 H (14-36) U/L ALT 38 H (4-34) U/L Total Protein 5.0 L (6.3-8.2) g/dL Albumin 2.8 L (3.5-5.0) g/dL 11/16/21 Range/Units 05:47 RBC (3.80-5.40) m/uL Hgb (11.4-16.0) gm/dL Hct (34.0-46.0) % Lymphocytes # (1.0-4.8) k/uL Carbon Dioxide (22-30) mmol/L BUN (7-17) mg/dL POC Glucose (mg/dL) 100 H (75-99) mg/dL Calcium (8.4-10.2) mg/dL AST (14-36) U/L ALT (4-34) U/L Total Protein (6.3-8.2) g/dL Albumin (3.5-5.0) g/dL Assessment and Plan Plan: 1 [id number] cardiopulmonary arrest, with cardiopulmonary resuscitation, for 20 minutes, and eventual return of spontaneous circulation (CPA/CPR/ROSC). N o evidence of pulmonary embolism on CT angiogram. The patient has cardiomegaly with diffuse bilateral pulmonary infiltrates. Consider underlying pneumonia/ARDS. Consider underlying CHF. The pro-calcitonin level was low at 0.12, proBNP level was elevated. Currently intubated on a mechanical vent ilator. The patient is currently on no pressors. Awaiting echocardiogram. Minimal troponin leak secondary to cardiac arrest. Questionable anoxic encephalopathy. Patient was extubated on 11/15/2021 and the patient remains on 6 L O2 nasal cannula. The patient is following simple commands. Baseline neurologic functions aren are impaired because of her underlying cerebral palsy. Swallow evaluation is to follow today. The patient remains nothing by mouth. The echo showed normal LV function. No significant valvular abnormalities. 2 Status post intubation and mechanical ventilation, for respiratory failure, on 11/12/2021. The patient was extubated on 11/15/2021. Chest x-ray still showing bilateral pulmonary infiltrates most on the lower lobes. Nevertheless, the chest x-ray is extremely suboptimal due to her severe kyphoscoliosis of the chest. 3 History of cerebral palsy. 4 History of CAD. 5 History of CHF. 6 History of COPD/asthma. 7 History of gastroesophageal reflux disease. 8 History of hyperlipidemia. 9 History of hypertension. 10 History of osteoarthritis. 11 History of kyphoscoliosis. 12 History of colitis. 13 History of anxiety/depression. Plan Wean down the FiO2 as tolerated to maintain saturation above 90% Aspiration precautions Swallow evaluation Hold IV Lasix for now Continue same antibiotic coverage including a combination of cefepime and Flagyl Continued IV Keppra for now Sputum Gram stain and culture are negative thus far Pro-calcitonin level was 0.12 , levels are low Continue oral medication including Plavix, Lexapro, Lamictal, Coreg Lovenox subcu for DVT prophylaxis Monitor mental status We'll continue to follow, long-term prognosis remains poor baseline above- mentioned comorbidities.
--- NOTE | 2021-11-16 14:31 | P.PN ---
Subjective Progress Note Date: 11/16/21 The patient is seen at bedside and no seizure-like activity noted by nursing staff. She was extubated. Objective - Vital Signs Vital signs: Vital Signs Temp 98.5 F 11/16/21 12:00 Pulse 73 11/16/21 12:00 Resp 18 11/16/21 12:00 BP 120/59 11/16/21 12:00 Pulse Ox 99 11/16/21 12:00 Intake & Output 11/15/21 11/16/21 11/16/21 18:59 06:59 18:59 Intake Total 1069.941 959 638.0 Output Total 1115 357 190 Balance -45.059 602 448.0 Weight 49.6 kg Intake: IV 276 959 638.0 Cefepime 1 gm In Sodium 50.0 Chloride 0.9% 50 ml @ 12. 5 mls/hr IVPB Q12HR [facility] Rx#:[id number] Potassium Chloride 10 meq 200 In Water For Injection 1 100ml.bag @ 100 mls/hr IVPB Q1H [facility] Rx#: [id number] Sodium Chloride 0.9% 1, 900 270 000 ml @ 75 mls/hr IV . [id number] [facility] Rx#:[id number] Sodium Chloride 0.9% 500 240 20 ml 500 ml @ 20 mls/hr IV .Q24H [facility] Rx#:[id number] levETIRAcetam IV 500 mg 100 In Saline 1 100ml.bag @ 400 mls/hr IVPB Q12HR [facility] Rx#:[id number] pressure bag 36 39 18 Intake, IV Titration 465.941 Amount Cefepime 1 gm In Sodium 50 Chloride 0.9% 50 ml @ 12. 5 mls/hr IVPB Q12HR [facility] Rx#:[id number] Potassium Chloride 20 meq 100 In Water For Injection 1 100ml.bag @ 50 mls/hr IVPB ONCE ONE Rx#: [id number] levETIRAcetam IV 500 mg 100 In Saline 1 100ml.bag @ 400 mls/hr IVPB Q12HR [facility] Rx#:[id number] metroNIDAZOLE-NS PMX 500 200 mg In Saline 1 100ml.bag @ 100 mls/hr IVPB Q8HR [facility] Rx#:[id number] propofoL 1,000 mg In 15.941 Empty Bag 1 bag @ 5 MCG/ KG/MIN 1.225 mls/hr IV . Q24H [facility] Rx#:[id number] Tube Feeding 138 Other 190 Output: Urine 1115 357 190 Other: Voiding Method Indwelling Catheter Indwelling Catheter Indwelling Catheter ABP, PAP, CO, CI - Last Documented Arterial Blood Pressure 119/41 - Exam GENERAL: The patient is lying in bed and is not in acute distress. NEUROLOGICAL: Limited because of her condition. Higher mental function: The patient is drowsy but is briefly awakeable to voice. The patient is folllowing simple commands (opening and closing her eyes and attempting to close mouth). Cranial nerves: The primary gaze is midline. The pupils are round, equal and reactive to light. No facial weakness. No facial twitching or tremor. Motor: The strength is unable to assess individual muscles. But attempts to move hands and move right leg.. Decrease tone throughout.. Has atrophy of bilateral lowers. Cerebellum: Could not assess. Sensation: Could not assess light touch. WORK-UP: CT of the head is reported as cerebral atrophy. No acute intracranial abnormality. Personally reviewed the CT of the head there is no acute subacute ischemia and there is no typical hemorrhage. Routine EEG on 11/13/2021: Abnormal. The back was loaded suggestive of moderate encephalopathy. There is burst suppression the seen during the study possibly due to medication effect. The excessive beta activity possibly due to medication effect vs sleep architecture. Otherwise there is no focal slowing, epileptiform discharges or seizure on the EEG. 2-D echo was reported as overall left ventricle systolic function was normal with ejection fraction of 55-60. Left atrial was not well visualized. Trace mitral regurgitation. Trace tricuspid regurgitation. - Labs CBC & Chem 7: 11/16/21 04:40 11/16/21 04:40 Labs: Abnormal Lab Results - Last 24 Hours (Table) 11/15/21 11/16/21 11/16/21 Range/Units 18:32 04:40 04:40 RBC 3.08 L (3.80-5.40) m/uL Hgb 9.6 L (11.4-16.0) gm/dL Hct 30.1 L (34.0-46.0) % Lymphocytes # 0.5 L (1.0-4.8) k/uL Carbon Dioxide 33 H (22-30) mmol/L BUN 20 H (7-17) mg/dL POC Glucose (mg/dL) 105 H (75-99) mg/dL Calcium 8.2 L (8.4-10.2) mg/dL AST 50 H (14-36) U/L ALT 38 H (4-34) U/L Total Protein 5.0 L (6.3-8.2) g/dL Albumin 2.8 L (3.5-5.0) g/dL 11/16/21 Range/Units 05:47 RBC (3.80-5.40) m/uL Hgb (11.4-16.0) gm/dL Hct (34.0-46.0) % Lymphocytes # (1.0-4.8) k/uL Carbon Dioxide (22-30) mmol/L BUN (7-17) mg/dL POC Glucose (mg/dL) 100 H (75-99) mg/dL Calcium (8.4-10.2) mg/dL AST (14-36) U/L ALT (4-34) U/L Total Protein (6.3-8.2) g/dL Albumin (3.5-5.0) g/dL Assessment and Plan Assessment: Tongue twitching. On examination happens with stimulation and per her foster care this is baseline and does not have history of seizures. EEG was negative for seizure--currently stable. Out of hosptial cardiopulmonary arrest wiith resuscitation for 20 minute with ROSC Encephalopathy is due to anoxic encephalopathy and small component of metabolic encephalopathy--improving Transamnitis--trending down History of cerebral palsy History of kyphoscoliosis History of congestive heart failure History of Coronary artery disease History of hypertension Hyperlipidemia History of COPD History of anxiety/depression Wheel chair bound Plan: CT head is unremarkable. Routine EEG is negative for epileptiform discharges or seizure on the EEG. I will decrease Keppra from 500mg to 250mg bid as seizure prophylaxis and will continue to assess patient regarding use of antiepileptic. She is on her Lamictal 100mg daily and 200mg qhs for her mood but it also has antiepileptic benefit. Continue neuro checks. On seizure precaution and pads. Cardiology is consulted. Will defer the rest of medical management to primary and ICU team. Condition: Is very guarded. The plan is discussed with the patient's nurse. Vidal Zhang M.D. Neuro-Hospitalist Time with Patient: Less than 30
[2021-11-16 16:52] LABS: Glucose,Whole Blood 110 mg/dL (75-99)
[2021-11-16] MEDS: ATORVASTATIN 40 MG TAB PO SCH (20:06)
[2021-11-16] MEDS: lamoTRIgine 100 MG TAB PO SCH (20:06)
[2021-11-16] MEDS: levETIRAcetam IV 250 MG in SODIUM CHLORIDE 0.9% 100 ML IVPB SCH (20:17)
[2021-11-17] MEDS: HYDROmorphone 1 MG/ML 1 ML SYRINGE IVP PRN (04:39)
[2021-11-17 04:48] LABS: Glucose,Whole Blood 90 mg/dL (75-99)
[2021-11-17 05:20] LABS: African American GFR (CKD) >90 (>60 ml/min/1.73 sqM); Anion Gap 3 mmol/L; Blood Urea Nitrogen 20 mg/dL (7-17); Calcium 8.4 mg/dL (8.4-10.2); Carbon Dioxide 31 mmol/L (22-30); Chloride 110 mmol/L (98-107); Glucose 87 mg/dL (74-99); Non-African American GFR(CKD) 83 (>60 ml/min/1.73 sqM); Potassium 4.1 mmol/L (3.5-5.1); Sodium 144 mmol/L (137-145)
[2021-11-17 05:48] LABS: Basophils % (A) 1 %; Eosinophils # (A) 0.3 k/uL (0-0.7); Eosinophils % (A) 5 %; HGB 9.5 gm/dL (11.4-16.0); Hypochromasia Slight; Lymphocytes # (A) 0.5 k/uL (1.0-4.8); Lymphocytes % (A) 8 %; MCH 31.4 pg (25.0-35.0); MCHC 31.7 g/dL (31.0-37.0); MCV 99.1 fL (80.0-100.0); Mean Platelet Volume 8.1; Monocytes # (A) 0.8 k/uL (0-1.0); Monocytes % (A) 13 %; Neutrophils # (A) 4.2 k/uL (1.3-7.7); Neutrophils % (A) 70 %; Platelet Count 189 k/uL (150-450); RBC 3.02 m/uL (3.80-5.40); RDW 13.9 % (11.5-15.5); WBC 5.9 k/uL (3.8-10.6)
--- NOTE | 2021-11-17 07:48 | P.PN ---
Subjective Principal diagnosis: Out of the hospital cardiopulmonary arrest The patient is an 80-year-old female patient with history of cerebral palsy as well as multiple comorbid conditions who was admitted to the intensive care unit for out of the hospital cardiopulmonary arrest. We believe that she developed aspiration pneumonia giving her baseline mentation which is not normal. Initially the patient wasn't started on Lasix for a component of heart failure but subsequently she developed low blood pressure and the Lasix was held. Her echo revealed normal left ventricle systolic function without any evidence of hypertensive heart disease. The patient was seen this morning. Her mentation is a slightly better and apparently she is back to baseline. Hemodynamically she is stable. She has been maintaining normal sinus mechanism. From a cardiovascular standpoint of view, no need for any further cardiac workup at this point. We will continue the current medical regimen and follow-up with the patient on when necessary case Objective - Vital Signs Vital signs: Vital Signs Temp 98.2 F 11/17/21 04:00 Pulse 80 11/17/21 07:00 Resp 19 11/17/21 07:00 BP 152/67 11/17/21 07:00 Pulse Ox 97 11/17/21 07:00 Intake & Output 11/16/21 11/17/21 11/17/21 18:59 06:59 18:59 Intake Total 1206.0 1186 78 Output Total 385 480 30 Balance 821.0 706 48 Weight 49.6 kg 48.7 kg Intake: IV 1206.0 1036 78 Cefepime 1 gm In Sodium 50.0 Chloride 0.9% 50 ml @ 12. 5 mls/hr IVPB Q12HR [facility] Rx#:[id number] Potassium Chloride 10 meq 200 In Water For Injection 1 100ml.bag @ 100 mls/hr IVPB Q1H [facility] Rx#: [id number] Sodium Chloride 0.9% 1, 720 900 75 000 ml @ 75 mls/hr IV . [id number] [facility] Rx#:[id number] levETIRAcetam IV 500 mg 100 In Saline 1 100ml.bag @ 400 mls/hr IVPB Q12HR [facility] Rx#:[id number] metroNIDAZOLE-NS PMX 500 100 100 mg In Saline 1 100ml.bag @ 100 mls/hr IVPB Q8HR [facility] Rx#:[id number] pressure bag 36 36 3 Oral 150 Output: Urine 385 480 30 Other: Voiding Method Indwelling Catheter Indwelling Catheter ABP, PAP, CO, CI - Last Documented Arterial Blood Pressure 156/68 - Constitutional General appearance: Present: no acute distress - Respiratory Respiratory: bilateral: diminished - Cardiovascular Rhythm: regular - Labs CBC & Chem 7: 11/17/21 04:31 11/17/21 04:31 Labs: Abnormal Lab Results - Last 24 Hours (Table) 11/16/21 11/17/21 11/17/21 Range/Units 16:51 04:31 04:31 RBC 3.02 L (3.80-5.40) m/uL Hgb 9.5 L (11.4-16.0) gm/dL Hct 30.0 L (34.0-46.0) % Lymphocytes # 0.5 L (1.0-4.8) k/uL Chloride 110 H (98-107) mmol/L Carbon Dioxide 31 H (22-30) mmol/L BUN 20 H (7-17) mg/dL POC Glucose (mg/dL) 110 H (75-99) mg/dL Assessment and Plan Assessment: Assessment #1 cardiopulmonary arrest of unknown etiology at this point #2 known underlying history of chronic obstructive pulmonary disease #3 change in mental status which has somewhat improved #4 history of coronary artery disease #5 history of COPD #6 multiple comorbid conditions Plan #1 continue the current medical regimen #2 the echo was reviewed and showed normal left ventricular systolic function #3 follow-up with the patient on when necessary case
--- NOTE | 2021-11-17 08:49 | XR ---
EXAMINATION TYPE: XR chest 1V portable DATE OF EXAM: 11/17/2021 COMPARISON: 11/16/2021 HISTORY: Shortness of breath TECHNIQUE: Single frontal view of the chest is obtained. FINDINGS: Diffuse bilateral consolidation and pleural effusion. No pneumothorax. Rotatory severe sco liosis. Chronic deformity right humerus. Heart size stable. IMPRESSION: Diffuse pleural-parenchymal changes correlate for pulmonary edema or diffuse pneumonia s table from prior exam.
[2021-11-17] MEDS: ALBUTEROL NEBULIZED 2.5 MG/3 ML INHALATION SCH ×4 (09:46→19:30)
--- NOTE | 2021-11-17 10:55 | P.PN ---
Subjective Progress Note Date: 11/17/21 The patient is seen at bedside and per nurse is doing better. No seizure-like activity seen. Per patient she wants to go home since felt doing well. Objective - Vital Signs Vital signs: Vital Signs Temp 98.5 F 11/17/21 08:00 Pulse 78 11/17/21 10:00 Resp 21 11/17/21 10:00 BP 152/67 11/17/21 08:00 Pulse Ox 99 11/17/21 10:00 Intake & Output 11/16/21 11/17/21 11/17/21 18:59 06:59 18:59 Intake Total 1206.0 1186 156 Output Total 385 480 65 Balance 821.0 706 91 Weight 49.6 kg 48.7 kg Intake: IV 1206.0 1036 156 Cefepime 1 gm In Sodium 50.0 Chloride 0.9% 50 ml @ 12. 5 mls/hr IVPB Q12HR [facility] Rx#:[id number] Potassium Chloride 10 meq 200 In Water For Injection 1 100ml.bag @ 100 mls/hr IVPB Q1H [facility] Rx#: [id number] Sodium Chloride 0.9% 1, 720 900 150 000 ml @ 75 mls/hr IV . [id number] [facility] Rx#:[id number] levETIRAcetam IV 500 mg 100 In Saline 1 100ml.bag @ 400 mls/hr IVPB Q12HR [facility] Rx#:[id number] metroNIDAZOLE-NS PMX 500 100 100 mg In Saline 1 100ml.bag @ 100 mls/hr IVPB Q8HR [facility] Rx#:[id number] pressure bag 36 36 6 Oral 150 Output: Urine 385 480 65 Other: Voiding Method Indwelling Catheter Indwelling Catheter Indwelling Catheter ABP, PAP, CO, CI - Last Documented Arterial Blood Pressure 192/77 - Exam GENERAL: The patient is lying in bed and is not in acute distress. NEUROLOGICAL: Limited because of her condition. Higher mental function: The patient is drowsy but is awakeable. She is is oriented to self. She is folllowing simple commands (opening and closing, lifting arms). . Cranial nerves: The primary gaze is midline. The pupils are round, equal and reactive to light. VFF to confrontation. No facial weakness. No facial twitching or tremor. Motor: The strength is lifting all extremities above gravity but seems has decrease tone throughout. Decrease tone throughout.. Has atrophy of bilateral lowers. WORK-UP: CT of the head is reported as cerebral atrophy. No acute intracranial abnormality. Personally reviewed the CT of the head there is no acute subacute ischemia and there is no typical hemorrhage. Routine EEG on 11/13/2021: Abnormal. The back was loaded suggestive of moderate encephalopathy. There is burst suppression the seen during the study possibly due to medication effect. The excessive beta activity possibly due to med ication effect vs sleep architecture. Otherwise there is no focal slowing, epileptiform discharges or seizure on the EEG. 2-D echo was reported as overall left ventricle systolic function was normal with ejection fraction of 55-60. Left atrial was not well visualized. Trace mitral regurgitation. Trace tricuspid regurgitation. - Labs CBC & Chem 7: 11/17/21 04:31 11/17/21 04:31 Labs: Abnormal Lab Results - Last 24 Hours (Table) 11/16/21 11/17/21 11/17/21 Range/Units 16:51 04:31 04:31 RBC 3.02 L (3.80-5.40) m/uL Hgb 9.5 L (11.4-16.0) gm/dL Hct 30.0 L (34.0-46.0) % Lymphocytes # 0.5 L (1.0-4.8) k/uL Chloride 110 H (98-107) mmol/L Carbon Dioxide 31 H (22-30) mmol/L BUN 20 H (7-17) mg/dL POC Glucose (mg/dL) 110 H (75-99) mg/dL Assessment and Plan Assessment: Tongue twitching. On examination happens with stimulation and per her foster care this is baseline and does not have history of seizures. EEG was negative for seizure--currently stable. 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 Routine EEG is negative for epileptiform discharges or seizure on the EEG. She is on Keppra 250mg every 12 hours for seizure prophylaxis. I stopped Keppra dose (which was started in the hospital) since no obvious seizures. She is on her Lamictal 100mg daily and 200mg qhs for her mood but it also has antiepileptic benefit. Continue neuro checks. On seizure precaution and pads. Cardiology is consulted. Will defer the rest of medical management to primary and ICU team. Condition: Is guarded. The patient condition is drastically improving. The plan is discussed with the patient's nurse and ICU attending. There is no further neurological work-up. Please notify neurology team if any further concerns. Vidal Zhang M.D. Neuro-Hospitalist Time with Patient: Less than 30
[2021-11-17] MEDS: CEFEPIME 1 GM in SODIUM CHLORIDE 0.9% 50 ML IVPB SCH ×2 (10:57→21:50)
[2021-11-17] MEDS: ENOXAPARIN 40 MG/0.4 ML SYRINGE SQ SCH (10:58)
[2021-11-17] MEDS: PANTOPRAZOLE 40 MG/10 ML VIAL IV SCH (11:01)
[2021-11-17] MEDS: lamoTRIgine 25 MG TAB PO SCH (11:02)
[2021-11-17] MEDS: ESCITALOPRAM 20 MG TAB PO SCH (11:03)
[2021-11-17] MEDS: carvediloL 12.5 MG TAB PO SCH ×2 (11:03→21:50)
[2021-11-17] MEDS: metroNIDAZOLE-NS PMX 500 MG in SALINE 1 100ML.BAG IVPB SCH ×2 (11:03→17:48)
[2021-11-17] MEDS: CLOPIDOGREL 75 MG TAB PO SCH (11:03)
[2021-11-17] MEDS: FUROSEMIDE 10 MG/ML 4 ML VIAL IV SCH (12:30)
--- NOTE | 2021-11-17 14:33 | P.PN ---
Subjective Progress Note Date: 11/17/21 80-year-old female with history of cerebral palsy, who was brought into the emergency room, on November 11, unresponsive, and/or with a cardiac arrest. It's not clear from reviewing the ER javed whether or not the patient did or did not have a pulse. Apparently she had CPR provided to her by the staff at the [facility]. Apparently that CPR lasted for 20 minutes. No medications were given. An AED was applied but no shocks were given. The patient apparently was further evaluated and resuscitated in the emergency department, and admitted to 3 [address] room 372. Today, we heard a rapid response called to room 372. And one of my ICU nurses who responded, told me that the patient was in respiratory distress, and required intubation. She was intubated and brought down to the ICU. We placed a central line in her, and also a arterial line. We were not able get any additional history from her. Currently she is on propofol, and saline. White count 13.4, hemoglobin 10.6, hematocrit 34.6, platelet count 182,000. Most recent blood gases show pO2 384, pCO2 45, and pH is 7.45. This was on 100%. The FiO2 was reduced down to 40%. Sodium 147, potassium 3.8, chlorides 109, CO2 34, anion gap 4, BUN 23, and creatinine 0.73. Lactic acid was 0.6 AST 119 ALT 80 total protein 6.2. Urine is yellow and clear. There is 1+ protein and trace glucose. There is moderate blood. No evidence of infection. Chest x-ray shows cardiomegaly, a properly placed central line, and diffuse bilateral infiltrates. On 11/13/2021, the patient is being seen for a follow-up. The patient is sedated with propofol and the patient is intubated on a mechanical ventilator. The patient is currently on assist control mode of mechanical ventilation at the rate of 16, tidal volume of 350, FiO2 of 40% with a PEEP of 5. The patient's chest x-ray showing anatomic abnormality with the spine as the patient has significant kyphoscoliosis of the thoracic spine in addition to car to megaly and bilateral pulmonary infiltrates which could be pneumonia versus CHF. The patient has a pH of 7.41 with a pCO2 of 47 and pO2 of 68 on today's blood gases. ProBNP level was 2550 and the patient did have some troponin leak with the levels being at 0.03 and 0.062. EEG is in progress. Neurology consultation has been done and that input is appreciated. There are several episodes of tongue twitching that has been noted on this patient. The patient was started on IV Keppra. EEG is also in progress at this point in time. CAT scan of the brain that was extubated yesterday was essentially unremarkable. Patient is currently at the [facility] seizure precautions. No other significant events otherwise over the past 24 hours. The patient is hemodynamically stable. The patient is given accommodation Rocephin and Zithromax. IV fluids are currently at KVO and the patient was started on Lasix 40 mg IV every 24 hours. No pressors for now. The patient is afebrile. 11/14 2021, I'm seeing the patient for a follow-up. This patient is post cardiac arrest. As mentioned, the details are somewhat sketchy and were not sure exactly what happened. In any rate, the patient does not seem to be seizing at this point in time. EEG was abnormal as this was done while the patient was started on propofol. There was no burst suppression to indicate epilepsy. There was background slowing and moderate encephalopathy. The patient remains on IV Keppra. The patient remains also intubated on a mechanical ventilator. This morning, she is sedated with propofol running at 50 mcg/kg per minute. On a mechanical ventilator, she is an assist-control mode at the rate of 16 with a tidal volume of 350 and FiO2 of 40% with a PEEP of 5. Blood gas shows adequate oxygenation with a pO2 of 89. PH is at 7.48 with a pCO2 of 41. Her peak airway pressures around 27. The patient is being covered with broad-spectrum antibio tics. White cell count is at 6.5. The patient is currently on a combination of cefepime and Flagyl covering for aspiration pneumonia. The chest x-ray is hard to interpret as the patient has severe [place] m[place] of the chest. She does have cardiomegaly and diffuse bilateral pulmonary infiltrates could be potentially CHF/pneumonia. The patient is also receiving Lasix 40 mg IV every 24 hours and the fluid balance is negative +5 85 mL over the past 24 hours. Enterofeeding has been initiated and the patient is currently onvital AF at the rate of 23 mL an hour. She is afebrile. She is hemodynamically stable. She is on no pressors for now. No twitching of the tongue. No other significant events. 11/15/2021, the patient remains intubated on a mechanical ventilator. This morning, she is on propofol running at 20 mcg/kg per minute. The patient was given a sedation holiday yesterday and she was able to grimace and be more responsive and follows some occasional commands. The same will be done today in anticipation for possible extubation. She remains on a mechanical ventilator. She is on a rate of 12 with a tidal volume of 350 with an FiO2 of 40% with a PEEP of 5. Chest x-ray is obviously suboptimal because of her body habitus. There may be still a component of CHF/pulmonary edema. The pH is at 7.47 with a pCO2 of 46 and pO2 of 104 on the above-mentioned ventilator setting. The patient is still on IV Lasix. Fluid balance is been -866 mL over the past 24 hours. The patient is producing adequate amount of urine output. She is hemodynamically stable. No seizure activity has been noted. She is being covered with broad-spectrum antibiotics including a combination of cefepime and Flagyl. The cultures have been negative from the sputum and the pro-calcitonin level was at 0.12. The patient is afebrile. The patient is hemodynamically stable. As mentioned, no seizure activity has been with this. The plan is to cut down the sedation, check weaning parameters and proceed with a spontaneous breathing trial if possible. Her white cell count at 6.5 with a hemoglobin of 10.3. The BUN is at 19 with a creatinine of 0.7 and the sodium level is at 139 and a potassium level is at 3.2 and this obviously needs to be replaced and this is related to her underlying diuresis. Echo report is still pending. 11/16/2021, I'm seeing the patient for a follow-up. The patient is successfully extubated yesterday. Noted the patient was taken off the sedation. Weaning p arameters were checked and following that the patient was given a spelled his breathing trial. She did have a weak cough and mechanism. Nevertheless, she was able to protect her airway and the rest or secretions. The patient was extubated. Currently the patient is on nasal cannula at 6 L were and an oxygen saturation of 99%. The patient is afebrile. The patient is hemodynamically stable. Chest x-ray remains suboptimal as the patient has significant kyphoscoliosis of the chest. There is some atelectatic changes in lung bases bilaterally. ProBNP level was nonelevated at time of admission and patient's echocardiac Farhan showed no evidence of any LV dysfunction. Pneumonia suspected and the patient remains on examination cefepime and Flagyl. Overnight, the patient had some drop in urine output. Based on that, I stopped the diuretics on this patient for now. She is arousable. She follows some simple commands. Her white cell count of 6.6 with a hemoglobin on 0.6. Her platelet count is at 187. Sodium is 142 with a potassium level of 3.8, BUN is at 20 with a creatinine of 0.8, rest of LFTs are essentially within normal limits. Total protein is at 5.0 with a albumin level of 2.8. The patient will be having a swallow evaluation today. For now, she remains nothing by mouth. Meanwhile, echo of the heart showed a normal LV function with an EF of around 55-60%. No significant valvular abnormalities. 11/17/2021, the patient remains extubated. The patient is much more interactive on today's evaluation pH is communicating. She has cognitive impairments because of her underlying cerebral palsy. Otherwise, she is hemodynamically stable. She is on oxygen and she is currently on 6 L of O2 by nasal cannula. Overall fluid balance is +500 mL over the past 24 hours. The chest x-ray suboptimal as usual. There is some improvement in aeration bilaterally/in the upper lobes. Nevertheless, the patient has severe kyphoscoliosis of the chest and the patient has probably a component of CHF/pulmonary edema. Based on that, going to start again diuretics gently 40 mg IV Lasix every 24 hours. Meanwhile, the patient remains on a combination of cefepime and Flagyl as broad-spectrum antibiotics. No nausea. No vomiting. She is taking some clear liquid diet and his swallowing evaluation was done. The diet will be advanced gradually. The patient was echo as of 5.9 with hemoglobin of 9.5. There a BUN of 20 with a creatinine of 0.6. Pro-calcitonin level was 0.09. Sodium level is at 144. Potassium is at 4.1. Serum bicarbs at 31. Echo was noted. Objective - Vital Signs Vital signs: Vital Signs Temp 98.5 F 11/17/21 08:00 Pulse 66 11/17/21 13:13 Resp 21 11/17/21 10:00 BP 152/67 11/17/21 08:00 Pulse Ox 99 11/17/21 10:00 Intake & Output 11/16/21 11/17/21 11/17/21 18:59 06:59 18:59 Intake Total 1206.0 1186 312 Output Total 385 480 125 Balance 821.0 706 187 Weight 49.6 kg 48.7 kg Intake: IV 1206.0 1036 312 Cefepime 1 gm In Sodium 50.0 Chloride 0.9% 50 ml @ 12. 5 mls/hr IVPB Q12HR [facility] Rx#:[id number] Potassium Chloride 10 meq 200 In Water For Injection 1 100ml.bag @ 100 mls/hr IVPB Q1H [facility] Rx#: [id number] Sodium Chloride 0.9% 1, 720 900 300 000 ml @ 75 mls/hr IV . [id number] [facility] Rx#:[id number] levETIRAcetam IV 500 mg 100 In Saline 1 100ml.bag @ 400 mls/hr IVPB Q12HR [facility] Rx#:[id number] metroNIDAZOLE-NS PMX 500 100 100 mg In Saline 1 100ml.bag @ 100 mls/hr IVPB Q8HR [facility] Rx#:[id number] pressure bag 36 36 12 Oral 150 Output: Urine 385 480 125 Other: Voiding Method Indwelling Catheter Indwelling Catheter Indwelling Catheter ABP, PAP, CO, CI - Last Documented Arterial Blood Pressure 192/77 - Exam No acute distress, , currently on 6 L O2 nasal cannula. Saturations around 99% and no signs of any respiratory distress. Following simple commands. Head exam was generally normal. There was no scleral icterus or corneal arcus. Mucous membranes were moist. HEENT examination is grossly unremarkable. Neck supple. Full range of motion. No adenopathy thyromegaly or neck vein distention. Cardiovascular examination reveals regular rhythm rate. S1-S2 normal. No S3 or S4. No discernible murmur noted. Heart sounds are distant. Lungs reveal coarse bilateral breath sounds. No wheezes. No crackles. Breath sounds equal bilaterally. Abdomen soft bowel sounds are heard. No masses or tenderness. Extremities are intact. No cyanosis clubbing or edema. Upper extremities are a bit contracted. Skin is without rash or lesion. Neurologic awake and alert and following simple commands. She is unable to move her lower extremities. She is able to use her hands although the motor function is weak. The patient is able to blink her eyes and stick out her tongue upon demand. She is also able to follow some simple commands. Her baseline cognitive functions and baseline mental status is not known to me. However I was told that the patient has been quite impaired even at baseline. - Labs CBC & Chem 7: 11/17/21 04:31 11/17/21 04:31 Labs: Abnormal Lab Results - Last 24 Hours (Table) 11/16/21 11/17/21 11/17/21 Range/Units 16:51 04:31 04:31 RBC 3.02 L (3.80-5.40) m/uL Hgb 9.5 L (11.4-16.0) gm/dL Hct 30.0 L (34.0-46.0) % Lymphocytes # 0.5 L (1.0-4.8) k/uL Chloride 110 H (98-107) mmol/L Carbon Dioxide 31 H (22-30) mmol/L BUN 20 H (7-17) mg/dL POC Glucose (mg/dL) 110 H (75-99) mg/dL Assessment and Plan Plan: 1 Omg-gx-muzzelph cardiopulmonary arrest, with cardiopulmonary resuscitation, for 20 minutes, and eventual return of spontaneous circulation (CPA/CPR/ROSC). No evidence of pulmonary embolism on CT angiogram. The patient has cardiomegaly with diffuse bilateral pulmonary infiltrates. Consider underlying pneu monia/ARDS. Consider underlying CHF. The pro-calcitonin level was low at 0.12, proBNP level was elevated. Currently intubated on a mechanical ventilator. The patient is currently on no pressors. Awaiting echocardiogram. Minimal troponin leak secondary to cardiac arrest. Questionable anoxic encephalopathy. Patient was extubated on 11/15/2021 and the patient remains on 6 L O2 nasal cannula. The patient is following simple commands. Baseline neurologic functions aren are impaired because of her underlying cerebral palsy. Swallow evaluation is to follow today. The patient remains nothing by mouth. The echo showed normal LV function. No significant valvular abnormalities. On today's evaluation, the patient is quite interactive. She has cognitive impairment because of an underlying cerebral palsy. 2 Status post intubation and mechanical ventilation, for respiratory failure, on 11/12/2021. The patient was extubated on 11/15/2021. Chest x-ray still showing bilateral pulmonary infiltrates most on the lower lobes. Nevertheless, the chest x-ray is extremely suboptimal due to her severe kyphoscoliosis of the chest. There is improvement in aeration in the upper lobes on today's chest x- ray. The patient remains on broad-spectrum antibiotics. There may be component of fluid overload/CHF with a preserved LV function. 3 History of cerebral palsy. 4 History of CAD. 5 History of CHF. 6 History of COPD/asthma. 7 History of gastroesophageal reflux disease. 8 History of hyperlipidemia. 9 History of hypertension. 10 History of osteoarthritis. 11 History of kyphoscoliosis. 12 History of colitis. 13 History of anxiety/depression. Plan Wean down the FiO2 as tolerated to maintain saturation above 90%, currently on 6 L Aspiration precautions Swallow evaluation was completed and the patient will be advanced on her diet slowly Restart gentle diuresis with Lasix 40 mg IV every 24 hours Continue same antibiotic coverage including a combination of cefepime and Flagyl Continued IV Keppra for now and this will be gradually weaned off as the patient's neurologist does not think that she had seizures The repeat pro-calcitonin level is at 0.09 Continue oral medication including Plavix, Lexapro, Lamictal, Coreg Lovenox subcu for DVT prophylaxis Monitor mental status Cut down the IV fluids to 20 mL an hour We'll continue to follow, long-term prognosis remains poor baseline above- mentioned comorbidities.
--- NOTE | 2021-11-17 16:15 | P.PN ---
Progress Note - Text Progress Note Date: 11/17/21 History of presenting complaint: This is a 80-year-old patient, who follows with visiting physicians Dr. Lewis. Chronic history includes coronary artery disease, COPD, GERD, hyperlipidemia, hypertension, osteoarthritis, cerebral palsy kyphoscoliosis, non-ambulatory. At her baseline she is not able to speak follows simple commands. She needs help with feeding.. At the baseline has pured diet with honey thickened liquids. brought into the emergency room, on November 11, unresponsive, and/or with a cardiac arrest. It's not clear from reviewing the ER javed whether or not the patient did or did not have a pulse. Apparently she had CPR provided to her by the staff at the adult foster [facility]. Apparently that CPR lasted for 20 minutes. No medications were given. An AED was applied but no shocks were given. The patient apparently was further evaluated and resuscitated in the emergency department, and admitted to 3 [address]., room 372. Patient went into respiratory distress, and required intubation. Admitted with out of hospital cardiopulmonary arrest with resuscitation for 20 minutes and return of spontaneous circulation. PE was ruled out. Patient was intubated. November 16: I assumed care of patient today. ICU: Extubated. Seen by speech therapy. pureed Diet.. Following commands. Dysarthric. 6 L nasal cannula. November 17: ICU: Laying in bed. Tolerating some pured diet. 6 L nasal cannula. Otherwise at the baseline. Active Medications Albuterol Sulfate (Albuterol Nebulized 2.5 Mg/3 Ml) 2.5 mg INHALATION RT-Q2H PRN PRN Reason: Shortness Of Breath Or Wheezing Albuterol Sulfate (Albuterol Nebulized 2.5 Mg/3 Ml) 2.5 mg INHALATION RT-QID S Last Admin: 11/17/21 16:06 Dose: 2.5 mg Documented by: Atorvastatin Calcium (Atorvastatin 40 Mg Tab) 40 mg PO HS@1999 [facility] Last Admin: 11/16/21 20:06 Dose: 40 mg Documented by: Carvedilol (Carvedilol 12.5 Mg Tab) 12.5 mg PO BID@ [facility] Last Admin: 11/17/21 11:03 Dose: 12.5 mg Documented by: Clopidogrel Bisulfate (Clopidogrel 75 Mg Tab) 75 mg PO DAILY@0800 [facility] Last Admin: 11/17/21 11:03 Dose: 75 mg Documented by: Enoxaparin Sodium (Enoxaparin 40 Mg/0.4 Ml Syringe) 40 mg SQ DAILY [facility] Last Admin: 11/17/21 10:58 Dose: 40 mg Documented by: Escitalopram Oxalate (Escitalopram 20 Mg Tab) 20 mg PO DAILY@0800 [facility] Last Admin: 11/17/21 11:03 Dose: 20 mg Documented by: Furosemide (Furosemide 10 Mg/Ml 4 Ml Vial) 40 mg IV DAILY [facility] Hydromorphone HCl (Hydromorphone 1 Mg/Ml 1 Ml Syringe) 1 mg IVP Q1H PRN PRN Reason: Pain Last Admin: 11/17/21 04:39 Dose: 1 mg Documented by: Cefepime HCl 1 gm/ Sodium (Chloride) 50 mls @ 12.5 mls/hr IVPB Q12HR [facility]; Protocol Last Admin: 11/17/21 10:57 Dose: 12.5 mls/hr Documented by: Metronidazole 500 mg/ IV (Solution) 100 mls @ 100 mls/hr IVPB Q8HR [facility]; Protocol Last Admin: 11/17/21 11:03 Dose: 100 mls/hr Documented by: Sodium Chloride (Saline 0.9%) 1,000 mls @ 20 mls/hr IV .Q24H [facility] Last Admin: 11/16/21 23:19 Dose: 75 mls/hr Documented by: Lamotrigine (Lamotrigine 25 Mg Tab) 50 mg PO DAILY@0800 [facility] Last Admin: 11/17/21 11:02 Dose: 50 mg Documented by: Lamotrigine (Lamotrigine 100 Mg Tab) 100 mg PO HS@2000 [facility] Last Admin: 11/16/21 20:06 Dose: 100 mg Documented by: Miscellaneous Information (Potassium Replacement Protocol 1 Each Misc) 1 each MISCELLANE DAILY PRN; Protocol PRN Reason: Per Protocol Miscellaneous Information (Potassium Replacement Protocol 1 Each Misc) 1 each MISCELLANE DAILY PRN; Protocol PRN Reason: Per Protocol Morphine Sulfate (Morphine Sulfate 4 Mg/Ml Syringe) 4 mg IV Q4HR PRN PRN Reason: Severe Pain Last Admin: 11/15/21 11:56 Dose: 4 mg Documented by: Ondansetron HCl (Ondansetron 4 Mg/2 Ml Vial) 4 mg IVP Q8HR PRN PRN Reason: Nausea And Vomiting Pantoprazole Sodium (Pantoprazole 40 Mg/10 Ml Vial) 40 mg IV DAILY [facility] Last Admin: 11/17/21 11:01 Dose: 40 mg Documented by: Past medical history to include: Asthma, ?CAD, CHF, GERD, hyperlipidemia, hypertension, osteomyelitis, cerebral palsy with intellectual disability, kyphoscoliosis, anxiety Social history: Nonambulatory. Needs help with feeding. Has caregivers Family history: Patient cannot tell Physical examination: VITAL SIGNS: 98.5, 66, 14, 152/67, 99% on 6 L GENERAL: Laying in bed, tired, awake EYES: Pupils equal. Conjunctiva normal. HEENT: External appearance of nose and ears normal, oral cavity dry mucous membranes NECK: JVD unable to assess; masses not palpable. HEART: First and second heart sounds are normal; some edema. LUNGS: Respiratory rate increased, decreased breath sounds ABDOMEN: Soft, nontender, liver spleen not palpable, no masses palpable. PSYCH: Follows commands. Dysarthric. NEUROLOGICAL: [Cranial nerves grossly intact; no facial asymmetry, bilateral foot drop. Dysarthria. Weakness on the right side INVESTIGATIONS, reviewed in the clinical context: November 17: White count 5.9 hemoglobin 9.5 platelets 189 potassium 4.1 creatinine 0.67 White count 6.6 hemoglobin 9.6 platelets 187 potassium 3.8 creatinine 0.80 albumin 2.8 Chest x-ray film personally reviewed by me-no infiltrates 2-D echo: EF 55-60%. EEG: Negative for epilepsy. Encephalopathic findings CT brain: Cerebral atrophy Assessment and plan: -Out of hospital cardiopulmonary arrest with cardiopulmonary resuscitation. Downtime of about 20 minutes. No evidence of PE. Possible pneumonia. -Acute on chronic congestive heart failure from diastolic dysfunction EF 55-60%: Better IV Lasix -Acute metabolic encephalopathy from an anoxic encephalopathy from cardiopulmonary arrest: Improving -Patient on Keppra for seizure prophylaxis Being followed by neurology -Bilateral pneumonia suspected gram-negative organism: Slow to respond IV cefepime -Acute hypoxic respiratory failure from CHF and pneumonia: Slow to respond Status post ventilatory support. Currently on 6 L of oxygen. -Chronic dysphagia, chronically on pureedDiet and honey thick liquid All feeding with assistance -Cerebral palsy with intellectual disability Patient may speak occasionally words, follows simple commands -Chronic medical debility from cerebral palsy Nonambulatory -Chronic bilateral foot drop -Primary osteoarthritis Use. Medications as needed -Coronary artery disease Coreg 12.5 twice a day, Lipitor -Essential hypertension Coreg -Asthma Albuterol 4 times a day -Chronic dysarthria -Depression On Lexapro. Xanax when necessary Current to 6 L oxygen... Aspiration precautions. IV cefepime. Will be moved out of the ICU.
[2021-11-17] MEDS: SODIUM CHLORIDE 0.9% 1,000 ML IV SCH (17:48)
[2021-11-17 17:56] LABS: Glucose,Whole Blood 153 mg/dL (75-99)
[2021-11-17 20:46] LABS: Glucose,Whole Blood 103 mg/dL (75-99)
[2021-11-17] MEDS: lamoTRIgine 100 MG TAB PO SCH (21:50)
[2021-11-17] MEDS: ATORVASTATIN 40 MG TAB PO SCH (21:50)
[2021-11-18] MEDS: levETIRAcetam IV 250 MG in SODIUM CHLORIDE 0.9% 100 ML IVPB SCH (00:13)
[2021-11-18 00:18] LABS: Glucose,Whole Blood 174 mg/dL (75-99)
[2021-11-18] MEDS: metroNIDAZOLE-NS PMX 500 MG in SALINE 1 100ML.BAG IVPB SCH ×4 (00:18→23:08)
[2021-11-18] MEDS: SODIUM CHLORIDE 0.9% 1,000 ML IV SCH (02:58)
[2021-11-18 06:22] LABS: Glucose,Whole Blood 108 mg/dL (75-99)
[2021-11-18] MEDS: ENOXAPARIN 40 MG/0.4 ML SYRINGE SQ SCH (07:22)
[2021-11-18] MEDS: CLOPIDOGREL 75 MG TAB PO SCH (07:26)
[2021-11-18] MEDS: ESCITALOPRAM 20 MG TAB PO SCH (07:26)
[2021-11-18] MEDS: ALBUTEROL NEBULIZED 2.5 MG/3 ML INHALATION SCH ×4 (08:49→20:19)
[2021-11-18] MEDS: lamoTRIgine 25 MG TAB PO SCH (09:01)
[2021-11-18] MEDS: CEFEPIME 1 GM in SODIUM CHLORIDE 0.9% 50 ML IVPB SCH ×2 (09:16→21:32)
[2021-11-18] MEDS: FUROSEMIDE 10 MG/ML 4 ML VIAL IV SCH (10:13)
[2021-11-18] MEDS: PANTOPRAZOLE 40 MG/10 ML VIAL IV SCH (10:13)
[2021-11-18] MEDS: carvediloL 12.5 MG TAB PO SCH ×2 (10:14→21:32)
[2021-11-18 11:38] LABS: Glucose,Whole Blood 117 mg/dL (75-99)
--- NOTE | 2021-11-18 13:51 | P.PN ---
Progress Note - Text Progress Note Date: 11/18/21 History of presenting complaint: This is a 80-year-old patient, who follows with visiting physicians Dr. Lewis. Chronic history includes coronary artery disease, COPD, GERD, hyperlipidemia, hypertension, osteoarthritis, cerebral palsy kyphoscoliosis, non-ambulatory. At her baseline she is not able to speak follows simple commands. She needs help with feeding.. At the baseline has pured diet with honey thickened liquids. brought into the emergency room, on November 11, unresponsive, and/or with a cardiac arrest. It's not clear from reviewing the ER javed whether or not the patient did or did not have a pulse. Apparently she had CPR provided to her by [facility]. Apparently that CPR lasted for 20 minutes. No medications were given. An AED was applied but no shocks were given. The patient apparently was further evaluated and resuscitated in the emergency department, and admitted to [address] room 372. Patient went into respiratory distress, and required intubation. Admitted with out of hospital cardiopulmonary arrest with resuscitation for 20 minutes and return of spontaneous circulation. PE was ruled out. Patient was intubated. November 16: I assumed care of patient today. ICU: Extubated. Seen by speech therapy. pureed Diet.. Following commands. Dysarthric. 6 L nasal cannula. November 17: ICU: Laying in bed. Tolerating some pured diet. 6 L nasal cannula. Otherwise at the baseline. November 18: Spoke to the nurse. Tolerating. Pured Diet. On 4 L nasal cannula. Active Medications Albuterol Sulfate (Albuterol Nebulized 2.5 Mg/3 Ml) 2.5 mg INHALATION RT-Q2H PRN PRN Reason: Shortness Of Breath Or Wheezing Albuterol Sulfate (Albuterol Nebulized 2.5 Mg/3 Ml) 2.5 mg INHALATION RT-QID [facility] Last Admin: 11/18/21 12:21 Dose: 2.5 mg Documented by: Atorvastatin Calcium (Atorvastatin 40 Mg Tab) 40 mg PO HS@1999 [facility] Last Admin: 11/17/21 21:50 Dose: 40 mg Documented by: Carvedilol (Carvedilol 12.5 Mg Tab) 12.5 mg PO BID@ [facility] Last Admin: 11/18/21 10:14 Dose: 12.5 mg Documented by: Clopidogrel Bisulfate (Clopidogrel 75 Mg Tab) 75 mg PO DAILY@0800 [facility] Last Admin: 11/18/21 07:26 Dose: 75 mg Documented by: Enoxaparin Sodium (Enoxaparin 40 Mg/0.4 Ml Syringe) 40 mg SQ DAILY [facility] Last Admin: 11/18/21 07:22 Dose: 40 mg Documented by: Escitalopram Oxalate (Escitalopram 20 Mg Tab) 20 mg PO DAILY@0800 [facility] Last Admin: 11/18/21 07:26 Dose: 20 mg Documented by: Furosemide (Furosemide 10 Mg/Ml 4 Ml Vial) 40 mg IV DAILY [facility] Last Admin: 11/18/21 10:13 Dose: 40 mg Documented by: Hydromorphone HCl (Hydromorphone 1 Mg/Ml 1 Ml Syringe) 1 mg IVP Q1H PRN PRN Reason: Pain Last Admin: 11/17/21 04:39 Dose: 1 mg Documented by: Cefepime HCl 1 gm/ Sodium (Chloride) 50 mls @ 12.5 mls/hr IVPB Q12HR [facility]; Protocol Last Admin: 11/18/21 09:16 Dose: 12.5 mls/hr Documented by: Metronidazole 500 mg/ IV (Solution) 100 mls @ 100 mls/hr IVPB Q8HR [facility]; Protocol Last Admin: 11/18/21 07:25 Dose: 100 mls/hr Documented by: Sodium Chloride (Saline 0.9%) 1,000 mls @ 20 mls/hr IV .Q24H [facility] Last Admin: 11/18/21 02:58 Dose: Not Given Documented by: Lamotrigine (Lamotrigine 25 Mg Tab) 50 mg PO DAILY@0800 [facility] Last Admin: 11/18/21 09:01 Dose: 50 mg Documented by: Lamotrigine (Lamotrigine 100 Mg Tab) 100 mg PO HS@2000 [facility] Last Admin: 11/17/21 21:50 Dose: 100 mg Documented by: Miscellaneous Information (Potassium Replacement Protocol 1 Each Misc) 1 each MISCELLANE DAILY PRN; Protocol PRN Reason: Per Protocol Miscellaneous Information (Potassium Replacement Protocol 1 Each Misc) 1 each MISCELLANE DAILY PRN; Protocol PRN Reason: Per Protocol Morphine Sulfate (Morphine Sulfate 4 Mg/Ml Syringe) 4 mg IV Q4HR PRN PRN Reason: Severe Pain Last Admin: 11/15/21 11:56 Dose: 4 mg Documented by: Ondansetron HCl (Ondansetron 4 Mg/2 Ml Vial) 4 mg IVP Q8HR PRN PRN Reason: Nausea And Vomiting Pantoprazole Sodium (Pantoprazole 40 Mg/10 Ml Vial) 40 mg IV DAILY [facility] Last Admin: 11/18/21 10:13 Dose: 40 mg Documented by: Past medical history to include: Asthma, ?CAD, CHF, GERD, hyperlipidemia, hypertension, osteomyelitis, cerebral palsy with intellectual disability, kyphoscoliosis, anxiety Social history: Nonambulatory. Needs help with feeding. Has caregivers Family history: Patient cannot tell Physical examination: VITAL SIGNS: 98.1, 64, 20, 173/91, 98% on 4 L GENERAL: Laying in bed, tired, awake EYES: Pupils equal. Conjunctiva normal. HEENT: External appearance of nose and ears normal, oral cavity dry mucous membranes NECK: JVD unable to assess; masses not palpable. HEART: First and second heart sounds are normal; some edema. LUNGS: Respiratory rate increased, decreased breath sounds ABDOMEN: Soft, nontender, liver spleen not palpable, no masses palpable. PSYCH: Follows commands. Dysarthric. NEUROLOGICAL: [Cranial nerves grossly intact; no facial asymmetry, bilateral foot drop. Dysarthria. Weakness on the right side INVESTIGATIONS, reviewed in the clinical context: November 17: White count 5.9 hemoglobin 9.5 platelets 189 potassium 4.1 creatinine 0.67 White count 6.6 hemoglobin 9.6 platelets 187 potassium 3.8 creatinine 0.80 albumin 2.8 Chest x-ray film personally reviewed by me-no infiltrates 2-D echo: EF 55-60%. EEG: Negative for epilepsy. Encephalopathic findings CT brain: Cerebral atrophy Assessment and plan: -Out of hospital cardiopulmonary arrest with cardiopulmonary resuscitation. Downtime of about 20 minutes. No evidence of PE. Possible pneumonia. -Acute on chronic congestive heart failure from diastolic dysfunction EF 55-60%: Better IV Lasix -Acute metabolic encephalopathy from an anoxic encephalopathy from cardiopulmonary arrest: Improving -Patient on Keppra for seizure prophylaxis Being followed by neurology. Taper down -Bilateral pneumonia suspected gram-negative organism: Slow to respond IV cefepime -Acute hypoxic respiratory failure from CHF and pneumonia: Slowly improving Status post ventilatory support. Currently on 4 L of oxygen. -Chronic dysphagia, chronically on pureedDiet and honey thick liquid All feeding with assistance -Cerebral palsy with intellectual disability Patient may speak occasionally words, follows simple commands -Chronic medical debility from cerebral palsy Nonambulatory -Chronic bilateral foot drop -Primary osteoarthritis Use. Medications as needed -Coronary artery disease Coreg 12.5 twice a day, Lipitor -Essential hypertension Coreg -Asthma Albuterol 4 times a day -Chronic dysarthria -Depression On Lexapro. Xanax when necessary Taper down FiO2. Keep pulse ox above 90%. IV cefepime. Tolerating diet. Hiatus last patient.
--- NOTE | 2021-11-18 13:52 | P.PN ---
Subjective Progress Note Date: 11/18/21 80-year-old female with history of cerebral palsy, who was brought into the emergency room, on November 11, unresponsive, and/or with a cardiac arrest. It's not clear from reviewing the ER javed whether or not the patient did or did not have a pulse. Apparently she had CPR [facility] to her [facility] Apparently that CPR lasted for 20 minutes. No medications were given. An AED was applied but no shocks were given. The patient apparently was further evaluated and resuscitated in the emergency department, and admitted to 3 [address]., room 372. Today, we heard a rapid response called to room 372. And one of my ICU nurses who responded, told me that the patient was in respiratory distress, and required intubation. She was intubated and brought down to the ICU. We placed a central line in her, and also a arterial line. We were not able get any additional history from her. Currently she is on propofol, and saline. White count 13.4, hemoglobin 10.6, hematocrit 34.6, platelet count 182,000. Most recent blood gases show pO2 384, pCO2 45, and pH is 7.45. This was on 100%. The FiO2 was reduced down to 40%. Sodium 147, potassium 3.8, chlorides 109, CO2 34, anion gap 4, BUN 23, and creatinine 0.73. Lactic acid was 0.6 AST 119 ALT 80 total protein 6.2. Urine is yellow and clear. There is 1+ protein and trace glucose. There is moderate blood. No evidence of infection. Chest x-ray shows cardiomegaly, a properly placed central line, and diffuse bilateral infiltrates. On 11/13/2021, the patient is being seen for a follow-up. The patient is sedated with propofol and the patient is intubated on a mechanical ventilator. The patient is currently on assist control mode of mechanical ventilation at the rate of 16, tidal volume of 350, FiO2 of 40% with a PEEP of 5. The patient's chest x-ray showing anatomic abnormality with the spine as the patient has significant kyphoscoliosis of the thoracic spine in addition to car to megaly and bilateral pulmonary infiltrates which could be pneumonia versus CHF. The patient has a pH of 7.41 with a pCO2 of 47 and pO2 of 68 on today's blood gases. ProBNP level was 2550 and the patient did have some troponin leak with the levels being at 0.03 and 0.062. EEG is in progress. Neurology consultation has been done and that input is appreciated. There are several episodes of tongue twitching that has been noted on this patient. The patient was started on IV Keppra. EEG is also in progress at this point in time. CAT scan of the brain that was extubated yesterday was essentially unremarkable. Patient is currently at the [facility] seizure precautions. No other significant events otherwise over the past 24 hours. The patient is hemodynamically stable. The patient is given accommodation Rocephin and Zithromax. IV fluids are currently at KVO and the patient was started on Lasix 40 mg IV every 24 hours. No pressors for now. The patient is afebrile. 11/14 2021, I'm seeing the patient for a follow-up. This patient is post cardiac arrest. As mentioned, the details are somewhat sketchy and were not sure exactly what happened. In any rate, the patient does not seem to be seizing at this point in time. EEG was abnormal as this was done while the patient was started on propofol. There was no burst suppression to indicate epilepsy. There was background slowing and moderate encephalopathy. The patient remains on IV Keppra. The patient remains also intubated on a mechanical ventilator. This morning, she is sedated with propofol running at 50 mcg/kg per minute. On a mechanical ventilator, she is an assist-control mode at the rate of 16 with a tidal volume of 350 and FiO2 of 40% with a PEEP of 5. Blood gas shows adequate oxygenation with a pO2 of 89. PH is at 7.48 with a pCO2 of 41. Her peak airway pressures around 27. The patient is being covered with broad-spectrum antibio tics. White cell count is at 6.5. The patient is currently on a combination of cefepime and Flagyl covering for aspiration pneumonia. The chest x-ray is hard to interpret as the patient has severe Was michael of the chest. She does have cardiomegaly and diffuse bilateral pulmonary infiltrates could be potentially CHF/pneumonia. The patient is also receiving Lasix 40 mg IV every 24 hours and the fluid balance is negative +5 85 mL over the past 24 hours. Enterofeeding has been initiated and the patient is currently onvital AF at the rate of 23 mL an hour. She is afebrile. She is hemodynamically stable. She is on no pressors for now. No twitching of the tongue. No other significant events. 11/15/2021, the patient remains intubated on a mechanical ventilator. This morning, she is on propofol running at 20 mcg/kg per minute. The patient was given a sedation holiday yesterday and she was able to grimace and be more responsive and follows some occasional commands. The same will be done today in anticipation for possible extubation. She remains on a mechanical ventilator. She is on a rate of 12 with a tidal volume of 350 with an FiO2 of 40% with a PEEP of 5. Chest x-ray is obviously suboptimal because of her body habitus. There may be still a component of CHF/pulmonary edema. The pH is at 7.47 with a pCO2 of 46 and pO2 of 104 on the above-mentioned ventilator setting. The patient is still on IV Lasix. Fluid balance is been -866 mL over the past 24 hours. The patient is producing adequate amount of urine output. She is hemodynamically stable. No seizure activity has been noted. She is being covered with broad-spectrum antibiotics including a combination of cefepime and Flagyl. The cultures have been negative from the sputum and the pro-calcitonin level was at 0.12. The patient is afebrile. The patient is hemodynamically stable. As mentioned, no seizure activity has been with this. The plan is to cut down the sedation, check weaning parameters and proceed with a spontaneous breathing trial if possible. Her white cell count at 6.5 with a hemoglobin of 10.3. The BUN is at 19 with a creatinine of 0.7 and the sodium level is at 139 and a potassium level is at 3.2 and this obviously needs to be replaced and this is related to her underlying diuresis. Echo report is still pending. 11/16/2021, I'm seeing the patient for a follow-up. The patient is successfully extubated yesterday. Noted the patient was taken off the sedation. Weaning p arameters were checked and following that the patient was given a spelled his breathing trial. She did have a weak cough and mechanism. Nevertheless, she was able to protect her airway and the rest or secretions. The patient was extubated. Currently the patient is on nasal cannula at 6 L were and an oxygen saturation of 99%. The patient is afebrile. The patient is hemodynamically stable. Chest x-ray remains suboptimal as the patient has significant kyphoscoliosis of the chest. There is some atelectatic changes in lung bases bilaterally. ProBNP level was nonelevated at time of admission and patient's echocardiac Farhan showed no evidence of any LV dysfunction. Pneumonia suspected and the patient remains on examination cefepime and Flagyl. Overnight, the patient had some drop in urine output. Based on that, I stopped the diuretics on this patient for now. She is arousable. She follows some simple commands. Her white cell count of 6.6 with a hemoglobin on 0.6. Her platelet count is at 187. Sodium is 142 with a potassium level of 3.8, BUN is at 20 with a creatinine of 0.8, rest of LFTs are essentially within normal limits. Total protein is at 5.0 with a albumin level of 2.8. The patient will be having a swallow evaluation today. For now, she remains nothing by mouth. Meanwhile, echo of the heart showed a normal LV function with an EF of around 55-60%. No significant valvular abnormalities. 11/17/2021, the patient remains extubated. The patient is much more interactive on today's evaluation pH is communicating. She has cognitive impairments because of her underlying cerebral palsy. Otherwise, she is hemodynamically stable. She is on oxygen and she is currently on 6 L of O2 by nasal cannula. Overall fluid balance is +500 mL over the past 24 hours. The chest x-ray suboptimal as usual. There is some improvement in aeration bilaterally/in the upper lobes. Nevertheless, the patient has severe kyphoscoliosis of the chest and the patient has probably a component of CHF/pulmonary edema. Based on that, going to start again diuretics gently 40 mg IV Lasix every 24 hours. Meanwhile, the patient remains on a combination of cefepime and Flagyl as broad-spectrum antibiotics. No nausea. No vomiting. She is taking some clear liquid diet and his swallowing evaluation was done. The diet will be advanced gradually. The patient was echo as of 5.9 with hemoglobin of 9.5. There a BUN of 20 with a creatinine of 0.6. Pro-calcitonin level was 0.09. Sodium level is at 144. Potassium is at 4.1. Serum bicarbs at 31. Echo was noted. 11/18/2021, the patient is extubated the patient is currently on a medical floor. Awake and alert. No signs of any respiratory distress. Able to swallow cautiously. Remains on IV cefepime and Flagyl for a potential pneumonia and the patient is also on IV Lasix 40 mg IV every 24 hours. The patient remains on 6 L O2 nasal cannula with a pulse is 96% the patient has a pro-calcitonin level of 0.09. No new complaints otherwise for now. Home medications and resume. Resume care essentially supportive. Objective - Vital Signs Vital signs: Vital Signs Temp 98.1 F 11/18/21 07:24 Pulse 74 11/18/21 12:36 Resp 20 11/18/21 07:24 BP 173/91 11/18/21 07:24 Pulse Ox 95 11/18/21 13:40 Intake & Output 11/17/21 11/18/21 11/18/21 18:59 06:59 18:59 Intake Total 1352 Output Total 525 Balance 827 Weight 45.813 kg Intake: IV 1112 Cefepime 1 gm In Sodium 100 Chloride 0.9% 50 ml @ 12. 5 mls/hr IVPB Q12HR [facility] Rx#:[id number] Sodium Chloride 0.9% 1, 900 000 ml @ 20 mls/hr IV . Q24H [facility] Rx#:[id number] metroNIDAZOLE-NS PMX 500 100 mg In Saline 1 100ml.bag @ 100 mls/hr IVPB Q8HR [facility] Rx#:[id number] pressure bag 12 Oral 240 Output: Urine 525 Other: Voiding Method Indwelling Catheter External Catheter Incontinent ABP, PAP, CO, CI - Last Documented Arterial Blood Pressure 192/77 - Exam No acute distress, , currently on 6 L O2 nasal cannula. Saturations around 99% and no signs of any respiratory distress. Following simple commands. Head exam was generally normal. There was no scleral icterus or corneal arcus. Mucous membranes were moist. HEENT examination is grossly unremarkable. Neck supple. Full range of motion. No adenopathy thyromegaly or neck vein distention. Cardiovascular examination reveals regular rhythm rate. S1-S2 normal. No S3 or S4. No discernible murmur noted. Heart sounds are distant. Lungs reveal coarse bilateral breath sounds. No wheezes. No crackles. Breath sounds equal bilaterally. Abdomen soft bowel sounds are heard. No masses or tenderness. Extremities are intact. No cyanosis clubbing or edema. Upper extremities are a bit contracted. Skin is without rash or lesion. Neurologic awake and alert and following simple commands. She is unable to move her lower extremities. She is able to use her hands although the motor function is weak. The patient is able to blink her eyes and stick out her tongue upon demand. She is also able to follow some simple commands. Her baseline cognitiv e functions and baseline mental status is not known to me. However I was told that the patient has been quite impaired even at baseline. - Labs CBC & Chem 7: 11/17/21 04:31 11/17/21 04:31 Labs: Abnormal Lab Results - Last 24 Hours (Table) 11/17/21 11/17/21 11/18/21 Range/Units 17:54 20:45 00:17 POC Glucose (mg/dL) 153 H 103 H 174 H (75-99) mg/dL 11/18/21 11/18/21 Range/Units 06:20 11:36 POC Glucose (mg/dL) 108 H 117 H (75-99) mg/dL Assessment and Plan Plan: 1 [id number] cardiopulmonary arrest, with cardiopulmonary resuscitation, for 20 minutes, and eventual return of spontaneous circulation (CPA/CPR/ROSC). No evidence of pulmonary embolism on CT angiogram. The patient has cardiomegaly with diffuse bilateral pulmonary infiltrates. Consider underlying pneumonia/ARDS. Consider underlying CHF. The pro-calcitonin level was low at 0.12, proBNP level was elevated. Currently intubated on a mechanical ventilator. The patient is currently on no pressors. Awaiting echocardiogram. Minimal troponin leak secondary to cardiac arrest. Questionable anoxic encephalopathy. Patient was extubated on 11/15/2021 and the patient remains on 6 L O2 nasal cannula. The patient is following simple commands. Baseline neurologic functions aren are impaired because of her underlying cerebral palsy. 2 Status post intubation and mechanical ventilation, for respiratory failure, on 11/12/2021. The patient was extubated on 11/15/2021. Chest x-ray still showing bilateral pulmonary infiltrates most on the lower lobes. Nevertheless, the chest x-ray is extremely suboptimal due to her severe kyphoscoliosis of the chest. There is improvement in aeration in the upper lobes on today's chest x- ray. The patient remains on broad-spectrum antibiotics. There may be component of fluid overload/CHF with a preserved LV function. 3 History of cerebral palsy. 4 History of CAD. 5 History of CHF. 6 History of COPD/asthma. 7 History of gastroesophageal reflux disease. 8 History of hyperlipidemia. 9 History of hypertension. 10 History of osteoarthritis. 11 History of kyphoscoliosis. 12 History of colitis. 13 History of anxiety/depression. Plan Continue IV antibiotics Continue Lasix Aspiration precautions One-to-one feeding and gradual advancement of diet and the patient is tolerating pured diet for now Wean down the FiO2 as tolerated to maintain a saturation above 90% Transferred out of the intensive care unit The repeat pro-calcitonin level is at 0.09 Continue oral medication including Plavix, Lexapro, Lamictal, Coreg Lovenox subcu for DVT prophylaxis Monitor mental status Cut down the IV fluids to 20 mL an hour We'll continue to follow, long-term prognosis remains poor baseline above-mentioned comorbidities.
[2021-11-18] MEDS: ATORVASTATIN 40 MG TAB PO SCH (21:32)
[2021-11-18] MEDS: lamoTRIgine 100 MG TAB PO SCH (21:32)
[2021-11-19] MEDS: SODIUM CHLORIDE 0.9% 1,000 ML IV SCH (02:10)
[2021-11-19 03:59] LABS: Glucose,Whole Blood 107 mg/dL (75-99)
[2021-11-19] MEDS: ALBUTEROL NEBULIZED 2.5 MG/3 ML INHALATION PRN (04:05)
[2021-11-19] MEDS ORDERED: methylPREDNISolone SOD SUCCI 125 MG/2 ML VIAL IV STA (04:11)
--- NOTE | 2021-11-19 04:18 | XR ---
EXAMINATION TYPE: XR chest 1V portable DATE OF EXAM: 11/19/2021 COMPARISON: 11/17/2021 HISTORY: Respiratory distress TECHNIQUE: Single view FINDINGS: There is a thoracolumbar dextroscoliosis. There is some pleural reaction and atelectasis le ft lung base. No heart failure seen. There is mild blunting of the costophrenic angles. There is elev ation of the left diaphragm. IMPRESSION: Scoliotic deformity. Mild pleural reaction at the lung bases. There is clearing of the pu lmonary vascular congestion compared to old exam. No heart failure seen.
--- NOTE | 2021-11-19 05:12 | P.EN ---
A team note, RN activated A team due to increase work of breathing 80 with cerebral palsy admitted after cardiopulmonary arrest , she was in the icu on mechanical ventilation extubated and currently being treated for pneumonia on exam patient having diminished breath sounds with diffuse wheezing patient awake and alert, hard to understand, however, tachypnic and in respiratory distress patient was given breathing treatment , chest xray reviewed, and was pretty much unchanged compared to before patient noticed some improvement after the breathing treatment , however, she w as still having diffuse wheezing but better air entry , still diminished over all plan continue with breathing treatment around the clock and PRN, repeat Duo neb in 2 hours start IV solumedrol 125 mg IVP once, then 60 mg Q6hr continue current care otherwise 35 minutes were spent in critical care time in the care of this patient not counting procedure time
[2021-11-19 06:19] LABS: Glucose,Whole Blood 140 mg/dL (75-99)
[2021-11-19] MEDS: ALBUTEROL NEBULIZED 2.5 MG/3 ML INHALATION SCH ×4 (07:28→19:33)
[2021-11-19] MEDS: PANTOPRAZOLE 40 MG/10 ML VIAL IV SCH (09:56)
[2021-11-19] MEDS: lamoTRIgine 25 MG TAB PO SCH (09:57)
[2021-11-19] MEDS: ENOXAPARIN 40 MG/0.4 ML SYRINGE SQ SCH (09:57)
[2021-11-19] MEDS: CLOPIDOGREL 75 MG TAB PO SCH (09:58)
[2021-11-19] MEDS: ESCITALOPRAM 20 MG TAB PO SCH (09:58)
[2021-11-19] MEDS: metroNIDAZOLE-NS PMX 500 MG in SALINE 1 100ML.BAG IVPB SCH ×3 (09:59→23:38)
[2021-11-19] MEDS: CEFEPIME 1 GM in SODIUM CHLORIDE 0.9% 50 ML IVPB SCH ×2 (10:03→19:33)
[2021-11-19] MEDS: FUROSEMIDE 10 MG/ML 4 ML VIAL IV SCH (10:16)
[2021-11-19] MEDS: carvediloL 12.5 MG TAB PO SCH ×2 (10:17→19:33)
[2021-11-19 11:44] LABS: Glucose,Whole Blood 235 mg/dL (75-99)
[2021-11-19] MEDS: INSULIN ASPART (NovoLOG) 100 UNIT/ML VIAL SQ SCH ×2 (13:29→18:03)
[2021-11-19] MEDS: methylPREDNISolone SOD SUCCI 125 MG/2 ML VIAL IV SCH ×3 (13:29→23:46)
--- NOTE | 2021-11-19 15:52 | P.PN ---
Subjective Progress Note Date: 11/19/21 80-year-old female with history of cerebral palsy, who was brought into the emergency room, on November 11, unresponsive, and/or with a cardiac arrest. It's not clear from reviewing the ER javed whether or not the patient did or did not have a pulse. Apparently she had CPR provided to her by [facility] Apparently that CPR lasted for 20 minutes. No medications were given. An AED was applied but no shocks were given. The patient apparently was further evaluated and resuscitated in the emergency department, and admitted to 3 S., room 372. Today, we heard a rapid response called to room 372. And one of my ICU nurses who responded, told me that the patient was in respiratory distress, and required intubation. She was intubated and brought down to the ICU. We placed a central line in her, and also a arterial line. We were not able get any additional history from her. Currently she is on propofol, and saline. White count 13.4, hemoglobin 10.6, hematocrit 34.6, platelet count 182,000. Most recent blood gases show pO2 384, pCO2 45, and pH is 7.45. This was on 100%. The FiO2 was reduced down to 40%. Sodium 147, potassium 3.8, chlorides 109, CO2 34, anion gap 4, BUN 23, and creatinine 0.73. Lactic acid was 0.6 AST 119 ALT 80 total protein 6.2. Urine is yellow and clear. There is 1+ protein and trace glucose. There is moderate blood. No evidence of infection. Chest x-ray shows cardiomegaly, a properly placed central line, and diffuse bilateral infiltrates. On 11/13/2021, the patient is being seen for a follow-up. The patient is sedated with propofol and the patient is intubated on a mechanical ventilator. The patient is currently on assist control mode of mechanical ventilation at the rate of 16, tidal volume of 350, FiO2 of 40% with a PEEP of 5. The patient's chest x-ray showing anatomic abnormality with the spine as the patient has significant kyphoscoliosis of the thoracic spine in addition to car to megaly and bilateral pulmonary infiltrates which could be pneumonia versus CHF. The patient has a pH of 7.41 with a pCO2 of 47 and pO2 of 68 on today's blood gases. ProBNP level was 2550 and the patient did have some troponin leak with the levels being at 0.03 and 0.062. EEG is in progress. Neurology consultation has been done and that input is appreciated. There are several episodes of tongue twitching that has been noted on this patient. The patient was started on IV Keppra. EEG is also in progress at this point in time. CAT scan of the brain that was extubated yesterday was essentially unremarkable. Patient is currently at the [facility] seizure precautions. No other significant events otherwise over the past 24 hours. The patient is hemodynamically stable. The patient is given accommodation Rocephin and Zithromax. IV fluids are currently at KVO and the patient was started on Lasix 40 mg IV every 24 hours. No pressors for now. The patient is afebrile. 11/14 2021, I'm seeing the patient for a follow-up. This patient is post cardiac arrest. As mentioned, the details are somewhat sketchy and were not sure exactly what happened. In any rate, the patient does not seem to be seizing at this point in time. EEG was abnormal as this was done while the patient was started on propofol. There was no burst suppression to indicate epilepsy. There was background slowing and moderate encephalopathy. The patient remains on IV Keppra. The patient remains also intubated on a mechanical ventilator. This morning, she is sedated with propofol running at 50 mcg/kg per minute. On a mechanical ventilator, she is an assist-control mode at the rate of 16 with a tidal volume of 350 and FiO2 of 40% with a PEEP of 5. Blood gas shows adequate oxygenation with a pO2 of 89. PH is at 7.48 with a pCO2 of 41. Her peak airway pressures around 27. The patient is being covered with broad-spectrum antibio tics. White cell count is at 6.5. The patient is currently on a combination of cefepime and Flagyl covering for aspiration pneumonia. The chest x-ray is hard to interpret as the patient has severe [place] michael of the chest. She does have cardiomegaly and diffuse bilateral pulmonary infiltrates could be potentially CHF/pneumonia. The patient is also receiving Lasix 40 mg IV every 24 hours and the fluid balance is negative +5 85 mL over the past 24 hours. Enterofeeding has been initiated and the patient is currently onvital AF at the rate of 23 mL an hour. She is afebrile. She is hemodynamically stable. She is on no pressors for now. No twitching of the tongue. No other significant events. 11/15/2021, the patient remains intubated on a mechanical ventilator. This morning, she is on propofol running at 20 mcg/kg per minute. The patient was given a sedation holiday yesterday and she was able to grimace and be more responsive and follows some occasional commands. The same will be done today in anticipation for possible extubation. She remains on a mechanical ventilator. She is on a rate of 12 with a tidal volume of 350 with an FiO2 of 40% with a PEEP of 5. Chest x-ray is obviously suboptimal because of her body habitus. There may be still a component of CHF/pulmonary edema. The pH is at 7.47 with a pCO2 of 46 and pO2 of 104 on the above-mentioned ventilator setting. The patient is still on IV Lasix. Fluid balance is been -866 mL over the past 24 hours. The patient is producing adequate amount of urine output. She is hemodynamically stable. No seizure activity has been noted. She is being covered with broad-spectrum antibiotics including a combination of cefepime and Flagyl. The cultures have been negative from the sputum and the pro-calcitonin level was at 0.12. The patient is afebrile. The patient is hemodynamically stable. As mentioned, no seizure activity has been with this. The plan is to cut down the sedation, check weaning parameters and proceed with a spontaneous breathing trial if possible. Her white cell count at 6.5 with a hemoglobin of 10.3. The BUN is at 19 with a creatinine of 0.7 and the sodium level is at 139 and a potassium level is at 3.2 and this obviously needs to be replaced and this is related to her underlying diuresis. Echo report is still pending. 11/16/2021, I'm seeing the patient for a follow-up. The patient is successfully extubated yesterday. Noted the patient was taken off the sedation. Weaning p arameters were checked and following that the patient was given a spelled his breathing trial. She did have a weak cough and mechanism. Nevertheless, she was able to protect her airway and the rest or secretions. The patient was extubated. Currently the patient is on nasal cannula at 6 L were and an oxygen saturation of 99%. The patient is afebrile. The patient is hemodynamically stable. Chest x-ray remains suboptimal as the patient has significant kyphoscoliosis of the chest. There is some atelectatic changes in lung bases bilaterally. ProBNP level was nonelevated at time of admission and patient's echocardiac Farhan showed no evidence of any LV dysfunction. Pneumonia suspected and the patient remains on examination cefepime and Flagyl. Overnight, the patient had some drop in urine output. Based on that, I stopped the diuretics on this patient for now. She is arousable. She follows some simple commands. Her white cell count of 6.6 with a hemoglobin on 0.6. Her platelet count is at 187. Sodium is 142 with a potassium level of 3.8, BUN is at 20 with a creatinine of 0.8, rest of LFTs are essentially within normal limits. Total protein is at 5.0 with a albumin level of 2.8. The patient will be having a swallow evaluation today. For now, she remains nothing by mouth. Meanwhile, echo of the heart showed a normal LV function with an EF of around 55-60%. No significant valvular abnormalities. 11/17/2021, the patient remains extubated. The patient is much more interactive on today's evaluation pH is communicating. She has cognitive impairments because of her underlying cerebral palsy. Otherwise, she is hemodynamically stable. She is on oxygen and she is currently on 6 L of O2 by nasal cannula. Overall fluid balance is +500 mL over the past 24 hours. The chest x-ray suboptimal as usual. There is some improvement in aeration bilaterally/in the upper lobes. Nevertheless, the patient has severe kyphoscoliosis of the chest and the patient has probably a component of CHF/pulmonary edema. Based on that, going to start again diuretics gently 40 mg IV Lasix every 24 hours. Meanwhile, the patient remains on a combination of cefepime and Flagyl as broad-spectrum antibiotics. No nausea. No vomiting. She is taking some clear liquid diet and his swallowing evaluation was done. The diet will be advanced gradually. The patient was echo as of 5.9 with hemoglobin of 9.5. There a BUN of 20 with a creatinine of 0.6. Pro-calcitonin level was 0.09. Sodium level is at 144. Potassium is at 4.1. Serum bicarbs at 31. Echo was noted. 11/18/2021, the patient is extubated the patient is currently on a medical floor. Awake and alert. No signs of any respiratory distress. Able to swallow cautiously. Remains on IV cefepime and Flagyl for a potential pneumonia and the patient is also on IV Lasix 40 mg IV every 24 hours. The patient remains on 6 L O2 nasal cannula with a pulse is 96% the patient has a pro-calcitonin level of 0.09. No new complaints otherwise for now. Home medications and resume. Resume care essentially supportive. 11/19/2021, the patient is awake and alert. Overnight, the patient was thought to be slightly more lethargic. The patient was checked by the hospitalist. The patient had a follow-up chest x-ray that showed improvement in the volume status in the bilateral pulmonary infiltrates. This morning, the patient on 6 L O2 at a pulse is 98%. The patient interactive. I was told by the nursing staff and the patient is able to swallow with assistance. The patient remains on IV cefepime. The patient remains on IV Lasix 40 mg every 24 hours. IV fluids at KVO. No other new events otherwise for now. Blood work released to repeated as the patient's most recent blood work is done on 11/17/2021. Objective - Vital Signs Vital signs: Vital Signs Temp 97.6 F 11/19/21 14:05 Pulse 77 11/19/21 14:05 Resp 15 11/19/21 14:05 BP 146/77 11/19/21 14:05 Pulse Ox 98 11/19/21 14:05 Intake & Output 11/18/21 11/19/21 11/19/21 18:59 06:59 18:59 Weight 43.233 kg Other: Voiding Method Incontinent Incontinent Incontinent # Voids 2 1 # Bowel Movements 2 ABP, PAP, CO, CI - Last Documented Arterial Blood Pressure 192/77 - Exam No acute distress, , currently on 6 L O2 nasal cannula. Saturations around 99% and no signs of any respiratory distress. Following simple commands. Head exam was generally normal. There was no scleral icterus or corneal arcus. Mucous membranes were moist. HEENT examination is grossly unremarkable. Neck supple. Full range of motion. No adenopathy thyromegaly or neck vein distention. Cardiovascular examination reveals regular rhythm rate. S1-S2 normal. No S3 or S4. No discernible murmur noted. Heart sounds are distant. Lungs reveal coarse bilateral breath sounds. No wheezes. No crackles. Breath sounds equal bilaterally. Abdomen soft bowel sounds are heard. No masses or tenderness. Extremities are intact. No cyanosis clubbing or edema. Upper extremities are a bit contracted. Skin is without rash or lesion. Neurologic awake and alert and following simple commands. She is unable to move her lower extremities. She is able to use her hands although the motor function is weak. The patient is able to blink her eyes and stick out her tongue upon demand. She is also able to follow some simple commands. Her baseline cognitive functions and baseline mental status is not known to me. However I was told that the patient has been quite impaired even at baseline. - Labs CBC & Chem 7: 11/17/21 04:31 11/17/21 04:31 Labs: Abnormal Lab Results - Last 24 Hours (Table) 11/19/21 11/19/21 11/19/21 Range/Units 03:57 06:18 11:37 POC Glucose (mg/dL) 107 H 140 H 235 H (75-99) mg/dL Assessment and Plan Plan: 1 [id number] cardiopulmonary arrest, with cardiopulmonary resuscitation, for 20 minutes, and eventual return of spontaneous circulation (CPA/CPR/ROSC). No evidence of pulmonary embolism on CT angiogram. The patient has cardiomegaly with diffuse bilateral pulmonary infiltrates. Consider underlying pneumonia/ARDS. Consider underlying CHF. The pro-calcitonin level was low at 0.12, proBNP level was elevated. Currently intubated on a mechanical emmanuel tilator. The patient is currently on no pressors. Awaiting echocardiogram. Minimal troponin leak secondary to cardiac arrest. Questionable anoxic encephalopathy. Patient was extubated on 11/15/2021 and the patient remains on 6 L O2 nasal cannula. The patient is following simple commands. Baseline neurologic functions aren are impaired because of her underlying cerebral palsy. 2 Status post intubation and mechanical ventilation, for respiratory failure, on 11/12/2021. The patient was extubated on 11/15/2021. Chest x-ray still showing bilateral pulmonary infiltrates most on the lower lobes. Nevertheless, the chest x-ray is extremely suboptimal due to her severe kyphoscoliosis of the chest. There is improvement in aeration in the upper lobes on today's chest x- ray. The patient remains on broad-spectrum antibiotics. There may be component of fluid overload/CHF with a preserved LV function. 3 History of cerebral palsy. 4 History of CAD. 5 History of CHF. 6 History of COPD/asthma. 7 History of gastroesophageal reflux disease. 8 History of hyperlipidemia. 9 History of hypertension. 10 History of osteoarthritis. 11 History of kyphoscoliosis. 12 History of colitis. 13 History of anxiety/depression. Plan Continue IV antibiotics Stop IV Lasix Chest x-ray showing significant improvement in the volume status and improvement in bilateral pulmonary infiltrates Aspiration precautions One-to-one feeding and gradual advancement of diet and the patient is tolerating pured diet for now Wean down the FiO2 as tolerated to maintain a saturation above 90% repeat blood work today to monitor the white cell count and the renal functions Continue oral medication including Plavix, Lexapro, Lamictal, Coreg Lovenox subcu for DVT prophylaxis Monitor mental status IV fluids to 20 mL an hour We'll continue to follow, long-term prognosis remains poor baseline above- mentioned comorbidities.
[2021-11-19 16:32] LABS: Glucose,Whole Blood 142 mg/dL (75-99)
--- NOTE | 2021-11-19 17:11 | P.PN ---
Progress Note - Text Progress Note Date: 11/19/21 History of presenting complaint: This is a 80-year-old patient, who follows with visiting physicians Dr. Lewis. Chronic history includes coronary artery disease, COPD, GERD, hyperlipidemia, hypertension, osteoarthritis, cerebral palsy kyphoscoliosis, non-ambulatory. At her baseline she is not able to speak follows simple commands. She needs help with feeding.. At the baseline has pured diet with honey thickened liquids. brought into the emergency room, on November 11, unresponsive, and/or with a cardiac arrest. It's not clear from reviewing the ER javed whether or not the patient did or did not have a pulse. Apparently she had CPR provided to her by [facility]. Apparently that CPR lasted for 20 minutes. No medications were given. An AED was applied but no shocks were given. The patient apparently was further evaluated and resuscitated in the emergency department, and admitted to 3 S., room 372. Patient went into respiratory distress, and required intubation. Admitted with out of hospital cardiopulmonary arrest with resuscitation for 20 minutes and return of spontaneous circulation. PE was ruled out. Patient was intubated. November 16: I assumed care of patient today. ICU: Extubated. Seen by speech therapy. pureed Diet.. Following commands. Dysarthric. 6 L nasal cannula. November 17: ICU: Laying in bed. Tolerating some pured diet. 6 L nasal cannula. Otherwise at the baseline. November 18: Spoke to the nurse. Tolerating. Pured Diet. On 4 L nasal cannula. November 19: A team called earlier today. because of respiratory distress. Patient placed on bronchitis steroids. Patient is short of breath. Prolonged expiration. Concern about intermittent aspiration. patient's brother in [place]. He will talk to his brother patient in the meantime to remain full code. Active Medications Albuterol Sulfate (Albuterol Nebulized 2.5 Mg/3 Ml) 2.5 mg INHALATION RT-Q2H PRN PRN Reason: Shortness Of Breath Or Wheezing Last Admin: 11/19/21 04:05 Dose: 2.5 mg Documented by: Albuterol Sulfate (Albuterol Nebulized 2.5 Mg/3 Ml) 2.5 mg INHALATION RT-QID JSOELITO Last Admin: 11/19/21 16:44 Dose: 2.5 mg Documented by: Atorvastatin Calcium (Atorvastatin 40 Mg Tab) 40 mg PO HS@1999 [facility] Last Admin: 11/18/21 21:32 Dose: 40 mg Documented by: Carvedilol (Carvedilol 12.5 Mg Tab) 12.5 mg PO BID@ [facility] Last Admin: 11/19/21 10:17 Dose: 12.5 mg Documented by: Clopidogrel Bisulfate (Clopidogrel 75 Mg Tab) 75 mg PO DAILY@0800 [facility] Last Admin: 11/19/21 09:58 Dose: 75 mg Documented by: Enoxaparin Sodium (Enoxaparin 40 Mg/0.4 Ml Syringe) 40 mg SQ DAILY [facility] Last Admin: 11/19/21 09:57 Dose: 40 mg Documented by: Escitalopram Oxalate (Escitalopram 20 Mg Tab) 20 mg PO DAILY@0800 [facility] Last Admin: 11/19/21 09:58 Dose: 20 mg Documented by: Hydromorphone HCl (Hydromorphone 1 Mg/Ml 1 Ml Syringe) 1 mg IVP Q1H PRN PRN Reason: Pain Last Admin: 11/17/21 04:39 Dose: 1 mg Documented by: Cefepime HCl 1 gm/ Sodium (Chloride) 50 mls @ 12.5 mls/hr IVPB Q12HR [facility]; Protocol Last Admin: 11/19/21 10:03 Dose: 12.5 mls/hr Documented by: Metronidazole 500 mg/ IV (Solution) 100 mls @ 100 mls/hr IVPB Q8HR [facility]; Protocol Last Admin: 11/19/21 09:59 Dose: 100 mls/hr Documented by: Sodium Chloride (Saline 0.9%) 1,000 mls @ 20 mls/hr IV .Q24H [facility] Last Admin: 11/19/21 02:10 Dose: 20 mls/hr Documented by: Insulin Aspart (Insulin Aspart (Novolog) 100 Unit/Ml Vial) 0 unit SQ Q6HR [facility]; Protocol Last Admin: 11/19/21 13:29 Dose: 3 unit Documented by: Lamotrigine (Lamotrigine 25 Mg Tab) 50 mg PO DAILY@0800 [facility] Last Admin: 11/19/21 09:57 Dose: 50 mg Documented by: Lamotrigine (Lamotrigine 100 Mg Tab) 100 mg PO HS@1999 [facility] Last Admin: 11/18/21 21:32 Dose: 100 mg Documented by: Methylprednisolone Sodium Succinate (Methylprednisolone Sod Succi 125 Mg/2 Ml Vial) 60 mg IV Q6HR [facility] Last Admin: 11/19/21 13:29 Dose: 60 mg Documented by: Miscellaneous Information (Potassium Replacement Protocol 1 Each Misc) 1 each MISCELLANE DAILY PRN; Protocol PRN Reason: Per Protocol Miscellaneous Information (Potassium Replacement Protocol 1 Each Misc) 1 each MISCELLANE DAILY PRN; Protocol PRN Reason: Per Protocol Morphine Sulfate (Morphine Sulfate 4 Mg/Ml Syringe) 4 mg IV Q4HR PRN PRN Reason: Severe Pain Last Admin: 11/15/21 11:56 Dose: 4 mg Documented by: Ondansetron HCl (Ondansetron 4 Mg/2 Ml Vial) 4 mg IVP Q8HR PRN PRN Reason: Nausea And Vomiting Pantoprazole Sodium (Pantoprazole 40 Mg/10 Ml Vial) 40 mg IV DAILY [facility] Last Admin: 11/19/21 09:56 Dose: 40 mg Documented by: Past medical history to include: Asthma, ?CAD, CHF, GERD, hyperlipidemia, hypertension, osteomyelitis, cerebral palsy with intellectual disability, kyphoscoliosis, anxiety Social history: Nonambulatory. Needs help with feeding. Has caregivers Family history: Patient cannot tell Physical examination: VITAL SIGNS: 97.6, 77, 15, 146/77, 98% on 6 L GENERAL: Laying in bed, tired, awake, short of breath EYES: Pupils equal. Conjunctiva normal. HEENT: External appearance of nose and ears normal, oral cavity dry mucous membranes NECK: JVD unable to assess; masses not palpable. HEART: First and second heart sounds are normal; some edema. LUNGS: Respiratory rate increased, decreased breath sounds , wheezing ABDOMEN: Soft, nontender, liver spleen not palpable, no masses palpable. PSYCH: Follows commands. Dysarthric. NEUROLOGICAL: [Cranial nerves grossly intact; no facial asymmetry, bilateral foot drop. Dysarthria. Weakness on the right side INVESTIGATIONS, reviewed in the clinical context: November 17: White count 5.9 hemoglobin 9.5 platelets 189 potassium 4.1 creatinine 0.67 White count 6.6 hemoglobin 9.6 platelets 187 potassium 3.8 creatinine 0.80 albumin 2.8 Chest x-ray film personally reviewed by me-no infiltrates 2-D echo: EF 55-60%. EEG: Negative for epilepsy. Encephalopathic findings CT brain: Cerebral atrophy Assessment and plan: -Out of hospital cardiopulmonary arrest with cardiopulmonary resuscitation. Downtime of about 20 minutes. No evidence of PE. Possible pneumonia. -Acute on chronic congestive heart failure from diastolic dysfunction EF 55-60%: Better IV Lasix discontinued -Acute metabolic encephalopathy from an anoxic encephalopathy from cardiopulmonary arrest: Improving -Patient on Keppra for seizure prophylaxis Being followed by neurology. Taper down -Bilateral pneumonia suspected gram-negative organism: Slow to respond IV cefepime -Acute hypoxic respiratory failure from CHF and pneumonia: Worsening this morning. Status post ventilatory support. Oxygen increased to 6 L. -Chronic dysphagia, chronically on pureedDiet and honey thick liquid All feeding with assistance -Cerebral palsy with intellectual disability Patient may speak occasionally words, follows simple commands -Chronic medical debility from cerebral palsy Nonambulatory -Chronic bilateral foot drop -Primary osteoarthritis Use. Medications as needed -Coronary artery disease Coreg 12.5 twice a day, Lipitor -Essential hypertension Coreg -Asthma Albuterol 4 times a day -Chronic dysarthria -Depression On Lexapro. Xanax when necessary Oxygen increased to 6 L IV cefepime. IV Solu-Medrol increased to 60 mg every 6. Continue pured diet. Speech therapy to reevaluate. Prognosis guarded. . Advanced care planning: Spoke to patient's son timi bravo telephone number [phone] in [place]. Spoke in detail about patient's overall condition. Multiple problems. Repeated respiratory distress. Prognosis guarded. He will talk to his brother and get back to us. In the meantime patient is to remain full code. My recommendation would be DO NOT RESUSCITATE , I told him. Questions answered. Time spent 20 minutes
[2021-11-19 17:24] LABS: Basophils % (A) 0 %; Eosinophils # (A) 0.1 k/uL (0-0.7); Eosinophils % (A) 1 %; HCT 33.9 % (34.0-46.0); HGB 10.2 gm/dL (11.4-16.0); Hypochromasia Slight; Lymphocytes # (A) 0.5 k/uL (1.0-4.8); Lymphocytes % (A) 6 %; MCH 29.3 pg (25.0-35.0); MCV 97.7 fL (80.0-100.0); Mean Platelet Volume 7.7; Monocytes # (A) 0.5 k/uL (0-1.0); Monocytes % (A) 7 %; Neutrophils # (A) 6.8 k/uL (1.3-7.7); Neutrophils % (A) 83 %; Platelet Count 306 k/uL (150-450); RBC 3.47 m/uL (3.80-5.40); RDW 13.8 % (11.5-15.5); WBC 8.1 k/uL (3.8-10.6)
[2021-11-19 17:39] LABS: ALT 37 U/L (4-34); AST 33 U/L (14-36); African American GFR (CKD) 78 (>60 ml/min/1.73 sqM); Albumin 3.5 g/dL (3.5-5.0); Albumin/Globulin Ratio 1.3; Alkaline Phosphatase 79 U/L (38-126); Anion Gap 7 mmol/L; Blood Urea Nitrogen 24 mg/dL (7-17); Calcium 8.8 mg/dL (8.4-10.2); Carbon Dioxide 35 mmol/L (22-30); Chloride 103 mmol/L (98-107); Globulin 2.6 g/dL; Glucose 133 mg/dL (74-99); Non-African American GFR(CKD) 67 (>60 ml/min/1.73 sqM); Potassium 3.7 mmol/L (3.5-5.1); Sodium 145 mmol/L (137-145); Total Bilirubin 0.6 mg/dL (0.2-1.3); Total Protein 6.1 g/dL (6.3-8.2)
[2021-11-19] MEDS: lamoTRIgine 100 MG TAB PO SCH (19:33)
[2021-11-19] MEDS: ATORVASTATIN 40 MG TAB PO SCH (19:33)
[2021-11-20 00:43] LABS: Glucose,Whole Blood 131 mg/dL (75-99)
[2021-11-20] MEDS: INSULIN ASPART (NovoLOG) 100 UNIT/ML VIAL SQ SCH ×4 (00:43→16:44)
[2021-11-20] MEDS: ALBUTEROL NEBULIZED 2.5 MG/3 ML INHALATION PRN ×2 (01:37→04:51)
[2021-11-20] MEDS: SODIUM CHLORIDE 0.9% 1,000 ML IV SCH (04:02)
[2021-11-20 05:43] LABS: Glucose,Whole Blood 142 mg/dL (75-99)
[2021-11-20] MEDS: methylPREDNISolone SOD SUCCI 125 MG/2 ML VIAL IV SCH ×2 (05:59→11:51)
[2021-11-20] MEDS: ALBUTEROL NEBULIZED 2.5 MG/3 ML INHALATION SCH ×4 (07:14→21:04)
[2021-11-20] MEDS: metroNIDAZOLE-NS PMX 500 MG in SALINE 1 100ML.BAG IVPB SCH (08:04)
[2021-11-20] MEDS: ENOXAPARIN 40 MG/0.4 ML SYRINGE SQ SCH (08:05)
[2021-11-20] MEDS: lamoTRIgine 25 MG TAB PO SCH (08:05)
[2021-11-20] MEDS: PANTOPRAZOLE 40 MG/10 ML VIAL IV SCH (08:05)
[2021-11-20] MEDS: carvediloL 12.5 MG TAB PO SCH ×2 (08:05→19:49)
[2021-11-20] MEDS: CLOPIDOGREL 75 MG TAB PO SCH (08:06)
[2021-11-20] MEDS: ESCITALOPRAM 20 MG TAB PO SCH (08:06)
[2021-11-20] MEDS: CEFEPIME 1 GM in SODIUM CHLORIDE 0.9% 50 ML IVPB SCH (08:10)
--- NOTE | 2021-11-20 10:11 | CDI ---
Documentation Clarification Form Date: 11/20/2021 09:45:07 AM From: Blanche Boyer RN CCDS Admit Date: 11/12/2021 03:23:00 AM Patient Name: Jayshree Lemus Visit Number: [id number] Discharge Date: ATTENTION: The Clinical Documentation Specialists (CDI) and [facility] Coding Staff appreciate your assistance in clarifying documentation. Please respond to the clarification below the line at the bottom and electronically sign. The CDI & [facility] Coding staff will review the response and follow-up if needed. Please note: Queries are made part of the Legal Health Record. If you have any questions, please contact the author of this message via ITS. Dr. Merrill Saldana Sepsis is documented H&P, 11/12, but is not noted in subsequent documentation. Clarification is requested. History/Risk Factors: An 80-year-old female presents to the ED via EMS from [facility] with suspected cardiac arrest after being found unresponsive and no pulse, CPR was administered. Medical History: Cerebral palsy, CAD, CHF, COPD, HTN and Asthma. H&P, 11/12. Clinical Indicators: VSS 11/12: B/P 153/97, HR 89, Temp 97.4 F Axillary, RR 18, SpO2 100% Non Rebreather 15L LABS 11/12: Wbc 13.6; Neutrophils 11.6; BNP 1350 CT Angio 11/12: Patchy infiltrate and atelectasis at both lung bases. Some pulmonary interstitial edema. Internal Medicine Progress Note 11/16: Bilateral pneumonia suspected gram- negative organism. Acute hypoxic respiratory failure. Treatment: 11/11 11/12 0.9 NS 130cc/hr; 11/13 current 0.9NS 20cc/hr. 11/12 Azithromycin 500mg IVPB x 1; 11/13 d/cd 11/13 Azithromycin 500mg IVPB Q24HR; 11/12 Ceftriaxone 2gm IVPB x 1; 11/12 11/13 Ceftriaxone 1gm IVPB Q12H, 11/13 to current Flagyl 500mg IVPB Q8HR; 11/13 to current Cefepime 1gm IVPB Q12HR. Please clarify if the Sepsis is: [ ] Sepsis ruled out [ ] Sepsis poa confirmed, resolved [ ] Sepsis poa confirmed, remains under treatment [ ] Other condition, please specify [ ] Unable to determine (Template Last Revised: October 2020) Sepsis POA confirmed, under treatment MTDD
[2021-11-20 11:36] LABS: Glucose,Whole Blood 143 mg/dL (75-99)
[2021-11-20 13:36] VITALS: BMI 26.5
--- NOTE | 2021-11-20 14:18 | P.PN ---
Subjective Progress Note Date: 11/20/21 Principal diagnosis: 79-year-old male who was initially seen in the emergency department, on 11/08/2021, for nausea and vomiting. For a week or so prior to admission, the patient admits to ongoing nausea and vomiting. He apparently told the ER physician that anything he eats, he vomits. He was not able to take his usual medications. The patient was recently diagnosed with an obstructive kidney stone, and was scheduled for a ureteral stent. He apparently denied fever when he was in the emergency department. He does have some minimal stool output from his colostomy. He denied any abdominal pain. We are asked to see him today, after his been in the hospital since November 08. Apparently he was found to have hypotension, and wasn't looking very good, and we decided to move him to the intensive care unit for further monitoring and management. On November 09, because of left ureteral calculi and left hydronephrosis, the patient underwent cystoscopy, balloon dilatation of the left distal ureteral stricture, and left ureteral stent. Also, on November 09, the patient underwent an exploratory laparotomy, extensive lysis of adhesions, and repair of parastomal hernia. The patient also had a small bowel resection. This was done because of bowel obstruction. Urine sampling from November 08 revealed evidence of pseudomonas aeruginosa. White count 22.68, hemoglobin 10.9, hematocrit 33.7, and platelet count 219,000. Sodium 141, potassium 3.8, chlorides 111, CO2 14, anion gap 17, BUN 38, and creatinine 1.8. AST was 387, and ALT was 467. Those are both increasing. Also, urine sampling from November 18 revealed what appears to be a urinary tract infection. Chest x-ray back from November 08 did not show anything acute. Cardiology saw the patient in consultation and ordered amiodarone, lidocaine, and Lopressor. EKG done on 5 N., revealed a wide-complex tachycardia, and a new bundle branch. history significant for CAD and prior stenting of the RCA and LAD as well as ischemic cardiomyopathy and status post AICD and also status post VT ablation in 202011/13/2021, the patient is in the intensive care unit. His current cardiac rhythm is sinus. He is having runs of episodic atrial fibrillation. There is still having episodes of nonsustained ventricular tachycardia. The patient was seen by cardiology. He remains on amiodarone drip which is running at 0.5 mcg /kg per minute and the patient remains on IV heparin. This morning, cardiology evaluated the patient and put him on a beta you and the patient is currently on Toprol-XL 25 mg twice a day and the patient was also started on Mexitil at a dose of 150 milligrams by mouth twice a day. The patient's blood pressure currently is at 124/75. He is on no pressors. He is receiving lactated Ringer at the rate of 20 mL an hour. He is free of any chest pain. His blood work shows a BUN of 57 with a creatinine of 1.8 and the creatinine is at 3.8 and the sodium level is at 140. Normal potassium of 3.8. Lactic acid level was down to 1.8. Troponins were 0.04 and 0.03 respectively 2. His pro-calcitonin level was 1.1. Note that his white cell count is at 38 which is comparable to yesterday and the patient also has a hemoglobin of 13.8 and a platelet count of 190. As mentioned, he had a pseudomonal urinary tract infection. The patient will remains on IV Zosyn. Echo was obtained this morning and the results are still pending for now. His liver function tests were also abnormal. His AST of 157 and ALT of 313 and an alkaline phosphatase of 309. His bilirubin is currently at 1.9. Ultrasound of the liver that was obtained on 11/11/2021 showed limitation due to his body habitus and bowel gas pattern. There was cholelithiasis with distention of the gallbladder possibly indicating an acute cholecystitis. There was still evidence of hydronephrosis of the right kidney stone measuring 1.5 cm in the right kidney was mildly hydronephrotic. His original CAT scan of the abdomen and pelvis that was on 11/08/2021 showed high- grade mechanical small bowel obstruction with transition point in the left lower quadrant in addition to a parastomal hernia. There was also significant wall thickening of the colon just proximal to the colostomy and surrounding area of an acute inflammatory change with her underlying colitis/diverticulitis not being completely excluded. There was also left distal ureteral obstruction with stone and moderate degree of left-sided hydroureter and hydronephrosis. He has NGT and the output was 400 cc over 12 hour 11/14 2021, the patient is being seen in the intensive care unit. This morning, the patient is in a normal sinus rhythm. He did not have any wide-complex tachycardic events overnight. He is currently on a combination of Toprol-XL 25 mg twice a day, Mexitil 150 mg by mouth twice a day and the patient is starting on by mouth amiodarone coming off the amiodarone drip. I was quite concerned about his abdominal situation yesterday and there was a concern of a acute cholecystitis based on the ultrasound findings. There was also concern about ongoing mechanical obstruction as the colostomy stoma looked pale. Based on that, CAT scan of the abdomen was obtained yesterday and the results were discussed with the general surgeon. In summary, a detailed description of the abdominal findings was given in the CAT scan. Based on my understanding with the surgeons evaluation, the patient still has an area of a parastomal hernia which is fat filled and there is some ongoing ileus, unsure of there is any ongoing mechanical obstruction of the small bowel. There is an expected outcome following surgery. NG tube was in place and the patient had a moderate size hiatal hernia. There was contrast backing up into the esophagus. At the same time, there was a foci of air in the right upper quadrant which could be potentially postsurgical in nature. As such, there was no indication for any acute abdomen. There was generalized anasarca and moderate degree of abdominal and pelvic ascites. There was also a small and new bilateral pleural effusion more so on the right compared to the left lung with some adjacent atelectasis and some areas of patchy groundglass pulmonary infiltrates in lung bases and interval placement of a left ureteral stent and this was done by urology for obstructive uropathy. Gallbladder itself was hydropic with cholelithiasis. There was some possible surrounding inflammation versus changes related to a nasarca. Nevertheless, on examination, the patient does not have any significant tenderness in the right upper quadrant. In terms of his LFTs, the patient's ALT is 54 and the AST is 127 and the alkaline phosphatase is 181. His current bilirubin is at 1.6. Note that his LFTs have been improving consistently. His creatinine is down to 1.6 with a BUN of 55 and his sodium level is at 136. White cell count is lower down to 33 with a hemoglobin of 10.7 and platelet count of 173. The patient remains on antibiotics with IV Zosyn. On reevaluation of the stoma, the stoma itself looks pale and there is no output in the colostomy bag. NG tube is in place and output has been in the order of 300 mL overnight. The patient remains in IV heparin for now. 2021, I'm happy to see that the patient is hemodynamically stable. No episodes of ventricular tachycardia overnight. The patient remains on Toprol-XL 25 mg, Mexitil 150 mg by mouth twice a day and he is also on oral amiodarone at a dose of 400 mg twice a day. His current cardiac rhythm is sinus. He is hemodynamically stable. He remains on IV heparin drip. Meanwhile, the patient is on TPN for nutritional support. I'm pleased to see that the patient has gas and positive stool output is colostomy bag. This was noted yesterday. The average output is minimal at this point in time. The patient was offered some clear liquid diet yesterday which he was able to tolerate. No nausea. No emesis. No abdominal pain or distention. No pain in his right quadrant of his abdomen knowing that the patient has a hydropic gallbladder and cholelithiasis. He remains on IV Zosyn regarding a pseudomonal UTI and intra-abdominal coverage following is abdominal surgery. At the same time, the patient's white cell count is still elevated from yesterday and repeat white cell count is pending from today. His white cell count from yesterday was 33. The patient's electrolytes are showing a potassium of 3.0 to be replaced. Creatinine is stable at 1.6 and a BUN of 55. His liver function tests were improving and they're essentially still improving with a AST of 88, ALT of 160, bilirubin is at 1.1. His total protein is at 3.6 with an albumin level of 1.6. Triglyceride levels are 109. Overall fluid balance over the past 24 hours is been +2.4 L. His current IV fluids are 0.9 at 75 and this is to be cut down to KVO. He is on TPN which is running at the rate of 30 mL an hour. He is arousable. He is awake and alert. Follows commands. Overall, quite weak and debilitated. 11/16/2021, I'm seeing the patient for a follow-up. The patient is awake and alert and arousable and answering questions appropriately. He remains quite weak and debilitated. Noted the patient has not had any cardiac arrhythmias. The patient was on IV heparin regarding approximately atrial fibrillation subsequently the patient started having bloody output through the colostomy. The patient accordingly, was taken off the IV heparin. This morning, the output in the colostomy bag is quite bloody and it doesn't look to be melanotic. As such, this could be a GI bleed related to anticoagulation. At evaluation was held and the patient remains in with an empty stable at this point. Most recent blood count is at 9.4 hemoglobin and the patient has a white cell count 25.3. Creatinine stable at 1.47 and the creatinine is slightly improved compared to yesterday. The patient is currently nothing by mouth. Patient is receiving TPN for nutritional support. The patient remains on IV Zosyn regarding Pseudomonas UTI. Using incentive spirometer. No other significant events otherwise for now. General surgeries on the case regarding this ongoing GI bleed. Note that the patient's hemoglobin was as high as 13.8 on 11/13/2021, the patient's hemoglobin dropped down to 8.4 and the patient was given a unit of packed RBC and the subsequent hemoglobin is at 9.4. The white cell count is at 25.3. Platelet count is 145. Creatinine is lower at 1.47. Sodium is at 136. LFTs are normal. The surgical wound site is dry clean and intact. 11/17/2021, seeing the patient for a follow-up. The patient remains lethargic, weak, he had a bout of emesis this morning. Nevertheless, he still has a functional colostomy. No active bleeding in the colostomy site and the patient is currently off anticoagulation. His white cell count remains elevated. No reported abdominal pain. The patient is still on TPN for nutritional support. He reports that he is hungry and he was to proceed with some clear liquid diet. Surgical wound site is dry clean and intact. Hemoglobin is remains stable. Meanwhile, the patient is stable white count and a stable creatinine. The patient's cardiac rhythm is remains stable. The patient remains on a combin ation of amiodarone 0.5 mg per minute and Mexitil 200 mg 3 times a day and the patient has not had any cardiac arrhythmias over the past 48 hours. Urine output is adequate. The patient developed diffuse edema lower extremity is bilaterally patient was given 20 mg of IV Lasix by nephrology with limited response. He is obviously retaining fluid and third spacing. The patient's hemoglobin is low. Meanwhile, the patient was admitted to 35.3 with hemoglobin of 10.8. BNP is at 43 with a creatinine of 1.4 and sodium level is at 136. LFTs are slightly elevated with overall improvement in the bilirubin is down to 1.0. Alkaline phosphatase is 213 with an ALT of 69 and AST of 62. 11/18/2021, condition is essentially unchanged and the patient continues to be lethargic. He is arousable. He is still having episodes of emesis and nausea. Note that his white cell count remains elevated and the patient 1 further had evaluation and the stool came back positive for C. diff and this was cultured from the colostomy. No evidence of any acute bleeding from the colostomy site. Hemoglobin is remains stable. Nevertheless, the patient has a component of C. diff colitis. Zosyn has been discontinued and the patient was started on oral vancomycin to 50 mg 4 times a day. Remains on TPN for nutritional support. Cardiac rhythm remains sinus. He has been switched to oral amiodarone. He is also on oral Mexitil. No evidence of any ventricular tachycardia. He does have third spacing and edema in all 4 extremities. The patient is receiving Dilaudid for pain control. The patient has hypoproteinemia and hyperlipidemia. The patient's creatinine was up to 1.8. He does have a component of non-anion gap metabolic acidosis with a serum bicarb of 19. Creatinine is at 1.76 with a mean of 51. Leukocytosis 51. Slightly elevated on today's evaluation. White cell count is still elevated at 34. 11/19/2021, the patient clinically the same. Nevertheless, the patient is having significant third spacing edema in all 4 extremities. Serum albumin is low. Serum protein is low. The patient is on TPN for nutritional support at a rate of 75 mL an hour. The patient is on O2 at 4 L per minute nasal cannula. At the same time, the patient is not having any major respiratory difficulties. He remains nothing by mouth. He remains nauseated. Colostomy site is functional. There is no active bleeding at this point in time. The patient has positive output of this is related to a component of C. diff colitis and the patient is currently on oral vancomycin as indicated to treat this underlying C. diff colitis. In terms of edema in third spacing, the patient will be placed on a combination of IV albumin and IV Lasix to optimize the fluid balance. The patient is afebrile. The patient is hemodynamically stable. The patient's cardiac rhythm is sinus. The patient is not having any significant arrhythmias. He remains on a combination of amiodarone and Mexitil regarding episodic wide complex ventricular tachycardia. He has a weak. His white cell count is at 31. Hemoglobin is 10. Creatinine is at one point I would again of 60. The patient has a component of non-anion gap metabolic acidosis with a serum bicarb of 17. AST is 160, ALT is 134, alkaline phosphatase 210. Note that all of these LFTs are essentially downtrending. IV Zosyn has been discontinued. The patient is receiving TPN for nutritional support. On 11/20/2021 patient seen in follow-up on medical surgical floor, she is awake and alert, she is following commands, she is able to verbalize responses but it is difficult to understand her. Her cough is noncongested, she is on 6 L of oxygen pulse ox is 98%, afebrile, hemodynamically she has been stable. Yesterday's follow-up chest x-ray showing mild reaction at the lung bases, there is clearing of the pulmonary vascular congestion compared the previous exam. No heart failure. Patient currently remains on IV steroids, she is on nebulized bronchodilators. Patient has completed the antibiotics. Yesterday's labs have been reviewed, white blood cell count was 8.1, hemoglobin was 10.2, sodium was 145, potassium is 3.7, chloride is 103, CO2 is 35, BUN is 24, creatinine 0.82. Pro-calcitonin level is 0.09. Objective - Vital Signs Vital signs: Vital Signs Temp 97.7 F 11/20/21 07:49 Pulse 74 11/20/21 11:18 Resp 20 11/20/21 07:49 BP 194/91 11/20/21 07:49 Pulse Ox 99 11/20/21 07:49 Intake & Output 11/19/21 11/20/21 11/20/21 18:59 06:59 18:59 Weight 44.594 kg 44.594 kg Other: Voiding Method Incontinent Incontinent Incontinent # Voids 3 # Bowel Movements 1 ABP, PAP, CO, CI - Last Documented Arterial Blood Pressure 192/77 - Exam GENERAL EXAM: Alert, very pleasant, 80-year-old white female on 6 L of oxygen and the pulse ox of 98%, comfortable in no apparent distress. Patient has baseline speech abnormality related to her history of cerebral palsy, able to comprehend commands, follows commands, speech is difficult to understand, but patient follows command appropriately HEAD: Normocephalic/atraumatic. EYES: Normal reaction of pupils, equal size. Conjunctiva pink, sclera white. NOSE: Clear with pink turbinates. THROAT: No erythema or exudates. NECK: No masses, no JVD, no thyroid enlargement, no adenopathy. CHEST: No chest wall deformity. Symmetrical expansion. LUNGS: Equal air entry with a few scattered rhonchi CVS: Regular rate and rhythm, normal S1 and S2, no gallops, no murmurs, no rubs ABDOMEN: Soft, nontender. No hepatosplenomegaly, normal bowel sounds, no guarding or rigidity. EXTREMITIES: No clubbing, no edema, no cyanosis, 2+ pulses and upper and lower extremities. MUSCULOSKELETAL: Muscle strength and tone normal. SPINE: No scoliosis or deformity SKIN: No rashes CENTRAL NERVOUS SYSTEM: Alert and oriented -3. Patient is unable to move her lower extremities, bilateral lower extremities are weak, and atrophied related to her history of cerebral palsy. - Labs CBC & Chem 7: 11/19/21 17:07 11/19/21 17:07 Labs: Abnormal Lab Results - Last 24 Hours (Table) 11/19/21 11/19/21 11/19/21 Range/Units 16:29 17:07 17:07 RBC 3.47 L (3.80-5.40) m/uL Hgb 10.2 L (11.4-16.0) gm/dL Hct 33.9 L (34.0-46.0) % MCHC 30.0 L (31.0-37.0) g/dL Lymphocytes # 0.5 L (1.0-4.8) k/uL Carbon Dioxide 35 H (22-30) mmol/L BUN 24 H (7-17) mg/dL Glucose 133 H (74-99) mg/dL POC Glucose (mg/dL) 142 H (75-99) mg/dL ALT 37 H (4-34) U/L Total Protein 6.1 L (6.3-8.2) g/dL 11/20/21 11/20/21 11/20/21 Range/Units 00:42 05:41 11:34 RBC (3.80-5.40) m/uL Hgb (11.4-16.0) gm/dL Hct (34.0-46.0) % MCHC (31.0-37.0) g/dL Lymphocytes # (1.0-4.8) k/uL Carbon Dioxide (22-30) mmol/L BUN (7-17) mg/dL Glucose (74-99) mg/dL POC Glucose (mg/dL) 131 H 142 H 143 H (75-99) mg/dL ALT (4-34) U/L Total Protein (6.3-8.2) g/dL Assessment and Plan Plan: Assessment: #1. [id number] cardiopulmonary arrest with cardiopulmonary resuscitation for 20 minutes and eventual return of spontaneous circulation. No evidence of pulmonary embolism. Chest x-ray shows cardiomegaly with bilateral pulmonary infiltrates. Pro-calcitonin level was low at 0.12. ProBNP level was elevated. Patient regarding intubation and mechanical support. She was successfully weaned and extubated on 11/15/2021, currently remains on 6 L of oxygen #2. Status post intubation and mechanical ventilation for respiratory failure from 11/12/2021 through 11/15/2021. The chest x-ray shows bilateral pulmonary infiltrates mostly on the lower lobes, however the chest x-ray is extremely suboptimal due to severe kyphoscoliosis of the chest. There is improvement in aeration in the upper lobes. Patient has completed a course of broad-spectrum antibiotics. There is component of fluid overload/CHF with a preserved LV function #3. History of cerebral palsy #4. History of CAD #5. History of CHF #6. History of COPD/asthma #7. History of GERD #8. History of hyperlipidemia #9. History of hypertension #10. History of osteoarthritis #11. History of kyphoscoliosis #12. History of colitis #13. History of anxiety/depression #14. History of chronic aspiration Plan: Patient has completed a course of antibiotics Last chest x-ray from yesterday was showing significant improvement in the volume status Maintain aspiration precautions and the patient is known to have chronic aspiration Diet per speech recommendations Provide assistance and supervision with meals Weaning FiO2 Continue GI and DVT prophylaxis From pulmonary perspective she could be considered for discharge back to the skilled nursing I have personally seen and examined the patient, performed the documentation and the assessment and plan as written. Number of minutes spent on the visit: [10] Time with Patient: Less than 30
--- NOTE | 2021-11-20 15:21 | P.PN ---
Progress Note - Text Progress Note Date: 11/20/21 History of presenting complaint: This is a 80-year-old patient, who follows with visiting physicians Dr. Lewis. Chronic history includes coronary artery disease, COPD, GERD, hyperlipidemia, hypertension, osteoarthritis, cerebral palsy kyphoscoliosis, non-ambulatory. At her baseline she is not able to speak follows simple commands. She needs help with feeding.. At the baseline has pured diet with honey thickened liquids. brought into the emergency room, on November 11, unresponsive, and/or with a cardiac arrest. It's not clear from reviewing the ER javed whether or not the patient did or did not have a pulse. Apparently she had CPR provided to her by the [facility]. Apparently that CPR lasted for 20 minutes. No medications were given. An AED was applied but no shocks were given. The patient apparently was further evaluated and resuscitated in the emergency department, and admitted to 3 [address]., room 372. Patient went into respiratory distress, and required intubation. Admitted with out of hospital cardiopulmonary arrest with resuscitation for 20 minutes and return of spontaneous circulation. PE was ruled out. Patient was intubated. November 16: I assumed care of patient today. ICU: Extubated. Seen by speech therapy. pureed Diet.. Following commands. Dysarthric. 6 L nasal cannula. November 17: ICU: Laying in bed. Tolerating some pured diet. 6 L nasal cannula. Otherwise at the baseline. November 18: Spoke to the nurse. Tolerating. Pured Diet. On 4 L nasal cannula. November 19: A team called earlier today. because of respiratory distress. Patient placed on bronchitis steroids. Patient is short of breath. Prolonged expiration. Concern about intermittent aspiration. patient's brother in [place]. He will talk to his brother patient in the meantime to remain full code. November 20: Some shortness of breath. Spoke to Letitia-patient is prone to aspiration. To continue with pured diet and honey thickened liquid. Also discussed with Dr. Cabrera to hope patient is well-known. Patient's had recurrent aspiration. His of bradycardia and DO NOT RESUSCITATE should be appropriate. Also discuss CODE STATUS with the patient. What I understand she is agreeable with the same. Did convey this Dr. Jackson will also address this with the patient. Active Medications Albuterol Sulfate (Albuterol Nebulized 2.5 Mg/3 Ml) 2.5 mg INHALATION RT-Q2H PRN PRN Reason: Shortness Of Breath Or Wheezing Last Admin: 11/20/21 04:51 Dose: 2.5 mg Documented by: Albuterol Sulfate (Albuterol Nebulized 2.5 Mg/3 Ml) 2.5 mg INHALATION RT-QID ON LICENSE OF [facility] Last Admin: 11/20/21 11:04 Dose: 2.5 mg Documented by: Atorvastatin Calcium (Atorvastatin 40 Mg Tab) 40 mg PO HS@1999 ON LICENSE OF [facility] Last Admin: 11/19/21 19:33 Dose: 40 mg Documented by: Carvedilol (Carvedilol 12.5 Mg Tab) 12.5 mg PO BID@ ON LICENSE OF [facility] Last Admin: 11/20/21 08:05 Dose: 12.5 mg Documented by: Clopidogrel Bisulfate (Clopidogrel 75 Mg Tab) 75 mg PO DAILY@0800 ON LICENSE OF [facility] Last Admin: 11/20/21 08:06 Dose: 75 mg Documented by: Enoxaparin Sodium (Enoxaparin 40 Mg/0.4 Ml Syringe) 40 mg SQ DAILY ON LICENSE OF [facility] Last Admin: 11/20/21 08:05 Dose: 40 mg Documented by: Escitalopram Oxalate (Escitalopram 20 Mg Tab) 20 mg PO DAILY@0800 ON LICENSE OF [facility] Last Admin: 11/20/21 08:06 Dose: 20 mg Documented by: Hydromorphone HCl (Hydromorphone 1 Mg/Ml 1 Ml Syringe) 1 mg IVP Q1H PRN PRN Reason: Pain Last Admin: 11/17/21 04:39 Dose: 1 mg Documented by: Sodium Chloride (Saline 0.9%) 1,000 mls @ 20 mls/hr IV .Q24H ON LICENSE OF [facility] Last Admin: 11/20/21 04:02 Dose: 20 mls/hr Documented by: Insulin Aspart (Insulin Aspart (Novolog) 100 Unit/Ml Vial) 0 unit SQ Q6HR ON LICENSE OF [facility]; Protocol Last Admin: 11/20/21 11:51 Dose: 1 unit Documented by: Lamotrigine (Lamotrigine 25 Mg Tab) 50 mg PO DAILY@0800 ON LICENSE OF [facility] Last Admin: 11/20/21 08:05 Dose: 50 mg Documented by: Lamotrigine (Lamotrigine 100 Mg Tab) 100 mg PO HS@1999 ON LICENSE OF [facility] Last Admin: 11/19/21 19:33 Dose: 100 mg Documented by: Methylprednisolone Sodium Succinate (Methylprednisolone Sod Succi 125 Mg/2 Ml Vial) 60 mg IV Q6HR ON LICENSE OF [facility] Last Admin: 11/20/21 11:51 Dose: 60 mg Documented by: Miscellaneous Information (Potassium Replacement Protocol 1 Each Misc) 1 each MISCELLANE DAILY PRN; Protocol PRN Reason: Per Protocol Miscellaneous Information (Potassium Replacement Protocol 1 Each Misc) 1 each MISCELLANE DAILY PRN; Protocol PRN Reason: Per Protocol Morphine Sulfate (Morphine Sulfate 4 Mg/Ml Syringe) 4 mg IV Q4HR PRN PRN Reason: Severe Pain Last Admin: 11/15/21 11:56 Dose: 4 mg Documented by: Ondansetron HCl (Ondansetron 4 Mg/2 Ml Vial) 4 mg IVP Q8HR PRN PRN Reason: Nausea And Vomiting Pantoprazole Sodium (Pantoprazole 40 Mg/10 Ml Vial) 40 mg IV DAILY ON LICENSE OF [facility] Last Admin: 11/20/21 08:05 Dose: 40 mg Documented by: Past medical history to include: Asthma, ?CAD, CHF, GERD, hyperlipidemia, hypertension, osteomyelitis, cerebral palsy with intellectual disability, kyphoscoliosis, anxiety Social history: Nonambulatory. Needs help with feeding. Has caregivers Family history: Patient cannot tell Physical examination: VITAL SIGNS: 97.5, 71, 24, 177/76, 98% on 6 L GENERAL: Laying in bed, tired, awake, short of breath EYES: Pupils equal. Conjunctiva normal. HEENT: External appearance of nose and ears normal, oral cavity dry mucous membranes NECK: JVD unable to assess; masses not palpable. HEART: First and second heart sounds are normal; some edema. LUNGS: Respiratory rate increased, decreased breath sounds , ABDOMEN: Soft, nontender, liver spleen not palpable, no masses palpable. PSYCH: Follows commands. Dysarthric. NEUROLOGICAL: [Cranial nerves grossly intact; no facial asymmetry, bilateral foot drop. Dysarthria. Weakness on the right side INVESTIGATIONS, reviewed in the clinical context: November 17: White count 5.9 hemoglobin 9.5 platelets 189 potassium 4.1 creatinine 0.67 White count 6.6 hemoglobin 9.6 platelets 187 potassium 3.8 creatinine 0.80 albumin 2.8 Chest x-ray film personally reviewed by me-no infiltrates 2-D echo: EF 55-60%. EEG: Negative for epilepsy. Encephalopathic findings CT brain: Cerebral atrophy Assessment and plan: -Out of hospital cardiopulmonary arrest with cardiopulmonary resuscitation. Downtime of about 20 minutes. No evidence of PE. Possible pneumonia. -Acute on chronic congestive heart failure from diastolic dysfunction EF 55-60%: Better IV Lasix discontinued -Acute metabolic encephalopathy from an anoxic encephalopathy from cardiopulm onary arrest: Improving -Patient on Keppra for seizure prophylaxis Being followed by neurology. Taper down -Bilateral pneumonia suspected gram-negative organism: Better IV cefepime -Acute hypoxic respiratory failure from CHF and pneumonia: Slow to respond Status post ventilatory support. Oxygen 6 L. -Chronic dysphagia, chronically on pureedDiet and honey thick liquid All feeding with assistance -Cerebral palsy with intellectual disability Patient may speak occasionally words, follows simple commands -Chronic medical debility from cerebral palsy Nonambulatory -Chronic bilateral foot drop -Primary osteoarthritis Use. Medications as needed -Coronary artery disease Coreg 12.5 twice a day, Lipitor -Essential hypertension Coreg -Asthma Albuterol 4 times a day -Chronic dysarthria -Depression On Lexapro. Xanax when necessary Discussed with therapist. Continue with aspiration precautions and pured diet with honey thickened liquids. Patient has known recurrent aspiration. Also spoke Dr. Cabrera. Prognosis guarded. He'll also discussed with the patient about CODE STATUS. It appears patient is agreed with DO NOT RESUSCITATE. Because of dysarthria trouble with communication. Cutback Solu-Medrol. Total time spent today about 40 minutes with over 25 minutes of discussion.
[2021-11-20 16:39] LABS: Glucose,Whole Blood 41 mg/dL (75-99)
[2021-11-20 17:12] LABS: Glucose,Whole Blood 179 mg/dL (75-99)
[2021-11-20] MEDS: lamoTRIgine 100 MG TAB PO SCH (19:49)
[2021-11-20] MEDS: ALPRAZolam 0.25 MG TAB PO PRN (19:49)
[2021-11-20] MEDS: amLODIPine 5 MG TAB PO SCH (19:49)
[2021-11-20] MEDS: ATORVASTATIN 40 MG TAB PO SCH (19:49)
[2021-11-20] MEDS: methylPREDNISolone SOD SUCCI 40 MG/ML 1 ML VIAL IV SCH (19:49)
[2021-11-21 01:11] LABS: Glucose,Whole Blood 139 mg/dL (75-99)
[2021-11-21] MEDS: SODIUM CHLORIDE 0.9% 1,000 ML IV SCH (01:21)
[2021-11-21] MEDS: INSULIN ASPART (NovoLOG) 100 UNIT/ML VIAL SQ SCH ×5 (01:21→17:14)
[2021-11-21 06:17] LABS: Glucose,Whole Blood 130 mg/dL (75-99)
[2021-11-21] MEDS: ALBUTEROL NEBULIZED 2.5 MG/3 ML INHALATION SCH ×4 (07:22→19:48)
[2021-11-21] MEDS ORDERED: ISOSORBIDE MONONITRATE ER 60 MG TAB.ER.24H PO SCH (08:00)
[2021-11-21] MEDS: ENOXAPARIN 40 MG/0.4 ML SYRINGE SQ SCH (09:02)
[2021-11-21] MEDS: CLOPIDOGREL 75 MG TAB PO SCH (09:04)
[2021-11-21] MEDS: methylPREDNISolone SOD SUCCI 40 MG/ML 1 ML VIAL IV SCH ×2 (09:04→22:04)
[2021-11-21] MEDS: ESCITALOPRAM 20 MG TAB PO SCH (09:04)
[2021-11-21] MEDS: carvediloL 12.5 MG TAB PO SCH ×2 (09:04→21:27)
[2021-11-21] MEDS: PANTOPRAZOLE 40 MG/10 ML VIAL IV SCH (09:05)
[2021-11-21] MEDS: ALPRAZolam 0.25 MG TAB PO PRN (09:20)
--- NOTE | 2021-11-21 09:56 | P.PN ---
Subjective Progress Note Date: 11/21/21 Principal diagnosis: 79-year-old male who was initially seen in the emergency department, on 11/08/2021, for nausea and vomiting. For a week or so prior to admission, the patient admits to ongoing nausea and vomiting. He apparently told the ER physician that anything he eats, he vomits. He was not able to take his usual medications. The patient was recently diagnosed with an obstructive kidney stone, and was scheduled for a ureteral stent. He apparently denied fever when he was in the emergency department. He does have some minimal stool output from his colostomy. He denied any abdominal pain. We are asked to see him today, after his been in the hospital since November 08. Apparently he was found to have hypotension, and wasn't looking very good, and we decided to move him to the intensive care unit for further monitoring and management. On November 09, because of left ureteral calculi and left hydronephrosis, the patient underwent cystoscopy, balloon dilatation of the left distal ureteral stricture, and left ureteral stent. Also, on November 09, the patient underwent an exploratory laparotomy, extensive lysis of adhesions, and repair of parastomal hernia. The patient also had a small bowel resection. This was done because of bowel obstruction. Urine sampling from November 08 revealed evidence of pseudomonas aeruginosa. White count 22.68, hemoglobin 10.9, hematocrit 33.7, and platelet count 219,000. Sodium 141, potassium 3.8, chlorides 111, CO2 14, anion gap 17, BUN 38, and creatinine 1.8. AST was 387, and ALT was 467. Those are both increasing. Also, urine sampling from November 18 revealed what appears to be a urinary tract infection. Chest x-ray back from November 08 did not show anything acute. Cardiology saw the patient in consultation and ordered amiodarone, lidocaine, and Lopressor. EKG done on 5 N., revealed a wide-complex tachycardia, and a new bundle branch. history significant for CAD and prior stenting of the RCA and LAD as well as ischemic cardiomyopathy and status post AICD and also status post VT ablation in 202011/13/2021, the patient is in the intensive care unit. His current cardiac rhythm is sinus. He is having runs of episodic atrial fibrillation. There is still having episodes of nonsustained ventricular tachycardia. The patient was seen by cardiology. He remains on amiodarone drip which is running at 0.5 mcg /kg per minute and the patient remains on IV heparin. This morning, cardiology evaluated the patient and put him on a beta you and the patient is currently on Toprol-XL 25 mg twice a day and the patient was also started on Mexitil at a dose of 150 milligrams by mouth twice a day. The patient's blood pressure currently is at 124/75. He is on no pressors. He is receiving lactated Ringer at the rate of 20 mL an hour. He is free of any chest pain. His blood work shows a BUN of 57 with a creatinine of 1.8 and the creatinine is at 3.8 and the sodium level is at 140. Normal potassium of 3.8. Lactic acid level was down to 1.8. Troponins were 0.04 and 0.03 respectively 2. His pro-calcitonin level was 1.1. Note that his white cell count is at 38 which is comparable to yesterday and the patient also has a hemoglobin of 13.8 and a platelet count of 190. As mentioned, he had a pseudomonal urinary tract infection. The patient will remains on IV Zosyn. Echo was obtained this morning and the results are still pending for now. His liver function tests were also abnormal. His AST of 157 and ALT of 313 and an alkaline phosphatase of 309. His bilirubin is currently at 1.9. Ultrasound of the liver that was obtained on 11/11/2021 showed limitation due to his body habitus and bowel gas pattern. There was cholelithiasis with distention of the gallbladder possibly indicating an acute cholecystitis. There was still evidence of hydronephrosis of the right kidney stone measuring 1.5 cm in the right kidney was mildly hydronephrotic. His original CAT scan of the abdomen and pelvis that was on 11/08/2021 showed high- grade mechanical small bowel obstruction with transition point in the left lower quadrant in addition to a parastomal hernia. There was also significant wall thickening of the colon just proximal to the colostomy and surrounding area of an acute inflammatory change with her underlying colitis/diverticulitis not being completely excluded. There was also left distal ureteral obstruction with stone and moderate degree of left-sided hydroureter and hydronephrosis. He has NGT and the output was 400 cc over 12 hour 11/14 2021, the patient is being seen in the intensive care unit. This morning, the patient is in a normal sinus rhythm. He did not have any wide-complex tachycardic events overnight. He is currently on a combination of Toprol-XL 25 mg twice a day, Mexitil 150 mg by mouth twice a day and the patient is starting on by mouth amiodarone coming off the amiodarone drip. I was quite concerned about his abdominal situation yesterday and there was a concern of a acute cholecystitis based on the ultrasound findings. There was also concern about ongoing mechanical obstruction as the colostomy stoma looked pale. Based on that, CAT scan of the abdomen was obtained yesterday and the results were discussed with the general surgeon. In summary, a detailed description of the abdominal findings was given in the CAT scan. Based on my understanding with the surgeons evaluation, the patient still has an area of a parastomal hernia which is fat filled and there is some ongoing ileus, unsure of there is any ongoing mechanical obstruction of the small bowel. There is an expected outcome following surgery. NG tube was in place and the patient had a moderate size hiatal hernia. There was contrast backing up into the esophagus. At the same time, there was a foci of air in the right upper quadrant which could be potentially postsurgical in nature. As such, there was no indication for any acute abdomen. There was generalized anasarca and moderate degree of abdominal and pelvic ascites. There was also a small and new bilateral pleural effusion more so on the right compared to the left lung with some adjacent atelectasis and some areas of patchy groundglass pulmonary infiltrates in lung bases and interval placement of a left ureteral stent and this was done by urology for obstructive uropathy. Gallbladder itself was hydropic with cholelithiasis. There was some possible surrounding inflammation versus changes related to a nasarca. Nevertheless, on examination, the patient does not have any significant tenderness in the right upper quadrant. In terms of his LFTs, the patient's ALT is 54 and the AST is 127 and the alkaline phosphatase is 181. His current bilirubin is at 1.6. Note that his LFTs have been improving consistently. His creatinine is down to 1.6 with a BUN of 55 and his sodium level is at 136. White cell count is lower down to 33 with a hemoglobin of 10.7 and platelet count of 173. The patient remains on antibiotics with IV Zosyn. On reevaluation of the stoma, the stoma itself looks pale and there is no output in the colostomy bag. NG tube is in place and output has been in the order of 300 mL overnight. The patient remains in IV heparin for now. 2021, I'm happy to see that the patient is hemodynamically stable. No episodes of ventricular tachycardia overnight. The patient remains on Toprol-XL 25 mg, Mexitil 150 mg by mouth twice a day and he is also on oral amiodarone at a dose of 400 mg twice a day. His current cardiac rhythm is sinus. He is hemodynamically stable. He remains on IV heparin drip. Meanwhile, the patient is on TPN for nutritional support. I'm pleased to see that the patient has gas and positive stool output is colostomy bag. This was noted yesterday. The average output is minimal at this point in time. The patient was offered some clear liquid diet yesterday which he was able to tolerate. No nausea. No emesis. No abdominal pain or distention. No pain in his right quadrant of his abdomen knowing that the patient has a hydropic gallbladder and cholelithiasis. He remains on IV Zosyn regarding a pseudomonal UTI and intra-abdominal coverage following is abdominal surgery. At the same time, the patient's white cell count is still elevated from yesterday and repeat white cell count is pending from today. His white cell count from yesterday was 33. The patient's electrolytes are showing a potassium of 3.0 to be replaced. Creatinine is stable at 1.6 and a BUN of 55. His liver function tests were improving and they're essentially still improving with a AST of 88, ALT of 160, bilirubin is at 1.1. His total protein is at 3.6 with an albumin level of 1.6. Triglyceride levels are 109. Overall fluid balance over the past 24 hours is been +2.4 L. His current IV fluids are 0.9 at 75 and this is to be cut down to KVO. He is on TPN which is running at the rate of 30 mL an hour. He is arousable. He is awake and alert. Follows commands. Overall, quite weak and debilitated. 11/16/2021, I'm seeing the patient for a follow-up. The patient is awake and alert and arousable and answering questions appropriately. He remains quite weak and debilitated. Noted the patient has not had any cardiac arrhythmias. The patient was on IV heparin regarding approximately atrial fibrillation subsequently the patient started having bloody output through the colostomy. The patient accordingly, was taken off the IV heparin. This morning, the output in the colostomy bag is quite bloody and it doesn't look to be melanotic. As such, this could be a GI bleed related to anticoagulation. At evaluation was held and the patient remains in with an empty stable at this point. Most recent blood count is at 9.4 hemoglobin and the patient has a white cell count 25.3. Creatinine stable at 1.47 and the creatinine is slightly improved compared to yesterday. The patient is currently nothing by mouth. Patient is receiving TPN for nutritional support. The patient remains on IV Zosyn regarding Pseudomonas UTI. Using incentive spirometer. No other significant events otherwise for now. General surgeries on the case regarding this ongoing GI bleed. Note that the patient's hemoglobin was as high as 13.8 on 11/13/2021, the patient's hemoglobin dropped down to 8.4 and the patient was given a unit of packed RBC and the subsequent hemoglobin is at 9.4. The white cell count is at 25.3. Platelet count is 145. Creatinine is lower at 1.47. Sodium is at 136. LFTs are normal. The surgical wound site is dry clean and intact. 11/17/2021, seeing the patient for a follow-up. The patient remains lethargic, weak, he had a bout of emesis this morning. Nevertheless, he still has a functional colostomy. No active bleeding in the colostomy site and the patient is currently off anticoagulation. His white cell count remains elevated. No reported abdominal pain. The patient is still on TPN for nutritional support. He reports that he is hungry and he was to proceed with some clear liquid diet. Surgical wound site is dry clean and intact. Hemoglobin is remains stable. Meanwhile, the patient is stable white count and a stable creatinine. The patient's cardiac rhythm is remains stable. The patient remains on a combin ation of amiodarone 0.5 mg per minute and Mexitil 200 mg 3 times a day and the patient has not had any cardiac arrhythmias over the past 48 hours. Urine output is adequate. The patient developed diffuse edema lower extremity is bilaterally patient was given 20 mg of IV Lasix by nephrology with limited response. He is obviously retaining fluid and third spacing. The patient's hemoglobin is low. Meanwhile, the patient was admitted to 35.3 with hemoglobin of 10.8. BNP is at 43 with a creatinine of 1.4 and sodium level is at 136. LFTs are slightly elevated with overall improvement in the bilirubin is down to 1.0. Alkaline phosphatase is 213 with an ALT of 69 and AST of 62. 11/18/2021, condition is essentially unchanged and the patient continues to be lethargic. He is arousable. He is still having episodes of emesis and nausea. Note that his white cell count remains elevated and the patient 1 further had evaluation and the stool came back positive for C. diff and this was cultured from the colostomy. No evidence of any acute bleeding from the colostomy site. Hemoglobin is remains stable. Nevertheless, the patient has a component of C. diff colitis. Zosyn has been discontinued and the patient was started on oral vancomycin to 50 mg 4 times a day. Remains on TPN for nutritional support. Cardiac rhythm remains sinus. He has been switched to oral amiodarone. He is also on oral Mexitil. No evidence of any ventricular tachycardia. He does have third spacing and edema in all 4 extremities. The patient is receiving Dilaudid for pain control. The patient has hypoproteinemia and hyperlipidemia. The patient's creatinine was up to 1.8. He does have a component of non-anion gap metabolic acidosis with a serum bicarb of 19. Creatinine is at 1.76 with a mean of 51. Leukocytosis 51. Slightly elevated on today's evaluation. White cell count is still elevated at 34. 11/19/2021, the patient clinically the same. Nevertheless, the patient is having significant third spacing edema in all 4 extremities. Serum albumin is low. Serum protein is low. The patient is on TPN for nutritional support at a rate of 75 mL an hour. The patient is on O2 at 4 L per minute nasal cannula. At the same time, the patient is not having any major respiratory difficulties. He remains nothing by mouth. He remains nauseated. Colostomy site is functional. There is no active bleeding at this point in time. The patient has positive output of this is related to a component of C. diff colitis and the patient is currently on oral vancomycin as indicated to treat this underlying C. diff colitis. In terms of edema in third spacing, the patient will be placed on a combination of IV albumin and IV Lasix to optimize the fluid balance. The patient is afebrile. The patient is hemodynamically stable. The patient's cardiac rhythm is sinus. The patient is not having any significant arrhythmias. He remains on a combination of amiodarone and Mexitil regarding episodic wide complex ventricular tachycardia. He has a weak. His white cell count is at 31. Hemoglobin is 10. Creatinine is at one point I would again of 60. The patient has a component of non-anion gap metabolic acidosis with a serum bicarb of 17. AST is 160, ALT is 134, alkaline phosphatase 210. Note that all of these LFTs are essentially downtrending. IV Zosyn has been discontinued. The patient is receiving TPN for nutritional support. On 11/20/2021 patient seen in follow-up on medical surgical floor, she is awake and alert, she is following commands, she is able to verbalize responses but it is difficult to understand her. Her cough is noncongested, she is on 6 L of oxygen pulse ox is 98%, afebrile, hemodynamically she has been stable. Yesterday's follow-up chest x-ray showing mild reaction at the lung bases, there is clearing of the pulmonary vascular congestion compared the previous exam. No heart failure. Patient currently remains on IV steroids, she is on nebulized bronchodilators. Patient has completed the antibiotics. Yesterday's labs have been reviewed, white blood cell count was 8.1, hemoglobin was 10.2, sodium was 145, potassium is 3.7, chloride is 103, CO2 is 35, BUN is 24, creatinine 0.82. Pro-calcitonin level is 0.09. On 11/21/2021 patient is seen in follow-up on medical surgical floor. She is currently on 5 L of oxygen pulse ox is 97%, she is resting in bed, she states her back hurts, but denies any worsening dyspnea. Vital signs have been stable overnight. Patient has been afebrile, lung sounds are diminished. Last chest x-ray from 11/19/2021 showed mild pleural reaction, clearing of the pulmonary vascular congestion. She completed her antibiotics, she remains on Solu-Medrol at 40 mg every 12 hours, and breathing treatments, she is on pured diet with honey thick liquids. Objective - Vital Signs Vital signs: Vital Signs Temp 97.9 F 11/21/21 02:00 Pulse 72 11/21/21 07:42 Resp 17 11/21/21 02:00 BP 174/67 11/21/21 02:00 Pulse Ox 97 11/21/21 02:00 Intake & Output 11/20/21 11/21/21 11/21/21 18:59 06:59 18:59 Weight 44.594 kg 43.998 kg Other: Voiding Method Incontinent Incontinent # Voids 2 2 # Bowel Movements 2 1 ABP, PAP, CO, CI - Last Documented Arterial Blood Pressure 192/77 - Exam GENERAL EXAM: Alert, very pleasant, 80-year-old white female on 5 L of oxygen and the pulse ox of 97%, comfortable in no apparent distress. Patient has baseline speech abnormality related to her history of cerebral palsy, able to comprehend commands, follows commands, speech is difficult to understand, but patient follows command appropriately HEAD: Normocephalic/atraumatic. EYES: Normal reaction of pupils, equal size. Conjunctiva pink, sclera white. NOSE: Clear with pink turbinates. THROAT: No erythema or exudates. NECK: No masses, no JVD, no thyroid enlargement, no adenopathy. CHEST: No chest wall deformity. Symmetrical expansion. LUNGS: Equal air entry with a few scattered rhonchi CVS: Regular rate and rhythm, normal S1 and S2, no gallops, no murmurs, no rubs ABDOMEN: Soft, nontender. No hepatosplenomegaly, normal bowel sounds, no guarding or rigidity. EXTREMITIES: No clubbing, no edema, no cyanosis, 2+ pulses and upper and lower extremities. MUSCULOSKELETAL: Muscle strength and tone normal. SPINE: No scoliosis or deformity SKIN: No rashes CENTRAL NERVOUS SYSTEM: Alert and oriented -3. Patient is unable to move her lower extremities, bilateral lower extremities are weak, and atrophied related to her history of cerebral palsy. - Labs CBC & Chem 7: 11/19/21 17:07 11/19/21 17:07 Labs: Abnormal Lab Results - Last 24 Hours (Table) 11/20/21 11/20/21 11/20/21 Range/Units 11:34 16:38 17:11 POC Glucose (mg/dL) 143 H 41 L 179 H (75-99) mg/dL 11/21/21 11/21/21 Range/Units 01:10 06:16 POC Glucose (mg/dL) 139 H 130 H (75-99) mg/dL Assessment and Plan Plan: Assessment: #1. [id number] cardiopulmonary arrest with cardiopulmonary resuscitation for 20 minutes and eventual return of spontaneous circulation. No evidence of pulmonary embolism. Chest x-ray shows cardiomegaly with bilateral pulmonary infiltrates. Pro-calcitonin level was low at 0.12. ProBNP level was elevated. Patient regarding intubation and mechanical support. She was successfully weaned and extubated on 11/15/2021, currently remains on 6 L of oxygen #2. Status post intubation and mechanical ventilation for respiratory failure from 11/12/2021 through 11/15/2021. The chest x-ray shows bilateral pulmonary infiltrates mostly on the lower lobes, however the chest x-ray is extremely suboptimal due to severe kyphoscoliosis of the chest. There is improvement in aeration in the upper lobes. Patient has completed a course of broad-spectrum antibiotics. There is component of fluid overload/CHF with a preserved LV function #3. History of cerebral palsy #4. History of CAD #5. History of CHF #6. History of COPD/asthma #7. History of GERD #8. History of hyperlipidemia #9. History of hypertension #10. History of osteoarthritis #11. History of kyphoscoliosis #12. History of colitis #13. History of anxiety/depression #14. History of chronic aspiration Plan: Continue weaning FiO2 Patient is currently down to 5 L No worsening dyspnea She has completed her course of antibiotics No fever or chills She remains high risk for recurrent aspiration Maintain aspiration precautions Patient is on pured diet with honey thick liquids Overall long-term prognosis is extremely guarded I have personally seen and examined the patient, performed the documentation and the assessment and plan as written. Number of minutes spent on the visit: [10] Time with Patient: Less than 30
[2021-11-21] MEDS: lamoTRIgine 25 MG TAB PO SCH (10:54)
[2021-11-21] MEDS: ISOSORBIDE DINITRATE 10 MG TAB PO SCH ×2 (10:55→21:28)
[2021-11-21 11:37] LABS: Glucose,Whole Blood 128 mg/dL (75-99)
--- NOTE | 2021-11-21 15:33 | P.PN ---
Progress Note - Text Progress Note Date: 11/21/21 History of presenting complaint: This is a 80-year-old patient, who follows with visiting physicians Dr. Lewis. Chronic history includes coronary artery disease, COPD, GERD, hyperlipidemia, hypertension, osteoarthritis, cerebral palsy kyphoscoliosis, non-ambulatory. At her baseline she is not able to speak follows simple commands. She needs help with feeding.. At the baseline has pured diet with honey thickened liquids. brought into the emergency room, on November 11, unresponsive, and/or with a cardiac arrest. It's not clear from reviewing the ER javed whether or not the patient did or did not have a pulse. Apparently she had CPR provided to her by the [facility]. Apparently that CPR lasted for 20 minutes. No medications were given. An AED was applied but no shocks were given. The patient apparently was further evaluated and resuscitated in the emergency department, and admitted to 3 S., room 372. Patient went into respiratory distress, and required intubation. Admitted with out of hospital cardiopulmonary arrest with resuscitation for 20 minutes and return of spontaneous circulation. PE was ruled out. Patient was intubated. November 16: I assumed care of patient today. ICU: Extubated. Seen by speech therapy. pureed Diet.. Following commands. Dysarthric. 6 L nasal cannula. November 17: ICU: Laying in bed. Tolerating some pured diet. 6 L nasal cannula. Otherwise at the baseline. November 18: Spoke to the nurse. Tolerating. Pured Diet. On 4 L nasal cannula. November 19: A team called earlier today. because of respiratory distress. Patient placed on bronchitis steroids. Patient is short of breath. Prolonged expiration. Concern about intermittent aspiration. patient's brother in [place]. He will talk to his brother patient in the meantime to remain full code. November 20: Some shortness of breath. Spoke to Letitia-patient is prone to aspiration. To continue with pured diet and honey thickened liquid. Also discussed with Dr. Cabrera to hope patient is well-known. Patient's had recurrent aspiration. His of bradycardia and DO NOT RESUSCITATE should be appropriate. Also discuss CODE STATUS with the patient. What I understand she is agreeable with the same. Did convey this Dr. Morgan will also address this with the patient. November 21: Some shortness of breath persists. Oral intake fluctuating. Patient off antibiotics. IV Solu-Medrol 40 every 12. international bank manager looking into inpatient placement. [facility] and not take the patient back Active Medications Albuterol Sulfate (Albuterol Nebulized 2.5 Mg/3 Ml) 2.5 mg INHALATION RT-Q2H PRN PRN Reason: Shortness Of Breath Or Wheezing Last Admin: 11/20/21 04:51 Dose: 2.5 mg Documented by: Albuterol Sulfate (Albuterol Nebulized 2.5 Mg/3 Ml) 2.5 mg INHALATION RT-QID [facility] Last Admin: 11/21/21 11:04 Dose: 2.5 mg Documented by: Alprazolam (Alprazolam 0.25 Mg Tab) 0.25 mg PO BID PRN PRN Reason: Anxiety Last Admin: 11/21/21 09:20 Dose: 0.25 mg Documented by: Amlodipine Besylate (Amlodipine 5 Mg Tab) 5 mg PO HS@1999 [facility] Last Admin: 11/20/21 19:49 Dose: 5 mg Documented by: Atorvastatin Calcium (Atorvastatin 40 Mg Tab) 40 mg PO HS@1999 [facility] Last Admin: 11/20/21 19:49 Dose: 40 mg Documented by: Carvedilol (Carvedilol 12.5 Mg Tab) 12.5 mg PO BID@ [facility] Last Admin: 11/21/21 09:04 Dose: 12.5 mg Documented by: Clopidogrel Bisulfate (Clopidogrel 75 Mg Tab) 75 mg PO DAILY@0800 [facility] Last Admin: 11/21/21 09:04 Dose: 75 mg Documented by: Enoxaparin Sodium (Enoxaparin 40 Mg/0.4 Ml Syringe) 40 mg SQ DAILY [facility] Last Admin: 11/21/21 09:02 Dose: 40 mg Documented by: Escitalopram Oxalate (Escitalopram 20 Mg Tab) 20 mg PO DAILY@0800 [facility] Last Admin: 11/21/21 09:04 Dose: 20 mg Documented by: Hydromorphone HCl (Hydromorphone 1 Mg/Ml 1 Ml Syringe) 1 mg IVP Q1H PRN PRN Reason: Pain Last Admin: 11/17/21 04:39 Dose: 1 mg Documented by: Sodium Chloride (Saline 0.9%) 1,000 mls @ 20 mls/hr IV .Q24H [facility] Last Admin: 11/21/21 01:21 Dose: Not Given Documented by: Insulin Aspart (Insulin Aspart (Novolog) 100 Unit/Ml Vial) 0 unit SQ Q6HR [facility]; Protocol Last Admin: 11/21/21 12:08 Dose: Not Given Documented by: Isosorbide Dinitrate (Isosorbide Dinitrate 10 Mg Tab) 30 mg PO BID [facility] Last Admin: 11/21/21 10:55 Dose: 30 mg Documented by: Lamotrigine (Lamotrigine 25 Mg Tab) 50 mg PO DAILY@0800 [facility] Last Admin: 11/21/21 10:54 Dose: 50 mg Documented by: Lamotrigine (Lamotrigine 100 Mg Tab) 100 mg PO HS@2000 [facility] Last Admin: 11/20/21 19:49 Dose: 100 mg Documented by: Methylprednisolone Sodium Succinate (Methylprednisolone Sod Succi 40 Mg/Ml 1 Ml Vial) 40 mg IV Q12HR [facility] Last Admin: 11/21/21 09:04 Dose: 40 mg Documented by: Miscellaneous Information (Potassium Replacement Protocol 1 Each Misc) 1 each MISCELLANE DAILY PRN; Protocol PRN Reason: Per Protocol Miscellaneous Information (Potassium Replacement Protocol 1 Each Misc) 1 each MISCELLANE DAILY PRN; Protocol PRN Reason: Per Protocol Morphine Sulfate (Morphine Sulfate 4 Mg/Ml Syringe) 4 mg IV Q4HR PRN PRN Reason: Severe Pain Last Admin: 11/15/21 11:56 Dose: 4 mg Documented by: Ondansetron HCl (Ondansetron 4 Mg/2 Ml Vial) 4 mg IVP Q8HR PRN PRN Reason: Nausea And Vomiting Pantoprazole Sodium (Pantoprazole 40 Mg/10 Ml Vial) 40 mg IV DAILY [facility] Last Admin: 11/21/21 09:05 Dose: 40 mg Documented by: Past medical history to include: Asthma, ?CAD, CHF, GERD, hyperlipidemia, hypertension, osteomyelitis, cerebral palsy with intellectual disability, kyphoscoliosis, anxiety Social history: Nonambulatory. Needs help with feeding. Has caregivers Family history: Patient cannot tell Physical examination: VITAL SIGNS: 97.5, 59, 18, 169/75, 92% on 4 L GENERAL: Laying in bed, tired, awake, short of breath EYES: Pupils equal. Conjunctiva normal. HEENT: External appearance of nose and ears normal, oral cavity dry mucous membranes NECK: JVD unable to assess; masses not palpable. HEART: First and second heart sounds are normal; some edema. LUNGS: Respiratory rate increased, decreased breath sounds , ABDOMEN: Soft, nontender, liver spleen not palpable, no masses palpable. PSYCH: Follows commands. Dysarthric. NEUROLOGICAL: [Cranial nerves grossly intact; no facial asymmetry, bilateral foot drop. Dysarthria. Weakness on the right side INVESTIGATIONS, reviewed in the clinical context: November 17: White count 5.9 hemoglobin 9.5 platelets 189 potassium 4.1 creatinine 0.67 White count 6.6 hemoglobin 9.6 platelets 187 potassium 3.8 creatinine 0.80 albumin 2.8 Chest x-ray film personally reviewed by me-no infiltrates 2-D echo: EF 55-60%. EEG: Negative for epilepsy. Encephalopathic findings CT brain: Cerebral atrophy Assessment and plan: -Out of hospital cardiopulmonary arrest with cardiopulmonary resuscitation. Downtime of about 20 minutes. No evidence of PE. Possible pneumonia. -Acute on chronic congestive heart failure from diastolic dysfunction EF 55-60%: Better IV Lasix discontinued -Acute metabolic encephalopathy from an anoxic encephalopathy from cardiopulmonary arrest: Improving -Patient on Keppra for seizure prophylaxis Being followed by neurology. Discontinued -Bilateral pneumonia suspected gram-negative organism: Better IV cefepime-completed -Acute hypoxic respiratory failure from CHF and pneumonia: Better Status post ventilatory support. Oxygen 4 L. -Chronic dysphagia, chronically on pureedDiet and honey thick liquid All feeding with assistance -Cerebral palsy with intellectual disability Patient may speak occasionally words, follows simple commands -Chronic medical debility from cerebral palsy Nonambulatory -Chronic bilateral foot drop -Primary osteoarthritis Use. Medications as needed -Coronary artery disease Coreg 12.5 twice a day, Lipitor -Essential hypertension Coreg -Asthma Albuterol 4 times a day -Chronic dysarthria -Depression On Lexapro. Xanax when necessary -Full code Oxygen being titrated down. Solu-Medrol 40 every 12. Cutback to 20 every 12. international bank manager looking into placement.
[2021-11-21 16:58] LABS: Glucose,Whole Blood 191 mg/dL (75-99)
[2021-11-21] MEDS: amLODIPine 5 MG TAB PO SCH (21:27)
[2021-11-21] MEDS: ATORVASTATIN 40 MG TAB PO SCH (21:27)
[2021-11-21] MEDS: lamoTRIgine 100 MG TAB PO SCH (21:27)
[2021-11-21 23:56] LABS: Glucose,Whole Blood 128 mg/dL (75-99)
[2021-11-22] MEDS: INSULIN ASPART (NovoLOG) 100 UNIT/ML VIAL SQ SCH ×3 (00:20→11:48)
[2021-11-22 05:56] LABS: Glucose,Whole Blood 125 mg/dL (75-99)
[2021-11-22] MEDS: SODIUM CHLORIDE 0.9% 1,000 ML IV SCH (06:09)
[2021-11-22 07:25] VITALS: BP 195/86; TEMP 97.5
[2021-11-22] MEDS: ALBUTEROL NEBULIZED 2.5 MG/3 ML INHALATION SCH ×2 (08:49→12:10)
[2021-11-22] MEDS: PANTOPRAZOLE 40 MG/10 ML VIAL IV SCH (09:10)
[2021-11-22] MEDS: methylPREDNISolone SOD SUCCI 40 MG/ML 1 ML VIAL IV SCH (09:10)
[2021-11-22] MEDS: ISOSORBIDE DINITRATE 10 MG TAB PO SCH (09:17)
[2021-11-22] MEDS: ENOXAPARIN 40 MG/0.4 ML SYRINGE SQ SCH (09:19)
[2021-11-22] MEDS: ESCITALOPRAM 20 MG TAB PO SCH (09:19)
[2021-11-22] MEDS: lamoTRIgine 25 MG TAB PO SCH (09:19)
[2021-11-22] MEDS: CLOPIDOGREL 75 MG TAB PO SCH (09:20)
[2021-11-22] MEDS: carvediloL 12.5 MG TAB PO SCH (11:02)
[2021-11-22 11:13] LABS: Glucose,Whole Blood 156 mg/dL (75-99)
--- NOTE | 2021-11-22 11:18 | P.PN ---
Subjective Progress Note Date: 11/22/21 The patient is seen today 11/22/2021 in follow-up on the regular medical floor. She is currently awake and alert in no acute distress. She is maintaining O2 saturations in the 90s on 4 L/m per nasal cannula. Sputum culture revealed. The glucose 156. She is continued on bronchodilators, IV Solu-Medrol, Lovenox for DVT prophylaxis per Objective - Vital Signs Vital signs: Vital Signs Temp 97.5 F L 11/22/21 07:24 Pulse 77 11/22/21 08:59 Resp 20 11/22/21 08:59 BP 195/86 11/22/21 07:24 Pulse Ox 97 11/22/21 08:51 Intake & Output 11/21/21 11/22/21 11/22/21 18:59 06:59 18:59 Other: Voiding Method Diaper Diaper Incontinent Incontinent # Voids 1 # Bowel Movements 1 ABP, PAP, CO, CI - Last Documented Arterial Blood Pressure 192/77 - Exam GENERAL EXAM: 80-year-old female on 4 L of oxygen and the pulse ox of 97%, comfortable in no apparent distress. Patient has baseline speech abnormality related to her history of cerebral palsy, able to comprehend commands, follows commands, speech is difficult to understand, but patient follows command appropriately HEAD: Normocephalic/atraumatic. EYES: Normal reaction of pupils, equal size. Conjunctiva pink, sclera white. NOSE: Clear with pink turbinates. THROAT: No erythema or exudates. NECK: No masses, no JVD, no thyroid enlargement, no adenopathy. CHEST: No chest wall deformity. Symmetrical expansion. LUNGS: Equal air entry with a few scattered rhonchi CVS: Regular rate and rhythm, normal S1 and S2, no gallops, no murmurs, no rubs ABDOMEN: Soft, nontender. No hepatosplenomegaly, normal bowel sounds, no guarding or rigidity. EXTREMITIES: No clubbing, no edema, no cyanosis, 2+ pulses and upper and lower extremities. MUSCULOSKELETAL: Muscle strength and tone normal. SPINE: No scoliosis or deformity SKIN: No rashes CENTRAL NERVOUS SYSTEM: Alert. Patient is unable to move her lower extremities, bilateral lower extremities are weak, and atrophied related to her history of cerebral palsy. - Labs CBC & Chem 7: 11/19/21 17:07 11/19/21 17:07 Labs: Abnormal Lab Results - Last 24 Hours (Table) 11/21/21 11/21/21 11/21/21 Range/Units 11:36 16:57 23:55 POC Glucose (mg/dL) 128 H 191 H 128 H (75-99) mg/dL 11/22/21 11/22/21 Range/Units 05:54 11:09 POC Glucose (mg/dL) 125 H 156 H (75-99) mg/dL Assessment and Plan Assessment: 1 [id number] cardiopulmonary arrest with cardiopulmonary resuscitation for 20 minutes and eventual return of spontaneous circulation. No evidence of pulmonary embolism. Chest x-ray shows cardiomegaly with bilateral pulmonary i nfiltrates. Pro-calcitonin level was low at 0.12. ProBNP level was elevated. Patient regarding intubation and mechanical support. She was successfully weaned and extubated on 11/15/2021, currently remains on 4 L of oxygen 2 Status post intubation and mechanical ventilation for respiratory failure from 11/12/2021 through 11/15/2021. The chest x-ray shows bilateral pulmonary infiltrates mostly on the lower lobes, however the chest x-ray is extremely suboptimal due to severe kyphoscoliosis of the chest. There is improvement in aeration in the upper lobes. Patient has completed a course of broad-spectrum antibiotics. There is component of fluid overload/CHF with a preserved LV function 3 History of cerebral palsy 4 History of CAD 5 History of CHF 6 History of COPD/asthma 7 History of GERD 8 History of hyperlipidemia 9 History of hypertension 10 History of osteoarthritis 11 History of kyphoscoliosis 12 History of colitis 13 History of anxiety/depression 14 History of chronic aspiration Plan: The patient was seen and evaluated Currently on 4 L nasal cannula Plan is to discharge to [facility] on the [facility] We will see as needed I have personally seen and examined the patient, performed the documentation and the assessment and plan as written. Number of minutes spent on the visit: 10.
[2021-11-22 12:24] VITALS: PULSE 74; RESP 20
--- NOTE | 2021-11-22 14:29 | P.DS ---
Providers Date of admission: 11/12/21 03:23 Expected date of discharge: 11/22/21 Attending physician: Merrill Saldana Consults: 11/12/21 13:20 Consult Physician Stat Consulting Provider: Tre Zhang Consult Reason/Comments: ICU management Do you want consulting provider notified?: Already Contacted 11/12/21 19:44 Consult Physician Urgent Consulting Provider: Yanelis Echols Consult Reason/Comments: New onset seizure Do you want consulting provider notified?: Yes Primary care physician: Zachariah Lewis [facility] Course: History of presenting complaint: This is a 80-year-old patient, who follows with visiting physicians Dr. Lewis. Chronic history includes coronary artery disease, COPD, GERD, hyperlipidemia, hypertension, osteoarthritis, cerebral palsy kyphoscoliosis, non-ambulatory. At her baseline she is not able to speak follows simple commands. She needs help with feeding.. At the baseline has pured diet with honey thickened liquids. brought into the emergency room, on November 11, unresponsive, and/or with a cardiac arrest. It's not clear from reviewing the ER javed whether or not the patient did or did not have a pulse. Apparently she had CPR provided to her by [facility]. Apparently that CPR lasted for 20 minutes. No medications were given. An AED was applied but no shocks were given. The patient apparently was further evaluated and resuscitated in the emergency department, and admitted to 3 S., room 372. Patient went into respiratory distress, and required intubation. Admitted with out of hospital cardiopulmonary arrest with resuscitation for 20 minutes and return of spontaneous circulation. PE was ruled out. Patient was intubated. Patient was seen by speech therapy. Patient has chronic intermittent aspiration. Oxygen was slowly brought down. Patient finished a course of antibiotic. Seen by speech therapy. Continue with pured diet with honey thickened liquid. Aspiration precautions. Feeding with assistance. We tried to address the CODE STATUS with the patient. Also spoke to family in [place]. Present time patient is to continue to be full code. Patient also received IV Lasix for CHF exacerbation. November 22: Baseline shortness of breath. Tolerating diet. With assistance. Prednisone taper. Antibiotics have been discontinued. Discussion and discharge planning more than 35 minutes Past medical history to include: Asthma, ?CAD, CHF, GERD, hyperlipidemia, hypertension, osteomyelitis, cerebral palsy with intellectual disability, kyphoscoliosis, anxiety Social history: Nonambulatory. Needs help with feeding. Has caregivers Family history: Patient cannot tell Physical examination: VITAL SIGNS: 97.5, 69, 22, 164/70, GENERAL: Laying in bed, awake, some short of breath EYES: Pupils equal. Conjunctiva normal. HEENT: External appearance of nose and ears normal, oral cavity dry mucous membranes NECK: JVD unable to assess; masses not palpable. HEART: First and second heart sounds are normal; some edema. LUNGS: Respiratory rate increased, decreased breath sounds , ABDOMEN: Soft, nontender, liver spleen not palpable, no masses palpable. PSYCH: Follows commands. Dysarthric. NEUROLOGICAL: [Cranial nerves grossly intact; no facial asymmetry, bilateral foot drop. Dysarthria. Weakness on the right side INVESTIGATIONS, reviewed in the clinical context: November 17: White count 5.9 hemoglobin 9.5 platelets 189 potassium 4.1 creatinine 0.67 White count 6.6 hemoglobin 9.6 platelets 187 potassium 3.8 creatinine 0.80 albumin 2.8 Chest x-ray film personally reviewed by me-no infiltrates 2-D echo: EF 55-60%. EEG: Negative for epilepsy. Encephalopathic findings CT brain: Cerebral atrophy Assessment and plan: -Out of hospital cardiopulmonary arrest with cardiopulmonary resuscitation. Downtime of about 20 minutes. No evidence of PE. Possible pneumonia. -Acute on chronic congestive heart failure from diastolic dysfunction EF 55-60%: Better IV Lasix discontinued -Acute metabolic encephalopathy from an anoxic encephalopathy from cardiopulmonary arrest: Improving -Patient on Keppra for seizure prophylaxis Being followed by neurology. Discontinued -Bilateral pneumonia suspected gram-negative organism: Better IV cefepime-completed -Acute hypoxic respiratory failure from CHF and pneumonia: Better Status post ventilatory support. Oxygen 4 L. -Chronic dysphagia, chronically on pureedDiet and honey thick liquid All feeding with assistance -Cerebral palsy with intellectual disability Patient may speak occasionally words, follows simple commands -Chronic medical debility from cerebral palsy Nonambulatory -Chronic bilateral foot drop -Primary osteoarthritis Use. Medications as needed -Coronary artery disease Coreg 12.5 twice a day, Lipitor -Essential hypertension Coreg -Asthma Albuterol 4 times a day -Chronic dysarthria -Depression On Lexapro. Xanax when necessary -Full code Disposition: [facility] Plan - Discharge Summary New Discharge Prescriptions: New predniSONE 10 mg PO DAILY #30 tab Albuterol Nebulized [Ventolin Nebulized] 2.5 mg INHALATION RT-QID ml Continue Bismuth Subsalicylate [Kaopectate] 1 dose PO DIRECTED PRN PRN Reason: Heartburn Lactulose [Constulose] 20 gm PO DAILY@0800 Clopidogrel [Plavix] 75 mg PO DAILY@0800 [place]te Oral Care 1 applic DENTAL BID@0800,2000 PRN PRN Reason: ORAL CARE Menthol-Zinc Oxide Oint [Calmoseptine Oint] 1 applic TOPICAL DIRECTED PRN PRN Reason: DRY/IRRITATED SKIN Menthol [Biofreeze] 1 applic TOPICAL QID PRN PRN Reason: Pain Pyridoxine HCl (Vitamin B6) [Vitamin B-6] 100 mg PO DAILY@0800 Cholecalciferol [Vitamin D3 (25 Mcg = 1000 Iu)] 50 mcg PO DAILY lamoTRIgine [LaMICtal] 100 mg PO HS@1999 Furosemide [Lasix] 40 mg PO DAILY@1000 Escitalopram [Lexapro] 20 mg PO DAILY@0800 Acetaminophen Tab [Tylenol] 650 mg PO Q8H PRN PRN Reason: Pain Or Fever > 100.5 lamoTRIgine [LaMICtal] 50 mg PO DAILY@0800 Isosorbide Mononitrate ER [Imdur] 60 mg PO DAILY@0800 Calcium Polycarbophil [Fiber-Lax] 625 mg PO DAILY@1000 Colloidal Oatmeal [Eucerin Eczema Relief] 1 applic TOPICAL QID PRN PRN Reason: Dry Skin amLODIPine [Norvasc] 5 mg PO HS@1999 Carvedilol [Coreg] 12.5 mg PO BID@999,1999 Atorvastatin [Lipitor] 40 mg PO HS@1999 Alendronate Sodium [Fosamax] 35 mg PO WE@0800 Albuterol Sulfate [Ventolin HFA] 2 puff INHALATION RT-Q4H PRN PRN Reason: Shortness Of Breath Coppertone Sport 1 applic TOPICAL DIRECTED PRN PRN Reason: Sun Exposure Ciclopirox 0.77% Cream 1 applic TOPICAL BID PRN PRN Reason: Rash traMADol-ACETAMINOP 37.5-325MG [Ultracet] 1 tab PO Q6H PRN #12 tab PRN Reason: Pain ALPRAZolam [Xanax] 0.25 mg PO BID PRN #6 tab PRN Reason: Anxiety Discontinued witch Jimi [Tucks Medicated Pads] 1 pad RECTAL 5XD PRN PRN Reason: PERIANAL ITCHING Magnesium Hydroxide [Milk of Magnesia] 1 dose PO DIRECTED PRN PRN Reason: Constipation Ipratropium Milo [Ipratropium Milo 0.03%] 2 sprays EA NOSTRIL TID PRN PRN Reason: Congestion Levalbuterol HCl [Xopenex Nebulized] 0.63 mg INHALATION RT-TID@,, Stop Pain 1 applic TOPICAL BID PRN PRN Reason: Pain Mintox Max Susp 1 dose PO DAILY PRN PRN Reason: GAS/ACID REFLUX Hm Antacid 1 dose PO DIRECTED PRN PRN Reason: ACID REFLUX metOLazone [Zaroxolyn] 2.5 mg PO DAILY PRN PRN Reason: WEIGHT LOSS 96LBS OR GREATER Benzonatate [Tessalon Perles] 100 - 200 mg PO TID PRN PRN Reason: Cough Discharge Medication List Acetaminophen Tab [Tylenol] 650 mg PO Q8H PRN 03/12/21 [History] Alendronate Sodium [Fosamax] 35 mg PO WE@79903/12/21 [History] Atorvastatin [Lipitor] 40 mg PO HS@199903/12/21 [History] Bismuth Subsalicylate [Kaopectate] 1 dose PO DIRECTED PRN 03/12/21 [History] Calcium Polycarbophil [Fiber-Lax] 625 mg PO DAILY@99903/12/21 [History] Carvedilol [Coreg] 12.5 mg PO BID@03/12/21 [History] Clopidogrel [Plavix] 75 mg PO DAILY@79903/12/21 [History] Colloidal Oatmeal [Eucerin Eczema Relief] 1 applic TOPICAL QID PRN 03/12/21 [History] Isosorbide Mononitrate ER [Imdur] 60 mg PO DAILY@79903/12/21 [History] Lactulose [Constulose] 20 gm PO DAILY@79903/12/21 [History] amLODIPine [Norvasc] 5 mg PO HS@199903/12/21 [History] lamoTRIgine [LaMICtal] 50 mg PO DAILY@79903/12/21 [History] Toothette Oral Care 1 applic DENTAL BID@ PRN 04/24/21 [History] Albuterol Sulfate [Ventolin HFA] 2 puff INHALATION RT-Q4H PRN 11/12/21 [History] Cholecalciferol [Vitamin D3 (25 Mcg = 1000 Iu)] 50 mcg PO DAILY 11/12/21 [History] Ciclopirox 0.77% Cream 1 applic TOPICAL BID PRN 11/12/21 [History] Coppertone Sport 1 applic TOPICAL DIRECTED PRN 11/12/21 [History] Escitalopram [Lexapro] 20 mg PO DAILY@79911/12/21 [History] Furosemide [Lasix] 40 mg PO DAILY@99911/12/21 [History] Menthol [Biofreeze] 1 applic TOPICAL QID PRN 11/12/21 [History] Menthol-Zinc Oxide Oint [Calmoseptine Oint] 1 applic TOPICAL DIRECTED PRN 11/12/21 [History] Pyridoxine HCl (Vitamin B6) [Vitamin B-6] 100 mg PO DAILY@79911/12/21 [History] lamoTRIgine [LaMICtal] 100 mg PO HS@199911/12/21 [History] ALPRAZolam [Xanax] 0.25 mg PO BID PRN #6 tab 11/22/21 [Rx] Albuterol Nebulized [Ventolin Nebulized] 2.5 mg INHALATION RT-QID ml 11/22/21 [Rx] predniSONE 10 mg PO DAILY #30 tab 11/22/21 [Rx] traMADol-ACETAMINOP 37.5-325MG [Ultracet] 1 tab PO Q6H PRN #12 tab 11/22/21 [Rx] Follow up Appointment(s)/Referral(s): Yessica Cabrera MD [STAFF PHYSICIAN] - 12/08/21 10:45 am Zachariah Lewis MD [Primary Care Provider] - 1-2 days
== END 2021-11-22 15:59 | DRG 871 ==
LOC: EC 22:58 → 3SCARD 11-12 03:23 → 2SICU 11-12 13:16 → 4SSUR 11-17 18:31
PROVIDERS: ADMIT Hospitalist; ATTEND Hospitalist
PROC: 4A133B1 Monitoring of Arterial Pressure, Peripheral, Percutaneous Approach (ICD-10-PCS; principal; 2021-11-12)
PROC: 4A133J1 Monitoring of Arterial Pulse, Peripheral, Percutaneous Approach (ICD-10-PCS; principal; 2021-11-12)
PROC: 03HY32Z Insertion of Monitoring Device into Upper Artery, Percutaneous Approach (ICD-10-PCS; principal; 2021-11-12)
PROC: 0BH17EZ Insertion of Endotracheal Airway into Trachea, Via Natural or Artificial Opening (ICD-10-PCS; principal; 2021-11-12)
PROC: 5A1945Z Respiratory Ventilation, 24-96 Consecutive Hours (ICD-10-PCS; principal; 2021-11-12)
PROC: 02HV33Z Insertion of Infusion Device into Superior Vena Cava, Percutaneous Approach (ICD-10-PCS; principal; 2021-11-12)
PROC: 3E0G76Z Introduction of Nutritional Substance into Upper GI, Via Natural or Artificial Opening (ICD-10-PCS; 2021-11-13)
PROC: 0DH67UZ Insertion of Feeding Device into Stomach, Via Natural or Artificial Opening (ICD-10-PCS; 2021-11-13)
PROC: 5A0935A Assistance with Respiratory Ventilation, Less than 24 Consecutive Hours, High Flow/Velocity Cannula (ICD-10-PCS; 2021-11-15)
DX: A41.50 Gram-negative sepsis, unspecified (principal); J18.9 Pneumonia, unspecified organism; G93.41 Metabolic encephalopathy; I50.33 Acute on chronic diastolic (congestive) heart failure; J69.0 Pneumonitis due to inhalation of food and vomit; J96.01 Acute respiratory failure with hypoxia; A04.72 Enterocolitis due to Clostridium difficile, not specified as recurrent; E87.2 Acidosis; G93.1 Anoxic brain damage, not elsewhere classified; I47.2 Ventricular tachycardia; J44.0 Chronic obstructive pulmonary disease with (acute) lower respiratory infection; J44.1 Chronic obstructive pulmonary disease with (acute) exacerbation; J45.901 Unspecified asthma with (acute) exacerbation; J98.11 Atelectasis; K56.699 Other intestinal obstruction unspecified as to partial versus complete obstruction; K57.92 Diverticulitis of intestine, part unspecified, without perforation or abscess without bleeding; K82.1 Hydrops of gallbladder; N20.2 Calculus of kidney with calculus of ureter; N13.6 Pyonephrosis; R18.8 Other ascites; I11.0 Hypertensive heart disease with heart failure; R56.9 Unspecified convulsions; E77.8 Other disorders of glycoprotein metabolism; E83.39 Other disorders of phosphorus metabolism; E87.8 Other disorders of electrolyte and fluid balance, not elsewhere classified; F32.A Depression, unspecified; F41.9 Anxiety disorder, unspecified; F70 Mild intellectual disabilities; G80.9 Cerebral palsy, unspecified; I25.10 Atherosclerotic heart disease of native coronary artery without angina pectoris; I25.5 Ischemic cardiomyopathy; B96.5 Pseudomonas (aeruginosa) (mallei) (pseudomallei) as the cause of diseases classified elsewhere; I45.10 Unspecified right bundle-branch block; D64.9 Anemia, unspecified; I48.91 Unspecified atrial fibrillation; E78.5 Hyperlipidemia, unspecified; K21.9 Gastro-esophageal reflux disease without esophagitis; Z98.890 Other specified postprocedural states; K44.9 Diaphragmatic hernia without obstruction or gangrene; K43.5 Parastomal hernia without obstruction or gangrene; M19.91 Primary osteoarthritis, unspecified site; M21.371 Foot drop, right foot; M21.372 Foot drop, left foot; M41.9 Scoliosis, unspecified; Z86.19 Personal history of other infectious and parasitic diseases; Z96.0 Presence of urogenital implants; R13.10 Dysphagia, unspecified; Z79.02 Long term (current) use of antithrombotics/antiplatelets; Z79.83 Long term (current) use of bisphosphonates; Z79.899 Other long term (current) drug therapy; Z93.3 Colostomy status; Z95.810 Presence of automatic (implantable) cardiac defibrillator; Z99.3 Dependence on wheelchair; Z71.3 Dietary counseling and surveillance; Z78.1 Physical restraint status; Z88.6 Allergy status to analgesic agent; Z88.0 Allergy status to penicillin; Z88.2 Allergy status to sulfonamides; Z90.49 Acquired absence of other specified parts of digestive tract; Z87.01 Personal history of pneumonia (recurrent)
CPT/HCPCS: 36415; 70450; 71045; 71275; 80048; 80053; 81001; 82805; 83605; 83735; 83880; 84100; 84132; 84145; 84484; 85025; 85379; 85610; 85730; 87070; 87205; 93005; 93306; 94002; 94003; 94640; 94760; 95822; 96361; 96365; 96366; 96367; 96375; 96376; 99291

== ENCOUNTER 2021-11-22 21:45 | Inpatient (IN) | payer MEDICARE, OTHER ==
[2021-11-22 23:27] LABS: HCT 31.6 % (34.0-46.0); Hypochromasia Slight; MCH 30.5 pg (25.0-35.0); MCHC 31.5 g/dL (31.0-37.0); MCV 96.8 fL (80.0-100.0); Mean Platelet Volume 7.7; Platelet Count 499 k/uL (150-450); RBC 3.26 m/uL (3.80-5.40); RDW 14.9 % (11.5-15.5); WBC 10.1 k/uL (3.8-10.6)
[2021-11-22 23:34] LABS: ALT 29 U/L (4-34); AST 24 U/L (14-36); African American GFR (CKD) >90 (>60 ml/min/1.73 sqM); Albumin 3.3 g/dL (3.5-5.0); Alkaline Phosphatase 100 U/L (38-126); Anion Gap 1 mmol/L; Blood Urea Nitrogen 30 mg/dL (7-17); Carbon Dioxide 39 mmol/L (22-30); Chloride 103 mmol/L (98-107); Glucose 108 mg/dL (74-99); Non-African American GFR(CKD) 84 (>60 ml/min/1.73 sqM); Sodium 143 mmol/L (137-145); Total Bilirubin 0.5 mg/dL (0.2-1.3); Total Protein 5.9 g/dL (6.3-8.2)
--- NOTE | 2021-11-22 23:39 | XR ---
EXAMINATION TYPE: XR chest 1V portable DATE OF EXAM: 11/22/2021 COMPARISON: 11/19/2021 HISTORY: Short of breath TECHNIQUE: Single view FINDINGS: There is some blunting of the costophrenic angles. Heart is enlarged. There are chest leads . Costophrenic angles are fairly clear. There is pulmonary vascular congestion. IMPRESSION: There is evidence for congestive heart failure with pleural fluid and increased pulmonary congestion compared to recent exam.
[2021-11-22 23:43] LABS: Creatine Kinase MB 1.6 ng/mL (0.0-2.4)
[2021-11-23] MEDS ORDERED: FUROSEMIDE 10 MG/ML 4 ML VIAL IV STA (00:07)
[2021-11-23] MEDS ORDERED: NITROGLYCERIN-D5W PMX 50 MG in DEXTROSE/WATER 1 250ML.BAG IV ONE (00:07)
[2021-11-23] MEDS ORDERED: FUROSEMIDE 10 MG/ML 4 ML VIAL IV SCH (01:00)
--- NOTE | 2021-11-23 01:02 | ED ---
Medical Decision Making - Medical Decision Making This patient is an 80-year-old woman here with dyspnea. Initial history and physical on downtime paperwork. Patient is clinically appearing to be in hypertensive emergency with congestive heart failure. Labs and chest x-ray support. Patient started on nitroglycerin drip with improvement in blood pressure and patient clinically appearing less dyspnea. She states that her breathing does feel better and she did actually requested go home but does not appear to be that clinically stable. We'll admit patient for further treatment and states cardiology evaluation to just any me dications. - Lab Data Result diagrams: 11/22/21 23:20 11/22/21 23:20 Lab Results 11/22/21 11/22/21 11/22/21 Range/Units 23:20 23:20 23:20 WBC 10.1 (3.8-10.6) k/uL RBC 3.26 L (3.80-5.40) m/uL Hgb 10.0 L (11.4-16.0) gm/dL Hct 31.6 L (34.0-46.0) % MCV 96.8 (80.0-100.0) fL MCH 30.5 (25.0-35.0) pg MCHC 31.5 (31.0-37.0) g/dL RDW 14.9 (11.5-15.5) % Plt Count 499 H (150-450) k/uL MPV 7.7 Hypochromasia Slight Sodium 143 (137-145) mmol/L Potassium 4.0 (3.5-5.1) mmol/L Chloride 103 (98-107) mmol/L Carbon Dioxide 39 H (22-30) mmol/L Anion Gap 1 mmol/L BUN 30 H (7-17) mg/dL Creatinine 0.63 (0.52-1.04) mg/dL Est GFR (CKD-EPI)AfAm >90 (>60 ml/min/1.73 sqM) Est GFR (CKD-EPI)NonAf 84 (>60 ml/min/1.73 sqM) Glucose 108 H (74-99) mg/dL Plasma Lactic Acid Marin (0.7-2.0) mmol/L Calcium 9.0 (8.4-10.2) mg/dL Total Bilirubin 0.5 (0.2-1.3) mg/dL AST 24 (14-36) U/L ALT 29 (4-34) U/L Alkaline Phosphatase 100 (38-126) U/L Total Creatine Kinase 32 (30-135) U/L CK-MB (CK-2) 1.6 (0.0-2.4) ng/mL CK-MB (CK-2) Rel Index 5.0 NT-Pro-B Natriuret Pep pg/mL Total Protein 5.9 L (6.3-8.2) g/dL Albumin 3.3 L (3.5-5.0) g/dL Coronavirus (PCR) (Not Detectd) 11/22/21 11/22/21 11/22/21 Range/Units 23:20 23:20 23:20 WBC (3.8-10.6) k/uL RBC (3.80-5.40) m/uL Hgb (11.4-16.0) gm/dL Hct (34.0-46.0) % MCV (80.0-100.0) fL MCH (25.0-35.0) pg MCHC (31.0-37.0) g/dL RDW (11.5-15.5) % Plt Count (150-450) k/uL MPV Hypochromasia Sodium (137-145) mmol/L Potassium (3.5-5.1) mmol/L Chloride (98-107) mmol/L Carbon Dioxide (22-30) mmol/L Anion Gap mmol/L BUN (7-17) mg/dL Creatinine (0.52-1.04) mg/dL Est GFR (CKD-EPI)AfAm (>60 ml/min/1.73 sqM) Est GFR (CKD-EPI)NonAf (>60 ml/min/1.73 sqM) Glucose (74-99) mg/dL Plasma Lactic Acid Marin 1.5 (0.7-2.0) mmol/L Calcium (8.4-10.2) mg/dL Total Bilirubin (0.2-1.3) mg/dL AST (14-36) U/L ALT (4-34) U/L Alkaline Phosphatase (38-126) U/L Total Creatine Kinase (30-135) U/L CK-MB (CK-2) (0.0-2.4) ng/mL CK-MB (CK-2) Rel Index NT-Pro-B Natriuret Pep 5760 pg/mL Total Protein (6.3-8.2) g/dL Albumin (3.5-5.0) g/dL Coronavirus (PCR) Not Detected (Not Detectd) Disposition Clinical Impression: Congestive heart failure, Hypertensive urgency Disposition: ADMITTED IP TO THIS HOSP Condition: Serious Is patient prescribed a controlled substance at d/c from ED?: No Referrals: Robin Mendoza MD [Primary Care Provider] - 1-2 days
[2021-11-23] MEDS: SODIUM CHLORIDE 0.9% 1,000 ML IV SCH (02:10)
[2021-11-23 02:50] LABS: Appearance,Urine Clear (Clear); Bacteria,Urine Rare /hpf; Bilirubin,Urine Negative (Negative); Blood,Urine Trace (Negative); Color,Urine Colorless; Glucose,Urine (UA) Negative (Negative); Hyaline Casts,Urine 1 /lpf (0-2); Ketones,Urine Negative (Negative); Leukocyte Esterase,Urine Negative (Negative); Mucus,Urine Rare /hpf; Nitrite,Urine Negative (Negative); Protein,Urine Negative (Negative); RBC,Urine 2 /hpf (0-5); Specific Gravity,Urine 1.006 (1.001-1.035); Squamous Epithelial Cell,Urine 1 /hpf (0-4); Urobilinogen,Urine <2.0 mg/dL (<2.0); WBC,Urine 1 /hpf (0-5)
[2021-11-23 03:30] LABS: Glucose,Whole Blood 114 mg/dL (75-99)
[2021-11-23] MEDS: ACETAMINOPHEN TAB 325 MG TAB PO PRN (04:38)
[2021-11-23 06:15] LABS: Basophils % (A) 0 %; Eosinophils # (A) 0.1 k/uL (0-0.7); Eosinophils % (A) 1 %; HCT 29.7 % (34.0-46.0); HGB 9.5 gm/dL (11.4-16.0); Hypochromasia Slight; Lymphocytes # (A) 1.1 k/uL (1.0-4.8); Lymphocytes % (A) 12 %; MCH 31.2 pg (25.0-35.0); MCHC 32.1 g/dL (31.0-37.0); MCV 97.2 fL (80.0-100.0); Mean Platelet Volume 7.4; Monocytes # (A) 0.7 k/uL (0-1.0); Monocytes % (A) 8 %; Neutrophils # (A) 7.3 k/uL (1.3-7.7); Neutrophils % (A) 77 %; Platelet Count 436 k/uL (150-450); RBC 3.05 m/uL (3.80-5.40); RDW 14.5 % (11.5-15.5); WBC 9.5 k/uL (3.8-10.6)
[2021-11-23 06:45] LABS: African American GFR (CKD) >90 (>60 ml/min/1.73 sqM); Anion Gap 4 mmol/L; Blood Urea Nitrogen 26 mg/dL (7-17); Calcium 8.5 mg/dL (8.4-10.2); Chloride 99 mmol/L (98-107); Glucose 109 mg/dL (74-99); Magnesium 2.3 mg/dL (1.6-2.3); Non-African American GFR(CKD) 82 (>60 ml/min/1.73 sqM); Potassium 3.5 mmol/L (3.5-5.1); Sodium 143 mmol/L (137-145)
[2021-11-23 06:52] LABS: Carbon Dioxide 40 mmol/L (22-30)
[2021-11-23] MEDS ORDERED: Potassium Replacement Protocol 1 EACH MISC MISCELLANE PRN (07:07)
--- NOTE | 2021-11-23 07:53 | P.CRDCN ---
History of Present Illness Consult date: 11/23/21 History of present illness: History of Present Illness: The patient is admitted through the emergency room with progressive dyspnea and was noted to be hypertensive in the emergency room. She was recently discharged from the hospital after being admitted with respiratory failure and cardiac arrest. She was intubated that time and her echocardiogram showed normal sys tolic function. Patient was started on IV Lasix as well as IV nitroglycerin. She is doing well this morning. 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 She is able to answer some questions, she denies any chest discomfort, dizziness or palpitations. She denies any nausea or vomiting. She is in sinus mechanism and there is no documentation of atrial arrhythmia. She has been followed by Dr. Zarate in the past. The records reports a history of CAD although details are not available. She also has a history of hypertension and hyperlipidemia. Her coronary risk factors are positive for hypertension and hyperlipidemia she is nondiabetic Her medication at the time of admission included Norvasc 5 mg daily, Lasix 40 mg daily, Plavix 75 mg daily, Lipitor 40 mg daily, Coreg 12 and half milligrams twice a day, isosorbide mononitrate 60 mg daily. In the emergency room her troponin were negative but she had an elevated NT proBNP Review of Systems: Review of system is limited Respiratory: [She has a history of COPD increase in respiratory failure] GI: [She had nausea and vomiting today. No history of peptic ulcer disease. No recent GI bleed.] : [No hematuria or dysuria.] Nervous System: [She has a history of cerebral palsy.] Physical Examination: 80-year-old female alert, able to answer some questions, in no acute distress. Blood pressure 136/60, heart rate in the 60 Head: [Normocephalic.] Eyes: [Sclerae nonicteric.] Neck: [Good carotid upstroke, no bruit, no jugular venous distention.] Lungs: Mild decreased breath sounds at the bases Heart: [Regular rate and rhythm, S1-S2, no S3, no rub. No murmur.] Abdomen: [Soft nontender, positive bowel sounds no organomegaly.] Extremities: [No edema, intact distal pulses.] Labs: Troponin 0.019, 0.013. NT proBNP 5760. BUN 30, creatinine 0.63, potassium 4.0, hemoglobin of 10. Chest x-ray shows lung congestion Impression: 1. Acute dyspnea with CHF and preserved systolic function, could be exacerbated by hypertension 2. History of cerebral palsy 3. Recent intubation for reported cardiac arrest 4. History of hypertension 5. History of hyperlipidemia Plan: 1. Continue IV diuresis 2.. IV nitroglycerin and add angiotensin receptor you 3. Continue statin 4. Follow her renal functions 5. Depending on her progress further recommendations will be made. Thank you f or this consult we will follow with you. Past Medical History Past Medical History: Asthma, Coronary Artery Disease (CAD), Heart Failure, COPD, GERD/Reflux, Hyperlipidemia, Hypertension, Osteoarthritis (OA), Pneumonia Additional Past Medical History / Comment(s): mild intellectual disability, cerebral palsy, kypho scoliosis, colitis, DJD, hernia History of Any Multi-Drug Resistant Organisms: None Reported Past Surgical History: Cholecystectomy, Orthopedic Surgery Additional Past Surgical History / Comment(s): (L) hip reduction Past Anesthesia/Blood Transfusion Reactions: No Reported Reaction Past Psychological History: Anxiety, Depression Smoking Status: Never smoker Past Alcohol Use History: None Reported Past Drug Use History: None Reported - Past Family History Father History Unknown: Yes Mother History Unknown: Yes Medications and Allergies Home Medications Medication Instructions Recorded Confirmed Type Acetaminophen Tab [Tylenol] 650 mg PO Q8H PRN 03/12/21 11/22/21 History Alendronate Sodium [Fosamax] 35 mg PO WE@79903/12/21 11/22/21 History Atorvastatin [Lipitor] 40 mg PO HS@199903/12/21 11/22/21 History Bismuth Subsalicylate [Kaopectate] 1 dose PO DIRECTED PRN 03/12/21 11/22/21 History Calcium Polycarbophil [Fiber-Lax] 625 mg PO DAILY@99903/12/21 11/22/21 History Carvedilol [Coreg] 12.5 mg PO BID@03/12/21 11/22/21 History Clopidogrel [Plavix] 75 mg PO DAILY@79903/12/21 11/22/21 History Colloidal Oatmeal [Eucerin Eczema 1 applic TOPICAL QID PRN 03/12/21 11/22/21 History Relief] Isosorbide Mononitrate ER [Imdur] 60 mg PO DAILY@0800 03/12/21 11/22/21 History Lactulose [Constulose] 20 gm PO DAILY@0803/12/21 11/22/21 History amLODIPine [Norvasc] 5 mg PO HS@199903/12/21 11/22/21 History lamoTRIgine [LaMICtal] 50 mg PO DAILY@0800 03/12/21 11/22/21 History Toothette Oral Care 1 applic DENTAL BID@799,1999 PRN 04/24/21 11/22/21 History Albuterol Sulfate [Ventolin HFA] 2 puff INHALATION RT-Q4H PRN 11/12/21 11/22/21 History Cholecalciferol [Vitamin D3 (25 50 mcg PO DAILY 11/12/21 11/22/21 History Mcg = 1000 Iu)] Ciclopirox 0.77% Cream 1 applic TOPICAL BID PRN 11/12/21 11/22/21 History Coppertone Sport 1 applic TOPICAL DIRECTED PRN 11/12/21 11/22/21 History Escitalopram [Lexapro] 20 mg PO DAILY@0800 11/12/21 11/22/21 History Furosemide [Lasix] 40 mg PO DAILY@1000 11/12/21 11/22/21 History Menthol [Biofreeze] 1 applic TOPICAL QID PRN 11/12/21 11/22/21 History Menthol-Zinc Oxide Oint 1 applic TOPICAL DIRECTED PRN 11/12/21 11/22/21 History [Calmoseptine Oint] Pyridoxine HCl (Vitamin B6) 100 mg PO DAILY@79911/12/21 11/22/21 History [Vitamin B-6] lamoTRIgine [LaMICtal] 100 mg PO HS@199911/12/21 11/22/21 History ALPRAZolam [Xanax] 0.25 mg PO BID PRN #6 tab 11/22/21 11/22/21 Rx Albuterol Nebulized [Ventolin 2.5 mg INHALATION RT-QID ml 11/22/21 11/22/21 Rx Nebulized] predniSONE See Taper PO DAILY 11/22/21 11/22/21 History traMADol-ACETAMINOP 37.5-325MG 1 tab PO Q6H PRN #12 tab 11/22/21 11/22/21 Rx [Ultracet] Allergies Allergy/AdvReac Type Severity Reaction Status Date / Time ipratropium Allergy Unknown Verified 11/22/21 22:35 naproxen [From Aleve] Allergy Unknown Verified 11/22/21 22:35 Penicillins Allergy Unknown Verified 11/22/21 22:35 rofecoxib [From Vioxx] Allergy Unknown Verified 11/22/21 22:35 Sulfa (Sulfonamide Allergy Unknown Verified 11/22/21 22:35 Antibiotics) Physical Exam Vitals: Vital Signs Temp Pulse Resp BP Pulse Ox 11/23/21 07:00 61 15 136/62 96 11/23/21 06:30 59 L 16 129/62 97 11/23/21 06:00 58 L 18 128/60 98 11/23/21 05:30 56 L 10 L 132/63 98 11/23/21 05:00 66 15 137/81 97 11/23/21 04:30 64 25 H 145/73 97 11/23/21 04:00 97.5 F L 66 20 155/80 96 11/23/21 03:32 69 18 97 11/23/21 03:00 74 26 H 143/93 11/23/21 02:30 64 18 154/88 11/23/21 02:00 67 24 154/88 11/23/21 01:30 69 17 148/83 11/23/21 01:00 73 28 H 172/84 95 11/23/21 00:00 73 22 173/89 84 L 11/22/21 23:00 59 L 16 152/100 96 11/22/21 22:12 99 F 67 26 H 173/90 98 Intake and Output 11/22/21 11/23/21 11/23/21 22:59 06:59 14:59 Intake Total 30.8 Output Total 400 Balance -369.2 Intake: Intake, IV Titration 30.8 Amount Nitroglycerin-D5w Pmx 50 30.8 mg In Dextrose/Water 1 250ml.bag @ 20 MCG/MIN 6 mls/hr IV .Q24H ONE Rx#: [id number] Output: Urine 400 Other: Voiding Method Incontinent External Catheter # Voids 1 Weight 48.5 kg Results 11/23/21 05:31 11/23/21 05:31 Cardiac Enzymes 11/22/21 11/22/21 11/23/21 Range/Units 23:20 23:20 02:01 AST 24 (14-36) U/L CK-MB (CK-2) 1.6 (0.0-2.4) ng/mL Troponin I 0.019 (0.000-0.034) ng/mL 11/23/21 11/23/21 Range/Units 02:57 05:31 AST (14-36) U/L CK-MB (CK-2) (0.0-2.4) ng/mL Troponin I 0.013 0.014 (0.000-0.034) ng/mL CBC 11/22/21 11/23/21 Range/Units 23:20 05:31 WBC 10.1 9.5 (3.8-10.6) k/uL RBC 3.26 L 3.05 L (3.80-5.40) m/uL Hgb 10.0 L 9.5 L (11.4-16.0) gm/dL Hct 31.6 L 29.7 L (34.0-46.0) % Plt Count 499 H 436 (150-450) k/uL Comprehensive Metabolic Panel 11/22/21 11/23/21 Range/Units 23:20 05:31 Sodium 143 143 (137-145) mmol/L Potassium 4.0 3.5 (3.5-5.1) mmol/L Chloride 103 99 (98-107) mmol/L Carbon Dioxide 39 H 40 H (22-30) mmol/L BUN 30 H 26 H (7-17) mg/dL Creatinine 0.63 0.69 (0.52-1.04) mg/dL Glucose 108 H 109 H (74-99) mg/dL Calcium 9.0 8.5 (8.4-10.2) mg/dL AST 24 (14-36) U/L ALT 29 (4-34) U/L Alkaline Phosphatase 100 (38-126) U/L Total Protein 5.9 L (6.3-8.2) g/dL Albumin 3.3 L (3.5-5.0) g/dL Current Medications Generic Name Dose Route Start Last Admin Trade Name Freq PRN Reason Stop Dose Admin Acetaminophen 650 mg 11/23/21 04:19 11/23/21 04:38 Acetaminophen Tab 325 Mg Tab PO 650 mg Q6HR PRN Administration Fever and/ or Pain Enoxaparin Sodium 40 mg 11/23/21 09:00 Enoxaparin 40 Mg/0.4 Ml Syringe SQ DAILY JOSELITO Furosemide 40 mg 11/23/21 09:00 Furosemide 10 Mg/Ml 4 Ml Vial IV Q12HR JOSELITO Nitroglycerin/Dextrose 50 mg/ 250 mls @ 6 mls/hr 11/23/21 00:07 11/23/21 04:00 IV Solution IV 11/24/21 00:06 40 mcg/min .Q24H ONE 12 mls/hr Titration Protocol 20 MCG/MIN Sodium Chloride 1,000 mls @ 20 mls/hr 11/23/21 01:00 11/23/21 02:10 Saline 0.9% IV 20 mls/hr .Q24H JOSELITO Administration Potassium Chloride 10 meq/ IV 100 mls @ 100 mls/hr 11/23/21 08:00 Solution IVPB 11/23/21 11:59 Q1HR JOSELITO Protocol Miscellaneous Information 1 each 11/23/21 07:07 Potassium Replacement Protocol 1 Each Misc MISCELLANE DAILY PRN Per Protocol Protocol Pantoprazole Sodium 40 mg 11/23/21 07:30 Pantoprazole 40 Mg Tablet PO AC-BRKFST [facility] Intake and Output 11/22/21 11/23/21 11/23/21 22:59 06:59 14:59 Intake Total 30.8 Output Total 400 Balance -369.2 Intake: Intake, IV Titration 30.8 Amount Nitroglycerin-D5w Pmx 50 30.8 mg In Dextrose/Water 1 250ml.bag @ 20 MCG/MIN 6 mls/hr IV .Q24H ONE Rx#: [id number] Output: Urine 400 Other: Voiding Method Incontinent External Catheter # Voids 1 Weight 48.5 kg 11/23/21 05:31 11/23/21 05:31
[2021-11-23] MEDS: LOSARTAN 50 MG TAB PO SCH (08:28)
[2021-11-23] MEDS: ENOXAPARIN 40 MG/0.4 ML SYRINGE SQ SCH (08:28)
[2021-11-23] MEDS: CLOPIDOGREL 75 MG TAB PO SCH (08:28)
[2021-11-23] MEDS: FUROSEMIDE 10 MG/ML 4 ML VIAL IV SCH ×2 (08:28→21:06)
[2021-11-23] MEDS: carvediloL 12.5 MG TAB PO SCH ×2 (08:28→21:07)
[2021-11-23] MEDS: ISOSORBIDE MONONITRATE ER 60 MG TAB.ER.24H PO SCH (08:28)
[2021-11-23] MEDS: PANTOPRAZOLE 40 MG TABLET PO SCH (08:28)
[2021-11-23] MEDS: POTASSIUM CHLORIDE 10 MEQ in WATER FOR INJECTION 1 100ML.BAG IVPB SCH ×4 (08:48→15:35)
[2021-11-23 10:57] VITALS: BMI 20.9
--- NOTE | 2021-11-23 11:05 | P.CNPUL ---
History of Present Illness Consult date: 11/23/21 Requesting physician: Merrill Saldana Reason for consult: dyspnea, hypoxemia Chief complaint: Shortness of breath History of present illness: This is an 80-year-old white female with history of multiple medical problems, patient was admitted to the hospital initially on 11/12/2021, and she was in the hospital until yesterday. Her initial presentation back then was a presentation of cardiac arrest, patient had a cardiac [facility] at the [facility] and she had CPR that lasted for 20 minutes. Patient was admitted back then and shortly after she was admitted, there was a rapid response team call on this patient, patient required intubation and she was treated by Dr. Mancia in the ICU. Chest x-ray at that time showed diffuse bilateral infiltrates. Patient was eventually extubated and we discharged the patient to [facility] yesterday. Patient was brought back to the ER last night, and apparently she was developing more shortness of breath. In the ER she was noted to have elevated blood pressure of 170 systolic, hence the patient was placed on nitroglycerin drip. She was noted to have elevated BNP level, and a chest x-ray suggestive of pulmonary edema. Patient was diuresed. Admitted to the ICU, and I saw her this morning. She was already seen by cardiology, she was placed on oral medications for elevated blood pressure. Patient is now on 2 L nasal cannula, and she does not seem to be in any distress, is asking to be sent home. Her troponins were negative. And I plan to transfer the patient to a cardiac floor or possibly a regular floor with telemetry. Chest x-ray did suggest evidence of mild interstitial edema. However the chest x-ray considering the patient's body habitus is suboptimal. Patient is known to have history of severe kyphoscoliosis. Cerebral palsy, and mild intellectual disability. Her congestive heart failure is considered acute diastolic congestive heart failure, considering her blood pressure was not significantly elevated, I strongly doubt hypertensive emergency or urgency. Review of Systems CONSTITUTIONAL: [Negative.] NEUROLOGIC: [ Negative.] HEENT: [ Negative.] CARDIAC: As noted in HPIMMUNOLOGIC: [ Negative.] ENDOCRINE: [Negative. ] DERMATOLOGIC: [Negative.] Psychiatric: Negative neurologic: History of cerebral palsy and severe kyphoscoliosis of the spine. Skin: Negative hematologic: Negative GI: Negative Genitourinary: Negative Past Medical History Past Medical History: Asthma, Coronary Artery Disease (CAD), Heart Failure, COPD, GERD/Reflux, Hyperlipidemia, Hypertension, Osteoarthritis (OA), Pneumonia Additional Past Medical History / Comment(s): mild intellectual disability, cerebral palsy, kypho scoliosis, colitis, DJD, hernia History of Any Multi-Drug Resistant Organisms: None Reported Past Surgical History: Cholecystectomy, Orthopedic Surgery Additional Past Surgical History / Comment(s): (L) hip reduction Past Anesthesia/Blood Transfusion Reactions: No Reported Reaction Past Psychological History: Anxiety, Depression Smoking Status: Never smoker Past Alcohol Use History: None Reported Past Drug Use History: None Reported - Past Family History Father History Unknown: Yes Mother History Unknown: Yes Medications and Allergies Home Medications Medication Instructions Recorded Confirmed Type Acetaminophen Tab [Tylenol] 650 mg PO Q8H PRN 03/12/21 11/22/21 History Alendronate Sodium [Fosamax] 35 mg PO WE@79903/12/21 11/22/21 History Atorvastatin [Lipitor] 40 mg PO HS@199903/12/21 11/22/21 History Bismuth Subsalicylate [Kaopectate] 1 dose PO DIRECTED PRN 03/12/21 11/22/21 History Calcium Polycarbophil [Fiber-Lax] 625 mg PO DAILY@99903/12/21 11/22/21 History Carvedilol [Coreg] 12.5 mg PO BID@03/12/21 11/22/21 History Clopidogrel [Plavix] 75 mg PO DAILY@79903/12/21 11/22/21 History Colloidal Oatmeal [Eucerin Eczema 1 applic TOPICAL QID PRN 03/12/21 11/22/21 History Relief] Isosorbide Mononitrate ER [Imdur] 60 mg PO DAILY@79903/12/21 11/22/21 History Lactulose [Constulose] 20 gm PO DAILY@79903/12/21 11/22/21 History amLODIPine [Norvasc] 5 mg PO HS@199903/12/21 11/22/21 History lamoTRIgine [LaMICtal] 50 mg PO DAILY@79903/12/21 11/22/21 History Toothette Oral Care 1 applic DENTAL BID@ PRN 04/24/21 11/22/21 History Albuterol Sulfate [Ventolin HFA] 2 puff INHALATION RT-Q4H PRN 11/12/21 11/22/21 History Cholecalciferol [Vitamin D3 (25 50 mcg PO DAILY 11/12/21 11/22/21 History Mcg = 1000 Iu)] Ciclopirox 0.77% Cream 1 applic TOPICAL BID PRN 11/12/21 11/22/21 History Coppertone Sport 1 applic TOPICAL DIRECTED PRN 11/12/21 11/22/21 History Escitalopram [Lexapro] 20 mg PO DAILY@0800 11/12/21 11/22/21 History Furosemide [Lasix] 40 mg PO DAILY@1000 11/12/21 11/22/21 History Menthol [Biofreeze] 1 applic TOPICAL QID PRN 11/12/21 11/22/21 History Menthol-Zinc Oxide Oint 1 applic TOPICAL DIRECTED PRN 11/12/21 11/22/21 History [Calmoseptine Oint] Pyridoxine HCl (Vitamin B6) 100 mg PO DAILY@0800 11/12/21 11/22/21 History [Vitamin B-6] lamoTRIgine [LaMICtal] 100 mg PO HS@199911/12/21 11/22/21 History ALPRAZolam [Xanax] 0.25 mg PO BID PRN #6 tab 11/22/21 11/22/21 Rx Albuterol Nebulized [Ventolin 2.5 mg INHALATION RT-QID ml 11/22/21 11/22/21 Rx Nebulized] predniSONE See Taper PO DAILY 11/22/21 11/22/21 History traMADol-ACETAMINOP 37.5-325MG 1 tab PO Q6H PRN #12 tab 11/22/21 11/22/21 Rx [Ultracet] Allergies Allergy/AdvReac Type Severity Reaction Status Date / Time ipratropium Allergy Unknown Verified 11/22/21 22:35 naproxen [From Aleve] Allergy Unknown Verified 11/22/21 22:35 Penicillins Allergy Unknown Verified 11/22/21 22:35 rofecoxib [From Vioxx] Allergy Unknown Verified 11/22/21 22:35 Sulfa (Sulfonamide Allergy Unknown Verified 11/22/21 22:35 Antibiotics) Physical Exam Vitals: Vital Signs Temp Pulse Resp BP Pulse Ox 11/23/21 09:00 64 18 157/81 94 L 11/23/21 08:30 65 16 130/60 94 L 11/23/21 08:00 69 18 117/56 95 11/23/21 07:30 56 L 14 143/78 98 11/23/21 07:00 61 15 136/62 96 11/23/21 06:30 59 L 16 129/62 97 11/23/21 06:00 58 L 18 128/60 98 11/23/21 05:30 56 L 10 L 132/63 98 11/23/21 05:00 66 15 137/81 97 11/23/21 04:30 64 25 H 145/73 97 11/23/21 04:00 97.5 F L 66 20 155/80 96 11/23/21 03:32 69 18 97 11/23/21 03:00 74 26 H 143/93 11/23/21 02:30 64 18 154/88 11/23/21 02:00 67 24 154/88 11/23/21 01:30 69 17 148/83 11/23/21 01:00 73 28 H 172/84 95 11/23/21 00:00 73 22 173/89 84 L 11/22/21 23:00 59 L 16 152/100 96 11/22/21 22:12 99 F 67 26 H 173/90 98 Intake and Output 11/22/21 11/23/21 11/23/21 22:59 06:59 14:59 Intake Total 30.8 50 Output Total 400 900 Balance -369.2 -850 Intake: Intake, IV Titration 30.8 Amount Nitroglycerin-D5w Pmx 50 30.8 mg In Dextrose/Water 1 250ml.bag @ 20 MCG/MIN 6 mls/hr IV .Q24H ONE Rx#: [id number] Oral 50 Output: Urine 400 900 Other: Voiding Method Incontinent Incontinent External Catheter External Catheter # Voids 1 1 Weight 48.5 kg GENERAL EXAM: 80-year-old female , in no distress, on 2 L nasal cannula. HEAD: Normocephalic/atraumatic. EENT: PERRLA, EOMI, anicteric, no neck masses, no JVD, no stridor. CHEST: Evidence of chest wall deformity secondary to scoliosis. LUNGS: Diminished breaths on to the bases no crackles or rhonchi or wheezes CVS: Regular rate and rhythm, normal S1 and S2, no gallops, no murmurs, no rubs ABDOMEN: Soft, nontender. No hepatosplenomegaly, normal bowel sounds, no guarding or rigidity. EXTREMITIES: Flexion contractures noted bilaterally. MUSCULOSKELETAL: Evidence of flexion contractures noted bilaterally. SPINE: Severe scoliosis is noted. SKIN: No rashes CENTRAL NERVOUS SYSTEM: Alert. Patient is unable to move her lower extremities, bilateral lower extremities are weak, and atrophied related to her history of cerebral palsy. Results - Laboratory Findings CBC and BMP: 11/23/21 05:31 11/23/21 05:31 Abnormal lab findings: Abnormal Labs 11/22/21 11/22/21 11/23/21 23:20 23:20 01:15 RBC 3.26 L Hgb 10.0 L Hct 31.6 L Plt Count 499 H Carbon Dioxide 39 H BUN 30 H Glucose 108 H POC Glucose (mg/dL) Total Protein 5.9 L Albumin 3.3 L Urine Blood Trace H Urine Bacteria Rare H Urine Mucus Rare H 11/23/21 11/23/21 11/23/21 03:28 05:31 05:31 RBC 3.05 L Hgb 9.5 L Hct 29.7 L Plt Count Carbon Dioxide 40 H BUN 26 H Glucose 109 H POC Glucose (mg/dL) 114 H Total Protein Albumin Urine Blood Urine Bacteria Urine Mucus - Diagnostic Findings Chest x-ray: image reviewed (Chest x-ray is suggestive of pulmonary edema.) Assessment and Plan Assessment: Impression: Acute on chronic hypoxic respiratory failure Acute diastolic congestive heart failure Benign essential hypertension, poorly controlled. History of recent cardiac arrest requiring intubation and mechanical ventilation as well as CPR History of cerebral palsy. History of aspiration pneumonia Dyslipidemia Severe kyphoscoliosis. 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 Resume home meds. We will continue to follow. Continue GI and DVT prophylaxis. Time with Patient: Greater than 30
[2021-11-23] MEDS ORDERED: traMADol-ACETAMINOP 37.5-325MG 1 EACH TAB PO PRN (14:15)
[2021-11-23] MEDS ORDERED: ALPRAZolam 0.25 MG TAB PO PRN (14:15)
--- NOTE | 2021-11-23 14:23 | P.HPIM ---
History of Present Illness H&P Date: 11/23/21 Chief Complaint: High blood pressure History of presenting complaint: This is a 80-year-old patient, who follows with visiting physicians Dr. Lewis. Chronic history includes coronary artery disease, COPD, GERD, hyperlipidemia, hypertension, osteoarthritis, cerebral palsy kyphoscoliosis, non-ambulatory. At her baseline she is not able to speak follows simple commands. She needs help with feeding.. At the baseline has pured diet with honey thickened liquids. Patient was in the hospital from November 11 and discharged yesterday on November 22. brought into the emergency room, on November 11, unresponsive, and/or with a cardiac arrest. It's not clear from reviewing the ER javed whether or not the patient did or did not have a pulse. Apparently she had CPR provided to her by the staff [facility]. Apparently that CPR lasted for 20 minutes. No medications were given. An AED was applied but no shocks were given. The patient apparently was further evaluated and resuscitated in the emergency department, and admitted to 3 S., room 372. Patient went into respiratory distress, and required intubation. Admitted with out of hospital cardiopulmonary arrest with resuscitation for 20 minutes and return of spontaneous circulation. PE was ruled out. Patient was intubated. Patient was seen by speech therapy. Patient has chronic intermittent aspiration. Oxygen was slowly brought down. Patient finished a course of antibiotic. Seen by speech therapy. Continue with pured diet with honey thickened liquid. Aspiration precautions. Feeding with assistance. We tried to address the CODE STATUS with the patient. Also spoke to family in [place]. Present time patient is to continue to be full code. Patient also received IV Lasix for CHF exacerbation. Antibiotics were discontinued. Discharged on prednisone taper. Remains some shortness of breath at baseline. Patient is brought back to the ER early hours of this morning by EMS from [facility]. Patient had been complaining of some chest pain. The pain was not new. She said. She was transported pack year. Initial blood patient the ER was 173/90. Respirations rate of 26. Some concern of fluid overload given 1 dose of IV Lasix. As patient is full code admitted to the ICU. Review of systems: GEN.: Tired EYES: None HEENT: None NECK: None RESPIRATORY: Short of breath CARDIOVASCULAR: None GASTROINTESTINAL: None GENITOURINARY: None MUSCULOSKELETAL: None LYMPHATICS: None HEMATOLOGICAL: None PSYCHIATRY: Anxious NEUROLOGICAL: Chronic contractures Past medical history to include: Asthma, ?CAD, CHF, GERD, hyperlipidemia, hypertension, osteomyelitis, cerebral palsy with intellectual disability, kyphoscoliosis, anxiety Social history: Nonambulatory. Needs help with feeding. Has caregivers Family history: Patient cannot tell Physical examination: VITAL SIGNS: 99, 67, 26, 173/90, 98% GENERAL: BMI 20.9, reclining in bed, awake slightly anxious. EYES: Pupils equal. Conjunctiva normal. HEENT: External appearance of nose and ears normal, oral cavity: Enlarged tongu e, with bruising on the sites from last admission. NECK: JVD not raised; masses not palpable. HEART: First and second heart sounds are normal; no edema. LUNGS: Respiratory rate increased; decreased breath sounds. ABDOMEN: Soft, nontender, liver spleen not palpable, no masses palpable. PSYCH: [Alert and oriented x3; mood and affect anxious l. MUSCULOSKELETAL:No Clubbing/cyanosis;muscles-grossly intact. Contractures of limbs. NEUROLOGICAL: Cranial nerves grossly intact; no facial asymmetry, power and sensation grossly intact. Dysarthric. LYMPHATICS: No lymph nodes palpable in the axilla and neck INVESTIGATIONS, reviewed in the clinical context: November 23: White count 9.5 hemoglobin 9.5 platelets with 36 potassium 3.5 BUN 26 creatinine 0.69 Troponin I 0.014 Chest x-ray film personally reviewed by me-portable. Underpenetrated. Questionable fluid overload Telemetry strip personally reviewed by me: Normal sinus rhythm From last admission: November 17: White count 5.9 hemoglobin 9.5 platelets 189 potassium 4.1 creatinine 0.67 White count 6.6 hemoglobin 9.6 platelets 187 potassium 3.8 creatinine 0.80 albumin 2.8 Chest x-ray film personally reviewed by me-no infiltrates 2-D echo: EF 55-60%. EEG: Negative for epilepsy. Encephalopathic findings CT brain: Cerebral atrophy Assessment and plan: -Acute on chronic congestive heart failure from diastolic dysfunction EF 55-60%: Possibly precipitated by uncontrolled blood pressure IV Lasix 40 mg every 12 -Recent Out of hospital cardiopulmonary arrest with cardiopulmonary resuscitation. Downtime of about 20 minutes. No evidence of PE. Possible pneumonia. -Chronic dysphagia, chronically on pureedDiet and honey thick liquid All feeding with assistance -Cerebral palsy with intellectual disability Dysarthric -Chronic medical debility from cerebral palsy Nonambulatory -Chronic bilateral foot drop -Primary osteoarthritis Use. Medications as needed -Coronary artery disease Coreg 12.5 twice a day, Lipitor -Essential hypertension: Accelerated Coreg 12.5 mg by mouth twice a day Cozaar 50 mg a day -Asthma Albuterol 4 times a day -Chronic dysarthria -Depression On Lexapro. Xanax when necessary -DO NOT RESUSCITATE Patient admitted to ICU. Started on IV Lasix. Cozaar added. Other home medications resumed. Continue with pured diet with honey thick liquid. Supervise. Aspiration precautions. Discussed with Dr. Cabrera. Advanced care planning: Spent quite some time talking with the patient about the CODE STATUS. Explaining to her that we'll continue to treat her. In case her lungs don't wor k or shutdown/cardiac arrest which she had recently. Patient did express she does not want to go on the machine/ventilator or resuscitated. Did try to reach her brother in [place] who went into voicemsil. About 20 minutes was spent for this Past Medical History Past Medical History: Asthma, Coronary Artery Disease (CAD), Heart Failure, COPD, GERD/Reflux, Hyperlipidemia, Hypertension, Osteoarthritis (OA), Pneumonia Additional Past Medical History / Comment(s): mild intellectual disability, cerebral palsy, kypho scoliosis, colitis, DJD, hernia History of Any Multi-Drug Resistant Organisms: None Reported Past Surgical History: Cholecystectomy, Orthopedic Surgery Additional Past Surgical History / Comment(s): (L) hip reduction Past Anesthesia/Blood Transfusion Reactions: No Reported Reaction Past Psychological History: Anxiety, Depression Smoking Status: Never smoker Past Alcohol Use History: None Reported Past Drug Use History: None Reported - Past Family History Father History Unknown: Yes Mother History Unknown: Yes Medications and Allergies Home Medications Medication Instructions Recorded Confirmed Type Acetaminophen Tab [Tylenol] 650 mg PO Q8H PRN 03/12/21 11/22/21 History Alendronate Sodium [Fosamax] 35 mg PO WE@0803/12/21 11/22/21 History Atorvastatin [Lipitor] 40 mg PO HS@199903/12/21 11/22/21 History Bismuth Subsalicylate [Kaopectate] 1 dose PO DIRECTED PRN 03/12/21 11/22/21 History Calcium Polycarbophil [Fiber-Lax] 625 mg PO DAILY@99903/12/21 11/22/21 History Carvedilol [Coreg] 12.5 mg PO BID@999,199903/12/21 11/22/21 History Clopidogrel [Plavix] 75 mg PO DAILY@0803/12/21 11/22/21 History Colloidal Oatmeal [Eucerin Eczema 1 applic TOPICAL QID PRN 03/12/21 11/22/21 History Relief] Isosorbide Mononitrate ER [Imdur] 60 mg PO DAILY@0803/12/21 11/22/21 History Lactulose [Constulose] 20 gm PO DAILY@0803/12/21 11/22/21 History amLODIPine [Norvasc] 5 mg PO HS@199903/12/21 11/22/21 History lamoTRIgine [LaMICtal] 50 mg PO DAILY@79903/12/21 11/22/21 History Toothette Oral Care 1 applic DENTAL BID@799,1999 PRN 04/24/21 11/22/21 History Albuterol Sulfate [Ventolin HFA] 2 puff INHALATION RT-Q4H PRN 11/12/21 11/22/21 History Cholecalciferol [Vitamin D3 (25 50 mcg PO DAILY 11/12/21 11/22/21 History Mcg = 1000 Iu)] Ciclopirox 0.77% Cream 1 applic TOPICAL BID PRN 11/12/21 11/22/21 History Coppertone Sport 1 applic TOPICAL DIRECTED PRN 11/12/21 11/22/21 History Escitalopram [Lexapro] 20 mg PO DAILY@0811/12/21 11/22/21 History Furosemide [Lasix] 40 mg PO DAILY@99911/12/21 11/22/21 History Menthol [Biofreeze] 1 applic TOPICAL QID PRN 11/12/21 11/22/21 History Menthol-Zinc Oxide Oint 1 applic TOPICAL DIRECTED PRN 11/12/21 11/22/21 History [Calmoseptine Oint] Pyridoxine HCl (Vitamin B6) 100 mg PO DAILY@0800 11/12/21 11/22/21 History [Vitamin B-6] lamoTRIgine [LaMICtal] 100 mg PO HS@199911/12/21 11/22/21 History ALPRAZolam [Xanax] 0.25 mg PO BID PRN #6 tab 11/22/21 11/22/21 Rx Albuterol Nebulized [Ventolin 2.5 mg INHALATION RT-QID ml 11/22/21 11/22/21 Rx Nebulized] predniSONE See Taper PO DAILY 11/22/21 11/22/21 History traMADol-ACETAMINOP 37.5-325MG 1 tab PO Q6H PRN #12 tab 11/22/21 11/22/21 Rx [Ultracet] Allergies Allergy/AdvReac Type Severity Reaction Status Date / Time ipratropium Allergy Unknown Verified 11/22/21 22:35 naproxen [From Aleve] Allergy Unknown Verified 11/22/21 22:35 Penicillins Allergy Unknown Verified 11/22/21 22:35 rofecoxib [From Vioxx] Allergy Unknown Verified 11/22/21 22:35 Sulfa (Sulfonamide Allergy Unknown Verified 11/22/21 22:35 Antibiotics) Physical Exam Vitals: Vital Signs Temp Pulse Resp BP Pulse Ox 11/23/21 09:00 64 18 157/81 94 L 11/23/21 08:30 65 16 130/60 94 L 11/23/21 08:00 69 18 117/56 95 11/23/21 07:30 56 L 14 143/78 98 11/23/21 07:00 61 15 136/62 96 11/23/21 06:30 59 L 16 129/62 97 11/23/21 06:00 58 L 18 128/60 98 11/23/21 05:30 56 L 10 L 132/63 98 11/23/21 05:00 66 15 137/81 97 11/23/21 04:30 64 25 H 145/73 97 11/23/21 04:00 97.5 F L 66 20 155/80 96 11/23/21 03:32 69 18 97 11/23/21 03:00 74 26 H 143/93 11/23/21 02:30 64 18 154/88 11/23/21 02:00 67 24 154/88 11/23/21 01:30 69 17 148/83 11/23/21 01:00 73 28 H 172/84 95 11/23/21 00:00 73 22 173/89 84 L 11/22/21 23:00 59 L 16 152/100 96 11/22/21 22:12 99 F 67 26 H 173/90 98 Intake and Output 11/22/21 11/23/21 11/23/21 22:59 06:59 14:59 Intake Total 30.8 50 Output Total 400 900 Balance -369.2 -850 Intake: Intake, IV Titration 30.8 Amount Nitroglycerin-D5w Pmx 50 30.8 mg In Dextrose/Water 1 250ml.bag @ 20 MCG/MIN 6 mls/hr IV .Q24H ONE Rx#: [id number] Oral 50 Output: Urine 400 900 Other: Voiding Method Incontinent Incontinent External Catheter External Catheter # Voids 1 1 Weight 48.5 kg Results CBC & Chem 7: 11/23/21 05:31 11/23/21 05:31 Labs: Abnormal Lab Results - Last 24 Hours (Table) 11/22/21 11/22/21 11/23/21 Range/Units 23:20 23:20 01:15 RBC 3.26 L (3.80-5.40) m/uL Hgb 10.0 L (11.4-16.0) gm/dL Hct 31.6 L (34.0-46.0) % Plt Count 499 H (150-450) k/uL Carbon Dioxide 39 H (22-30) mmol/L BUN 30 H (7-17) mg/dL Glucose 108 H (74-99) mg/dL POC Glucose (mg/dL) (75-99) mg/dL Total Protein 5.9 L (6.3-8.2) g/dL Albumin 3.3 L (3.5-5.0) g/dL Urine Blood Trace H (Negative) Urine Bacteria Rare H (None) /hpf Urine Mucus Rare H (None) /hpf 11/23/21 11/23/21 11/23/21 Range/Units 03:28 05:31 05:31 RBC 3.05 L (3.80-5.40) m/uL Hgb 9.5 L (11.4-16.0) gm/dL Hct 29.7 L (34.0-46.0) % Plt Count (150-450) k/uL Carbon Dioxide 40 H (22-30) mmol/L BUN 26 H (7-17) mg/dL Glucose 109 H (74-99) mg/dL POC Glucose (mg/dL) 114 H (75-99) mg/dL Total Protein (6.3-8.2) g/dL Albumin (3.5-5.0) g/dL Urine Blood (Negative) Urine Bacteria (None) /hpf Urine Mucus (None) /hpf Thrombosis Risk Factor Assmnt - Choose All That Apply Each Factor Represents 1 point: Abnormal pulmonary function (COPD), Heart failure (<1month), Medical pt on bed rest, Obesity (BMI >25), Serious lung disease incl. pneumonia (< 1month) Each Risk Factor Represents 3 Points: Age 75 years or older Other congenital or acquired thrombophilia - If yes, enter type in comment: No Thrombosis Risk Factor Assessment Total Risk Factor Score: 8 Thrombosis Risk Factor Assessment Level: High Risk
[2021-11-23] MEDS: ALBUTEROL NEBULIZED 2.5 MG/3 ML INHALATION SCH ×2 (16:15→20:24)
[2021-11-23] MEDS ORDERED: amLODIPine 5 MG TAB PO SCH (20:00)
[2021-11-23] MEDS ORDERED: lamoTRIgine 100 MG TAB PO SCH (20:00)
[2021-11-23] MEDS ORDERED: ATORVASTATIN 40 MG TAB PO SCH (20:00)
[2021-11-24] MEDS: POTASSIUM CHLORIDE ER 20 MEQ TAB.ER PO SCH (03:58)
[2021-11-24] MEDS: PANTOPRAZOLE 40 MG TABLET PO SCH (06:12)
--- NOTE | 2021-11-24 07:28 | P.PN ---
Subjective Progress Note Date: 11/24/21 PROGRESS NOTE The patient presented to the hospital yesterday with symptoms of progressive dyspnea. She was hypertensive on presentation. She is doing better today. She denies any dyspnea. Her blood pressures under good control and she continues to be in sinus mechanism. She has a history of cerebral palsy and kyphoscoliosis. Her urine output is stable and she continues to be on IV Lasix. She continues to be otherwise on Norvasc 5 mg daily, Lipitor 40 mg daily, Coreg 12-1/2 mg twice a day, Plavix 75 mg daily, Lasix 40 mg IV every 12 hours, isosorbide mononitrate 60 mg daily, losartan 50 mg daily. PHYSICAL EXAMINATION: Blood pressure blood pressure running in 117 to 130 heart rate 60s LUNGS: [Clear to auscultation] HEART: [Regular rate and rhythm, S1, S2. No S3. systolic ejection murmur] ABDOMEN: [Soft, nontender, no organomegaly] EXTREMETIES: [No edema] LAB: Potassium 3.3 IMPRESSION: 1. CHF was preserved systolic function, stable 2. Hypertension stable 3. Cerebral palsy 4. Kyphoscoliosis PLAN: 1. Change to oral diuretics 2. Increase physical activity 3. Probable discharge home today Objective - Vital Signs Vital signs: Vital Signs Temp 97.7 F 11/24/21 01:23 Pulse 56 L 11/24/21 01:23 Resp 20 11/24/21 01:23 BP 100/57 11/24/21 01:23 Pulse Ox 93 L 11/24/21 01:23 Intake & Output 11/23/21 11/24/21 11/24/21 18:59 06:59 18:59 Intake Total 50 Output Total 1500 250 Balance -1450 -250 Weight 48.5 kg 43.5 kg Intake: Oral 50 Output: Urine 1500 250 Other: Voiding Method Incontinent Bedpan External Catheter # Voids 4 2 # Bowel Movements 1 1 - Labs CBC & Chem 7: 11/23/21 05:31 11/24/21 00:47 Labs: Abnormal Lab Results - Last 24 Hours (Table) 11/24/21 Range/Units 00:47 Potassium 3.3 L (3.5-5.1) mmol/L
[2021-11-24] MEDS: ALBUTEROL NEBULIZED 2.5 MG/3 ML INHALATION SCH ×3 (07:47→16:22)
[2021-11-24 07:50] LABS: Basophils % (A) 0 %; Eosinophils # (A) 0.5 k/uL (0-0.7); Eosinophils % (A) 5 %; HCT 36.3 % (34.0-46.0); HGB 11.2 gm/dL (11.4-16.0); Hypochromasia Slight; Lymphocytes # (A) 1.1 k/uL (1.0-4.8); Lymphocytes % (A) 11 %; MCH 29.9 pg (25.0-35.0); MCHC 30.8 g/dL (31.0-37.0); MCV 97.1 fL (80.0-100.0); Mean Platelet Volume 7.4; Monocytes # (A) 0.5 k/uL (0-1.0); Monocytes % (A) 5 %; Neutrophils # (A) 7.5 k/uL (1.3-7.7); Neutrophils % (A) 78 %; Platelet Count 442 k/uL (150-450); RBC 3.74 m/uL (3.80-5.40); WBC 9.6 k/uL (3.8-10.6)
[2021-11-24] MEDS ORDERED: ESCITALOPRAM 20 MG TAB PO SCH (08:00)
[2021-11-24] MEDS ORDERED: lamoTRIgine 25 MG TAB PO SCH (08:00)
[2021-11-24] MEDS ORDERED: LACTULOSE 20 GM/30 ML CUP PO SCH (08:00)
[2021-11-24] MEDS ORDERED: PYRIDOXINE 50 MG TAB PO SCH (08:00)
[2021-11-24 08:02] LABS: African American GFR (CKD) >90 (>60 ml/min/1.73 sqM); Blood Urea Nitrogen 23 mg/dL (7-17); Calcium 8.4 mg/dL (8.4-10.2); Chloride 97 mmol/L (98-107); Glucose 108 mg/dL (74-99); Non-African American GFR(CKD) 81 (>60 ml/min/1.73 sqM); Potassium 3.9 mmol/L (3.5-5.1); Sodium 138 mmol/L (137-145)
[2021-11-24 08:08] LABS: Anion Gap 2 mmol/L
[2021-11-24 08:13] LABS: Carbon Dioxide 39 mmol/L (22-30)
[2021-11-24] MEDS: ENOXAPARIN 40 MG/0.4 ML SYRINGE SQ SCH (08:54)
[2021-11-24] MEDS: ACETAMINOPHEN TAB 325 MG TAB PO PRN (08:56)
[2021-11-24] MEDS: ISOSORBIDE MONONITRATE ER 60 MG TAB.ER.24H PO SCH (08:57)
[2021-11-24] MEDS: LOSARTAN 50 MG TAB PO SCH (08:58)
[2021-11-24] MEDS: SODIUM CHLORIDE 0.9% 1,000 ML IV SCH (08:58)
[2021-11-24] MEDS: CLOPIDOGREL 75 MG TAB PO SCH (08:58)
[2021-11-24] MEDS ORDERED: FUROSEMIDE 40 MG TAB PO SCH (09:00)
[2021-11-24] MEDS ORDERED: POTASSIUM CHLORIDE ER 20 MEQ TAB.ER PO SCH (09:00)
[2021-11-24] MEDS ORDERED: CHOLECALCIFEROL 25 MCG (1000 IU) TABLET PO SCH (09:00)
[2021-11-24 10:00] VITALS: TEMP 98
--- NOTE | 2021-11-24 10:25 | P.PN ---
Subjective Progress Note Date: 11/24/21 Principal diagnosis: Acute on chronic hypoxic respiratory failure, multifactorial This is an 80-year-old white female with history of multiple medical problems, patient was admitted to the hospital initially on 11/12/2021, and she was in the hospital until yesterday. Her initial presentation back then was a presentation of cardiac arrest, patient had a cardiac arrest supposedly at the adult [facility] assisted and she had CPR that lasted for 20 minutes. Patient was admitted back then and shortly after she was admitted, there was a rapid response team call on this patient, patient required intubation and she was treated by Dr. Mancia in the ICU. Chest x-ray at that time showed diffuse bilateral infiltrates. Patient was eventually extubated and we discharged the patient to assisted yesterday. Patient was brought back to the ER last night, and apparently she was developing more shortness of breath. In the ER she was noted to have elevated blood pressure of 170 systolic, hence the patient was placed on nitroglycerin drip. She was noted to have elevated BNP level, and a chest x-ray suggestive of pulmonary edema. Patient was diuresed. Admitted to the ICU, and I saw her this morning. She was already seen by cardiology, she was placed on oral medications for elevated blood pressure. Patient is now on 2 L nasal cannula, and she does not seem to be in any distress, is asking to be sent home. Her troponins were negative. And I plan to transfer the patient to a cardiac floor or possibly a regular floor with telemetry. Chest x-ray did suggest evidence of mild interstitial edema. However the chest x-ray considering the patient's body habitus is suboptimal. Patient is known to have history of severe kyphoscoliosis. Cerebral palsy, and mild intellectual disability. Her congestive heart failure is considered acute diastolic congestive heart failure, considering her blood pressure was not significantly elevated, I strongly doubt hypertensive emergency or urgency. Reevaluated today on 11/24/2021, patient remains in the ICU as an overflow. She seems to be doing great. Relatively asymptomatic, remains on few liters nasal cannula, does not seem to be in any distress. CBC is relatively normal electrolytes are normal renal profile is normal BNP level is just over 1900. Patient is back on her usual medications, she is comfortable, she is not in distress. Objective - Vital Signs Vital signs: Vital Signs Temp 98.0 F 11/24/21 08:00 Pulse 75 11/24/21 08:47 Resp 20 11/24/21 08:00 BP 121/59 11/24/21 08:00 Pulse Ox 97 11/24/21 08:00 Intake & Output 11/23/21 11/24/21 11/24/21 18:59 06:59 18:59 Intake Total 50 Output Total 1500 250 Balance -1450 -250 Weight 48.5 kg 43.5 kg Intake: Oral 50 Output: Urine 1500 250 Other: Voiding Method Incontinent Bedpan Bedpan External Catheter # Voids 4 2 # Bowel Movements 1 1 - Exam GENERAL EXAM: 80-year-old female , in no distress, on 2 L nasal cannula. HEAD: Normocephalic/atraumatic. EENT: PERRLA, EOMI, anicteric, no neck masses, no JVD, no stridor. CHEST: Evidence of chest wall deformity secondary to scoliosis. LUNGS: Diminished breaths on to the bases no crackles or rhonchi or wheezes CVS: Regular rate and rhythm, normal S1 and S2, no gallops, no murmurs, no rubs ABDOMEN: Soft, nontender. No hepatosplenomegaly, normal bowel sounds, no guarding or rigidity. EXTREMITIES: Flexion contractures noted bilaterally. MUSCULOSKELETAL: Evidence of flexion contractures noted bilaterally. SPINE: Severe scoliosis is noted. SKIN: No rashes CENTRAL NERVOUS SYSTEM: Alert. Patient is unable to move her lower extremities, bilateral lower extremities are weak, and atrophied related to her history of cerebral palsy. - Labs CBC & Chem 7: 11/24/21 07:33 11/24/21 07:33 Labs: Abnormal Lab Results - Last 24 Hours (Table) 11/24/21 11/24/21 11/24/21 Range/Units 00:47 07:33 07:33 RBC 3.74 L (3.80-5.40) m/uL Hgb 11.2 L (11.4-16.0) gm/dL MCHC 30.8 L (31.0-37.0) g/dL Potassium 3.3 L (3.5-5.1) mmol/L Chloride 97 L (98-107) mmol/L Carbon Dioxide 39 H (22-30) mmol/L BUN 23 H (7-17) mg/dL Glucose 108 H (74-99) mg/dL Assessment and Plan Assessment: Impression: Acute on chronic hypoxic respiratory failure Acute diastolic congestive heart failure Benign essential hypertension, poorly controlled. History of recent cardiac arrest requiring intubation and mechanical ventilation as well as CPR History of cerebral palsy. History of aspiration pneumonia Dyslipidemia Severe kyphoscoliosis. Flexion contractures related to cerebral palsy History of GERD History of osteomyelitis Generalized anxiety disorder Recommendation: Continue diuretics Continue oxygen and titrate accordingly Continue aspiration precautions consumer services consultant to evaluate for placement We will continue to follow. Continue GI and DVT prophylaxis. Time with Patient: Less than 30
[2021-11-24] MEDS: carvediloL 12.5 MG TAB PO SCH (10:45)
[2021-11-24 15:55] VITALS: BP 104/50; PULSE 60; RESP 16
--- NOTE | 2021-11-24 16:39 | P.DS ---
Providers Date of admission: 11/23/21 00:55 Expected date of discharge: 11/24/21 Attending physician: Merrill Saldana Consults: 11/23/21 00:55 Consult Physician Routine Consulting Provider: Alan El Consult Reason/Comments: CHF exacerbation Do you want consulting provider notified?: Yes 11/23/21 02:11 Consult Physician Routine Consulting Provider: Yessica Cabrera Reason/Comments: Hypertensive emergency/CHF Do you want consulting provider notified?: Already Contacted Primary care physician: [facility] Course: Chief Complaint: High blood pressure History of presenting complaint: This is a 80-year-old patient, who follows with visiting physicians Dr. Lewis. Chronic history includes coronary artery disease, COPD, GERD, hyperlipidemia, hypertension, osteoarthritis, cerebral palsy kyphoscoliosis, non-ambulatory. At her baseline she is not able to speak follows simple commands. She needs help with feeding.. At the baseline has pured diet with honey thickened liquids. Patient was in the hospital from November 11 and discharged yesterday on November 22. brought into the emergency room, on November 11, unresponsive, and/or with a cardiac arrest. It's not clear from reviewing the ER javed whether or not the patient did or did not have a pulse. Apparently she had CPR provided to her [facility] Apparently that CPR lasted for 20 minutes. No medications were given. An AED was applied but no shocks were given. The patient apparently was further evaluated and resuscitated in the emergency department, and admitted to 3 S., room 372. Patient went into respiratory distress, and required intubation. Admitted with out of hospital cardiopulmonary arrest with resuscitation for 20 minutes and return of spontaneous circulation. PE was ruled out. Patient was intubated. Patient was seen by speech therapy. Patient has chronic intermittent aspiration. Oxygen was slowly brought down. Patient finished a course of antibiotic. Seen by speech therapy. Continue with pured diet with honey thickened liquid. Aspiration precautions. Feeding with assistance. We tried to address the CODE STATUS with the patient. Also spoke to family in [place]. Present time patient is to continue to be full code. Patient also received IV Lasix for CHF exacerbation. Antibiotics were discontinued. Discharged on prednisone taper. Remains some shortness of breath at baseline. Patient is brought back to the ER early hours of this morning by EMS from [facility]. Patient had been complaining of some chest pain. The pain was not new. She said. She was transported pack year. Initial blood patient the ER was 173/90. Respirations rate of 26. Some concern of fluid overload given 1 dose of IV Lasix. As patient is full code admitted to the ICU. Admitted with hypertensive urgency and acute CHF. Lea added. IV Lasix. Admitted to ICU. November 24: CODE STATUS was discussed with the patient yesterday. Wants to be DO NOT RESUSCITATE. Does not want ventilator. No chest compressions. Doing much better today. Patient is accepted back at the half-way. Cleared by pulmonary and cardiology. Discussion and discharge planning more than 35 minutes Past medical history to include: Asthma, ?CAD, CHF, GERD, hyperlipidemia, hypertension, osteomyelitis, cerebral palsy with intellectual disability, kyphoscoliosis, anxiety Social history: Nonambulatory. Needs help with feeding. Has caregivers Family history: Patient cannot tell Physical examination: VITAL SIGNS: Febrile, 60, 18, 104/50, 98% on 2 L GENERAL: , reclining in bed, awake EYES: Pupils equal. Conjunctiva normal. HEENT: External appearance of nose and ears normal, oral cavity: Enlarged tongue, with bruising on the sites from last admission. NECK: JVD not raised; masses not palpable. HEART: First and second heart sounds are normal; no edema. LUNGS: Respiratory rate increased; decreased breath sounds. ABDOMEN: Soft, nontender, liver spleen not palpable, no masses palpable. PSYCH: [Alert and oriented x3; mood and affect anxious l. MUSCULOSKELETAL:No Clubbing/cyanosis;muscles-grossly intact. Contractures of limbs. NEUROLOGICAL: Cranial nerves grossly intact; no facial asymmetry, power and sensation grossly intact. Dysarthric. INVESTIGATIONS, reviewed in the clinical context: November 24: White count 9.6 hemoglobin 11.2 platelets 442 potassium 3.9 creatinine 0.71 proBNP 1941 November 23: White count 9.5 hemoglobin 9.5 platelets with 36 potassium 3.5 BUN 26 creatinine 0.69 Troponin I 0.014 Chest x-ray film personally reviewed by me-portable. Underpenetrated. Questionable fluid overload Telemetry strip personally reviewed by me: Normal sinus rhythm From last admission: November 17: White count 5.9 hemoglobin 9.5 platelets 189 potassium 4.1 creatinine 0.67 White count 6.6 hemoglobin 9.6 platelets 187 potassium 3.8 creatinine 0.80 albumin 2.8 Chest x-ray film personally reviewed by me-no infiltrates 2-D echo: EF 55-60%. EEG: Negative for epilepsy. Encephalopathic findings CT brain: Cerebral atrophy Assessment and plan: -Acute on chronic congestive heart failure from diastolic dysfunction EF 55-60%: Possibly precipitated by uncontrolled blood pressure IV Lasix 40 mg every 12. Changed over to oral Lasix -Recent Out of hospital cardiopulmonary arrest with cardiopulmonary resuscita tion. Downtime of about 20 minutes. No evidence of PE. Possible pneumonia. -Chronic dysphagia, chronically on pureedDiet and honey thick liquid All feeding with assistance -Cerebral palsy with intellectual disability Dysarthric -Chronic medical debility from cerebral palsy Nonambulatory -Chronic bilateral foot drop -Primary osteoarthritis Use. Medications as needed -Coronary artery disease Coreg 12.5 twice a day, Lipitor -Essential hypertension: Better controlled Coreg 12.5 mg by mouth twice a day Cozaar 50 mg a day -Asthma Albuterol 4 times a day -Chronic dysarthria -Depression On Lexapro. Xanax when necessary -DO NOT RESUSCITATE Disposition: [facility] Plan - Discharge Summary Discharge Rx Participant: No New Discharge Prescriptions: New Losartan [Cozaar] 50 mg PO DAILY #30 tab Potassium Chloride ER [K-Dur 20] 20 meq PO DAILY #30 tablet Continue Bismuth Subsalicylate [Kaopectate] 1 dose PO DIRECTED PRN PRN Reason: Heartburn Lactulose [Constulose] 20 gm PO DAILY@0800 Clopidogrel [Plavix] 75 mg PO DAILY@0800 Toothette Oral Care 1 applic DENTAL BID@0800,1999 PRN PRN Reason: ORAL CARE Menthol-Zinc Oxide Oint [Calmoseptine Oint] 1 applic TOPICAL DIRECTED PRN PRN Reason: DRY/IRRITATED SKIN Menthol [Biofreeze] 1 applic TOPICAL QID PRN PRN Reason: Pain Pyridoxine HCl (Vitamin B6) [Vitamin B-6] 100 mg PO DAILY@0800 Cholecalciferol [Vitamin D3 (25 Mcg = 1000 Iu)] 50 mcg PO DAILY lamoTRIgine [LaMICtal] 100 mg PO HS@2000 Furosemide [Lasix] 40 mg PO DAILY@1000 Escitalopram [Lexapro] 20 mg PO DAILY@0800 Acetaminophen Tab [Tylenol] 650 mg PO Q8H PRN PRN Reason: Pain Or Fever > 100.5 lamoTRIgine [LaMICtal] 50 mg PO DAILY@08 Isosorbide Mononitrate ER [Imdur] 60 mg PO DAILY@799 Calcium Polycarbophil [Fiber-Lax] 625 mg PO DAILY@999 Colloidal Oatmeal [Eucerin Eczema Relief] 1 applic TOPICAL QID PRN PRN Reason: Dry Skin amLODIPine [Norvasc] 5 mg PO HS@1999 Carvedilol [Coreg] 12.5 mg PO BID@999,1999 Atorvastatin [Lipitor] 40 mg PO HS@1999 Alendronate Sodium [Fosamax] 35 mg PO WE@799 Albuterol Sulfate [Ventolin HFA] 2 puff INHALATION RT-Q4H PRN PRN Reason: Shortness Of Breath Coppertone Sport 1 applic TOPICAL DIRECTED PRN PRN Reason: Sun Exposure Ciclopirox 0.77% Cream 1 applic TOPICAL BID PRN PRN Reason: Rash Albuterol Nebulized [Ventolin Nebulized] 2.5 mg INHALATION RT-QID ml traMADol-ACETAMINOP 37.5-325MG [Ultracet] 1 tab PO Q6H PRN #12 tab PRN Reason: Pain ALPRAZolam [Xanax] 0.25 mg PO BID PRN #6 tab PRN Reason: Anxiety Discontinued predniSONE See Taper PO DAILY Discharge Medication List Acetaminophen Tab [Tylenol] 650 mg PO Q8H PRN 03/12/21 [History] Alendronate Sodium [Fosamax] 35 mg PO WE@79903/12/21 [History] Atorvastatin [Lipitor] 40 mg PO HS@199903/12/21 [History] Bismuth Subsalicylate [Kaopectate] 1 dose PO DIRECTED PRN 03/12/21 [History] Calcium Polycarbophil [Fiber-Lax] 625 mg PO DAILY@99903/12/21 [History] Carvedilol [Coreg] 12.5 mg PO BID@999,199903/12/21 [History] Clopidogrel [Plavix] 75 mg PO DAILY@79903/12/21 [History] Colloidal Oatmeal [Eucerin Eczema Relief] 1 applic TOPICAL QID PRN 03/12/21 [History] Isosorbide Mononitrate ER [Imdur] 60 mg PO DAILY@79903/12/21 [History] Lactulose [Constulose] 20 gm PO DAILY@79903/12/21 [History] amLODIPine [Norvasc] 5 mg PO HS@199903/12/21 [History] lamoTRIgine [LaMICtal] 50 mg PO DAILY@79903/12/21 [History] Toothette Oral Care 1 applic DENTAL BID@ PRN 04/24/21 [History] Albuterol Sulfate [Ventolin HFA] 2 puff INHALATION RT-Q4H PRN 11/12/21 [History] Cholecalciferol [Vitamin D3 (25 Mcg = 1000 Iu)] 50 mcg PO DAILY 11/12/21 [History] Ciclopirox 0.77% Cream 1 applic TOPICAL BID PRN 11/12/21 [History] Coppertone Sport 1 applic TOPICAL DIRECTED PRN 11/12/21 [History] Escitalopram [Lexapro] 20 mg PO DAILY@79911/12/21 [History] Furosemide [Lasix] 40 mg PO DAILY@99911/12/21 [History] Menthol [Biofreeze] 1 applic TOPICAL QID PRN 11/12/21 [History] Menthol-Zinc Oxide Oint [Calmoseptine Oint] 1 applic TOPICAL DIRECTED PRN 11/12/21 [History] Pyridoxine HCl (Vitamin B6) [Vitamin B-6] 100 mg PO DAILY@79911/12/21 [History] lamoTRIgine [LaMICtal] 100 mg PO HS@199911/12/21 [History] ALPRAZolam [Xanax] 0.25 mg PO BID PRN #6 tab 11/22/21 [Rx] Albuterol Nebulized [Ventolin Nebulized] 2.5 mg INHALATION RT-QID ml 11/22/21 [Rx] traMADol-ACETAMINOP 37.5-325MG [Ultracet] 1 tab PO Q6H PRN #12 tab 11/22/21 [Rx] Losartan [Cozaar] 50 mg PO DAILY #30 tab 11/24/21 [Rx] Potassium Chloride ER [K-Dur 20] 20 meq PO DAILY #30 tablet 11/24/21 [Rx] Follow up Appointment(s)/Referral(s): Yessica Cabrera MD [STAFF PHYSICIAN] - 2 Weeks Robin Mendoza MD [Primary Care Provider] - 1-2 days Patient Instructions/Handouts: Heart Failure (DC), Chronic Hypertension (DC) Activity/Diet/Wound Care/Special Instructions: DNR
== END 2021-11-24 16:43 | DRG 291 ==
LOC: EC 21:45 → 2SICU 11-23 00:55
PROVIDERS: ADMIT Hospitalist; ATTEND Hospitalist
DX: I11.0 Hypertensive heart disease with heart failure (principal); I50.33 Acute on chronic diastolic (congestive) heart failure; J96.21 Acute and chronic respiratory failure with hypoxia; J18.9 Pneumonia, unspecified organism; I16.1 Hypertensive emergency; E78.5 Hyperlipidemia, unspecified; F32.A Depression, unspecified; F41.1 Generalized anxiety disorder; F70 Mild intellectual disabilities; G80.9 Cerebral palsy, unspecified; I25.10 Atherosclerotic heart disease of native coronary artery without angina pectoris; J44.9 Chronic obstructive pulmonary disease, unspecified; K21.9 Gastro-esophageal reflux disease without esophagitis; M19.91 Primary osteoarthritis, unspecified site; M21.371 Foot drop, right foot; M21.372 Foot drop, left foot; M41.9 Scoliosis, unspecified; R13.10 Dysphagia, unspecified; Z66 Do not resuscitate; Z79.02 Long term (current) use of antithrombotics/antiplatelets; Z79.83 Long term (current) use of bisphosphonates; Z79.899 Other long term (current) drug therapy; Z87.01 Personal history of pneumonia (recurrent); Z86.74 Personal history of sudden cardiac arrest
CPT/HCPCS: 36415; 71045; 80048; 80053; 81001; 82550; 82553; 83605; 83735; 83880; 84132; 84484; 85025; 85027; 87635; 94640; 96374; 99285